=== PATIENT | female | born 1990 | race Caucasian/White ===

== ENCOUNTER 2023-12-05 10:00 | Emergency (ER) | payer MEDICAID, SELFPAY ==
[2023-12-05 10:11] VITALS: BP 111/88; PULSE 81; RESP 20; TEMP 36.2; O2SAT 100; BMI 30.6
[2023-12-05 10:35] LABS: MANUAL DIFF FLAG NO
[2023-12-05 10:42] LABS: Basophils Percent Auto 0.3 % (0-2); Eosinophils Percent Auto 0.4 % (0-4); Hematocrit 42.1 % (37.0-47.0); Hemoglobin 14.8 g/dl (12.0-16.0); Imm Gran Abs Auto 0.07 X10*3/uL (0.00-0.03); Imm Gran Pct Auto 0.8 % (0.0-0.4); Lymphocytes Absolute Auto 2.3 X10*3/uL (1.2-4.9); Lymphocytes Percent Auto 24.7 % (20-40); Mean Corpuscular HGB Conc 35.2 g/dl (31.0-35.0); Mean Corpuscular Hemoglobin 29.1 pg (27.0-33.0); Mean Corpuscular Volume 82.7 fL (80.0-98.0); Mean Platelet Volume 9.9 fL (9.4-12.3); Monocytes Absolute Auto 0.6 X10*3/uL (0.1-1.2); Neutrophils Absolute Auto 6.3 x10*3/uL (2.0-8.3); Neutrophils Percent Auto 67.8 % (45-73); Platelet Count 340 X10*3/uL (160-400); Red Blood Count 5.09 X10*6/uL (4.20-5.50); Red Cell Distribution Width 14.7 % (11.0-16.0); White Blood Count 9.3 X10*3/uL (4.8-10.8)
[2023-12-05 10:58] LABS: Alanine Aminotransferase 23 U/L (0-31); Albumin Level 4.4 g/dL (3.5-5.0); Alkaline Phosphatase 97 U/L (39-117); Anion Gap 18 (12-20); Aspartate Amino Transferase 20 U/L (5-31); Bilirubin Total 0.4 mg/dL (0.0-1.0); Blood Urea Nitrogen 8 mg/dL (9-16); Calcium 9.5 mg/dL (8.4-10.2); Carbon Dioxide 19 mmol/L (22-29); Chloride 109 mmol/L (96-108); Creatinine Clr Calc Pharmacy 107.5; Estimated Glomerular Filt Rate > 60; Glucose Random 99 mg/dL (60-115); HCG Quantitative < 2 mIU/mL; Lipase 34 U/L (8-78); Potassium 3.7 mmol/L (3.3-5.1); Sodium 142 mmol/L (135-145); Total Protein 7.8 g/dL (6.5-8.0)
[2023-12-05 11:15] LABS: Influenza A PCR NEGATIVE (Negative); Influenza B PCR NEGATIVE (Negative); Resp Syncy Virus RNA Qual PCR NEGATIVE (Negative); SARS COV2 PCR INHOUSE NEGATIVE (Negative)
--- NOTE | 2023-12-05 11:29 | PC.NURSE ---
pt left waiting room to go to parking lot to smoke cigarette with .
--- NOTE | 2023-12-05 19:20 | PC.NURSE ---
pt still not in the waiting room at this time.
--- OUTSIDE RECORDS SUMMARY | 2023-12-05 19:42 | XMS_ITS | Continuity of Care Document ---
Author Organization [facility] Address [address] [place] [id number]- Care Team Providers Care Matcher Operator Name Role Phone Ciaran Pisano Primary Care Physician [place] [facility] [place] Date(s): 04/14/23 - 08/11/[address] [id number] Attending Physician: Vilma Zhang CNM Admitting Physician: Vilma Zhang CNM Allergies, Adverse Reactions, Alerts Substance Reaction Severity Status penicillin Swelling Active sulfADIAZINE Swelling Active shellfish throat swelling Active Bactrim Rash Active Peanuts Throat Swelling Active Seafood throart swelling Active Mushroom Throat swelling Active Estradiol Patch bleeding to patch area area Persistent Mild Active Lactose Active Immunizations Given and Recorded Vaccine Date Status Refusal Reason tetanus/diphtheria/pertussis, acel(Tdap) 05/09/23 Given tetanus/diphtheria/pertussis, acel(Tdap) 04/10/17 Given tetanus/diphtheria/pertussis, acel(Tdap) 12/09/13 Given influenza virus vaccine, inactivated 05/09/23 Give n influenza virus vaccine, inactivated 07/16/13 Give n Influenza Inactive (IM) (oldterm) 05/12/17 Given tetanus-diphtheria toxoids (Td) 1 09/07/10 Given 1Admin Note: vis given Medications acetaminophen 325 mg oral capsule 2 capsule = 650 mg, By Mouth, Every 4 hours, PRN as needed for pain, # 50 tablet, 0 Refills, Maintenance, 07/08/23 15:13:00 EST, Capsule, [id number], Partial fill upon patient request if the prescription is for a schedule II opioid drug., 142,... Start Date: 07/08/23 Status: Ordered acetaminophen 325 mg oral capsule 2 capsule = 650 mg, By Mouth, Every 4 hours, PRN as needed for pain, # 50 tablet, 0 Refills, Maintenance, 07/08/23 15:20:00 EST, Capsule, [facility] #[id number], Partial fill upon patient request if the prescription is for a schedule II opioid dr... Start Date: 07/08/23 Status: Ordered albuterol 0.083% inhalation solution 3 mL = 2.5 mg, Neb, Every 4 hours, PRN as needed for wheezing, # 100 each, 3 Refills, Maintenance, 12/14/22 23:08:00 EDT, Solution, [facility]/pharmacy #[id number], Partial fill upon patient request if the prescription is for a schedule II opioid drug., 148, cm, 0... Start Date: 12/14/22 Stop Date: 04/13/23 Status: Ordered albuterol CFC free 90 mcg/inh inhalation aerosol INHALE 2 PUFFS INTO THE LUNGS EVERY 4 (FOUR) HOURS NEEDED FOR SHORTNESS OF BREATH OR WHEEZING Start Date: 09/11/19 Status: Ordered cloNIDine 0.1 mg oral tablet 0.1 mg, 1, tablet, By Mouth, 2 times a day, PRN, Refills 0, Maintenance, Anxiety, 07/03/23 8:21:00 EST, Partial fill upon patient request if the prescription is for a schedule II opioid drug. Start Date: 07/03/23 Status: Ordered Colace sodium 100 mg oral capsule 100 mg, 1, capsule, By Mouth, 2 times a day, PRN, # 20 capsule, Refills 0, Tot. Refills 0, Maintenance, for constipation, 07/08/23 15:14:00 EST, Route to Pharmacy Electronically, [facility]/pharmacy #[id number], Partial fill upon patient request if the prescriptio... Start Date: 07/08/23 Status: Ordered Colace sodium 100 mg oral capsule 100 mg, 1, capsule, By Mouth, 2 times a day, PRN, # 20 capsule, Refills 0, Tot. Refills 0, Maintenance, for constipation, 07/08/23 15:20:00 EST, Route to Pharmacy Electronically, [facility]#[id number], Partial fill upon patient request if the pr... Start Date: 07/08/23 Status: Ordered ferrous gluconate 324 mg oral tablet 1 tablet = 324 mg, By Mouth, Daily, # 100 tablet, 0 Refills, Acute 05/16/24 13:53:00 EDT, 05/15/23 13:52:00 EDT, Tablet, [facility]/pharmacy #[id number], Partial fill upon patient request if the prescription is for a schedule II opioid drug., 147.32, cm, 05/12/23... Start Date: 05/15/23 Stop Date: 05/16/24 Status: Ordered ibuprofen 600 mg oral tablet 600 mg, 1, tablet, By Mouth, Every 6 hours, # 50 tablet, Refills 0, Tot. Refills 0, Maintenance, 07/08/23 15:13:00 EST, Route to Pharmacy Electronically, [facility]/pharmacy #[id number], Partial fill upon patientrequest if the prescription is for a schedule II op... Start Date: 07/08/23 Status: Ordered ibuprofen 600 mg oral tablet 600 mg, 1, tablet, By Mouth, Every 6 hours, # 50 tablet, Refills 0, Tot. Refills 0, Maintenance, 07/08/23 15:20:00 EST, Route to Pharmacy Electronically, [facility] #[id number], Partial fill upon patient request if the prescription is for a sched... Start Date: 07/08/23 Status: Ordered Latuda 20 mg oral tablet 1 tablet = 20 mg, By Mouth, Daily, # 30 tablet, 0 Refills, Maintenance, 01/19/23 10:08:00 EDT, Tablet, [facility]/pharmacy #[id number], Partial fill upon patient request if the prescription is for a schedule II opioid drug., 148, cm, 01/19/23 9:06:00 EDT, Height,... Start Date: 01/19/23 Status: Ordered M- Plus oral tablet 1 tablet, By Mouth, Daily, # 90 tablet, 3 Refills, Maintenance, 12/28/22 9:02:00 EDT, [id number], Partial fill upon patient request if the prescription is for a schedule II opioid drug., 1 tablet By Mouth Daily, 148, cm, 12/14/22 20:09:00 EDT,... Start Date: 12/28/22 Status: Ordered omeprazole 20 mg oral enteric coated capsule 1 capsule = 20 mg, By Mouth, 2 times a day, 30 min before a meal, # 60 capsule, 0 Refills, Maintenance, 04/14/23 19:04:00 EDT, [facility]/pharmacy #[id number], Partial fill upon patient request if the prescription is for a schedule II opioid drug., 148, cm, ... Start Date: 04/14/23 Status: Ordered ondansetron 4 mg oral tablet, disintegrating 1 tablet = 4 mg, By Mouth, Every 6 hours, PRN as needed for nausea/vomiting, # 30 tablet, 0 Refills, Maintenance, 04/10/23 18:51:00 EDT, DIS Tablet, [facility]/pharmacy #[id number], Partial fill upon patient request, 148, cm, 03/14/23 11:37:00 EDT, Height, 63.6, k... Start Date: 04/10/23 Status: Ordered oxyCODONE 5 mg oral tablet 10 mg, 2, tablet, By Mouth, Every 6 hours, PRN, # 12 tablet, Refills 0, Tot. Refills 0, Maintenance, for pain, 07/08/23 15:13:00 EST, Route to Pharmacy Electronically, [facility]/pharmacy #[id number], Partial fill upon patient request if the prescription is for a... Start Date: 07/08/23 Status: Ordered oxyCODONE 5 mg oral tablet 10 mg, 2, tablet, By Mouth, Every 6 hours, PRN, # 12 tablet, Refills 0, Tot. Refills 0, Maintenance, for pain, 07/08/23 15:20:00 EST, Route to Pharmacy Electronically, [facility] #[id number], Partial fill upon patient request if the prescription... Start Date: 07/08/23 Status: Ordered Sertraline By Mouth, Daily, 0 Refills, Maintenance, 01/19/23 9:07:00 EDT, Partial fill upon patient request ifthe prescription is for a schedule II opioid drug. Start Date: 01/19/23 Status: Ordered simethicone 125 mg oral tablet, chewable 1 tablet = 125 mg, Chew, 4 times a day, # 48 tablet, 0 Refills, Maintenance, 07/08/23 15:13:00 EST,Chew Tablet, [facility]/pharmacy #[id number], Partial fill upon patient request if the prescription is for a schedule II opioid drug., 142, cm, 07/01/23 10:05:00 ES... Start Date: 07/08/23 Status: Ordered simethicone 125 mg oral tablet, chewable 1 tablet = 125 mg, Chew, 4 times a day, # 48 tablet, 0 Refills, Maintenance, 07/08/23 15:20:00 EST,Chew Tablet, [facility] #[id number], Partial fill upon patient request if the prescription is for a schedule II opioid drug., 142, cm, 07/01/23 10... Start Date: 07/08/23 Status: Ordered Symbicort 160mcg/4.5mcg Inhaler 2, puffs, Inhalation, 2 times a day, TAKE 2 PUFFS BY MOUTH TWICE A DAY, # 3 each, Refills 0, Tot. Refills 0, Maintenance, 04/10/23 18:53:00 EDT, Inhaler, Route to Pharmacy Electronically, [id number], [facility]/pharmacy #[id number], 148,... Start Date: 04/10/23 Status: Ordered Unisom 25 mg oral tablet 1 tablet = 25 mg, By Mouth, Daily, PRN as needed for sleep, 15 to 30 minutes before bed, # 14 tablet, 0 Refills, Maintenance, 01/19/23 10:26:00 EDT, Tablet, [facility]/pharmacy #[id number], Partial fill upon patient request if the prescription is for a schedule II... 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 Antibody screen positive, presumed to be due to prior RhoGAM Confirmed Active Subclinical hyperthyroidism Confirmed Active Social History Social History Type Response Tobacco Use: 4 or less cigar ettes(less than 1/4 pack)/day in last 30 days. Sex Patient Care team information Care Team Personnel Name: Ciaran Pisano Position: [facility] Outreach Member Role: PCP Address: Address: [address] [place] [phone]- Name: Sergei RNJulieta Position: [facility] OB RN Member Role: Primary Care Nurse Name: Alannah Koenig RN Position: [facility] RN Member Role: Primary Care Nurse Care Team Related Persons Name: EJRSON RESTREPO Address: home [address] [place] [id number] Name: ANUP LOUIS Address: [address] Address: [address] [place] [address] [place] Name: ALEAH PENN Address: [address] [place] [address]
--- OUTSIDE RECORDS SUMMARY | 2023-12-05 19:42 | XMS_ITS | Continuity of Care Document ---
Author Organization [facility] Address [address] [place] [address]- Care Team Providers Care Sales Representative Gas Service Name Role Phone Ciaran Pisano Primary Care Physician Encounter [facility] [place] Date(s): 03/29/23 - 07/27/[address] [id number] Attending Physician: Vilma Zhang CNM Admitting Physician: [...] Refills, Maintenance, 07/08/23 15:13:00 EST, [facility], [id number], Partial fill upon patient request if the prescription is for a schedule II opioid drug., 142,... Start Date: 07/08/23 Status: Ordered acetaminophen 325 mg oral capsule 2 capsule = 650 mg, By Mouth, Every 4 hours, PRN as needed for pain, # 50 tablet, 0 Refills, Maintenance, 07/08/23 15:20:00 EST, Capsule, [facility] #[id number], Partial fill upon patient request if the prescription is for a schedule II opioid dr... Start Date: 07/08/23 Status: Ordered albuterol 0.083% inhalation solution 3 mL = 2.5 mg, Neb, Every 4 hours, PRN as needed for wheezing, # 100 each, 3 Refills, Maintenance, 12/14/22 23:08:00 EDT, Solution, [facility]/pharmacy #[id number], Partial fill upon patient request if the [...] 07/08/23 15:14:00 EST, Route to Pharmacy Electronically, [facility]/pharmacy #[id number], Partial fill upon patient request if the prescriptio... Start Date: 07/08/23 Status: Ordered Colace sodium 100 mg oral capsule 100 mg, 1, capsule, By Mouth, 2 times a day, PRN, # 20 capsule, Refills 0, Tot. Refills 0, Maintenance, for constipation, 07/08/23 15:20:00 EST, Route to Pharmacy Electronically, [facility]#[id number], Partial fill upon patient request if the pr... Start Date: 07/08/23 Status: Ordered ferrous gluconate 324 mg oral tablet 1 tablet = 324 mg, By Mouth, Daily, # 100 tablet, 0 Refills, Acute 05/16/24 13:53:00 EDT, 05/15/23 13:52:00 EDT, Tablet, [facility]/pharmacy #[id number], Partial fill upon patient request if the prescription is for a schedule II opioid drug., 147.32, cm, 05/12/23... Start Date: 05/15/23 Stop Date: 05/16/24 Status: Ordered ibuprofen 600 mg oral tablet 600 mg, 1, tablet, By Mouth, Every 6 hours, # 50 tablet, Refills 0, Tot. Refills 0, Maintenance, 07/08/23 15:13:00 EST, Route to Pharmacy Electronically, [facility]/pharmacy #[id number], Partial fill upon patientrequest if the prescription is for a schedule II op... Start Date: 07/08/23 Status: Ordered ibuprofen 600 mg oral tablet 600 mg, 1, tablet, By Mouth, Every 6 hours, # 50 tablet, Refills 0, Tot. Refills 0, Maintenance, 07/08/23 15:20:00 EST, Route to Pharmacy Electronically, [facility] #[id number], Partial fill upon patient request if the prescription is for a sched... Start Date: 07/08/23 Status: Ordered Latuda 20 mg oral tablet 1 tablet = 20 mg, By Mouth, Daily, # 30 tablet, 0 Refills, Maintenance, 01/19/23 10:08:00 EDT, Tablet, [facility]/pharmacy #[id number], Partial fill upon patient request if the prescription is for a schedule II opioid drug., 148, cm, 01/19/23 9:06:00 EDT, Height,... Start Date: 01/19/23 Status: Ordered M-Rose Marie Plus oral tablet 1 tablet, By Mouth, [...] capsule, 0 Refills, Maintenance, 04/14/23 19:04:00 EDT, [facility]/pharmacy #[id number], Partial fill upon patient request if the prescription is for a schedule II opioid drug., 148, cm, ... Start Date: 04/14/23 Status: Ordered ondansetron 4 mg oral tablet, disintegrating 1 tablet = 4 mg, By Mouth, Every 6 hours, PRN as needed for nausea/vomiting, # 30 tablet, 0 Refills, Maintenance, 04/10/23 18:51:00 EDT, DIS Tablet, [facility]/pharmacy #[id number], Partial fill upon patient request, 148, cm, 03/14/23 11:37:00 EDT, Height, 63.6, k... Start Date: 04/10/23 Status: Ordered oxyCODONE 5 mg oral tablet 10 mg, 2, tablet, By Mouth, Every 6 hours, PRN, # 12 tablet, Refills 0, Tot. Refills 0, Maintenance, for pain, 07/08/23 15:13:00 EST, Route to Pharmacy Electronically, [facility]/pharmacy #[id number], Partial fill upon patient request if the prescription is for a... Start Date: 07/08/23 Status: Ordered oxyCODONE 5 mg oral tablet 10 mg, 2, tablet, By Mouth, Every 6 hours, PRN, # 12 tablet, Refills 0, Tot. Refills 0, Maintenance, for pain, 07/08/23 15:20:00 EST, Route to Pharmacy Electronically, [facility] #[id number], Partial fill upon patient request if the [...] 0 Refills, Maintenance, 07/08/23 15:13:00 EST,Chew Tablet, [facility]/pharmacy #[id number], Partial fill upon patient request if the prescription is for a schedule II opioid drug., 142, cm, 07/01/23 10:05:00 ES... Start Date: 07/08/23 Status: Ordered simethicone 125 mg oral tablet, chewable 1 tablet = 125 mg, Chew, 4 times a day, # 48 tablet, 0 Refills, Maintenance, 07/08/23 15:20:00 EST,Chew Tablet, [facility] #[id number], Partial fill upon patient request if the prescription is for a schedule II opioid drug., 142, cm, 07/01/23 10... Start Date: 07/08/23 Status: Ordered Symbicort 160mcg/4.5mcg Inhaler 2, puffs, Inhalation, 2 times a day, TAKE 2 PUFFS BY MOUTH TWICE A DAY, # 3 each, Refills 0, Tot. Refills 0, Maintenance, 04/10/23 18:53:00 EDT, Inhaler, Route to Pharmacy Electronically, [id number], [facility]/pharmacy #[id number], 148,... Start Date: 04/10/23 Status: Ordered Unisom 25 mg oral tablet 1 tablet = 25 mg, By Mouth, Daily, PRN as needed for sleep, 15 to 30 minutes before bed, # 14 tablet, 0 Refills, Maintenance, 01/19/23 10:26:00 EDT, Tablet, [facility]/pharmacy #[id number], Partial fill upon patient request if the prescription is for a schedule II... Start Date: 01/19/23 Status: Ordered Vitamin B6 50 mg oral tablet 1, tablet, By Mouth, 3 times a day, # 90 tablet, Refills 0, Maintenance, 03/06/23 7:49:00 EDT, Route to Pharmacy Electronically, [facility] [id number], 148, cm, 02/17/23 9:30:00 EDT, Height, 60.3, [...] RhoGAM Confirmed Active Subclinical hyperthyroidism Confirmed Active Vital Signs Most recent to oldest [Reference Range]: 1 Height 148 cm (05/09/23 3:26 PM) Social History Social History Type Response Tobacco Use: 4 or less cigar ettes(less than 1/4 pack)/day in last 30 days. Sex Patient Care team information Care Team Personnel Name: Ciaran Pisano Position: S Outreach Member Role: PCP Address: Address: [address] [place] [id number]- Name: Julieta Mai RN Position: [facility] OB RN Member Role: Primary Care Nurse Name: Alannah Koenig RN Position: S RN Member Role: Primary Care Nurse Care Team Related Persons Name: JERSON RESTREPO Address: home [address] [place] [id number] Name: IVONNE PENN Address: [address] Address: home [address] [place] [address] [place] Name: ALEAH PENN Address: home [address] [place] [address]
--- OUTSIDE RECORDS SUMMARY | 2023-12-05 19:42 | XMS_ITS | Continuity of Care Document ---
Author Organization [facility] Address [address] [place] [phone]- Care Team Providers Care Automotive Sales Manager Name Role Phone Ciaran Pisano Primary Care Physician [phone] [place] [facility] [place] - 06/14/[address] [id number] Allergies, Adverse Reactions, Alerts Substance Reaction Severity Status penicillin Swelling Active lactulose Stomach pain Active Estradiol Patch bleeding to patch area area Persistent Mild Active sulfADIAZINE Swelling Active shellfish throat swelling Active Bactrim Rash Active Peanuts Throat Swelling Active Seafood throart swelling Active Mushroom Throat swelling Active Immunizations Given and Recorded Vaccine Date Status Refusal Reason tetanus/diphtheria/pertussis, acel(Tdap) 05/09/23 Given tetanus/diphtheria/pertussis, acel(Tdap) 04/10/17 Given tetanus/diphtheria/pertussis, acel(Tdap) 12/09/13 Given influenza virus vaccine, inactivated 05/09/23 Give n influenza virus vaccine, inactivated 07/16/13 Give n Influenza Inactive (IM) (oldterm) 05/12/17 Given tetanus-diphtheria toxoids (Td) 1 09/07/10 Given 1Admin Note: vis given Medications albuterol 0.083% inhalation solution 3 mL = 2.5 mg, Neb, Every 4 hours, PRN as needed for wheezing, # 100 each, 3 Refills, Maintenance, 12/14/22 23:08:00 EDT, Solution, [id number], Partial fill upon patient request if the prescription is for a schedule II opioid drug., 148, cm, 0... Start Date: 12/14/22 Stop Date: 04/13/23 Status: Ordered albuterol CFC free 90 mcg/inh inhalation aerosol INHALE 2 PUFFS INTO THE LUNGS EVERY 4 (FOUR) HOURS NEEDED FOR SHORTNESS OF BREATH OR WHEEZING Start Date: 09/11/19 Status: Ordered ferrous gluconate 324 mg oral tablet 1 tablet = 324 mg, By Mouth, Daily, # 100 tablet, 0 Refills, Acute 05/16/24 13:53:00 EDT, 05/15/23 13:52:00 EDT, Tablet, [facility]/pharmacy #[id number], Partial fill upon patient request if the prescription is for a schedule II opioid drug., 147.32, cm, 05/12/23... Start Date: 05/15/23 Stop Date: 05/16/24 Status: Ordered Latuda 20 mg oral tablet 1 tablet = 20 mg, By Mouth, Daily, # 30 tablet, 0 Refills, Maintenance, 01/19/23 10:08:00 EDT, Tablet, [id number], Partial fill upon patient request [...] capsule, 0 Refills, Maintenance, 04/14/23 19:04:00 EDT, [id number], Partial fill upon patient request if the prescription is for a schedule II opioid drug., 148, cm, ... Start Date: 04/14/23 Status: Ordered ondansetron 4 mg oral tablet, disintegrating 1 tablet = 4 mg, By Mouth, Every 6 hours, PRN as needed for nausea/vomiting, # 30 tablet, 0 Refills, Maintenance, 04/10/23 18:51:00 EDT, DIS Tablet, [id number], Partial fill upon patient request, 148, cm, 03/14/23 11:37:00 EDT, Height, 63.6, k... Start Date: 04/10/23 Status: Ordered Sertraline By Mouth, Daily, 0 Refills, Maintenance, 01/19/23 9:07:00 EDT, Partial fill upon patient request ifthe prescription is for a schedule II opioid drug. Start Date: 01/19/23 Status: Ordered Symbicort 160mcg/4.5mcg Inhaler 2, puffs, Inhalation, 2 times a day, TAKE 2 PUFFS BY MOUTH TWICE A DAY, # 3 each, Refills 0, Tot. Refills 0, Maintenance, 04/10/23 18:53:00 EDT, Inhaler, Route to Pharmacy Electronically, [id number], [facility]/pharmacy #[id number], 148,... Start Date: 04/10/23 Status: Ordered Unisom 25 mg oral tablet 1 tablet = 25 mg, By Mouth, Daily, PRN as needed for sleep, 15 to 30 minutes before bed, # 14 tablet, 0 Refills, Maintenance, 01/19/23 10:26:00 EDT, Tablet, [facility]/pharmacy #[id number], Partial fill upon patient request if the prescription is for a schedule II... Start Date: 01/19/23 Status: Ordered Vitamin B6 50 mg oral tablet 1, tablet, By Mouth, 3 times a day, # 90 tablet, Refills 0, Maintenance, 03/06/23 7:49:00 EDT, Route to Pharmacy Electronically, [id number], 148, cm, 02/17/23 9:30:00 EDT, Height, 60.3, [...] 1/4 pack)/day in last 30 days. Sex Female Patient Care team information Care Team Personnel Name: Ciaran Pisano Position: S Outreach Member Role: PCP Address: Address: [address] [place] [address]- Name: Julieta Mai RN Position: [facility] OB RN Member Role: Primary Care Nurse Name: Alannah Koenig RN Position: S RN Member Role: Primary Care Nurse Care Team Related Persons Name: JERSON RESTREPO Address: home [address] [address] Name: ALEAH PENN Address: home [address] [place] [address]
--- OUTSIDE RECORDS SUMMARY | 2023-12-05 19:42 | XMS_ITS | Continuity of Care Document ---
Author Organization [facility] Address [address] [place] [phone]- Care Team Providers Care Manager Agency Name Role Phone Ciaran Pisano Primary Care Physician Encounter [facility] [place] [place] Date(s): 05/09/23 - 06/08/[address] [id number] Allergies, Adverse Reactions, Alerts Substance Reaction Severity Status penicillin Swelling Active sulfADIAZINE Swelling Active lactulose Stomach pain Active shellfish throat swelling Active Bactrim Rash Active Peanuts Throat Swelling Active Seafood throart swelling Active Mushroom Throat swelling Active Estradiol Patch bleeding to patch area area Persistent Mild Active Immunizations Given and Recorded Vaccine Date [...] Refills, Maintenance, 12/14/22 23:08:00 EDT, [facility], [id number], Partial fill upon patient request if the [...] 05/16/24 13:53:00 EDT, 05/15/23 13:52:00 EDT, Tablet, [facility]/pharmacy #[id number], Partial fill upon patient request if [...] 18:53:00 EDT, Inhaler, Route to Pharmacy Electronically, [id number], [facility]/pharmacy #[id number], 148,... Start Date: 04/10/23 Status: Ordered Unisom 25 mg oral tablet 1 tablet = 25 mg, By Mouth, Daily, PRN as needed for sleep, 15 to 30 minutes before bed, # 14 tablet, 0 Refills, Maintenance, 01/19/23 10:26:00 EDT, Tablet, [facility]/pharmacy #[id number], Partial fill upon patient request if the prescription is for a schedule II... Start Date: 01/19/23 Status: Ordered Vitamin B6 50 mg oral tablet 1, tablet, By Mouth, 3 times a day, # 90 tablet, Refills 0, Maintenance, 03/06/23 7:49:00 EDT, Route to Pharmacy Electronically, [id number], 148, cm, 02/17/23 9:30:00 EDT, Height, 60.3, [...] S Outreach Member Role: PCP Address: Address: [address] [place] [id number]- Name: Julieta Mai RN Position: [facility] OB RN Member Role: Primary Care Nurse Name: Alannah Koenig RN Position: S RN Member Role: Primary Care Nurse Care Team Related Persons Name: JERSON RESTREPO Address: home [address] [address] Name: ALEAH PENN Address: home [address] [place] [address]
--- OUTSIDE RECORDS SUMMARY | 2023-12-05 19:42 | XMS_ITS | Continuity of Care Document ---
Author Organization [facility] Address [address] [place] [address]- Care Team Providers Care Buckle And Button Maker Name Role Phone Ciaran Pisano Primary Care Physician Encounter [facility] Date(s): 02/28/23 - 03/30/[address] [id number] Allergies, Adverse Reactions, Alerts Substance Reaction Severity Status penicillin Active sulfADIAZINE Active lactulose Active Bactrim Active Peanuts Active Seafood Active Mushroom Active Estradiol Patch Persistent Mild Active Immunizations Given and Recorded Vaccine Date Status Refusal Reason Influenza Inactive (IM) (oldterm) 05/12/17 Given tetanus/diphtheria/pertussis, acel(Tdap) 04/10/17 Given tetanus/diphtheria/pertussis, acel(Tdap) 12/09/13 Given influenza virus vaccine, inactivated 07/16/13 Give n tetanus-diphtheria toxoids (Td) 1 09/07/10 Given 1Admin Note: vis given Medications albuterol 0.083% inhalation solution 3 mL = 2.5 mg, Neb, Every 4 hours, PRN as needed for wheezing, # 100 each, 3 Refills, Maintenance, 12/14/22 23:08:00 EDT, Solution, [facility]/pharmacy #[id number], Partial fill upon patient request if the prescription is for a schedule II opioid drug., 148, cm, 0... Start Date: 12/14/22 Stop Date: 04/13/23 Status: Ordered albuterol CFC free 90 mcg/inh inhalation aerosol INHALE 2 PUFFS INTO THE LUNGS EVERY 4 (FOUR) HOURS NEEDED FOR SHORTNESS OF BREATH OR WHEEZING Start Date: 09/11/19 Status: Ordered famotidine 20 mg oral tablet 1, tablet, By Mouth, Daily, # 30 tablet, Refills 0, Maintenance, 02/20/23 11:18:00 EDT, Route to Pharmacy Electronically, [facility] STORE [id number], 148, cm, 02/17/23 9:30:00 EDT, Height, 60.3, kg, 02/11/23 8:59:00 EDT, Dry Weight Start Date: 02/20/23 Stop Date: 03/22/23 Status: Ordered Latuda 20 mg oral tablet 1 tablet = 20 mg, By Mouth, Daily, # 30 tablet, 0 Refills, Maintenance, 01/19/23 10:08:00 EDT, Tablet, [facility]/pharmacy #[id number], Partial fill upon patient [...] 20:09:00 EDT,... Start Date: 12/28/22 Status: Ordered ondansetron 4 mg oral tablet, disintegrating 1 tablet = 4 mg, By Mouth, Every 6 hours, PRN as needed for nausea/vomiting, # 120 tablet, 1 Refills, Maintenance, 02/17/23 9:55:00 EDT, DIS Tablet, [id number], Partial fill upon patient request, 148, cm, 02/17/23 9:30:00 EDT, Height, 60.3, kg... Start Date: 02/17/23 Stop Date: 02/20/23 Status: Ordered Sertraline By Mouth, Daily, 0 Refills, Maintenance, 01/19/23 9:07:00 EDT, Partial fill upon patient request ifthe prescription is for a schedule II opioid drug. Start Date: 01/19/23 Status: Ordered Symbicort 160mcg/4.5mcg Inhaler 2, puffs, Inhalation, 2 times a day, TAKE 2 PUFFS BY MOUTH TWICE A DAY, # 3 each, Refills 0, Tot. Refills 0, Maintenance, 01/19/23 10:08:00 EDT, Inhaler, Route to Pharmacy Electronically, [id number], [facility]/pharmacy #[id number], 148,... Start Date: 01/19/23 Status: Ordered Unisom 25 mg oral tablet 1 tablet = 25 mg, By Mouth, Daily, PRN as needed for sleep, 15 to 30 minutes before bed, # 14 tablet, 0 Refills, Maintenance, 01/19/23 10:26:00 EDT, Tablet, [facility]/pharmacy #[id number], Partial fill upon patient request if the prescription is for a schedule II... Start Date: 01/19/23 Status: Ordered Vitamin B6 50 mg oral tablet 1, tablet, By Mouth, 3 times a day, # 90 tablet, Refills 0, Maintenance, 03/06/23 7:49:00 EDT, Route to [facility] Electronically, [id number], 148, cm, 02/17/23 9:30:00 EDT, Height, 60.3, kg, 02/11/23 8:59:00 EDT, Dry Weight Start Date: 03/06/23 Status: Ordered Problem List Condition Confirmation Course Effective Dates Status H ealth Status Informant Anemia in Confirmed Active Marijuana use Confirmed Active LGSIL on Pap smear of cervix Confirmed Active Cocaine use complicating Confirmed Active Contraception management Confirmed Active History of 2 sections Confirmed Active Rh negative state in antepartum period Confirmed Active Social History Social History Type Response Tobacco Use: 4 or less cigar ettes(less than 1/4 pack)/day in last 30 days. Sex Female Patient Care team information Care Team Personnel Name: Ciaran Pisano Position: [facility] Outreach Member Role: PCP Address: Address: [address] [place] [address]- Name: Sergei GARCIA, Julieta Gilmore Position: [facility] OB RN Member Role: Primary Care Nurse Name: Alannah Koenig RN Position: S RN Member Role: Primary Care Nurse Care Team Related Persons Name: JERSON RESTREPO Address: [address] [address] Name: ALEAH PENN Address: home [address] [place] [address]
--- OUTSIDE RECORDS SUMMARY | 2023-12-05 19:42 | XMS_ITS | Continuity of Care Document ---
Author Organization [facility] Address [address] [place] [address]- Care Team Providers Care Guest Relations Agent Name Role Phone Ciaran Pisano Primary Care Physician [phone] Encounter [facility] Date(s): 05/09/23 - 06/08/[address] [address] Allergies, Adverse Reactions, Alerts Substance Reaction Severity [...] Refills, Maintenance, 12/14/22 23:08:00 EDT, [facility], [id number], Partial fill upon patient request if the [...] 05/16/24 13:53:00 EDT, 05/15/23 13:52:00 EDT, Tablet, [facility]/pharmacy #[id number], Partial fill upon patient request [...] 18:53:00 EDT, Inhaler, Route to Pharmacy Electronically, [id number], [facility]/pharmacy #0488, 148,... Start Date: 04/10/23 Status: Ordered Unisom 25 mg oral tablet 1 tablet = 25 mg, By Mouth, Daily, PRN as needed for sleep, 15 to 30 minutes before bed, # 14 tablet, 0 Refills, Maintenance, 01/19/23 10:26:00 EDT, Tablet, [facility]/pharmacy #[id number], Partial fill upon patient request if the prescription is for a schedule II... Start Date: 01/19/23 Status: Ordered Vitamin B6 50 mg oral tablet 1, tablet, By Mouth, 3 times a day, # 90 tablet, Refills 0, Maintenance, 03/06/23 7:49:00 EDT, Route to Pharmacy Electronically, [facility] STORE [id number], 148, cm, 02/17/23 9:30:00 EDT, Height, 60.3, [...] S Outreach Member Role: PCP Address: Address: [address] [place] [address]- Name: Julieta Mai RN Position: [facility] OB RN Member Role: Primary Care Nurse Name: Alannah Koenig RN Position: S RN Member Role: Primary Care Nurse Care Team Related Persons Name: JERSON RESTREPO Address: [address] [address] Name: ALEAH PENN Address: home [address] [place] [address]
--- OUTSIDE RECORDS SUMMARY | 2023-12-05 19:43 | XMS_ITS | Continuity of Care Document ---
Author Organization [facility] Address [address] [place] [address]- Care Team Providers Care Geophysical Drafter Name Role Phone Ciaran Pisano Primary Care Physician [place] [facility] [place] 08/16/23 - 09/15/23 [facility] [address] [place] [address]- Attending Physician: Wade Gage Admitting Physician: Wade Gage Referring Physician: AdmtrWade Allergies, Adverse Reactions, Alerts Substance Reaction Severity Status penicillin Swelling Active Bactrim Rash Active Mushroom Throat swelling Active Lactose Active sulfADIAZINE Swelling Active shellfish throat swelling Active Peanuts Throat Swelling Active Seafood throart swelling Active Estradiol Patch bleeding to patch [...] Refills, Maintenance, 07/08/23 15:13:00 EST, [facility], [id number], Partial fill upon patient request if the prescription is for a schedule II opioid drug., 142,... Start Date: 07/08/23 Status: Ordered acetaminophen 325 mg oral capsule 2 capsule = 650 mg, By Mouth, Every 4 hours, PRN as needed for pain, # 50 tablet, 0 Refills, Maintenance, 07/08/23 15:20:00 EST, Capsule, [facility] #[id number], Partial fill upon patient request if the prescription is for a schedule II opioid dr... Start Date: 07/08/23 Status: Ordered albuterol 0.083% inhalation solution 3 mL = 2.5 mg, Neb, Every 4 hours, PRN as needed for wheezing, # 100 each, 3 Refills, Maintenance, 12/14/22 23:08:00 EDT, Solution, [facility]/pharmacy #7021, Partial fill upon patient request if the [...] 07/08/23 15:14:00 EST, Route to Pharmacy Electronically, [facility]/pharmacy #[id number], Partial fill upon patient request if the prescriptio... Start Date: 07/08/23 Status: Ordered Colace sodium 100 mg oral capsule 100 mg, 1, capsule, By Mouth, 2 times a day, PRN, # 20 capsule, Refills 0, Tot. Refills 0, Maintenance, for constipation, 07/08/23 15:20:00 EST, Route to Pharmacy Electronically, [facility]#[id number], Partial fill upon patient request if the pr... Start Date: 07/08/23 Status: Ordered ferrous gluconate 324 mg oral tablet 1 tablet = 324 mg, By Mouth, Daily, # 100 tablet, 0 Refills, Acute 05/16/24 13:53:00 EDT, 05/15/23 13:52:00 EDT, Tablet, [id number], Partial fill upon patient request if the prescription is for a schedule II opioid drug., 147.32, cm, 05/12/23... Start Date: 05/15/23 Stop Date: 05/16/24 Status: Ordered ibuprofen 600 mg oral tablet 600 mg, 1, tablet, By Mouth, Every 6 hours, # 50 tablet, Refills 0, Tot. Refills 0, Maintenance, 07/08/23 15:13:00 EST, Route to Pharmacy [facility]ically, [id number], Partial fill upon patientrequest if the prescription is for a schedule II op... Start Date: 07/08/23 Status: Ordered ibuprofen 600 mg oral tablet 600 mg, 1, tablet, By Mouth, Every 6 hours, # 50 tablet, Refills 0, Tot. Refills 0, Maintenance, 07/08/23 15:20:00 EST, Route to Pharmacy Electronically, [facility] #[id number], Partial fill upon patient request if the [...] capsule, 0 Refills, Maintenance, 04/14/23 19:04:00 EDT, [facility]/pharmacy #[id number], Partial fill upon patient request if [...] 07/08/23 15:13:00 EST, Route to Pharmacy Electronically, [facility]/pharmacy #[id number], Partial fill upon patient request if the prescription is for a... Start Date: 07/08/23 Status: Ordered oxyCODONE 5 mg oral tablet 10 mg, 2, tablet, By Mouth, Every 6 hours, PRN, # 12 tablet, Refills 0, Tot. Refills 0, Maintenance, for pain, 07/08/23 15:20:00 EST, [facility], [id number], Partial fill upon patient request if the [...] 0 Refills, Maintenance, 07/08/23 15:13:00 EST,Chew Tablet, [facility]/pharmacy #[id number], Partial fill upon patient request if the prescription is for a schedule II opioid drug., 142, cm, 07/01/23 10:05:00 ES... Start Date: 07/08/23 Status: Ordered simethicone 125 mg oral tablet, chewable 1 tablet = 125 mg, Chew, 4 times a day, # 48 tablet, 0 Refills, Maintenance, 07/08/23 15:20:00 EST,Chew Tablet, [facility] #[id number], Partial fill upon patient request if the prescription is for a schedule II opioid drug., 142, cm, 07/01/23 10... Start Date: 07/08/23 Status: Ordered Symbicort 160mcg/4.5mcg Inhaler 2, puffs, Inhalation, 2 times a day, TAKE 2 PUFFS BY MOUTH TWICE A DAY, # 3 each, Refills 0, Tot. Refills 0, Maintenance, 04/10/23 18:53:00 EDT, Inhaler, Route to Pharmacy Electronically, [id number], [facility]/pharmacy #[id number], 148,... Start Date: 04/10/23 Status: Ordered Unisom 25 mg oral tablet 1 tablet = 25 mg, By Mouth, Daily, PRN as needed for sleep, 15 to 30 minutes before bed, # 14 tablet, 0 Refills, Maintenance, 01/19/23 10:26:00 EDT, Tablet, [facility]/pharmacy #[id number], Partial fill upon patient request if the prescription is for a schedule II... Start Date: 01/19/23 Status: Ordered Vitamin B6 50 mg oral tablet 1, tablet, By Mouth, 3 times a day, # 90 tablet, Refills 0, Maintenance, 03/06/23 7:49:00 EDT, Route to Pharmacy Electronically, [facility] 62185, 148, cm, 02/17/23 9:30:00 EDT, Height, 60.3, [...] Care Team Personnel Name: Ciaran Pisano Position: [facility] Outreach Member Role: PCP Address: Address: [address] [place] [address]- Name: Sergei RNJulieta Position: [facility] OB RN Member Role: Primary Care Nurse Care Team Related Persons Name: JERSON RESTREPO Address: [address] [address] Name: ANUP LOUIS Address: [address] Address: home [address] [place] [address] [place] Name: ALEAH PENN Address: home [address] [place] [address]
--- OUTSIDE RECORDS SUMMARY | 2023-12-05 19:43 | XMS_ITS | Continuity of Care Document ---
Author Organization [facility] Address [address] [place] [address]- Care Team Providers Care Flight Mechanic Name Role Phone Ciaran Pisano Primary Care Physician [place] [facility] [place]s): 06/28/23 - 08/03/23 [facility] [address] [place] [id number] Attending Physician: Not on Staff, Attending MD Referring Physician: Ashly BALES, Anni Lane Allergies, Adverse Reactions, Alerts Substance Reaction Severity [...] Refills, Maintenance, 07/08/23 15:13:00 EST, [facility]aps[facility], [id number], Partial fill upon patient request if the prescription is for a schedule II opioid drug., 142,... Start Date: 07/08/23 Status: Ordered acetaminophen 325 mg oral capsule 2 capsule = 650 mg, By Mouth, Every 4 hours, PRN as needed for pain, # 50 tablet, 0 Refills, Maintenance, 07/08/23 15:20:00 EST, Capsule, [facility] #[id number], Partial fill upon patient request if the prescription is for a schedule II opioid dr... Start Date: 07/08/23 Status: Ordered albuterol 0.083% inhalation solution 3 mL = 2.5 mg, Neb, Every 4 hours, PRN as needed for wheezing, # 100 each, 3 Refills, Maintenance, 12/14/22 23:08:00 EDT, Solution, [facility]/pharmacy #[id number], Partial fill upon patient request if [...] EST, Route to Pharmacy Electronically, [facility]/pharmacy #[id number], Partial fill upon patient request if the prescriptio... Start Date: 07/08/23 Status: Ordered Colace sodium 100 mg oral capsule 100 mg, 1, capsule, By Mouth, 2 times a day, PRN, # 20 capsule, Refills 0, Tot. Refills 0, Maintenance, for constipation, 07/08/23 15:20:00 EST, Route to Pharmacy Electronically, [facility]#[id number], Partial fill upon patient request if the pr... Start Date: 07/08/23 Status: Ordered ferrous gluconate 324 mg oral tablet 1 tablet = 324 mg, By Mouth, Daily, # 100 tablet, 0 Refills, Acute 05/16/24 13:53:00 EDT, 05/15/23 13:52:00 EDT, Tablet, [facility]/pharmacy #[id number], Partial fill upon patient request if the prescription is for a schedule II opioid drug., 147.32, cm, 05/12/23... Start Date: 05/15/23 Stop Date: 05/16/24 Status: Ordered ibuprofen 600 mg oral tablet 600 mg, 1, tablet, By Mouth, Every 6 hours, # 50 tablet, Refills 0, Tot. Refills 0, Maintenance, 07/08/23 15:13:00 EST, Route to Pharmacy Electronically, [facility]/pharmacy #[id number], Partial fill upon patientrequest if the prescription is for a schedule II op... Start Date: 07/08/23 Status: Ordered ibuprofen 600 mg oral tablet 600 mg, 1, tablet, By Mouth, Every 6 hours, # 50 tablet, Refills 0, Tot. Refills 0, Maintenance, 07/08/23 15:20:00 EST, Route to Pharmacy Electronically, [facility] #[id number], Partial fill upon patient request if the [...] Refills, Maintenance, 04/14/23 19:04:00 EDT, [facility]/pharmacy #[id number], Partial fill upon patient request if [...] EST, Route to Pharmacy Electronically, [facility]/pharmacy #[id number], Partial fill upon patient request if the prescription is for a... Start Date: 07/08/23 Status: Ordered oxyCODONE 5 mg oral tablet 10 mg, 2, tablet, By Mouth, Every 6 hours, PRN, # 12 tablet, Refills 0, Tot. Refills 0, Maintenance, for pain, 07/08/23 15:20:00 EST, Route to Pharmacy Electronically, [facility] #[id number], Partial fill upon patient request if the [...] Maintenance, 07/08/23 15:13:00 EST,Chew Tablet, [facility]/pharmacy #[id number], Partial fill upon patient request if the prescription is for a schedule II opioid drug., 142, cm, 07/01/23 10:05:00 ES... Start Date: 07/08/23 Status: Ordered simethicone 125 mg oral tablet, chewable 1 tablet = 125 mg, Chew, 4 times a day, # 48 tablet, 0 Refills, Maintenance, 07/08/23 15:20:00 EST,Chew Tablet, [facility] #[id number], Partial fill upon patient request if the prescription is for a schedule II opioid drug., 142, cm, 07/01/23 10... Start Date: 07/08/23 Status: Ordered Symbicort 160mcg/4.5mcg Inhaler 2, puffs, Inhalation, 2 times a day, TAKE 2 PUFFS BY MOUTH TWICE A DAY, # 3 each, Refills 0, Tot. Refills 0, Maintenance, 04/10/23 18:53:00 EDT, Inhaler, Route to Pharmacy Electronically, [id number], [facility]/pharmacy #[id number], 148,... Start Date: 04/10/23 Status: Ordered Unisom 25 mg oral tablet 1 tablet = 25 mg, By Mouth, Daily, PRN as needed for sleep, 15 to 30 minutes before bed, # 14 tablet, 0 Refills, Maintenance, 01/19/23 10:26:00 EDT, Tablet, [id number], Partial fill upon patient request if the prescription is for a schedule II... Start Date: 01/19/23 Status: Ordered Vitamin B6 50 mg oral tablet 1, tablet, By Mouth, 3 times a day, # 90 tablet, Refills 0, Maintenance, 03/06/23 7:49:00 EDT, Route to Pharmacy Electronically, [facility] 54482, 148, cm, 02/17/23 9:30:00 EDT, Height, 60.3, [...] Care Team Personnel Name: Ciaran Pisano Position: [facility] Outreach Member Role: PCP Address: Address: [address] [place] [address]- Name: Sergei GARCIA, Julieta Gilmore Position: [facility] OB RN Member Role: Primary Care Nurse Name: Alannah Koenig RN Position: [facility] RN Member Role: Primary Care Nurse Care Team Related Persons Name: KAYE JERSON Address: home [address] [address] Name: ANUP LOUIS Address: [address] Address: home [address] [place] [address] [place] Name: ALEAH PENN Address: home [address] [place] [address]
--- OUTSIDE RECORDS SUMMARY | 2023-12-05 19:43 | XMS_ITS | Continuity of Care Document ---
Author Organization [facility] Address [address] [place] [address]- Care Team Providers Care Vice President Global Digital Marketing Name Role Phone Ciaran Pisano Primary Care Physician Encounter [facility] Date(s): 05/03/23 - 06/11/[address] [address] Attending Physician: Not on Staff, Attending MD Allergies, Adverse Reactions, Alerts Substance Reaction Severity Status penicillin Swelling Active sulfADIAZINE Swelling Active lactulose Stomach pain Active shellfish throat swelling Active Bactrim Rash Active Mushroom Throat swelling Active Estradiol Patch bleeding to patch area area Persistent Mild Active Peanuts Throat Swelling Active Seafood throart swelling Active Immunizations Given and Recorded Vaccine [...] Refills, Maintenance, 12/14/22 23:08:00 EDT, [facility], [id number], Partial fill upon patient request if the [...] 05/16/24 13:53:00 EDT, 05/15/23 13:52:00 EDT, Tablet, [facility]/pharmacy #[id number], Partial fill upon patient request if the prescription is for a schedule II opioid drug., 147.32, cm, 05/12/23... Start Date: 05/15/23 Stop Date: 05/16/24 Status: Ordered Latuda 20 mg oral tablet 1 tablet = 20 mg, By Mouth, Daily, # 30 tablet, 0 Refills, Maintenance, 01/19/23 10:08:00 EDT, Tablet, [facility]/pharmacy #[id number], Partial fill upon patient request [...] 18:53:00 EDT, Inhaler, Route to Pharmacy Electronically, [id number], [facility]/pharmacy #[id number], 148,... Start Date: 04/10/23 Status: [...] 03/06/23 7:49:00 EDT, Route to Pharmacy Electronically, [facility] [id number], 148, cm, 02/17/23 9:30:00 EDT, Height, 60.3, [...] Care Team Personnel Name: Ciaran Pisano Position: [facility] Outreach Member Role: PCP Address: Address: [address] [place] [address]- Name: Sergei GARCIA, Julieta Gilmore Position: [facility] OB RN Member Role: Primary Care Nurse Name: Alannah Koenig RN Position: [facility] RN Member Role: Primary Care Nurse Care Team Related Persons Name: JERSON RESTREPO Address: [address] [address] Name: ALEAH PENN Address: home [address] [place] [address]
--- OUTSIDE RECORDS SUMMARY | 2023-12-05 19:43 | XMS_ITS | Continuity of Care Document ---
Author Organization [facility] Address [address] [place] [address]- Care Team Providers Care Tissue Coordinator Name Role Phone Ciaran Pisano Primary Care Physician Encounter [facility] Date(s): 05/15/23 - 06/14/23 [facility] [address] [place] [id number] Allergies, Adverse Reactions, Alerts Substance [...] Refills, Maintenance, 12/14/22 23:08:00 EDT, [facility], [id number], Partial fill upon patient request if the [...] 18:53:00 EDT, Inhaler, Route to Pharmacy Electronically, [id number], [facility]/pharmacy #0488, 148,... Start Date: 04/10/23 Status: Ordered Unisom 25 mg oral tablet 1 tablet = 25 mg, By Mouth, Daily, PRN as needed for sleep, 15 to 30 minutes before bed, # 14 tablet, 0 Refills, Maintenance, 01/19/23 10:26:00 EDT, Tablet, [facility]/pharmacy #[id number], Partial fill upon patient request if the prescription is for a schedule II... Start Date: 01/19/23 Status: Ordered Vitamin B6 50 mg oral tablet 1, tablet, By Mouth, 3 times a day, # 90 tablet, Refills 0, Maintenance, 03/06/23 7:49:00 EDT, Route to Pharmacy Electronically, [facility] [id number], 148, cm, 02/17/23 9:30:00 EDT, Height, 60.3, [...] Care Team Personnel Name: Ciaran Pisano Position: [facility] Outreach Member Role: PCP Address: Address: [address] [place] [address]- Name: Sergei GARCIA, Julieta Gilmore Position: [facility] OB RN Member Role: Primary Care Nurse Name: Alannah Koenig RN Position: [facility] RN Member Role: Primary Care Nurse Care Team Related Persons Name: JERSON RESTREPO Address: home [address] [address] Name: ALEAH PENN Address: home [address] [place] [address]
--- OUTSIDE RECORDS SUMMARY | 2023-12-05 19:43 | XMS_ITS | Continuity of Care Document ---
Author Organization [facility] ter Address [address] [place] [id number]- Care Team Providers Care Singer Songwriter Name Role Phone Ciaran Pisano Primary Care Physician Encounter [facility] [place](s): 06/15/23 - 06/16/[address] [address]- Discharge Disposition: A-D/C Home Attending Physician: Pranay King MD Admitting Physician: Pranay King MD Referring Physician: Pranay King MD Allergies, Adverse Reactions, Alerts Substance Reaction Severity Status penicillin Swelling Active Peanuts Throat Swelling Active Seafood throart swelling Active Estradiol Patch bleeding to patch area area Persistent Mild Active Lactose Active sulfADIAZINE Swelling Active shellfish throat swelling Active Bactrim Rash Active Mushroom Throat swelling Active Immunizations Given [...] Refills, Maintenance, 12/14/22 23:08:00 EDT, Solution, [id number], Partial fill upon patient request if the [...] 05/16/24 13:53:00 EDT, 05/15/23 13:52:00 EDT, Tablet, [id number], Partial fill upon patient request if the prescription is for a schedule II opioid drug., 147.32, cm, 05/12/23... Start Date: 05/15/23 Stop Date: 05/16/24 Status: Ordered Latuda 20 mg oral tablet 1 tablet = 20 mg, By Mouth, Daily, # 30 tablet, 0 Refills, Maintenance, 01/19/23 10:08:00 EDT, Tablet, [id number], Partial fill upon patient request if the prescription is for a schedule II opioid drug., 148, cm, 01/19/23 9:06:00 EDT, Height,... Start Date: 01/19/23 Status: Ordered M-Rose Marie Plus oral tablet 1 tablet, By Mouth, Daily, # 90 tablet, 3 Refills, Maintenance, 12/28/22 9:02:00 EDT, [id number], Partial fill upon patient request if the prescription is for a schedule II opioid drug., 1 tablet By Mouth Daily, 148, cm, 12/14/22 20:09:00 EDT,... Start Date: 12/28/22 Status: Ordered NIFEdipine Capsule 10 mg, Capsule, By Mouth, Start 6 hours after LOADING Dose, 06/16/23 4:00:00 EST, Stop date 06/16/23 4:00:00 EST Start Date: 06/16/23 Stop Date: 06/16/23 Status: Completed omeprazole 20 mg oral enteric coated capsule [...] 18:53:00 EDT, Inhaler, Route to Pharmacy Electronically, [id number], [id number], 148,... Start Date: 04/10/23 Status: Ordered [...] 03/06/23 7:49:00 EDT, Route to Pharmacy Electronically, [id number], 148, cm, 02/17/23 9:30:00 EDT, Height, 60.3, [...] RhoGAM Confirmed Active Subclinical hyperthyroidism Confirmed Active Results Orders for Microbiology Reports Name Date Urine Culture 06/15/23 Microbiology Reports TEST:Urine Culture STATUS:Auth (Verified) BODY SITE: SOURCE:URINE COLLECTED DATE/TIME:06/15/23 8:50 PM Urine Culture SPECIMEN DESCRIPTION : URINE CLEAN CATCH/MIDSTREAM SPECIAL REQUESTS : NONE CULTURE : NO GROWTH REPORT STATUS : FINAL 06/16/2023 Vital Signs Most recent to oldest [Reference Range]: 1 2 3 Height 142 cm (06/16/23 1:27 AM) 142 cm (06/15/23 8:09 PM) Weight 71.2 kg (06/16/23 1:27 AM) 71.0 kg (06/15/23 7:43 PM) Oxygen Saturation [94-100 %] 100 % (06/16/23 10:15 AM) 100 % (06/16/23 5:45 AM) 99 % (06/16/23 4:08 AM) Pulse Rate [55-90 bpm] 90 bpm (06/16/23 1:27 AM) 90 bpm (06/15/23 8:09 PM) 101 bpm *H* (06/15/23 7:43 PM) Body Mass Index [18.5-24.99 kg/m2] 35.31 kg/m2 *>HHI* (06/16/23 1:27 AM) Blood Pressure [90-138/55-84 mm Hg] 107/58mm Hg (06/16/23 10:15 AM) 96/57mm Hg (06/16/23 5:45 AM) 105/58mm Hg (06/16/23 4:08 AM) Respiratory Rate [16-30 br/min] 18 br/min (06/16/23 1:27 AM) 16 br/min (06/15/23 8:09 PM) 18 br/min (06/15/23 7:43 PM) Temperature [96.8-100.4 DegF] 98.2 DegF (06/16/23 10:15 AM) 97.6 DegF (06/16/23 5:45 AM) 97.7 DegF (06/16/23 1:27 AM) Mode of Delivery (Oxygen) Room air (06/15/23 7:43 PM) Blood pressure sites Arm, left (06/16/23 1:27 AM) Arm, right (06/15/23 7:43 PM) Temperature Route Oral (06/16/23 10:15 AM) Oral (06/16/23 5:45 AM) Oral (06/16/23 1:27 AM) Dry Weight 71.2 kg (06/16/23 1:27 AM) 71.0 kg (06/15/23 7:43 PM) Weight Obtained Via Standing scale (06/15/23 7:43 PM) Dry Weight Obtained Via Standing scale (06/15/23 7:43 PM) Social History Social History Type Response Tobacco Use: 4 or less cigar ettes(less than 1/4 pack)/day in last 30 days. Sex Female History and physical note * Christine CARVER, Pranay Hamilton: MODIFY Pranay King MD: MODIFY Event Display: History and Physical Hospital Authored Date: [id number] Patient: ??IVONNE PENN ? Age:??32 Years?Sex:??Female?:??1990?? OB Reason for Admission OB Reason for Admission Reason for admission: Labor Evaluation, Other: Placenta accreta LMP/EGA/SYLVAIN Gestational Age (EGA) and SYLVAIN? * Note: EGA calculated as of 06/16/2023 ?? SYLVAIN:??08/05/2023?EGA*:??32 weeks 6 days ? History?(3,0,1,3)?Method:??Last Menstrual Period??(10/29/2022) History of Present Illness Patient is a 32 yo at 32+5??with known??placenta previa and suspected accreta presenting??to [facility] with abdominal cramping. She reports feeling uncomfortable cramps every few minutes that started this afternoon. She is overall comfortable, but she does think they are becoming stronger. She has had no vaginal bleeding or leakage of fluid. She has not been feeling much movement, but she reports she often doesn't feel much movement. She denies any other symptoms such as headache, right upper quadrant pain, chest pain, or shortness of breath.?? Review of Systems Negative except as stated in above HPI.?? Physical Exam Vitals & Measurements T:??97.7?F?? HR:??90??(Peripheral)?? RR:??18?? BP:??99/53?? SpO2:??98%?? HT:??142??cm?? WT:??71.2??kg?? BMI:??35.31?? Constitutional:??Well-developed, no acute distress. Patient sitting up in bed, overall comfortable appearing throughout contractions.?? Respiratory:??Normal work of breathing.? Abdomen/GI:??Soft, non-tender, non-distended. No guarding or rebound tenderness.??Gravid. Gynecologic:?External Genitalia: Normal appearing without lesions or atrophic changes.?Vagina: Normal appearing with appropriate support. No lesions or discharge. No blood in vaginal vault.?Cervix: Normal appearing, appears visually??closed.?? Extremities:??No edema or tenderness. Warm and well-perfused.?? Skin:??No rash or jaundice. Normal for ethnicity. Neurological/Psychiatric:??Appearance appropriate, mood and affect stable. ?? Membrane Status:Intact? OB Assessment Baby A Baseline:125 Baseline Description:Normal, 110-160 bpm Baseline Variability:Moderate variability Accelerations:Present Deceleration:None Uterine Monitor Mode, UterineExternal Assessment/Plan Assessment:??Patient is a 32 yo at 32+5 with known placenta previa and suspected accreta presenting [facility] with contractions. Based on patient reports vs toco, the patient is feelingsome but not all of these contractions and describes them as cramps. At this time, patient's cervixappears closed without any vaginal bleeding. We are administering IV fluids in attempt to decrease contractions, and we also discussed recommendations to administer Nifedipine for tocolysis. Given the patient is overall comfortable without history of prior delivery, decision made not to administer betamethasone for lung maturity per MFM recommendations at this time unless contractions become more regular. We will keep the patient NPO at this this time in the event delivery becomesindicated. At this time, monitoring category 1 and reassuring, and the patient remains hemodynamically stable. ?? We discussed with the patient that indications for urgent or emergent delivery include heavy or persistent vaginal bleeding, rupture of membranes, labor with cervical change (would likely result in vaginal bleeding in the setting of previa), concern for uterine rupture, or non-reassuring status. The patient expressed understanding of this. Given diagnosis of placenta accreta, patient understands this necessitates delivery with concomitant hysterectomy. Risks of the procedure were discussed including bleeding, infection, and injury to surrounding structures (ovaries, bladder, bowel, blood vessels). The patient is also aware of plan to remove bilateral fallopian tubes at the time of her c-hyst. The patient would accept a blood transfusion on the event of significant blood loss. The patient signed surgical consent for hysterectomy with bilateral salpingectomy after having the opportunity to ask questions. Patient was in agreement with plan for admission atthis time. ?? Plan as per discussion with Dr. King, attending. ?? Placenta accreta without hemorrhage (O43.219):?? Placenta previa (O44.00):? - Continuous monitoring and tocometry - Administer Nifedipine for tocolysis: 20 mg loading dose followed by 10 mg every 6 hours maintenance for total of 48 hours - Consider betamethasone if patient's contractions persist - Administer 1L LR bolus, followed by 125 mL/hr - [address] large bore IVs in place - (p) CBC, T&S with 2 units pRBC placed on hold - Diet: NPO - Surgical consent on chart for hysterectomy with bilateral salpingectomy. Plan for vertical midline skine incision. - s/p outpatient NICU consult, NICU aware of patient admission - [facility] hysterectomy form previously signed - s/p outpatient Optical Glass Wet Inspector Onc consult, Onc aware of patient's admission - (p) Anesthesia consult on admission ?? History of delivery (Z98.891):? - 3 prior c-sections - Surgical consent on chart for hysterectomy with bilateral salpin ?? 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 - Known TOF, s/p echo: Hypoplastic pulmonary valve and pulmonary artery with normal antegrade flow across valve Unobstructed ductal arch Per pediatric cardiology, expect baby to be fully saturated at - s/p pediatric cardiology consult and NICU consult. NICU aware of patient's admission. - 06/07: EFW 14%ile - Plan for weekly testing. 06/14 BPP 03/07. - NIPT low risks, declined diagnostic testing. - ( ) Plan for genetic testing of ?? Known anomaly, antepartum (O35.9XX0):? - 3.1 x 3.0 x 3.2 cm abdominal cyst - s/p pediatric surgery consult - ( ) Plan for imaging ?? Anemia in (O99.019):? - Hgb 10.5 on admission - 2u pRBC on hold - Continue oral iron supplementation. Plan for outpatient IV iron infusion x1 if patient dischargedprior to delivery. ?? Rh negative state in antepartum period. Antibody screen positive, presumed to be due to prior RhoGAM (O36.0190):? - s/p Rhogam at 28 weeks (05/10/23) - ( ) Rhogam as indicated ?? Asthma (J45.909):? - Ordered for Breo Ellipta daily (Home Symbicort not on formulary) - Ordered for Albuterol as needed ?? MFM Note ?? Pt??discussed with??Dr. Gardner overnight Agree with assessment and plan as noted. Given presentation, I felt the likelihood of emergent delivery overnight was low. House team paged to communicate the concerns and they agreed to cover delivery overnight if needed. [facility] [facility] Onc team, anesthesia, nursing and NICU also informed. Please see separate rounding note from the next day. ?? Pranay King MD [facility] OB History History?(3,0,1,3)? # 1 ?Baby 1 ?Outcome Date:??2005 ?Outcome or Result:??Spontaneous ?Gest Age:??-- ? Outcome:? Sex:??-- ?? # 2 ?Baby 1 ?Outcome Date:??2010 ?Outcome or Result:?Gest Age:??40 weeks ? Outcome:??Live ? Sex:??Male?Wt:?2268 g ?Hospital:??[facility] ?Comment:??FAILURE TO DILATE ?? # 3 ?Baby 1 ?Outcome Date:??02/18/2014?Outcome or Result:?Gest Age:??39 weeks ? Outcome:??Live ? Sex:??Female?Wt:?2410 g ?Hospital:??[facility] ?? # 4 ?Baby 1 ?Outcome Date:??05/12/2017?Outcome or Result:?Gest Age:??39 weeks 3 days ? Outcome:??Live ? Sex:??-- Labs Labs Labs & Tests Antibody Screen: Positive (06/15/23) Blood Type: A Negative (06/15/23) Creatinine-Blood: 0.6 mg/dL (12/14/22) Down Syndrome Age Risk FTS: Age Risk: (01/23/23) Down Syndrome Scrn Risk FTS: Screening Risk: (01/23/23) Glucose 50 Gm, +60 Minutes: 128 mg/dL (05/10/23) Hct:??31 %??Low (06/15/23) Hemoglobinopathy Interpretation: Normal hemoglobins. (12/30/22) Hepatitis B Surface Antigen: NEGATIVE (12/30/22) Hepatitis C Ab: NEGATIVE (12/30/22) Hgb:??10.5 Gm/dL??Low (06/15/23) HIV 4th Generation Ab-Ag Result: NEGATIVE (12/30/22) RPR Titer Result: NOT INDICATED (05/10/23) Rubella IgG Ab: POSITIVE (12/30/22) Syphilis Screen by CRIS: NEGATIVE (05/10/23) Trisomy 18 Scrn Risk FTS: Screening Risk: (01/23/23) Urine Culture: Urine Culture (04/17/23) Problem List Active Active Problem List Anemia in : (Medical) History of delivery: (Medical) LGSIL on Pap smear of cervix: (Medical) Marijuana use: (Medical) Obese class I: (Medical) Placenta accreta without hemorrhage: (Medical) Placenta previa: (Medical) : (Obstetric) (12/23/22) Rh negative state in antepartum period. Antibody screen positive, presumed to be due to prior RhoGAM: (Medical) Subclinical hyperthyroidism: (Medical) Tetralogy of Fallot, , affecting care of mother: (Medical) Procedure/Surgical History Cholecystectomy: 08/05/[address]: 02/20/14 Home Medications Albuterol: INHALE 2 PUFFS INTO THE LUNGS EVERY 4 (FOUR) HOURS NEEDED FOR SHORTNESS OF BREATH OR WHEEZING Albuterol: 2.5 mg = 3 mL, Neb, Every 4 hours, PRN (as needed for wheezing) Budesonide-Formoterol: 2 puffs, Inhalation, 2 times a day, TAKE 2 PUFFS BY MOUTH TWICE A DAY Doxylamine: 25 mg = 1 tablet, By Mouth, Daily, PRN (as needed for sleep), 15 to 30 minutes before bed Ferrous Gluconate: 324 mg = 1 tablet, By Mouth, Daily lurasidone: 20 mg = 1 tablet, By Mouth, Daily Multivitamin, : 1 tablet, By Mouth, Daily Omeprazole: 20 mg = 1 capsule, By Mouth, 2 times a day, 30 min before a meal Ondansetron: 4 mg = 1 tablet, By Mouth, Every 6 hours, PRN (as needed for nausea/vomiting) Pyridoxine: 1 tablet, By Mouth, 3 times a day Sertraline: By Mouth, Daily Allergies Estradiol Patch??(bleeding to patch area area) Bactrim??(Rash) Mushroom??(Throat swelling) Peanuts??(Throat Swelling) Seafood??(throart swelling) lactulose??(Stomach pain) penicillin??(Swelling) shellfish??(throat swelling) sulfADIAZINE??(Swelling) Social History Alcohol Use: Past. Electronic Cigarette/Vaping Electronic Cigarette Use: Never. Employment/School Status: Unemployed. Exercise Self assessment: Poor condition. Home/Environment Living situation: Homeless/Long Term. Current guardian: DCF. DCF involvement: Current. Other: children are in DCF custody. Nutrition/Health Diet: Regular, Low fat and no grease due to not having her gallbladder. Sexual Sexually involved in last 6 months: Yes. Gender identity: Identifies as female. Self described orientation: Straight or heterosexual. Preferred pronoun: She/her. Substance Abuse Use: Past. Type: Marijuana. Other: past cocaine use, stopped 2019. marijuana stopped 04/16/2023. Tobacco Use: 4 or less cigarettes(less than 1/4 pack)/day in last 30 days. Family History Mother: Asthma; Attention deficit hyperactivity disorder; COPD; Cancer of ovary; Congestive heart failure; Depression; Diabetes mellitus type II; Hypertension; Mental illness; Migraine; Thyroid disease Father: Asthma; CAD - Coronary artery disease Mat. Grandmother: Cancer of breast; Cancer of ovary; Liver cancer ?2013 07:21:16<$> Sibling: Attention deficit hyperactivity disorder; Depression; Hyperlipidemia; Lupus ? 05-OCT-2013 07:32:49<$>; Migraine; Thyroid disease Mat. Grandfather: Cancer of colon Plan OB Plan Circumcision Plan: Before discharge (06/16/23) Feeding Plan: Breast milk (06/16/23) Labor Coping Mechanisms: Other: c/section (06/16/23) Patient Requests: it's a boy (06/16/23) Hospital Progress note * Jaime GARCIA, Barbie: PERFORM, SIGN, VERIFY Event Display: Progress Note Hospital Authored Date: [id number] Patient: IVONNE PENN Age: 32 years Sex: Female : 1990 Associated Diagnoses: None Author: Jaime GARCIA, Barbie Pt A+Ox4. VSS. pt denies cramping, contractions, bleeding and leaking of fluids. Pt off the monitor at 1230 pm with OK from Dr. Lawrence. Ultra sound completed. pt discharged this afternoon. All discharge instructions completed with pt and FOB at bedside. pt educated to call the clinic for Sertraline administration per Dr. Lawrence. Aware when to take medications and that Breo- Ellipta inhaler was administered this morning. Pt left with all belongings with FOB. Findings Problem Related to Alteration in Comfort 06/16/2023 14:00 EST Alteration in Comfort Related to Other: contractions Goals & Outcomes: Comfort Pt will report acceptable level of comfort & pain control Interventions Implemented: Comfort Other: monitor contractions BH Goals/Interventions, Comfort Yes Comfort, Problem Start 06/16/2023 8:00 Reviewed plan with, Comfort Patient Patient Progression, Comfort Resolved problem Comfort, Problem Ongoing No Comfort, Problem Resolved 06/16/2023 14:00 06/16/2023 8:00 EST Alteration in Comfort Related to Other: contractions Goals & Outcomes: Comfort Pt will report acceptable level of comfort & pain control Interventions Implemented: Comfort Other: monitor contractions BH Goals/Interventions, Comfort Yes Comfort, Problem Start 06/16/2023 8:00 Reviewed plan with, Comfort Patient Patient Progression, Comfort Plan Initiation Comfort, Problem Ongoing Yes . Radiology * Event Display: PDC Vaginal Ultrasound * Event Display: PDC Vaginal Ultrasound Authored Date: [id number] OBSTETRICS REPORT PATIENT INFO: CMRN: [id number] BMRN: [id number] : [birth year] (32 yrs)(F) Name: IVONNE PENN Visit Date: 06/16/2023 01:59 pm PERFORMED BY: Performed By: Alyssia Coulter RDMS Attending: Tamar Canales MD Referred By: CRUZ Cannon [facility] INDICATIONS: Maternal care for (suspected) O35.9XX0 abnormality and damage, unspecified, not applicable or unspecified Maternal care for anti-D [Rh] antibodies, O36.0190 unspecified trimester, not applicable or unspecified Placenta accreta, unspecified trimester O43.219 Anemia complicating , unspecified O99.019 trimester Unspecified asthma, uncomplicated J45.909 Thyrotoxicosis, unspecified without E05.90 thyrotoxic crisis or storm Encounter for supervision of normal Z34.90 , unspecified, unspecified trimester Complete placenta previa NOS or without O44.00 hemorrhage, unspecified trimester History of uterine scar from previous surgery Z98.891 Maternal care for other (suspected) O35.BXX0 abnormality and damage, cardiac anomalies, not applicable or unspecified VITAL SIGNS: Height: 4'10 EVALUATION: Num Of Fetuses: 1 Heart Rate(bpm): 115 Cardiac Activity: Present Presentation: Transverse Placenta: Previa Amniotic Fluid NAYA FV: Within normal limits NAYA Sum(cm) Largest Pocket(cm) 20.3 6.2 RUQ(cm) RLQ(cm) LUQ(cm) LLQ(cm) 6.2 5.1 3.6 5.4 Comment: Active movements seen. BIOMETRY: OB HISTORY: : 6 Term: 3 TOP: 2 GESTATIONAL AGE: LMP: 32w 6d Date: 10/29/22 SYLVAIN: 08/05/23 Best: 32w 6d Det. By: LMP (10/29/22) SYLVAIN: 08/05/23 CERVIX UTERUS ADNEXA: Cervix Length: 3.4 cm. Appears closed Comment Vaginal scanning was done. COMMENTS: The cervical length is normal. Tamar Canales MD Electronically Signed Final Report 06/16/2023 02:06 pm * Event Display: PDC Vaginal Ultrasound Authored Date: Please click on pdf link to open report Note * Barbie Sandoval RN: PERFORM Event Display: Discharge/Transfer Note Hospital Authored Date: [id number] Nursing Discharge Note Entered On: 06/16/2023 14:46 EST Performed On: 06/16/2023 14:45 EST by Barbie Sandoval RN Nursing Discharge Note 2 Discharge Time : 06/16/2023 14:45 EST Discharge Level of Care at Discharge : Home/Longterm/Foster Care Patient Left Unit Via : Ambulatory Patient Accompanied Off Unit with : Significant other DC Instructions Provided & Signed by Pt : Yes Patient Understands D/C Instructions : Yes Verbalized Understanding of D/C Plan By : Patient Patient Instructions Discharge Signed : Yes Did Pt have Specialty Bed or Wound Vac : No Jaime GARCIA, Barbie - 06/16/2023 14:45 EST * Howard DO, Denise: PERFORM Event Display: Discharge/Transfer Note Hospital Authored Date: [id number] Patient: ??IVONNE PENN ? Age:??32 Years?Sex:??Female?:??1990?? Admit Date Admission Date: 06/15/2023 Discharge Date 06/16/23 OB Reason for Admission OB Reason for Admission Reason for admission: Labor Evaluation, Other: Placenta accreta [facility] Hospital Course Patient is a 32 yo at 32+5 with known placenta previa and suspected accreta presenting [facility] with contractions. Upon admission, she received IVFs and Nifedipine for tocolysis. Contractions subsided and patient was appropriate for discharge at this time.?? Cervical length completed and wnl at 3.4 cm Objective/Physical Exam on Day of Discharge Vitals & Measurements T:??98.2?F?? HR:??89??(Monitored)?? RR:??18?? BP:??107/58?? SpO2:??100%?? HT:??142??cm?? WT:??71.2??kg?? BMI:??35.31?? Constitutional: Normal affect, No acute distress, Well-developed, Well-nourished.?? HEENT: Normocephalic, atraumatic?? Lungs: Non-Labored?? Cardiac: Regular rate Skin: No rash or jaundice.?? Neurological/Psychiatric: appearance appropriate, mood and affect stable. ?? Bedside ultrasound: central previa noted.?? Assessment/Plan/Discharge Diagnosis Assessment:??Patient is a 32 yo at 32+6 with known placenta previa and suspected accreta admitted in the setting of contractions. She received IV fluids and Nifedipine for tocolysis. Cervix closed on admission. Given the patient was overall comfortable without history of prior delivery, decision was made not to administer betamethasone for lung maturity. Contractions have since ceased and she had a cervical length showing normal cervical length at 3.4 cm. ?? Placenta accreta without hemorrhage (O43.219):??- s/p Continuous monitoring and tocometry - s/p Nifedipine for tocolysis: 20 mg loading dose followed by 10 mg every 6 hours maintenance - s/p 1L LR bolus, followed by 125 mL/hr - [address] IVs in place - (p) CBC, T&S with 2 units pRBC placed on hold - Diet: Regular - Surgical consent on chart for hysterectomy with bilateral salpingectomy. Plan for vertical midline skin incision. - s/p outpatient NICU consult, NICU aware of patient admission - [facility] hysterectomy form previously signed - s/p outpatient Optical Glass Wet Inspector Onc consult, Onc aware of patient's admission ?? 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 NICU aware of patient's admission. - 06/07: EFW 14%ile - Plan for weekly testing. 06/14 BPP 03/07. - NIPT low risks, declined diagnostic testing. - ( ) Plan for genetic testing of ?? History of delivery (Z98.891):??- 3 prior c-sections - Surgical consent on chart for hysterectomy with bilateral salpingectomy ?? Rh negative state in antepartum period. Antibody screen positive, presumed to be due to prior RhoGAM (O36.0190):??- s/p Rhogam at 28 weeks (05/10/23) - ( ) Rhogam as indicated ?? Anemia in (O99.019):??- Hgb 10.5 on admission - 2u pRBC on hold - Continue oral iron supplementation. Plan for outpatient IV iron infusion x1 if patient dischargedprior to delivery. ?? Asthma (J45.909):??- Ordered for Breo Ellipta daily (Home Symbicort not on formulary) - Ordered for Albuterol as needed ?? Known anomaly, antepartum (O35.9XX0):??- 3.1 x 3.0 x 3.2 cm abdominal cyst - s/p pediatric surgery consult - ( ) Plan for imaging ?? Pt seen and discussed with Dr. King Future Appointments Monday 8:30 AM EST ?? With: Mayra Rose MD Where: [facility] [address] [place] [address]- Status: Pending 2022 2:00 PM EST ?? Where: Anesthesia Remote Sites Status: Pending Monday 7:30 AM EST ?? Where: [facility] In[facility] OR Status: Pending Delivery Summary Delivery Summary Maternal Information ??Delivery Information ?Gestational Age at Delivery: ??32W 6D ? Baby A ??Labor Information ? monitoring: ??External monitor ? Discharge Medications ???Albuterol (albuterol 0.083% inhalation solution)???Albuterol (albuterol CFC free 90 mcg/inh inhalation aerosol)???Budesonide-Formoterol (Symbicort 160mcg/4.5mcg Inhaler)???Doxylamine (Unisom 25 mgoral tablet)???Ferrous Gluconate (ferrous gluconate 324 mg oral tablet)???Multivitamin, (M- Plus oral tablet)???Omeprazole (omeprazole 20 mg oral enteric coated capsule)???Ondansetron (ondansetron 4 mg oral tablet, disintegrating)???Pyridoxine (Vitamin B6 50 mg oral tablet)???Sertralin e???lurasidone (Latuda 20 mg oral tablet) Immunizations during Hospitalization Vaccine Date Status tetanus/diphtheria/pertussis, acel(Tdap) 05/09/2023 Given influenza virus vaccine, inactivated 05/09/2023 Given Influenza Inactive (IM) (oldterm) 05/12/2017 Given tetanus/diphtheria/pertussis, acel(Tdap) 04/10/2017 Given tetanus/diphtheria/pertussis, acel(Tdap) 12/09/2013 Given influenza virus vaccine, inactivated 07/16/2013 Given tetanus-diphtheria toxoids (Td) 09/07/2010 Given Comments : vis ??given Feeding Method No Results Patient Education Titles Understanding Labor?? Premature Labor?? and Childbirth: Premature Rupture of the Membranes (PROM)?? Understanding Placenta Previa?? * Jaime GARCIA, Barbie: PERFORM Event Display: Patient Education/Instruction Authored Date: [id number] Inpatient Adult Discharge Instructions [address] [address] Name: IVONNE PENN : 1990 Visit: 06/15/2023 23:46:00 Current Date: 06/16/2023 14:28 Account: [id number] Inpatient Adult Discharge Instructions We would like to thank you for allowing us to assist you with your healthcare needs. The following includes patient education materials and information regarding your injury/illness. Our entire staffstrives to provide an excellent experience for our patients and their families. PLEASE ENSURE YOU FOLLOW-UP PER THE INSTRUCTIONS BELOW! ?? YOUR OPINION IS IMPORTANT TO US! Please complete the survey you may receive by mail or email. Your feedback will be used to make improvements to the healthcare experiences of our patients and their families. Surveys are administered by [employer] ?? If further treatment with your primary care physician or another doctor is recommended, it is important for you to keep the appointment. Call your primary care physician or return to the Emergency Department immediately if your condition worsens, fails to improve, or new symptoms develop. If you need to find a doctor, you can call [facility] Freebeep[facility] Link for a referral at [phone] or toll free at [phone] or log in to [email or web address].. ?? [facility], in keeping with [facility] guidance, no longer requires face masks for staff, patientsor visitors in most situations. Similiar to time spent indoors at other locations, there is the chance that you were exposed to repiratory viruses during your time with us (such as flu or COVID-19). If you develop symptoms concerning for a viral respiratory infection, please seek testing (and treatment if indicated) from your medical provider or home test kit. ?? You can view and manage your care through the patient portal or by using a health care ce of your choosing. [employer] is a website that allows you to securely view your medical information including your hospital discharge summary, office visit summaries, medications and follow-up visits. You can also request appointments, renew medications, and request access to your medical information using a health care ce of your choosing, or just ask a question. You can enroll at [email or web address] or register during your next office visit. You have been discharged from [facility], Patient Care Unit: [facility]. If you have any questions regarding these instructions after you leave, please call us and we will be happy to assist you. 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 Antibody screen positive, presumed to be due to prior RhoGAM Subclinical hyperthyroidism Tetralogy of Fallot, , affecting care of mother Known anomaly, antepartum Asthma Tests Performed Below is a partial list of the tests performed during your hospitalization. You may have had other tests and procedures not included in this list. Please discuss all test results with your provider. CBC COVID-19 (NOVEL CORONAVIRUS), PCR Fibrinogen PT (INR) PTT Type and Screen Urinalysis Complete Primary Care Provider Ciaran Pisano Advance Directive Health Care Proxy on File Yes - Health Care Proxy Patient has a Designated Caregiver: No Discharge Vitals Temperature: 98.2 DegF Height: 142 cm Pulse Rate: 90 bpm Weight: 71.2 kg Respiratory Rate: 18 br/min Body Mass Index:??35.31 kg/m2??Critical Systolic Blood Pressure: 107 mm Hg Body surface area: 1.68 Diastolic Blood Pressure: 58 mm Hg ?? Oxygen Saturation: 100 % ?? Studies Pending All tests and labs ordered during this hospital stay have been completed unless listed below. Please discuss all pending results with your provider listed above in these instructions. ?? Group B Strep by PCR RBCs on Hold Urine Culture What to do next Instructions From Your Doctor Discharge Orders Scheduled Follow-Up Appointments Monday 8:30 AM EST ?? With: Mayra Rose MD Where: [facility] [address] [place] [address]- Status: Pending 2022 2:00 PM EST ?? Where: Anesthesia Remote Sites Status: Pending Monday 7:30 AM EST ?? Where: [facility] OR Status: Pending Discharge Medications PENNNATALIA LEMOSIZ :1990 Visit Date:06/15/2023 Medications: Please continue your medications until treatment is completed or stopped by your provider. Medications not listed below should be discontinued. Discuss any questions related to medications with your provider. What How Much When Why Instructions Next Dose Unchanged Albuterol (albuterol 0.083% inhalation solution) 3 Milliliter Nebulized inhalation Every 4 hours as needed for as needed for wheezing Duration: 30 Days resume home schedule Unchanged Albuterol (albuterol CFC free 90 mcg/ inh inhalation aerosol) INHALE 2 PUFFS INTO THE LUNGS EVERY 4 (FOUR) HOURS NEEDED FOR SHORTNESS OF BREATH OR WHEEZING ?? as needed Unchanged Budesonide-Formoterol (Symbicort 160mcg/ 4.5mcg Inhaler) 2 puff(s) Inhalation Twice a day TAKE 2 PUFFS BY MOUTH TWICE A DAY ?? tonight around 11 pm Unchanged Doxylamine (Unisom 25 mg oral tablet) 1 tab(s) Oral Daily as needed for as needed for sleep 15 to 30 minutes before bed ?? as needed Unchanged Ferrous Gluconate (ferrous gluconate 324 mg oral tablet) 1 tab(s) Oral Daily resume home schedule Unchanged lurasidone (Latuda 20 mg oral tablet) 1 tab(s) Oral Daily resume home schedule Unchanged Multivitamin, (M-Rose Marie Plus oral tablet) 1 tab(s) Oral Daily tomorrow morning around 11 am Unchanged Omeprazole (omeprazole 20 mg oral enteric coated capsule) 1 capsule Oral Twice a day 30 min before a meal ?? resume home schedule Unchanged Ondansetron (ondansetron 4 mg oral tablet, disintegrating) 1 tab(s) Oral Every 6 hours as needed for as needed for nausea/vomiting as needed Unchanged Pyridoxine (Vitamin B6 50 mg oral tablet) 1 tab(s) Oral 3 times a day resume home schedule Unchanged Sertraline Oral Daily resume home schedule Test Results Below is a partial list of the most recent Laboratory test results done prior to this discharge. You may have had other tests and procedures not included in this list. Please discuss all test resultswith your provider. Antibody Identification 1 - Anti D due to RHIG (06/15/2023) RBC Available - XM (06/15/2023) RBC Unit ID - [id number] (06/15/2023) CBC (06/15/2023) ???WBC - 12.9 k/mm3???RBC - 3.51 m/mm3???Hgb - 10.5 Gm/dL???Hct - 31.0 %???MCV - 88.3 femtoliters???MCH - 29.9 pg???MCHC - 33.9 g/dL???Platelet Count - 285 k/mm3???RDW-SD - 45.1 femtoliters???MPV - 10.5 femtoliters???Nucleated RBC (Automated) - 0.0 #/100 WBC'S???Abs. NRBC - 0.0 k/mm3 COVID-19 (NOVEL CORONAVIRUS), PCR (06/15/2023) ???COVID-19 by RT-PCR - NEGATIVE Fibrinogen (06/15/2023) ???Fibrinogen - 458 mg/dL PT (INR) (06/15/2023) ???INR - 1.1???Protime (PT) - 11.6 seconds PTT (06/15/2023) ???APTT - 35.3 seconds Type and Screen (06/15/2023) ???Blood Type - A Negative???Antibody Screen - Positive Urinalysis Complete (06/15/2023) ???Appear/Color, Urine - LIGHT YELLOW???Specific [place], Urine - 1.022???pH, Urine - 7.0???Albumin, Urine - TRACE???Glucose, Urine - NEGATIVE???Ketones, Urine - NEGATIVE???Bilirubin, Urine - NEGATIVE???Hemoglobin, Urine - NEGATIVE???Nitrite, Urine - NEGATIVE???Leukocyte, Urine - NEGATIVE???Urobilin ogen - NORMAL? ?WBC's, Urine - 1 /HPF? ?RBC's, Urine - NONE SEEN? ?Squamous Epith - <1 /HPF? ?Mucus - SLIGHT Allergies (NKA means No Known Allergies) Estradiol Patch??(bleeding to patch area area) Bactrim??(Rash) Lactose Mushroom??(Throat swelling) Peanuts??(Throat Swelling) Seafood??(throart swelling) penicillin??(Swelling) shellfish??(throat swelling) sulfADIAZINE??(Swelling) Problems Active Problems??(11) Anemia in ?? History of delivery?? LGSIL on Pap smear of cervix?? Marijuana use?? Obese class I?? 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 Placenta previa? Rh negative state in antepartum period. Antibody screen positive, presumed to be due to prior RhoGAM?? Subclinical hyperthyroidism?? Tetralogy of Fallot, , affecting care of mother?? Education Materials Below is the list of Educational Leaflet Providered with your Discharge Instructions. Understanding Labor?? Premature Labor?? and Childbirth: Premature Rupture of the Membranes (PROM)?? Understanding Placenta Previa?? Valuables and Belongings I fully understand and agree that [facility] accepts no responsibility for all my personal property including clothing, toilet articles, radios, jewelry, dentures, hearing aids, rings, money, or any other property that is in my possession or is brought to me after admission. I understand certain valuables may be placed in a hospital safe for a short period of time. I understand that the hospital is not liable for loss or damage due to accident, fire, or other natural occurrence while said property is in the safe. I accept full responsibility for any personal property that I keep with me, and will not hold the hospital responsible in case of loss or disappearance. I acknowledge that i have been encouraged to send valuables and belongings home. ?? Review of Valuable and Belonging List: With patient Date for Pt to Sign Valuables/Belongings: 06/16/23 07:02:00 ?? Other Discharge Information ? Pulmonary Rehab Status?? Pulmonary Rehab Discharge Status?? Respiratory Rate: 18 br/min ? Common Emergency Awareness Tips IS IT A STROKE? Act FAST and Check for these signs: FACE Does the face look uneven? ARM Does one arm drift down? SPEECH Does their speech sound strange? TIME Call at any sign of stroke ?? Heart Attack Signs Chest discomfort: Most heart attacks involve discomfort in the center of the chest and lasts more than a few minutes, or goes away and comes back. It can feel like uncomfortable pressure, squeezing, fullness or pain. Discomfort in upper body: Symptoms can include pain or discomfort in one or both arms, back, neck, jaw or stomach. Shortness of breath: With or without discomfort. Other signs: Breaking out in a cold sweat, nausea, or lightheaded. Remember, MINUTES DO MATTER. If you experience any of these heart attack warning signs, call to get immediate medical attention! ?? Smoking can increase your chances of developing chronic health problems and can cause harmful effects to other family members in your house. If you smoke, you are strongly encouraged to quit. Please call [facility] Freebeep[facility] Link at [phone] or [phone]) or log in to [email or web address] for referrals to smoking cessation programs. ?? 878 Suicide & Crisis Lifeline is available 20/02 if you or someone you know needs to find a reason to keep living. By calling 015 you'll be connected to a skilled, trained counselor at a crisis center in your area. INPATIENT DISCHARGE INSTRUCTIONS SIGNATURE PAGE FILINATALIAIZ Location:[facility] Registration Date and Time:06/15/2023 23:46 EST Primary Care Physician: Ciaran Pisano, Attending Physician: Pranay King MD, I IVONNE PENN, have received the above patient education materials/instructions and have verbalized understanding. If ambulance or transport services are being used I further acknowledge being given a choice of service. ?? If you need to contact me, please call me at this number: . Patient/Stem Cleaning Machine Feeder Name: Patient/Stem Cleaning Machine Feeder Signature: Relationship to Patient: Witness Name/Signature: Date: * Barbie Sandoval RN: PERFORM Event Display: Patient Education Leaflets Authored Date: [id number] Understanding Labor ?? 18165 Understanding Labor Going into labor before week 37 of is called labor. labor can cause your baby to be born too soon. This can lead to health problems for your baby. Before labor, the cervix is thick and closed. In labor, the cervix begins to efface (thin) and dilate (open). Symptoms of labor If you think you???re having labor, get medical help right away. Contractions alone don???tmean you???re in labor. What matters more are changes in your cervix. The cervix is the opening at the lower end of the uterus. Symptoms of labor include: ??? 4 or more contractions per hour ??? Strong contractions ??? Constant menstrual-like cramping ??? Low-back pain ??? Mucous orbloody fluid from the vagina ??? Bleeding or spotting in the second or third trimester ?? Evaluating labor Your??healthcare provider??will try to find out if you???re in labor or just having contractions. They may watch you for a few hours. You may have these tests: ??? Pelvic exam. This is??to see if your cervix has effaced (thinned) and dilated (opened). ??? Uterine activity monitoring. This is used??to detect contractions. ??? monitoring. This is??done to check the health of your baby. ??? Ultrasound. This test looks at your baby???s size and position. ??? Amniocentesis. This test??checks how mature your baby???s lungs are. ?? Caring for yourself at home If you have contractions, but your cervix is still thick and closed, your healthcare provider may tell you to: ??? Drink plenty of water. ??? Do fewer activities. ??? Rest in bed on your side. ??? Don't have intercourse or stimulate your nipples. ?? When to call your healthcare provider Call your healthcare provider if you have any of these: ??? 4 or more contractions per hour ??? Bagof water breaks ??? Bleeding or spotting ?? If you need hospital care labor often means that you need hospital care. You may need complete bed rest. You may havean IV (intravenous) line in your arm or hand. This is to give you fluids. You may be given pills orinjections. These are done to help prevent contractions. You may get a medicine called a corticosteroid.??This is to help your baby???s lungs mature more quickly. ?? Are you at risk? Any woman can have labor. It may start for no reason. But these risk factors can increase your chances: ??? Past labor or early ??? Smoking, drug, or alcohol use in ??? A multiple (twins or more) ??? Problems with the shape of the uterus ??? Bleeding during the ?? The dangers of A baby born too soon may have health problems. This is because the baby didn???t have enough time to grow. Some of the risks for your baby include: ??? Not or feeding well ??? Having immature lungs ??? Bleeding in the brain ? Reaching term Your goal is to get as close to term (week 37 or later) as you can before giving . The closer you get to term, the??higher your chance of having a healthy baby. Work with your healthcare provider. Together, you can take steps that may keep you from giving too early. ?? Last Reviewed Date: 2021 ?? [id number] [employer]. All rights reserved. This information is not intended as a substitute for professional medical care. Always follow your healthcare professional's instructions. ?? * Barbie Sandoval RN: PERFORM Event Display: Patient Education Leaflets Authored Date: [id number] Premature Labor ?? [id number] Premature Labor Premature labor ( labor) is when symptoms of labor occur before 37 weeks of . (Thisis 3 weeks before your due date.) Premature labor can lead to premature delivery. This means givingbirth to your baby early. Babies need at least 37 weeks of for all the organs to develop normally. The earlier the delivery, the greater the risks to the baby. In most cases, the cause of premature labor is unknown. But certain factors may make the problem more likely. These include: ??? History of premature labor with other pregnancies ??? Smoking ??? Alcohol or substance abuse ??? Low prepregnancy weight or weight gain during ??? Short time period between pregnancies ??? Being with twins, triplets, or more ??? History of certain types of surgery on the cervix or uterus ??? Having a short cervix ??? Certain infections There are a number of other risk factors. Ask your healthcare provider to help you understand the risk factors specific to your case. Then find out what you can do to control or reduce them. Contractions are one of the main signs of premature labor. A contraction is different from cramping. It may feel painful and the belly (abdomen) may get hard. It can last from a few seconds to a few minutes. Some women may feel only a sense of pressure in the belly, thighs, rectum, or vagina. Some may feel only the hardening of the uterus without pain or pressure. Or there may be a constant pain in the lower back, which spreads forward toward the belly. Premature labor is often treated with medicines.??A hospital stay may be needed. If labor doesn't progress and you and your baby are both healthy, you may be discharged to continue care at home. Home care ??? Ask your provider any questions you have. Be certain you understand how to care for yourself at home. Also follow all recommendations given by your healthcare providers. ??? Learn the signs of premature labor.??Watch for these signs when you get home. ??? Limit or restrict activities as advised. This may include stopping certain physical activities and cutting back hours at work. ??? Don't do strenuous work as advised by your provider.??Ask family and friends for help with tasks and support at home, if needed. ??? Don???t smoke, drink alcohol, or use other harmful substances. ??? Take steps to reduce stress. ??? Report any unusual symptoms to your provider. ?? Follow-up care Follow up with your healthcare provider directed.??Weekly visits with your provider may be needed. ?? When to seek medical advice Call your healthcare provider right away if any of these occur: ??? Regular or frequent contractions, whether they're painful or not ??? Pressure in the pelvis ??? Pressure in the lower belly or mildcramping in your belly with or without diarrhea ??? Constant low, dull backache ??? Gush or slow leaking of water from your vagina ??? Change in vaginal discharge (watery, mucus, or bloody) ??? Any vaginal bleeding ??? Decreased movement of your baby ?? Last Reviewed Date: 2021 ?? [id number] [employer]. All rights reserved. This information is not intended as a substitute for professional medical care. Always follow your healthcare professional's instructions. ?? * Jaime GARCIA, Barbie: PERFORM Event Display: Patient Education Leaflets Authored Date: [id number] and Childbirth: Premature Rupture of the Membranes (PROM) ?? 22372 and Childbirth: Premature Rupture of the Membranes (PROM) During , the baby is surrounded in the uterus by the amniotic sac. The sac is also called the ???bag of padgett.?? It protects and cushions the baby. Premature rupture of the membranes (PROM) is when the amniotic sac breaks before you go into labor. Normally, the sac breaks after labor begins and contractions have started. If PROM happens at 37 weeks or earlier in , it's called PROM. ?? Are you at risk for PROM? Healthcare providers aren???t sure what causes PROM. But certain things seem to make PROM more likely. These are called risk factors. Risk factors for PROM include: ??? Lack of care ??? Smoking during ??? Low body weight ??? Bleeding from the vagina during the 2nd or 3rd trimester ??? A past sexually transmitted infection (STI) or a past infection in the bag of padgett ??? Being with more than 1 baby ??? Certain past medical procedures, such as: o Amniocentesis. This is a test that takes fluid from the amniotic sac. o Cerclage. This is sewing the cervix closed during . ?? The dangers of PROM PROM can cause these serious problems: ??? Germs can travel from the vagina into the uterus and cause a dangerous infection. ??? The umbilical cord can be squeezed, reducing blood flow to the baby. ??? The placenta can separate from the wall of the uterus (placental abruption). This can lead to severe bleeding.? The baby can be born too early. This can cause breathing and nervous system problems. ?? Symptoms of PROM Call your healthcare provider right away if you have any of these symptoms: ??? Fluid leaking or gushing from the vagina. This is the main symptom. Even though there is fluid loss, it keeps leaking because the baby is making more. The fluid can be clear or light yellow. ??? Bleeding from the vagina ??? Pain in the lower belly (abdomen) or in the low back ?? Evaluating PROM Your healthcare provider will ask about your symptoms. Tell them if you have recently had contractions, bleeding from the vagina, sex, or a fever. They will then likely do the following: ??? Examine your vagina and cervix. ??? Take a swab of fluid from the vagina. This is examined to see if there is any amniotic fluid. ??? Do an ultrasound test to measure amniotic fluid in the uterus. ??? Check your baby???s heart rate. ?? Treating PROM PROM is treated based on where you are in your : ??? If you are 34 weeks or earlier, you???ll likely be admitted to the hospital. There you???ll be given antibiotics to prevent infection andto prolong the . You may also be given medicine (steroids) to help the baby???s lungs mature. You and the baby will then be carefully watched for signs of infection. If there is enough amniotic fluid to test, it will be analyzed to check how well the baby's lungs are developing. The baby???s lungs will also be checked for how they???re developing. ??? If you are between 34 and 37 weeks, labor will likely be induced. ??? If you are at 37 weeks or later, and you don't go into labor on you r own, your healthcare provider will advise inducing labor.? Follow-up care Work with your healthcare provider. Together you can take steps to prevent PROM complications. Thiswill help keep your health and your baby's health safe. ?? Last Reviewed Date: 2022 ?? [id number] [employer]. All rights reserved. This information is not intended as a substitute for professional medical care. Always follow your healthcare professional's instructions. ?? Patient Care team information Care Team Personnel Name: Ciaran Pisano Position: [facility] Outreach Member Role: PCP Address: Address: [address] [place] [address]- Name: Julieta Mai RN Position: [facility] OB RN Member Role: Primary Care Nurse Name: Alannah Koenig RN Position: S RN Member Role: Primary Care Nurse Name: Barbie Sandoval RN Position: [facility] OB RN Member Role: Patient Care Provider Care Team Related Persons Name: JERSON RESTREPO Address: home [address] [address] Name: ALEAH PENN Address: home [address] [place] [address]
--- OUTSIDE RECORDS SUMMARY | 2023-12-05 19:43 | XMS_ITS | Continuity of Care Document ---
Author Organization [facility] Address [address] [place] [address]- Care Team Providers Care Cut Press Operator Name Role Phone Ciaran Pisnao Primary Care Physician [place] [facility] Date(s): 03/22/23 - 04/21/[address] [address] Allergies, Adverse Reactions, Alerts Substance Reaction Severity [...] 3 Refills, Maintenance, 12/14/22 23:08:00 EDT, Solution, [facility]/pharmacy #[id number], Partial fill upon patient request if the prescription is for a schedule II opioid drug., 148, cm, 0... Start Date: 12/14/22 Stop Date: 04/13/23 Status: Ordered albuterol CFC free 90 mcg/inh inhalation aerosol INHALE 2 PUFFS INTO THE LUNGS EVERY 4 (FOUR) HOURS NEEDED FOR SHORTNESS OF BREATH OR WHEEZING Start Date: 09/11/19 Status: Ordered Latuda 20 mg oral tablet 1 tablet = 20 mg, By Mouth, Daily, # 30 tablet, 0 Refills, Maintenance, 01/19/23 10:08:00 EDT, Tablet, [facility]/pharmacy #[id number], Partial fill upon patient request [...] 18:53:00 EDT, Inhaler, Route to Pharmacy Electronically, [id number], [facility]/pharmacy #[id number], 148,... Start Date: 04/10/23 Status: Ordered Unisom 25 mg oral tablet 1 tablet = 25 mg, By Mouth, Daily, PRN as needed for sleep, 15 to 30 minutes before bed, # 14 tablet, 0 Refills, Maintenance, 01/19/23 10:26:00 EDT, Tablet, [facility]/pharmacy #[id number], Partial fill upon patient request if the prescription is for a schedule II... 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 Sex Female Patient Care team information Care Team Personnel Name: Ciaran Pisano Position: S Outreach Member Role: PCP Address: Address: [address] [place] [address]- Name: Julieta Mai RN Position: S OB RN Member Role: Primary Care Nurse Name: Alannah Koenig RN Position: S RN Member Role: Primary Care Nurse Care Team Related Persons Name: JERSON RESTREPO Address: home [address] [place] [id number] Name: ALEAH PENN Address: home [address] [place] [address]
--- OUTSIDE RECORDS SUMMARY | 2023-12-05 19:43 | XMS_ITS | Continuity of Care Document ---
Author Organization [facility] Address [address] [place] [address]- Care Team Providers Care Diving Supervisor Name Role Phone Ciaran Pisano Primary Care Physician [place] [facility] [place]05[place]23 - 02/04/[address] [address] Allergies, Adverse Reactions, Alerts Substance Reaction Severity Status penicillin Active sulfADIAZINE Active lactulose Active Bactrim Active Estradiol Patch Persistent Mild Active Peanuts Active Seafood Active Mushroom Active Immunizations Given and Recorded Vaccine Date [...] 3 Refills, Maintenance, 12/14/22 23:08:00 EDT, Solution, [facility]/pharmacy #[id number], Partial fill upon patient request if the prescription is for a schedule II opioid drug., 148, cm, 0... Start Date: 12/14/22 Stop Date: 04/13/23 Status: Ordered albuterol CFC free 90 mcg/inh inhalation aerosol INHALE 2 PUFFS INTO THE LUNGS EVERY 4 (FOUR) HOURS NEEDED FOR SHORTNESS OF BREATH OR WHEEZING Start Date: 2/12/20 Status: Ordered famotidine 20 mg oral tablet 20 mg, 1, tablet, By Mouth, Daily, # 30 tablet, Refills 0, Tot. Refills 0, Maintenance, 01/19/23 10:08:00 EDT, [id number], Partial fill upon patient request if the prescription is for a schedule II opioid drug... Start Date: 01/19/23 Stop Date: 02/18/23 Status: Ordered Latuda 20 mg oral tablet 1 tablet = 20 mg, By Mouth, Daily, # 30 tablet, 0 Refills, Maintenance, 01/19/23 10:08:00 EDT, Tablet, [facility]/pharmacy #[id number], Partial fill upon patient request if the prescription is for a schedule II opioid drug., 148, cm, 01/19/23 9:06:00 EDT, Height,... Start Date: 01/19/23 Status: Ordered M- Plus oral tablet 1 tablet, By Mouth, Daily, # 90 tablet, 3 Refills, Maintenance, 12/28/22 9:02:00 EDT, [facility]/pharmacy #[id number], Partial fill upon patient request if the prescription is for a schedule II opioid drug., 1 tablet By Mouth Daily, 148, cm, 12/14/22 20:09:00 EDT,... Start Date: 12/28/22 Status: Ordered ondansetron 4 mg oral tablet, disintegrating 1 tablet = 4 mg, By Mouth, Every 8 hours, PRN as needed for nausea/vomiting, # 15 tablet, 0 Refills, Maintenance, 01/19/23 10:09:00 EDT, DIS Tablet, [facility]/pharmacy #[id number], Partial fill upon patient request, 148, cm, 01/19/23 9:06:00 EDT, Height, 60.6, kg... Start Date: 01/19/23 Stop Date: 01/22/23 Status: Ordered Sertraline By Mouth, Daily, 0 [...] 10:08:00 EDT, Inhaler, Route to Pharmacy Electronically, [id number], [facility]/pharmacy #[id number], 148,... Start Date: 01/19/23 Status: Ordered Unisom 25 mg oral tablet 1 tablet = 25 mg, By Mouth, Daily, PRN as needed for sleep, 15 to 30 minutes before bed, # 14 tablet, 0 Refills, Maintenance, 01/19/23 10:26:00 EDT, Tablet, [facility]/pharmacy #[id number], Partial fill upon patient request if the prescription is for a schedule II... Start Date: 01/19/23 Status: Ordered Problem List Condition Confirmation Course [...] Care Team Personnel Name: Ciaran Pisano Position: [facility] Outreach Member Role: PCP Address: Address: [address] [place] [address]- Name: Julieta Mai RN Position: [facility] OB RN Member Role: Primary Care Nurse Name: Alannah Koenig RN Position: S RN Member Role: Primary Care Nurse Care Team Related Persons Name: JERSON RESTREPO Address: [address] [address] Name: ALEAH PENN Address: home [address] [place] [address]
--- OUTSIDE RECORDS SUMMARY | 2023-12-05 19:43 | XMS_ITS | Continuity of Care Document ---
Author Organization [facility] Address [address] [place] [address]- Care Team Providers Care Inspector Filter Tip Name Role Phone Ciaran Pisano Primary Care Physician Encounter [facility] Date(s): 05/01/23 - 05/31/[address] [id number] [...] Refills, Maintenance, 12/14/22 23:08:00 EDT, [facility], [id number], Partial fill upon patient request if the [...] 05/16/24 13:53:00 EDT, 05/15/23 13:52:00 EDT, Tablet, [facility]/pharmacy #[id number], Partial fill upon patient request [...] 18:53:00 EDT, Inhaler, Route to Pharmacy Electronically, [id number], [facility]/pharmacy #[id number], 148,... Start Date: 04/10/23 Status: Ordered Unisom 25 mg oral tablet 1 tablet = 25 mg, By Mouth, Daily, PRN as needed for sleep, 15 to 30 minutes before bed, # 14 tablet, 0 Refills, Maintenance, 01/19/23 10:26:00 EDT, Tablet, [facility]/pharmacy #[id number], Partial fill upon patient request if the prescription is for a schedule II... Start Date: 01/19/23 Status: Ordered Vitamin B6 50 mg oral tablet 1, tablet, By Mouth, 3 times a day, # 90 tablet, Refills 0, Maintenance, 03/06/23 7:49:00 EDT, Route to Pharmacy Electronically, [id number], 148, cm, 02/17/23 9:30:00 EDT, Height, 60.3, kg, 02/11/23 8:59:00 EDT, Dry Weight Start Date: 03/06/23 Status: Ordered Problem List Condition Confirmation Course Effective Dates Status Health St [facility] Informant Anemia in Confirmed Active Marijuana use [...] be due to prior RhoGAM Confirmed Active Social History Social History Type Response Tobacco Use: 4 or less cigar ettes(less than 1/4 pack)/day in last 30 days. Sex Female Patient Care team information Care Team Personnel Name: Ciaran Pisano Position: S Outreach Member Role: PCP Address: Address: [address] [place] [address]- Name: Julieta Mai RN Position: [facility] OB RN Member Role: Primary Care Nurse Name: Alannah Koenig RN Position: S RN Member Role: Primary Care Nurse Care Team Related Persons Name: JERSON RESTREPO Address: [address] [address] Name: ALEAH PENN Address: home [address] [place] [address]
--- OUTSIDE RECORDS SUMMARY | 2023-12-05 19:43 | XMS_ITS | Continuity of Care Document ---
Author Organization [facility] Address [address] [place] [address]- Care Team Providers Care Trawl Net Maker Name Role Phone Ciaran Pisano Primary Care Physician Encounter [facility] Date(s): 06/05/23 - 06/05/[address] [id number] Discharge Disposition: A-D/C Home Attending Physician: Tamar Canales MD Admitting Physician: Tamar Canales MD Referring Physician: Tamar Canales MD Allergies, Adverse Reactions, Alerts Substance Reaction [...] Refills, Maintenance, 12/14/22 23:08:00 EDT, [facility], [id number], Partial fill upon patient request if the [...] 18:53:00 EDT, Inhaler, Route to Pharmacy Electronically, [id number], [facility]/pharmacy #[id number], 148,... Start Date: 04/10/23 Status: Ordered Unisom 25 mg oral tablet 1 tablet = 25 mg, By Mouth, Daily, PRN as needed for sleep, 15 to 30 minutes before bed, # 14 tablet, 0 Refills, Maintenance, 01/19/23 10:26:00 EDT, Tablet, [facility]/pharmacy #[id number], Partial fill upon patient request if the prescription is for a schedule II... Start Date: 01/19/23 Status: Ordered Vitamin B6 50 mg oral tablet 1, tablet, By Mouth, 3 times a day, # 90 tablet, Refills 0, Maintenance, 03/06/23 7:49:00 EDT, Route to Pharmacy Electronically, [id number], 148, cm, 02/17/23 9:30:00 EDT, Height, 60.3, [...] be due to prior RhoGAM Confirmed Active Vital Signs Most recent to oldest [Reference Range]: 1 Weight 69.7 kg (06/05/23 10:58 AM) Oxygen Saturation [94-100 %] 99 % (06/05/23 11:25 AM) Blood Pressure [90-138/55-84 mm Hg] 92/4 5mm Hg (06/05/23 11:25 AM) Respiratory Rate [16-30 br/min] 18 br/mi n (06/05/23 11:25 AM) Temperature [96.8-100.4 DegF] 98.6 DegF (06/05/23 10:58 AM) Mode of Delivery (Oxygen) Room air (06/05/23 11:25 AM) Blood pressure sites Arm, left (06/05/23 11:25 AM) Temperature Route Oral (06/05/23 10:58 AM) Dry Weight 69.7 kg (06/05/23 10:58 AM) Weight Obtained Via Standing scale (06/05/23 10:58 AM) Dry Weight Obtained Via Standing scale (06/05/23 10:58 AM) Social History Social History Type Response Tobacco Use: 4 or less cigar ettes(less than 1/4 pack)/day in last 30 days. Sex Female Note * Anusha Oakes RN: PERFORM Event Display: Discharge/Transfer Note Hospital Authored Date: [id number] Nursing Discharge Note Entered On: 06/05/2023 15:19 EST Performed On: 06/05/2023 15:18 EST by Anusha Oakes RN Nursing Discharge Note 2 Discharge Time : 06/05/2023 15:18 EST Discharge Level of Care at Discharge : Home/Chcf/Foster Care Patient Left Unit Via : Ambulatory Patient Accompanied Off Unit with : Other: self DC Instructions Provided & Signed by Pt : Yes Patient Understands D/C Instructions : Yes Patient Instructions Discharge Signed : Yes Did Pt have Specialty Bed or Wound Vac : No Anusha Oakes RN - 06/05/2023 15:18 EST * Anusha Oakes RN: PERFORM Event Display: Patient Education/Instruction Authored Date: [id number] Inpatient Adult Discharge Instructions [address] [address] Name: IVONNE PENN : 1990 Visit: 06/05/2023 10:39:00 Current Date: 06/05/2023 15:09 Account: [id number] Inpatient Adult Discharge Instructions We would like [...] and their families. Surveys are administered by [email or web address] ?? If further treatment with your primary care physician or another doctor is recommended, it is important for you to keep the appointment. Call your primary care physician or return to the Emergency Department immediately if your condition worsens, fails to improve, or new symptoms develop. If you need to find a doctor, you can call [facility] [employer] for a referral at [phone] or toll free at [phone] or log in to [email or web address].. ?? [facility], in keeping with [facility] guidance, no longer requires face masks [...] a health care ce of your choosing. [employer] is a website that allows you to securely view your medical information including your hospital discharge summary, office visit summaries, medications and follow-up visits. You can also request appointments, renew medications, and request access to your medical information using a health care ce of your choosing, or just ask a question. You can enroll at [email or web address] or register during your next office visit. You have been discharged from [facility], Patient Care Unit: WETU1. If you have any questions regarding these instructions after you leave, please call us and we will be happy to assist you. [facility] Your Care Team Attending Physician Tamar Canales MD Your Diagnosis contractions Tests Performed Below is a partial list of the tests performed during your hospitalization. You may have had other tests and procedures not included in this list. Please discuss all test results with your provider. Primary Care Provider Ciaran Pisano Advance Directive Health Care Proxy on File No Discharge Vitals Temperature: 98.6 DegF Weight: 69.7 kg Respiratory Rate: 18 br/min ?? Systolic Blood Pressure: 92 mm Hg ?? Diastolic Blood Pressure:??45 mm Hg??Low ?? Oxygen Saturation: 99 % ?? Studies Pending All tests and labs ordered during this hospital stay have been completed unless listed below. Please discuss all pending results with your provider listed above in these instructions. ?? Hold Urine Culture What to do next Instructions From Your Doctor Discharge Orders Scheduled Follow-Up Appointments Monday 10:00 AM EST ?? With: Ashly BALES, Anni Lane Where: [facility] [address] [place] [address]- Status: Pending Monday 8:30 AM EST ?? With: Mayra Rose MD Where: [facility] Pediatric Cardiology [address] [place] [address]- Status: Pending Monday 7:30 AM EST ?? Where: [facility] Status: Pending You Need to Schedule the Following Appointments Follow Up with??Tracy Winslow MD Why: keep next scheduled appointment Where: [address] [place] [address]- Discharge Medications IVONNE PENN :1990 Visit Date:06/05/2023 Medications: Please continue your medications until treatment is completed or stopped by your provider. Medications not listed below should be discontinued. Discuss any questions related to medications with your provider. What How Much When Why Instructions Next Dose Unchanged Albuterol (albuterol 0.083% inhalation solution) 3 Milliliter Nebulized inhalation Every 4 hours as needed for as needed for wheezing Duration: 30 Days Unchanged Albuterol (albuterol CFC free 90 mcg/ inh inhalation aerosol) INHALE 2 PUFFS INTO THE LUNGS EVERY 4 (FOUR) HOURS NEEDED FOR SHORTNESS OF BREATH OR WHEEZING ?? Unchanged Budesonide-Formoterol (Symbicort 160mcg/ 4.5mcg Inhaler) 2 puff(s) Inhalation Twice a day TAKE 2 PUFFS BY MOUTH TWICE A DAY ?? Unchanged Doxylamine (Unisom 25 mg oral tablet) 1 tab(s) Oral Daily as needed for as needed for sleep 15 to 30 minutes before bed ?? Unchanged Ferrous Gluconate (ferrous gluconate 324 mg oral tablet) 1 tab(s) Oral Daily Unchanged lurasidone (Latuda 20 mg oral tablet) 1 tab(s) Oral Daily Unchanged Multivitamin, (M- Plus oral tablet) 1 tab(s) Oral Daily Unchanged Omeprazole (omeprazole 20 mg oral enteric coated capsule) 1 capsule Oral Twice a day 30 min before a meal ?? Unchanged Ondansetron (ondansetron 4 mg oral tablet, disintegrating) 1 tab(s) Oral Every 6 hours as needed for as needed for nausea/vomiting Unchanged Pyridoxine (Vitamin B6 50 mg oral tablet) 1 tab(s) Oral 3 times a day Unchanged Sertraline Oral Daily Test Results Below is a partial list of the most recent Laboratory test results done prior to this discharge. You may have had other tests and procedures not included in this list. Please discuss all test resultswith your provider. UA (06/05/2023) ???Appear/Color, Urine - YELLOW???Specific Eva, Urine - 1.029???pH, Urine - 6.5???Albumin, Urine - 1+???Glucose, Urine - NEGATIVE???Ketones, Urine - TRACE???Bilirubin, Urine - NEGATIVE???Hemoglobin, Urine - NEGATIVE???Nitrite, Urine - NEGATIVE???Leukocyte, Urine - NEGATIVE???Urobilinogen - NORMAL? ?WBC's, Urine - 3 /HPF? ?RBC's, Urine - <1 /HPF? ?Bacteria - SLIGHT? ?Squamous Epith - 5 /HPF???Amorphous Crystals - SLIGHT???Mucus - HEAVY Allergies (NKA means No Known Allergies) Estradiol Patch??(bleeding to patch area area) Bactrim??(Rash) Mushroom??(Throat swelling) Peanuts??(Throat Swelling) Seafood??(throart swelling) lactulose??(Stomach pain) penicillin??(Swelling) shellfish??(throat swelling) sulfADIAZINE??(Swelling) Problems Active Problems??(10) Anemia in ?? History of delivery?? LGSIL on Pap smear of cervix?? Marijuana use?? Obese class I?? 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 Placenta previa? Rh negative state in antepartum period. Antibody screen positive, presumed to be due to prior RhoGAM?? Tetralogy of Fallot, , affecting care of mother?? Education Materials Below is the list of Educational Leaflet Providered with your Discharge Instructions. Understanding Placenta Previa?? Understanding Labor?? Valuables and Belongings I fully understand and agree that [facility] responsibility for all my personal [...] encouraged to send valuables and belongings home. ? Other Discharge Information ? Pulmonary Rehab Status?? [...] are strongly encouraged to quit. Please call [facility] [employer] [facility] at [phone] or [phone]) or log in to [email or web address] for referrals to smoking cessation programs. ?? 751 Suicide & Crisis Lifeline is available 20/02 if you or someone you know needs to find a reason to keep living. By calling 654 you'll be connected to a skilled, trained counselor at a crisis center in your area. INPATIENT DISCHARGE INSTRUCTIONS SIGNATURE PAGE IVONNE PENN Location:[facility] Registration Date and Time:06/05/2023 10:39 EST Primary Care Physician: Ciaran Pisano, Attending Physician: Tamar Canales MD, I IVONNE PENN, have received the above patient education materials/instructions and have verbalized understanding. If ambulance or transport services are being used I further acknowledge being given a choice of service. ?? If you need to contact me, please call me at this number: . Patient/Disk Grinder Name: Patient/Disk Grinder Signature: Relationship to Patient: Witness Name/Signature: Date: * Anusha Oakes RN: PERFORM Event Display: Patient Education Leaflets Authored Date: [id number] Understanding Placenta Previa ?? [address] Understanding Placenta Previa The placenta is an organ that grows in the womb (uterus) in . It sends the baby nutrients and oxygen in the womb. It removes waste from the baby???s blood. In some cases, the placenta grows too close to or over the opening at the bottom of the womb (the cervix) that leads to the vagina. This may happen in the second or third trimester. This is called placenta previa. The placenta may bloc k part or all of the cervix. This can cause blood loss. It can also cause labor.?? Placenta in normal position. There are 3 types of placenta previa: ??? Complete. The placenta fully covers the cervix. ??? Partial. The placenta is partly over the cervix. ??? Marginal. The placenta is near the edge of the cervix. Who???s at risk for placenta previa? You are more likely to have placenta previa if you have any of these: ??? A multiple (carrying more than 1 baby) ??? A past and ??? Fibroids removed through an incision in the uterus (myomectomy) ??? A section scar low and close to the cervix ??? A history of smoking cigarettes ?? Diagnosing placenta previa Placenta previa can cause bleeding in the second or third trimester. This doesn't cause pain. If this happens, an ultrasound can confirm the problem. But it may not cause bleeding. Your healthcare provider will look at the position of the placenta at routine ultrasound exams. ?? Treating placenta previa The type of treatment you need depends??on: ??? The amount of bleeding ??? The type of placenta previa ??? The stage of the Treatments may include any of these: ??? Part-time or full-time bed rest ??? Blood transfusions to replace blood lost from the mother ??? Medicines to help mature the baby???s lungs ??? Medicines to prevent labor ??? section (this may be done right away if bleeding can't be stopped) ?? During treatment Even if you aren't on bed rest, you may be told to restrict your activity. You will likely need to:??? Not have sex ??? Limit travel ??? Not have pelvic exams ?? Getting support It can be stressful and scary to be diagnosed with a problem in . It may help to join a support group for people who are going through the same problem. Ask your provider to help you find a support group in your area. Or look for a support group online. ?? Last Reviewed Date: 2022 ?? 9865-1174 [employer]. All rights reserved. This information is not intended as a substitute for professional medical care. Always follow your healthcare professional's instructions. ?? * Anusha Oakes RN: PERFORM Event Display: Patient Education Leaflets Authored Date: [id number] Understanding Labor ?? 85956 Understanding Labor Going into labor before week [...] early. ?? Last Reviewed Date: 2021 ?? 1216-4213 [employer]. All rights reserved. This information is not intended as a substitute for professional medical care. Always follow your healthcare professional's instructions. ?? Patient Care team information Care Team Personnel Name: Ciaran Pisano Position: S Outreach Member Role: PCP Address: Address: [address] [place] [address]- Name: Julieta Mai RN Position: [facility] OB RN Member Role: Primary Care Nurse Name: Alannah Koenig RN Position: S RN Member Role: Primary Care Nurse Name: Anusha Oakes RN Position: [facility] OB RN Member Role: Patient Care Provider Care Team Related Persons Name: JERSON RESTREPO Address: home [address] [place] [address] Name: ALEAH PENN Address: home [address] [place] [address]
--- OUTSIDE RECORDS SUMMARY | 2023-12-05 19:43 | XMS_ITS | Continuity of Care Document ---
Author Organization [facility] Address [address] [place] [address] [address] [place] [address]- Care Team Providers Care Public Opinion Survey Taker Name Role Phone Ciaran Pisano Primary Care Physician [phone] Encounter [facility] [place] Date(s): 08/03/22 - 09/02/[address] [place] [address]- Allergies, Adverse Reactions, Alerts Substance Reaction Severity [...] Given 1Admin Note: vis given Medications albuterol CFC free 90 mcg/inh inhalation aerosol INHALE 2 PUFFS INTO THE LUNGS EVERY 4 (FOUR) HOURS NEEDED FOR SHORTNESS OF BREATH OR WHEEZING Start Date: 09/11/19 Status: Ordered ALPRAZolam 0.5 mg oral tablet TAKE 1 TABLET BY MOUTH TWICE A DAY NEEDED FOR ANXIETY Start Date: 09/11/19 Status: Ordered famotidine 20 mg oral tablet 20 mg, 1, tablet, By Mouth, Daily, # 30 tablet, Refills 0, Tot. Refills 0, Maintenance, 07/31/22 13:01:00 EST, Route to Pharmacy Electronically, [facility]/pharmacy #[id number], Partial fill upon patient request if the prescription is for a schedule II opioid drug. Start Date: 07/31/22 Stop Date: 08/30/22 Status: Ordered Latuda 20 mg oral tablet 1 tablet = 20 mg, By Mouth, Daily, # 30 tablet, 0 Refills, Maintenance, 12/26/19 15:06:00 EDT, Tablet Start Date: 12/26/19 Status: Ordered ondansetron 4 mg oral tablet, disintegrating 1 tablet = 4 mg, By Mouth, Every 8 hours, PRN as needed for nausea/vomiting, # 15 tablet, 0 Refills, Maintenance, 07/31/22 13:01:00 EST, DIS Tablet, [id number], Partial fill upon patient request Start Date: 07/31/22 Stop Date: 08/03/22 Status: Ordered Symbicort 160mcg/4.5mcg Inhaler TAKE 2 PUFFS BY MOUTH TWICE A DAY Start Date: 09/11/19 Status: Ordered zolpidem 10 mg oral tablet TAKE 1 TABLET BY MOUTH EVERY DAY AT BEDTIME NEEDED FOR SLEEP Start Date: 09/11/19 Status: Ordered Problem List Condition Confirmation Course Effective Dates Status H ealth Status Informant Anemia in Confirmed Active Marijuana use Confirmed Active LGSIL on Pap smear of cervix Confirmed Active Cocaine use complicating Confirmed Active Contraception management Confirmed Active History of 2 sections Confirmed Active Obese class I Confirmed Active Rh negative state in antepartum period Confirmed Active Social History Social History Type Response Smoking Status Never (less than 100 in lifetime) entered on: 08/06/18 Sex Female Patient Care team information Care Team Personnel Name: Ciaran Pisano Position: S Outreach Member Role: PCP Address: Address: [address] [place] [address]- Name: Julieta Mai RN Position: [facility] OB RN Member Role: Primary Care Nurse Name: Alannah Koenig RN Position: S RN Member Role: Primary Care Nurse Care Team Related Persons Name: KAYE JERSON Address: [address] [address] Name: ALEAH PENN Address: home [address] [place] [address]
--- OUTSIDE RECORDS SUMMARY | 2023-12-05 19:43 | XMS_ITS | Continuity of Care Document ---
Author Organization [facility] ter Address [address] [place] [address]- Care Team Providers Care Folder Stitcher Operator Name Role Phone Ciaran Pisano Primary Care Physician [place] [facility] [place](s[place] 06/07/23 - 07/29/[address] [id number] Attending Physician: Tracy Winslow MD Allergies, Adverse Reactions, Alerts Substance Reaction [...] Refills, Maintenance, 07/08/23 15:13:00 EST, [facility], [id number], Partial fill upon patient request if the prescription is for a schedule II opioid drug., 142,... Start Date: 07/08/23 Status: Ordered acetaminophen 325 mg oral capsule 2 capsule = 650 mg, By Mouth, Every 4 hours, PRN as needed for pain, # 50 tablet, 0 Refills, Maintenance, 07/08/23 15:20:00 EST, Capsule, [facility] #[id number], Partial fill upon patient request if the prescription is for a schedule II opioid dr... Start Date: 07/08/23 Status: Ordered albuterol 0.083% inhalation solution 3 mL = 2.5 mg, Neb, Every 4 hours, PRN as needed for wheezing, # 100 each, 3 Refills, Maintenance, 12/14/22 23:08:00 EDT, Solution, [facility]/pharmacy #[id number], Partial fill upon patient request if the [...] 07/08/23 15:14:00 EST, Route to Pharmacy Electronically, [facility]/pharmacy #[id number], Partial fill upon patient request if the prescriptio... Start Date: 07/08/23 Status: Ordered Colace sodium 100 mg oral capsule 100 mg, 1, capsule, By Mouth, 2 times a day, PRN, # 20 capsule, Refills 0, Tot. Refills 0, Maintenance, for constipation, 07/08/23 15:20:00 EST, Route to Pharmacy Electronically, [facility]#[id number], Partial fill upon patient request if the pr... Start Date: 07/08/23 Status: Ordered ferrous gluconate 324 mg oral tablet 1 tablet = 324 mg, By Mouth, Daily, # 100 tablet, 0 Refills, Acute 05/16/24 13:53:00 EDT, 05/15/23 13:52:00 EDT, Tablet, [facility]/pharmacy #[id number], Partial fill upon patient request if the prescription is for a schedule II opioid drug., 147.32, cm, 05/12/23... Start Date: 05/15/23 Stop Date: 05/16/24 Status: Ordered ibuprofen 600 mg oral tablet 600 mg, 1, tablet, By Mouth, Every 6 hours, # 50 tablet, Refills 0, Tot. Refills 0, Maintenance, 07/08/23 15:13:00 EST, Route to Pharmacy Electronically, [facility]/pharmacy #[id number], Partial fill upon patientrequest if the prescription is for a schedule II op... Start Date: 07/08/23 Status: Ordered ibuprofen 600 mg oral tablet 600 mg, 1, tablet, By Mouth, Every 6 hours, # 50 tablet, Refills 0, Tot. Refills 0, Maintenance, 07/08/23 15:20:00 EST, Route to Pharmacy Electronically, [facility] #[id number], Partial fill upon patient request if the prescription is for a sched... Start Date: 07/08/23 Status: Ordered Latuda 20 mg oral tablet 1 tablet = 20 mg, By Mouth, Daily, # 30 tablet, 0 Refills, Maintenance, 01/19/23 10:08:00 EDT, Tablet, [facility]/pharmacy #[id number], Partial fill upon patient [...] capsule, 0 Refills, Maintenance, 04/14/23 19:04:00 EDT, [facility]/pharmacy #[id number], Partial fill upon patient [...] 07/08/23 15:13:00 EST, Route to Pharmacy Electronically, [facility]/pharmacy #[id number], Partial fill upon patient request if the prescription is for a... Start Date: 07/08/23 Status: Ordered oxyCODONE 5 mg oral tablet 10 mg, 2, tablet, By Mouth, Every 6 hours, PRN, # 12 tablet, Refills 0, Tot. Refills 0, Maintenance, for pain, 07/08/23 15:20:00 EST, Route to Pharmacy Electronically, [facility] #[id number], Partial fill upon patient request if the [...] 0 Refills, Maintenance, 07/08/23 15:13:00 EST,Chew Tablet, [facility]/pharmacy #[id number], Partial fill upon patient request if the prescription is for a schedule II opioid drug., 142, cm, 12/02/23 10:05:00 ES... Start Date: 07/08/23 Status: Ordered simethicone 125 mg oral tablet, chewable 1 tablet = 125 mg, Chew, 4 times a day, # 48 tablet, 0 Refills, Maintenance, 07/08/23 15:20:00 EST,Chew Tablet, [facility] #[id number], Partial fill upon patient request if the prescription is for a schedule II opioid drug., 142, cm, 07/01/23 10... Start Date: 07/08/23 Status: Ordered Symbicort 160mcg/4.5mcg Inhaler 2, puffs, Inhalation, 2 times a day, TAKE 2 PUFFS BY MOUTH TWICE A DAY, # 3 each, Refills 0, Tot. Refills 0, Maintenance, 04/10/23 18:53:00 EDT, Inhaler, Route to Pharmacy Electronically, [id number], [facility]/pharmacy #[id number], 148,... Start Date: 04/10/23 Status: Ordered Unisom 25 mg oral tablet 1 tablet = 25 mg, By Mouth, Daily, PRN as needed for sleep, 15 to 30 minutes before bed, # 14 tablet, 0 Refills, Maintenance, 01/19/23 10:26:00 EDT, Tablet, [facility]/pharmacy #[id number], Partial fill upon patient request if the prescription is for a schedule II... Start Date: 01/19/23 Status: Ordered Vitamin B6 50 mg oral tablet 1, tablet, By Mouth, 3 times a day, # 90 tablet, Refills 0, Maintenance, 03/06/23 7:49:00 EDT, Route to Pharmacy Electronically, [id number], 148, cm, 02/17/23 9:30:00 EDT, Height, 60.3, [...] Care Team Personnel Name: Ciaran Pisano Position: [facility] Outreach Member Role: PCP Address: Address: [address] [place] [address]- Name: Julieta Mai RN Position: [facility] OB RN Member Role: Primary Care Nurse Name: Alannah Koenig RN Position: S RN Member Role: Primary Care Nurse Care Team Related Persons Name: KAYE JERSON Address: home [address] [place] [address] Name: IOVNNE PENN Address: [address] Address: home [address] [place] [address] [place] Name: ALEAH PENN Address: home [address] [place] [address]
--- OUTSIDE RECORDS SUMMARY | 2023-12-05 19:43 | XMS_ITS | Continuity of Care Document ---
Author Organization [facility] Address [address] [place] [address]- Care Team Providers Care Optical Goods Worker Name Role Phone Ciaran Pisano Primary Care Physician [phone] Encounter [facility] [place] Date(s): 06/05/23 - 07/05/23 [facility] [address] [place] [id number] Allergies, Adverse Reactions, Alerts Substance Reaction [...] Refills, Maintenance, 12/14/22 23:08:00 EDT, [facility], [id number], Partial fill upon patient request if the [...] opioid drug. Start Date: 07/03/23 Status: Ordered ferrous gluconate 324 mg oral tablet 1 tablet = 324 mg, By Mouth, Daily, # 100 tablet, 0 Refills, Acute 05/16/24 13:53:00 EDT, 05/15/23 13:52:00 EDT, Tablet, [facility]/pharmacy #[id number], Partial fill upon patient request if the prescription is for a schedule II opioid drug., 147.32, cm, 05/12/23... Start Date: 05/15/23 Stop Date: 05/16/24 Status: Ordered Latuda 20 mg oral tablet 1 tablet = 20 mg, By Mouth, Daily, # 30 tablet, 0 Refills, Maintenance, 01/19/23 10:08:00 EDT, Tablet, [facility]/pharmacy #[id number], Partial fill upon patient request [...] Refills, Maintenance, 04/10/23 18:51:00 EDT, DIS Tablet, [facility]/pharmacy #[id number], Partial fill upon patient request, [...] 18:53:00 EDT, Inhaler, Route to Pharmacy Electronically, [id number], [facility]/pharmacy #[id number], 148,... Start Date: 04/10/23 Status: Ordered Unisom 25 mg oral tablet 1 tablet = 25 mg, By Mouth, Daily, PRN as needed for sleep, 15 to 30 minutes before bed, # 14 tablet, 0 Refills, Maintenance, 01/19/23 10:26:00 EDT, Tablet, [facility]/pharmacy #[id number], Partial fill upon patient request if the prescription is for a schedule II... Start Date: 01/19/23 Status: Ordered Vitamin B6 50 mg oral tablet 1, tablet, By Mouth, 3 times a day, # 90 tablet, Refills 0, Maintenance, 03/06/23 7:49:00 EDT, Route to Pharmacy Electronically, [facility] [id number], 148, cm, 02/17/23 9:30:00 EDT, Height, 60.3, [...] Care Team Personnel Name: Ciaran Pisano Position: [facility] Outreach Member Role: PCP Address: Address: [address] [place] [address]- Name: Julieta Mai RN Position: [facility] OB RN Member Role: Primary Care Nurse Name: Alannah Koenig RN Position: S RN Member Role: Primary Care Nurse Care Team Related Persons Name: KAYEJERSON Lane Address: [address] [address] Name: IVONNE PENN Address: [id number] Address: home [address] [place] [address] [place] Name: ALEAH PENN Address: home [address] [place] [address]
--- OUTSIDE RECORDS SUMMARY | 2023-12-05 19:43 | XMS_ITS | Continuity of Care Document ---
Author Organization [facility] Address [address] [place] [address]- Care Team Providers Care Aerospace Engineer Officer Armament Name Role Phone Ciaran Pisano Primary Care Physician Encounter [facility] [place] Date(s): 06/08/23 - 07/08/23 [facility] [address] [place] [id number] Allergies, Adverse Reactions, Alerts Substance Reaction Severity Status penicillin Swelling Active sulfADIAZINE Swelling Active shellfish throat swelling Active Bactrim Rash Active Peanuts Throat Swelling Active Mushroom Throat swelling Active Lactose Active Estradiol Patch bleeding to patch area area Persistent Mild Active Seafood throart swelling Active Immunizations Given [...] Refills, Maintenance, 07/08/23 15:13:00 EST, [facility], [id number], Partial fill upon patient request if the prescription is for a schedule II opioid drug., 142,... Start Date: 07/08/23 Status: Ordered acetaminophen 325 mg oral capsule 2 capsule = 650 mg, By Mouth, Every 4 hours, PRN as needed for pain, # 50 tablet, 0 Refills, Maintenance, 07/08/23 15:20:00 EST, Capsule, [facility][id number], Partial fill upon patient request if the prescription is for a schedule II opioid dr... Start Date: 07/08/23 Status: Ordered albuterol 0.083% inhalation solution 3 mL = 2.5 mg, Neb, Every 4 hours, PRN as needed for wheezing, # 100 each, 3 Refills, Maintenance, 12/14/22 23:08:00 EDT, Solution, [facility]/pharmacy #[id number], Partial fill upon patient request if the [...] 07/08/23 15:14:00 EST, Route to Pharmacy Electronically, [facility]/pharmacy #[id number], Partial fill upon patient request if the prescriptio... Start Date: 07/08/23 Status: Ordered Colace sodium 100 mg oral capsule 100 mg, 1, capsule, By Mouth, 2 times a day, PRN, # 20 capsule, Refills 0, Tot. Refills 0, Maintenance, for constipation, 07/08/23 15:20:00 EST, Route to Pharmacy Electronically, [facility][id number], Partial fill upon patient request if the pr... Start Date: 07/08/23 Status: Ordered ferrous gluconate 324 mg oral tablet 1 tablet = 324 mg, By Mouth, Daily, # 100 tablet, 0 Refills, Acute 05/16/24 13:53:00 EDT, 05/15/23 13:52:00 EDT, Tablet, [facility]/pharmacy #[id number], Partial fill upon patient request if the prescription is for a schedule II opioid drug., 147.32, cm, 05/12/23... Start Date: 05/15/23 Stop Date: 05/16/24 Status: Ordered ibuprofen 600 mg oral tablet 600 mg, 1, tablet, By Mouth, Every 6 hours, # 50 tablet, Refills 0, Tot. Refills 0, Maintenance, 07/08/23 15:13:00 EST, Route to Pharmacy Electronically, [facility]/pharmacy #[id number], Partial fill upon patientrequest if the prescription is for a schedule II op... Start Date: 07/08/23 Status: Ordered ibuprofen 600 mg oral tablet 600 mg, 1, tablet, By Mouth, Every 6 hours, # 50 tablet, Refills 0, Tot. Refills 0, Maintenance, 07/08/23 15:20:00 EST, Route to Pharmacy Electronically, [facility] #[id number], Partial fill upon patient request if the prescription is for a sched... Start Date: 07/08/23 Status: Ordered Latuda 20 mg oral tablet 1 tablet = 20 mg, By Mouth, Daily, # 30 tablet, 0 Refills, Maintenance, 01/19/23 10:08:00 EDT, Tablet, [facility]/pharmacy #[id number], Partial fill upon [...] capsule, 0 Refills, Maintenance, 04/14/23 19:04:00 EDT, [facility]/pharmacy #[id number], Partial fill upon [...] 07/08/23 15:13:00 EST, Route to Pharmacy Electronically, [facility]/pharmacy #[id number], Partial fill upon patient request if the prescription is for a... Start Date: 07/08/23 Status: Ordered oxyCODONE 5 mg oral tablet 10 mg, 2, tablet, By Mouth, Every 6 hours, PRN, # 12 tablet, Refills 0, Tot. Refills 0, Maintenance, for pain, 07/08/23 15:20:00 EST, Route to Pharmacy Electronically, [facility] #[id number], Partial fill upon patient request if the [...] 0 Refills, Maintenance, 07/08/23 15:13:00 EST,Chew Tablet, [facility]/pharmacy #[id number], Partial fill upon patient request if the prescription is for a schedule II opioid drug., 142, cm, 07/01/23 10:05:00 ES... Start Date: 07/08/23 Status: Ordered simethicone 125 mg oral tablet, chewable 1 tablet = 125 mg, Chew, 4 times a day, # 48 tablet, 0 Refills, Maintenance, 07/08/23 15:20:00 EST,Chew Tablet, [facility] #[id number], Partial fill upon patient request if the prescription is for a schedule II opioid drug., 142, cm, 07/01/23 10... Start Date: 07/08/23 Status: Ordered Symbicort 160mcg/4.5mcg Inhaler 2, puffs, Inhalation, 2 times a day, TAKE 2 PUFFS BY MOUTH TWICE A DAY, # 3 each, Refills 0, Tot. Refills 0, Maintenance, 04/10/23 18:53:00 EDT, Inhaler, Route to Pharmacy Electronically, [id number], [facility]/pharmacy #[id number], 148,... Start Date: 04/10/23 Status: Ordered Unisom 25 mg oral tablet 1 tablet = 25 mg, By Mouth, Daily, PRN as needed for sleep, 15 to 30 minutes before bed, # 14 tablet, 0 Refills, Maintenance, 01/19/23 10:26:00 EDT, Tablet, [facility]/pharmacy #[id number], Partial fill upon patient request if the prescription is for a schedule II... Start Date: 01/19/23 Status: Ordered Vitamin B6 50 mg oral tablet 1, tablet, By Mouth, 3 times a day, # 90 tablet, Refills 0, Maintenance, 03/06/23 7:49:00 EDT, Route to Pharmacy Electronically, [id number], 148, cm, 02/17/23 9:30:00 EDT, Height, 60.3, [...] S Outreach Member Role: PCP Address: Address: [address] [place] [address]- Name: Julieta Mai RN Position: [facility] OB RN Member Role: Primary Care Nurse Name: Alannah Koenig RN Position: S RN Member Role: Primary Care Nurse Care Team Related Persons Name: KAYE JERSON Address: home [address] [place] [address] Name: IVONNE PENN Address: [address] Address: home [address] [place] [address] [place] Name: ALEAH PENN Address: home [address] [place] [address]
--- OUTSIDE RECORDS SUMMARY | 2023-12-05 19:43 | XMS_ITS | Continuity of Care Document ---
Author Organization [facility] Address [address] [place] [address]- Care Team Providers Care Top Lift Nailer Name Role Phone Ciaran Pisano Primary Care Physician [phone] [facility] [place] Date(s): 12/23/22 - 01/22/[address] [address] Allergies, Adverse Reactions, Alerts [...] 3 Refills, Maintenance, 12/14/22 23:08:00 EDT, Solution, [facility]/pharmacy #[id number], Partial fill upon patient request if the [...] 01/19/23 10:08:00 EDT, Route to Pharmacy Electronically, [facility]/pharmacy #[id number], Partial fill upon patient request if the prescription is for a schedule II opioid drug... Start Date: 01/19/23 Stop Date: 02/18/23 Status: Ordered Latuda 20 mg oral tablet 1 tablet = 20 mg, By Mouth, Daily, # 30 tablet, 0 Refills, Maintenance, 01/19/23 10:08:00 EDT, Tablet, [facility]/pharmacy #[id number], Partial fill upon patient request if the prescription is for a schedule II opioid drug., 148, cm, 01/19/23 9:06:00 EDT, Height,... Start Date: 01/19/23 Status: Ordered M- Plus oral tablet 1 tablet, By Mouth, Daily, # 90 tablet, 3 Refills, Maintenance, 12/28/22 9:02:00 EDT, [facility]/pharmacy #[id number], Partial fill upon patient request [...] Refills, Maintenance, 01/19/23 10:09:00 EDT, DIS Tablet, [facility]/pharmacy #[id number], Partial fill upon patient request, 148, cm, 01/19/23 9:06:00 EDT, Height, 60.6, kg... Start Date: 01/19/23 Stop Date: 01/22/23 Status: Ordered pyridoxine 25 mg oral tablet 1 tablet = 25 mg, By Mouth, 3 times a day, PRN Nausea & Vomiting, # 100 tablet, 8 Refills, Acute 01/28/23 14:29:00 EDT, 12/29/22 14:28:00 EDT, [facility]/pharmacy #[id number], Partial fill upon patient request if the prescription is for a schedule II opioid drug.,... Start Date: 12/29/22 Stop Date: 01/28/23 Status: Ordered Reglan 5 mg oral tablet 1 tablet = 5 mg, By Mouth, 4 times a day, for 14 days, # 56 tablet, 0 Refills, Acute 02/02/23 10:27:00 EDT, 01/19/23 10:27:00 EDT, Tablet, [facility]/pharmacy #[id number], Partial fill upon patient request if theprescription is for a schedule II opioid drug., 148... Start Date: 01/19/23 Stop Date: 02/02/23 Status: Ordered Sertraline By Mouth, Daily, 0 [...] 10:08:00 EDT, Inhaler, Route to Pharmacy Electronically, [id number], [facility]/pharmacy #[id number], 148,... Start Date: 01/19/23 Status: Ordered Unisom 25 mg oral tablet 1 tablet = 25 mg, By Mouth, Daily, PRN as needed for sleep, 15 to 30 minutes before bed, # 14 tablet, 0 Refills, Maintenance, 01/19/23 10:26:00 EDT, Tablet, [facility]/pharmacy #[id number], Partial fill upon patient request [...] Care Team Personnel Name: Ciaran Pisano Position: [facility] Outreach Member Role: PCP Address: Address: [address] [place] [address]- Name: Sergei GARCIA, Julieta Gilmore Position: [facility] OB RN Member Role: Primary Care Nurse Name: Alannah Koenig RN Position: [facility] RN Member Role: Primary Care Nurse Care Team Related Persons Name: JERSON ERSTREPO Address: [address] [address] Name: ALEAH PENN Address: home [address] [place] [address]
--- OUTSIDE RECORDS SUMMARY | 2023-12-05 19:43 | XMS_ITS | Continuity of Care Document ---
Author Organization [facility] Address [address] [place] [address]- Care Team Providers Care Web User Experience Strategist Name Role Phone Ciaran Pisano Primary Care Physician [phone] Encounter [facility] Date(s): 05/29/23 - 06/28/23 [facility] [address] [place] [id number] Allergies, Adverse Reactions, Alerts Substance Reaction [...] Refills, Maintenance, 12/14/22 23:08:00 EDT, [facility], [id number], Partial fill upon patient request if the [...] Refills, Maintenance, 04/10/23 18:51:00 EDT, DIS Tablet, [facility]/pharmacy #[id number], Partial fill upon patient request, 148, [...] 18:53:00 EDT, Inhaler, Route to Pharmacy Electronically, [id number], [facility]/pharmacy #0488, 148,... Start Date: 04/10/23 Status: Ordered Unisom 25 mg oral tablet 1 tablet = 25 mg, By Mouth, Daily, PRN as needed for sleep, 15 to 30 minutes before bed, # 14 tablet, 0 Refills, Maintenance, 01/19/23 10:26:00 EDT, Tablet, [facility]/pharmacy #[id number], Partial fill upon patient request if the prescription is for a schedule II... Start Date: 01/19/23 Status: Ordered Vitamin B6 50 mg oral tablet 1, tablet, By Mouth, 3 times a day, # 90 tablet, Refills 0, Maintenance, 03/06/23 7:49:00 EDT, Route to Pharmacy Electronically, [facility] [id number], 148, cm, 02/17/23 9:30:00 EDT, Height, 60.3, [...] Team Personnel Name: Ciaran Pisano Position: [facility] Outreach Member Role: PCP Address: Address: [address] [place] [address]- Name: Julieta Mai RN Position: [facility] OB RN Member Role: Primary Care Nurse Name: Alannah Koenig RN Position: [facility] RN Member Role: Primary Care Nurse Care Team Related Persons Name: JERSON RESTREPO Address: home [address] [address] Name: ALEAH PENN Address: home [address] [place] [address]
--- OUTSIDE RECORDS SUMMARY | 2023-12-05 19:43 | XMS_ITS | Continuity of Care Document ---
Author Organization [facility] ter Address [address] [place] [address]- Care Team Providers Care Sports Marketing Specialist Name Role Phone Not on Staff, PCP Primary Care Physician Unavail able [place] [facility] [place] - 07/31/[address] [address]- Encounter Diagnosis Vomiting(Final) - 07/31/22 Diarrhea(Final) - 07/31/22 Cholelithiasis(Final) - 07/31/22 Discharge Disposition: A-D/C Home Attending Physician: Ana Alarcon MD Admitting Physician: Ana Alarcon MD Referring Physician: Not on Staff, Referring MD Allergies, Adverse Reactions, Alerts Substance Reaction [...] 07/31/22 13:01:00 EST, Route to Pharmacy Electronically, [facility]/pharmacy #[id number], Partial fill upon patient request if the [...] Refills, Maintenance, 07/31/22 13:01:00 EST, [id number] upon patient request Start Date: [...] negative state in antepartum period Confirmed Active Results Radiology Reports * Exam Date Time Procedure Performing Provider Status 07/31/22 9:03 AM US RUQ Aura Darden; Auth (Ve rified) Notes: (US RUQ) Reason For Exam: Abdominal Pain;Other: RESULT: US RUQ US RUQ INDICATION: Abdominal pain, concern for cholecystitis. COMPARISON: 09/08/2019. FINDINGS: Liver: Normal in size and echotexture. No focal lesion. Smooth hepatic contour. Main portal vein patent with normal hepatopetal direction of flow. Gallbladder: Multiple gallstones measure up to about 7 mm. Normal wall thickness. No pericholecystic fluid. Negative Holland sign. Biliary Tree: No intrahepatic or extrahepatic bile duct dilation is identified. Common duct measures: 0.4 cm. Pancreas: No abnormality in the visualized portions of the pancreas. Right kidney: 11.0 cm in length. Normal parenchymal echotexture and thickness. No hydronephrosis, stone or mass. IMPRESSION: Cholelithiasis but no evidence of cholecystitis or biliary obstruction. I have personally reviewed the images and I agree with this report. WSN: [id number] Ordering Physician: Shiloh Villalobos Dictated By: Ric Brar MD Dictated Date/Time: 07/31/22 9:46 am Reviewed By: Alok Nuñez MD Signed By: Alok Nuñez MD Signed Date/Time: 07/31/22 9:51 am Transcribed By: LAVERN Transcribed Date/Time: 07/31/22 9:08 am Vital Signs Most recent to oldest [Reference Range]: 1 2 3 Oxygen Saturation [94-100 %] 100 % (07/31/22 1:03 PM) 99 % (07/31/22 10:51 AM) 100 % (07/31/22 8:09 AM) Pulse Rate [55-90 bpm] 60 bpm (07/31/22 1:03 PM) 68 bpm (07/31/22 10:51 AM) 51 bpm *L* (07/31/22 8:09 AM) Blood Pressure [90-138/55-84 mm Hg] 110/71mm Hg (07/31/22 1:03 PM) 91/60mm Hg (07/31/22 10:51 AM) 140/91mm Hg *H* (07/31/22 8:09 AM) Respiratory Rate [16-30 br/min] 18 br/min (07/31/22 1:03 PM) 18 br/min (07/31/22 10:51 AM) 18 br/min (07/31/22 8:09 AM) Temperature [96.8-100.4 DegF] 98.6 DegF (07/31/22 1:03 PM) 99.3 DegF (07/31/22 10:51 AM) 97.4 DegF (07/31/22 8:09 AM) Liters per Minute 0 L/min (07/31/22 10:51 AM) Mode of Delivery (Oxygen) Room air (07/31/22 1:03 PM) Room air (07/31/22 10:51 AM) Room air (07/31/22 8:09 AM) Blood pressure sites Arm, left (07/31/22 1:03 PM) Arm, left (07/31/22 10:51 AM) Temperature Route Oral (07/31/22 1:03 PM) Oral (07/31/22 10:51 AM) Oral (07/31/22 8:09 AM) Social History Social History Type Response Smoking Status Never (less than 100 in lifetime) entered on: 08/06/18 Sex Female Note * Shiloh Villalobos MD: PERFORM, SIGN, VERIFY Event Display: Patient Education Handout Authored Date: [id number] * BHSPowerscribe , CIS S: TRANSCRIBE Ric Brar MD: SIGN Alok Nuñez MD: VERIFY Event Display: Result: Authored Date: [id number] US RUQ INDICATION: Abdominal pain, concern for cholecystitis. COMPARISON: 09/08/2019. FINDINGS: Liver: Normal in size and echotexture. No focal lesion. Smooth hepatic contour. Main portal vein patent with normal hepatopetal direction of flow. Gallbladder: Multiple gallstones measure up to about 7 mm. Normal wall thickness. No pericholecystic fluid. Negative Holland sign. Biliary Tree: No intrahepatic or extrahepatic bile duct dilation is identified. Common duct measures: 0.4 cm. Pancreas: No abnormality in the visualized portions of the pancreas. Right kidney: 11.0 cm in length. Normal parenchymal echotexture and thickness. No hydronephrosis, stone or mass. IMPRESSION: Cholelithiasis but no evidence of cholecystitis or biliary obstruction. I have personally reviewed the images and I agree with this report. WSN: [id number] Ordering Physician: Shiloh Villalobos Dictated By: Ric Brar MD Dictated Date/Time: 07/31/22 9:46 am Reviewed By: Alok Nuñez MD Signed By: Alok Nuñez MD Signed Date/Time: 07/31/22 9:51 am Transcribed By: LAVERN Transcribed Date/Time: 07/31/22 9:08 am Patient Care team information Care Team Personnel Name: Sergei GARCIA, Julieta Gilmore Position: [facility] OB RN Member Role: Primary Care Nurse Name: Alannah Koenig RN Position: [facility] RN Member Role: Primary Care Nurse Name: Not on Staff, PCP Position: [facility] Physician (General Medicine) Member Role: PCP Name: Ana Alarcon MD Position: [facility] ED Medicine MD Member Role: Admitting Physician Address: Address: [address] [place] [address]- Name: Aidee Penaloza Position: [facility] ED TA [facility] Member Role: Cotton Gin Yard Supervisor Name: Shiloh Villalobos MD Position: [facility] Resident Member Role: ED Resident Address: Address: [address] [place] [address]- Name: Oli Shook Position: [facility] ED RN W/OE and Tasks Member Role: Patient Care Provider Name: Tara Gresham Position: [facility] ED RN W/OE and Tasks Member Role: Patient Care Provider Care Team Related Persons Name: KAYE JERSON Address: home [address] [address] Name: ALEAH PENN Address: home [address] [place] [address]
--- OUTSIDE RECORDS SUMMARY | 2023-12-05 19:43 | XMS_ITS | Continuity of Care Document ---
Author Organization [facility] Address [address] [place] [address]- Care Team Providers Care Instructor Ground Services Name Role Phone Alok Hutchison MD Primary Care Physician [place] [facility] [place](s): 06/17/20 - 12/03/[address] [address] Attending Physician: Vilma Zhang CNM Admitting Physician: Vilma Zhang CNM Referring Physician: Alok Hutchison MD Allergies, Adverse Reactions, Alerts Substance Reaction [...] FOR ANXIETY Start Date: 09/11/19 Status: Ordered Latuda 20 mg oral tablet 1 tablet = 20 mg, By Mouth, Daily, # 30 tablet, 0 Refills, Maintenance, 12/26/19 15:06:00 EDT, Tablet Start Date: 12/26/19 Status: Ordered Symbicort 160mcg/4.5mcg Inhaler TAKE 2 PUFFS BY MOUTH TWICE A DAY Start Date: 09/11/19 Status: Ordered zolpidem 10 mg oral tablet TAKE 1 TABLET BY MOUTH EVERY DAY AT BEDTIME NEEDED FOR SLEEP Start Date: 09/11/19 Status: Ordered Problem List Condition Effective Dates Status Health Status Inform ant Anemia in (Confirmed) Active Marijuana use(Confirmed) Active LGSIL on Pap smear of cervix(Confirmed) Active Cocaine use complicating (Confirmed) Active Contraception management(Confirmed) Active History of 2 sections(Confirmed) Active Rh negative state in antepar lizbeth period(Confirmed) Active Social History Social History Type Response Smoking Status Never (less than 100 in lifetime) entered on: 08/06/18 Sex Female
--- OUTSIDE RECORDS SUMMARY | 2023-12-05 19:43 | XMS_ITS | Continuity of Care Document ---
Author Organization [facility] Address [address] [place] [address]- Care Team Providers Care Filemaker Developer Name Role Phone Ciaran Pisano Primary Care Physician [phone] Encounter [facility] [place] Date(s): 11/28/22 - 12/28/[address] [address] Allergies, Adverse Reactions, Alerts Substance Reaction Severity Status penicillin Active sulfADIAZINE Active lactulose Active Bactrim Active Peanuts Active Estradiol Patch Persistent Mild Active Mushroom Active Seafood Active Immunizations Given and Recorded Vaccine Date [...] 3 Refills, Maintenance, 12/14/22 23:08:00 EDT, Solution, [facility]/pharmacy #[id number], Partial fill upon patient request if the [...] FOR ANXIETY Start Date: 09/11/19 Status: Ordered doxylamine 25 mg oral tablet 1 tablet = 25 mg, By Mouth, Daily at bedtime, for 30 days, 15 to 30 minutes before bed, # 30 tablet, 0 Refills, Acute 01/04/23 10:03:00 EDT, 12/05/22 10:03:00 EDT, Tablet, [facility]/pharmacy #[id number], Partialfill upon patient request if the prescription is fo... Start Date: 12/05/22 Stop Date: 01/04/23 Status: Ordered famotidine 20 mg oral tablet 20 mg, 1, tablet, By Mouth, Daily, # 30 tablet, Refills 0, Tot. Refills 0, Maintenance, 07/31/22 13:01:00 EST, Route to Pharmacy Electronically, [facility]/pharmacy #[id number], Partial fill upon patient request if the prescription is for a schedule II opioid drug. Start Date: 07/31/22 Stop Date: 08/30/22 Status: Ordered Latuda 20 mg oral tablet 1 tablet = 20 mg, By Mouth, Daily, # 30 tablet, 0 Refills, Maintenance, 12/26/19 15:06:00 EDT, Tablet Start Date: 12/26/19 Status: Ordered M- Plus oral tablet 1 tablet, By Mouth, Daily, # 90 tablet, 3 Refills, Maintenance, 12/28/22 9:02:00 EDT, [facility]/pharmacy #[id number], Partial fill upon patient request [...] Refills, Maintenance, 07/31/22 13:01:00 EST, DIS Tablet, [facility]/pharmacy #[id number], Partial fill upon patient request Start Date: 07/31/22 Stop Date: 08/03/22 Status: Ordered Symbicort 160mcg/4.5mcg Inhaler TAKE 2 PUFFS BY MOUTH TWICE A DAY Start Date: 09/11/19 Status: Ordered Vitamin B6 50 mg oral tablet 50 mg, 1, tablet, By Mouth, 3 times a day, for 30 days, # 90 tablet, Refills 0, Tot. Refills 0, Acute 01/04/23 10:03:00 EDT, 12/05/22 10:03:00 EDT, Route to Pharmacy Electronically, [facility]/pharmacy #[id number], Partial fill upon patient request if the prescrip... Start Date: 12/05/22 Stop Date: 01/04/23 Status: Ordered zolpidem 10 mg oral tablet [...] Care Team Personnel Name: Ciaran Pisano Position: [facility] Outreach Member Role: PCP Address: Address: [address] [place] [address]- Name: Sergei GARCIA, Julieta Gilmore Position: [facility] OB RN Member Role: Primary Care Nurse Name: Alannah Koenig RN Position: S RN Member Role: Primary Care Nurse Care Team Related Persons Name: JERSON RESTREPO Address: home [address] [place] [address] Name: ALEAH PENN Address: home [address] [place] [address]
--- OUTSIDE RECORDS SUMMARY | 2023-12-05 19:44 | XMS_ITS | Continuity of Care Document ---
Author Organization [facility] Address [address] [place] [address]- Care Team Providers Care Pie Maker Machine Name Role Phone Ciaran Pisano Primary Care Physician [phone] [place] [facility] [place] - 01/14/[address] [address] Allergies, Adverse Reactions, Alerts Substance Reaction Severity Status penicillin Active sulfADIAZINE Active lactulose Active Bactrim Active Seafood Active Estradiol Patch Persistent Mild Active Peanuts Active Mushroom Active Immunizations Given and Recorded [...] 3 Refills, Maintenance, 12/14/22 23:08:00 EDT, Solution, [facility]/pharmacy #[id number], Partial fill upon patient request if the prescription is for a schedule II opioid drug., 148, cm, 0... Start Date: 12/14/22 Stop Date: 04/13/23 Status: Ordered albuterol CFC free 90 mcg/inh inhalation aerosol INHALE 2 PUFFS INTO THE LUNGS EVERY 4 (FOUR) HOURS NEEDED FOR SHORTNESS OF BREATH OR WHEEZING Start Date: 2/12/20 Status: Ordered ALPRAZolam 0.5 mg oral tablet TAKE 1 TABLET BY MOUTH TWICE A DAY NEEDED FOR ANXIETY Start Date: 09/11/19 Status: Ordered famotidine 20 mg oral tablet 20 mg, 1, tablet, By Mouth, Daily, # 30 tablet, Refills 0, Tot. Refills 0, Maintenance, 07/31/22 13:01:00 EST, Route to Pharmacy Electronically, [facility]/pharmacy #[id number], Partial fill upon patient request if the prescription is for a schedule II opioid drug. Start Date: 07/31/22 Stop Date: 08/30/22 Status: Ordered Latuda 20 mg oral tablet 1 tablet = 20 mg, By Mouth, Daily, # 30 tablet, 0 Refills, Maintenance, 12/26/19 15:06:00 EDT, Tablet Start Date: 12/26/19 Status: Ordered M-Rose Marie Plus oral tablet 1 tablet, By Mouth, Daily, # 90 tablet, 3 Refills, Maintenance, 12/28/22 9:02:00 EDT, [facility]/pharmacy #[id number], Partial fill upon patient [...] Refills, Maintenance, 07/31/22 13:01:00 EST, DIS Tablet, [facility]/pharmacy #[id number], Partial fill upon patient request Start Date: 07/31/22 Stop Date: 08/03/22 Status: Ordered pyridoxine 25 mg oral tablet 1 tablet = 25 mg, By Mouth, 3 times a day, PRN Nausea & Vomiting, # 100 tablet, 8 Refills, Acute 01/28/23 14:29:00 EDT, 12/29/22 14:28:00 EDT, [facility]/pharmacy #[id number], Partial fill upon patient request if the prescription is for a schedule II opioid drug.,... Start Date: 12/29/22 Stop Date: 01/28/23 Status: Ordered Symbicort 160mcg/4.5mcg Inhaler TAKE 2 [...] HOSPITAL Outreach Member Role: PCP Address: Address: [address] [place] [address]- Name: Julieta Mai RN Position: [facility] OB RN Member Role: Primary Care Nurse Name: Alannah Koenig RN Position: S RN Member Role: Primary Care Nurse Care Team Related Persons Name: JERSON RESTREPO Address: home [address] [address] Name: ALEAH PENN Address: home [address] [place] [address]
--- OUTSIDE RECORDS SUMMARY | 2023-12-05 19:44 | XMS_ITS | Continuity of Care Document ---
Author Organization [facility] ter Address [address] [place] [address]- Care Team Providers Care Tare Worker Name Role Phone Ciaran Pisano Primary Care Physician Encounter [facility] [place] Date(s): 07/11/23 - 07/18/[address] [address] Attending Physician: Alee Major MD Allergies, Adverse Reactions, Alerts Substance Reaction [...] Refills, Maintenance, 07/08/23 15:13:00 EST, Capsule, [facility]/pharmacy #[id number], Partial fill upon patient request if the prescription is for a schedule II opioid drug., 142,... Start Date: 07/08/23 Status: Ordered acetaminophen 325 mg oral capsule 2 capsule = 650 mg, By Mouth, Every 4 hours, PRN as needed for pain, # 50 tablet, 0 Refills, Maintenance, 07/08/23 15:20:00 EST, Capsule, [facility] #[id number], Partial fill upon patient request if the prescription is for a schedule II opioid dr... Start Date: 07/08/23 Status: Ordered albuterol 0.083% inhalation solution 3 mL = 2.5 mg, Neb, Every 4 hours, PRN as needed for wheezing, # 100 each, 3 Refills, Maintenance, 12/14/22 23:08:00 EDT, Solution, [facility]/pharmacy #[id number], Partial fill upon patient request if the [...] 07/08/23 15:14:00 EST, Route to Pharmacy Electronically, [facility]/pharmacy #[id number], Partial fill upon patient request if the prescriptio... Start Date: 07/08/23 Status: Ordered Colace sodium 100 mg oral capsule 100 mg, 1, capsule, By Mouth, 2 times a day, PRN, # 20 capsule, Refills 0, Tot. Refills 0, Maintenance, for constipation, 07/08/23 15:20:00 EST, Route to Pharmacy Electronically, [facility][id number], Partial fill upon patient request if the pr... Start Date: 07/08/23 Status: Ordered ferrous gluconate 324 mg oral tablet 1 tablet = 324 mg, By Mouth, Daily, # 100 tablet, 0 Refills, Acute 05/16/24 13:53:00 EDT, 05/15/23 13:52:00 EDT, Tablet, [facility]/pharmacy #[id number], Partial fill upon patient request if the prescription is for a schedule II opioid drug., 147.32, cm, 05/12/23... Start Date: 05/15/23 Stop Date: 05/16/24 Status: Ordered ibuprofen 600 mg oral tablet 600 mg, 1, tablet, By Mouth, Every 6 hours, # 50 tablet, Refills 0, Tot. Refills 0, Maintenance, 07/08/23 15:13:00 EST, Route to Pharmacy Electronically, [facility]/pharmacy #[id number], Partial fill upon patientrequest if the prescription is for a schedule II op... Start Date: 07/08/23 Status: Ordered ibuprofen 600 mg oral tablet 600 mg, 1, tablet, By Mouth, Every 6 hours, # 50 tablet, Refills 0, Tot. Refills 0, Maintenance, 07/08/23 15:20:00 EST, Route to Pharmacy Electronically, [facility] #[id number], Partial fill upon patient request if the prescription is for a sched... Start Date: 07/08/23 Status: Ordered Latuda 20 mg oral tablet 1 tablet = 20 mg, By Mouth, Daily, # 30 tablet, 0 Refills, Maintenance, 01/19/23 10:08:00 EDT, Tablet, [facility]/pharmacy #[id number], Partial fill upon patient [...] capsule, 0 Refills, Maintenance, 04/14/23 19:04:00 EDT, [facility]/pharmacy #[id number], Partial fill upon patient [...] 07/08/23 15:13:00 EST, Route to Pharmacy Electronically, [facility]/pharmacy #[id number], Partial fill upon patient request if the prescription is for a... Start Date: 07/08/23 Status: Ordered oxyCODONE 5 mg oral tablet 10 mg, 2, tablet, By Mouth, Every 6 hours, PRN, # 12 tablet, Refills 0, Tot. Refills 0, Maintenance, for pain, 07/08/23 15:20:00 EST, Route to Pharmacy Electronically, [facility] #[id number], Partial fill upon patient request if the [...] 0 Refills, Maintenance, 07/08/23 15:13:00 EST,Chew Tablet, [facility]/pharmacy #[id number], Partial fill upon patient request if the prescription is for a schedule II opioid drug., 142, cm, 07/01/23 10:05:00 ES... Start Date: 07/08/23 Status: Ordered simethicone 125 mg oral tablet, chewable 1 tablet = 125 mg, Chew, 4 times a day, # 48 tablet, 0 Refills, Maintenance, 07/08/23 15:20:00 EST,Chew Tablet, [facility] #[id number], Partial fill upon patient request if the prescription is for a schedule II opioid drug., 142, cm, 07/01/23 10... Start Date: 07/08/23 Status: Ordered Symbicort 160mcg/4.5mcg Inhaler 2, puffs, Inhalation, 2 times a day, TAKE 2 PUFFS BY MOUTH TWICE A DAY, # 3 each, Refills 0, Tot. Refills 0, Maintenance, 04/10/23 18:53:00 EDT, Inhaler, Route to Pharmacy Electronically, [id number], [facility]/pharmacy #[id number], 148,... Start Date: 04/10/23 Status: Ordered Unisom 25 mg oral tablet 1 tablet = 25 mg, By Mouth, Daily, PRN as needed for sleep, 15 to 30 minutes before bed, # 14 tablet, 0 Refills, Maintenance, 01/19/23 10:26:00 EDT, Tablet, [facility]/pharmacy #[id number], Partial fill upon patient request if the prescription is for a schedule II... Start Date: 01/19/23 Status: Ordered Vitamin B6 50 mg oral tablet 1, tablet, By Mouth, 3 times a day, # 90 tablet, Refills 0, Maintenance, 03/06/23 7:49:00 EDT, Route to Pharmacy Electronically, [id number], 148, cm, 02/17/23 9:30:00 EDT, Height, 60.3, [...] Most recent to oldest [Reference Range]: 1 Oxygen Saturation [94-100 %] 97 % (07/11/23 1:50 PM) Blood Pressure [90-138/55-84 mm Hg] 111/ 75mm Hg (07/11/23 1:50 PM) Respiratory Rate [16-30 br/min] 18 br/mi n (07/11/23 1:50 PM) Temperature [96.8-100.4 DegF] 98.4 DegF (07/11/23 1:50 PM) Mode of Delivery (Oxygen) Room air (07/11/23 1:50 PM) Blood pressure sites Arm, right (07/11/23 1:50 PM) Temperature Route Oral (07/11/23 1:50 PM) Dry Weight 66.3 kg (07/11/23 1:50 PM) Dry Weight Obtained Via Standing scale (07/11/23 1:50 PM) Social History Social History Type Response Tobacco Use: 4 or less cigar ettes(less than 1/4 pack)/day in last 30 days. Sex Patient Care team information Care Team Personnel Name: Ciaran Pisano Position: [facility] Outreach Member Role: PCP Address: Address: [address] [place] [address]- Name: Julieta Mai RN Position: [facility] OB RN Member Role: Primary Care Nurse Name: Alannah Koenig RN Position: S RN Member Role: Primary Care Nurse Care Team Related Persons Name: KAYE JERSON Address: home [address] [place] [address] Name: ANUP LOUIS Address: [id number] Address: home [address] [place] [address] [place] Name: ALEAH PENN Address: home [address] [place] [address]
--- OUTSIDE RECORDS SUMMARY | 2023-12-05 19:44 | XMS_ITS | Continuity of Care Document ---
Author Organization [facility] ter Address [address] [place] [address]- Care Team Providers Care Parts Back Counter Man Name Role Phone Ciaran Pisano Primary Care Physician Encounter [facility] Date(s): 08/03/22 - 08/03/[address] [address]- Discharge Disposition: A-D/C Walkout Attending Physician: Not on Staff, Attending MD Admitting Physician: Not on Staff, Admitting MD Referring Physician: Not on Staff, Referring [...] 07/31/22 13:01:00 EST, Route to Pharmacy Electronically, [facility]/pharmacy #[id number], Partial fill upon patient request [...] Refills, Maintenance, 07/31/22 13:01:00 EST, DIS Tablet, [facility]/pharmacy #[id number], Partial fill upon patient request [...] negative state in antepartum period Confirmed Active Vital Signs Most recent to oldest [Reference Range]: 1 2 3 Oxygen Saturation [94-100 %] 100 % (08/03/22 1:04 PM) 100 % (08/03/22 11:06 AM) 100 % (08/03/22 9:15 AM) Pulse Rate [55-90 bpm] 68 bpm (08/03/22 1:04 PM) 65 bpm (08/03/22 11:06 AM) 59 bpm (08/03/22 9:15 AM) Blood Pressure [90-138/55-84 mm Hg] 117/75mm Hg (08/03/22 1:04 PM) 129/78mm Hg (08/03/22 11:06 AM) 138/84mm Hg (08/03/22 9:15 AM) Respiratory Rate [16-30 br/min] 18 br/min (08/03/22 7:08 AM) Temperature [96.8-100.4 DegF] 98.0 DegF (08/03/22 1:04 PM) 98.6 DegF (08/03/22 11:06 AM) 98.3 DegF (08/03/22 9:15 AM) Mode of Delivery (Oxygen) Room air (08/03/22 1:04 PM) Room air (08/03/22 11:06 AM) Room air (08/03/22 9:15 AM) Blood pressure sites Arm, left (08/03/22 1:04 PM) Arm, left (08/03/22 11:06 AM) Arm, right (08/03/22 9:15 AM) Temperature Route Oral (08/03/22 1:04 PM) Oral (08/03/22 11:06 AM) Oral (08/03/22 9:15 AM) Social History Social History Type Response Smoking Status Never (less than 100 in lifetime) entered on: 08/06/18 Sex Female Patient Care team information Care Team Personnel Name: Ciaran Pisano Position: [facility] Outreach Member Role: PCP Address: Address: [address] [place] [address]- Name: Julieta Mai RN Position: [facility] OB RN Member Role: Primary Care Nurse Name: Alannah Koenig RN Position: S RN Member Role: Primary Care Nurse Care Team Related Persons Name: KAYE JERSON Address: home [address] [address] Name: ALEAH PENN Address: home [address] [place] [address]
--- OUTSIDE RECORDS SUMMARY | 2023-12-05 19:44 | XMS_ITS | Continuity of Care Document ---
Author Organization [facility] ter Address [address] [place] [address]- Care Team Providers Care Manager Meat Name Role Phone Ciaran Pisano Primary Care Physician [phone] Encounter [facility] Date(s): 04/18/23 - 04/25/[address] [address] Attending Physician: Yossi CARVER [OB], Alee Howe Allergies, Adverse Reactions, Alerts Substance Reaction Severity [...] Refills, Maintenance, 12/14/22 23:08:00 EDT, [facility], [id number], Partial fill upon patient request if the [...] 0 Refills, Maintenance, 01/19/23 10:08:00 EDT, Tablet, [facility]/pharmacy #[id number], Partial fill upon patient request if [...] capsule, 0 Refills, Maintenance, 04/14/23 19:04:00 EDT, [facility]/pharmacy #[id number], Partial fill upon patient request if the prescription is for a schedule II opioid drug., 148, cm, ... Start Date: 04/14/23 Status: Ordered ondansetron 4 mg oral tablet, disintegrating 1 tablet = 4 mg, By Mouth, Every 6 hours, PRN as needed for nausea/vomiting, # 30 tablet, 0 Refills, Maintenance, 04/10/23 18:51:00 EDT, DIS Tablet, [facility]/pharmacy #[id number], Partial fill upon patient request, 148, [...] 18:53:00 EDT, Inhaler, Route to Pharmacy Electronically, [id number], [facility]/pharmacy #[id number], 148,... Start Date: 04/10/23 Status: Ordered Unisom 25 mg oral tablet 1 tablet = 25 mg, By Mouth, Daily, PRN as needed for sleep, 15 to 30 minutes before bed, # 14 tablet, 0 Refills, Maintenance, 01/19/23 10:26:00 EDT, Tablet, [facility]/pharmacy #[id number], Partial fill upon patient request if the prescription is for a schedule II... Start Date: 01/19/23 Status: Ordered Vitamin B6 50 mg oral tablet 1, tablet, By Mouth, 3 times a day, # 90 tablet, Refills 0, Maintenance, 03/06/23 7:49:00 EDT, Route to [facility]ically[id number], 148, cm, 02/17/23 9:30:00 EDT, Height, 60.3, [...] [Reference Range]: 1 Oxygen Saturation [94-100 %] 100 % (04/18/23 11:40 AM) Blood Pressure [90-138/55-84 mm Hg] 115/ 64mm Hg (04/18/23 11:40 AM) Respiratory Rate [16-30 br/min] 18 br/mi n (04/18/23 11:40 AM) Temperature [96.8-100.4 DegF] 98.0 DegF (04/18/23 11:40 AM) Mode of Delivery (Oxygen) Room air (04/18/23 11:40 AM) Blood pressure sites Arm, right (04/18/23 11:40 AM) Temperature Route Oral (04/18/23 11:40 AM) Dry Weight 65.2 kg (04/18/23 11:40 AM) Dry Weight Obtained Via Standing scale (04/18/23 11:40 AM) Social History Social History Type Response Tobacco Use: 4 or less cigar ettes(less than 1/4 pack)/day in last 30 days. Sex Female Patient Care team information Care Team Personnel Name: Ciaran Pisano Position: [facility] Outreach Member Role: PCP Address: Address: [address] [place] [address]- Name: Sergei GARCIA, Julieta Gilmore Position: [facility] OB RN Member Role: Primary Care Nurse Name: Alannah Koenig RN Position: S RN Member Role: Primary Care Nurse Care Team Related Persons Name: JERSON RESRTEPO Address: home [address] [address] Name: ALEAH PENN Address: home [address] [place] [address]
--- OUTSIDE RECORDS SUMMARY | 2023-12-05 19:44 | XMS_ITS | Continuity of Care Document ---
Author Organization [facility] Address [address] [place] [address]- Care Team Providers Care Physiological Chemist Name Role Phone Ciaran Pisano Primary Care Physician [phone] [place] [facility] - 07/26/23 [facility] [address] [place], [place] [id number]- Attending Physician: Wade Gage Admitting Physician: AdmWade gallego Referring Physician: AdmtrWade Allergies, Adverse Reactions, Alerts [...] Refills, Maintenance, 07/08/23 15:13:00 EST, [facility], [id number], Partial fill upon patient request if the prescription is for a schedule II opioid drug., 142,... Start Date: 07/08/23 Status: Ordered acetaminophen 325 mg oral capsule 2 capsule = 650 mg, By Mouth, Every 4 hours, PRN as needed for pain, # 50 tablet, 0 Refills, Maintenance, 07/08/23 15:20:00 EST, Capsule, [facility][id number], Partial fill upon patient request if the prescription is for a schedule II opioid dr... Start Date: 07/08/23 Status: Ordered albuterol 0.083% inhalation solution 3 mL = 2.5 mg, Neb, Every 4 hours, PRN as needed for wheezing, # 100 each, 3 Refills, Maintenance, 12/14/22 23:08:00 EDT, Solution, [facility]/pharmacy #[id number], Partial fill upon patient request if the [...] Electronically, [facility]/pharmacy #[id number], Partial fill upon patient request if the prescriptio... Start Date: 07/08/23 Status: Ordered Colace sodium 100 mg oral capsule 100 mg, 1, capsule, By Mouth, 2 times a day, PRN, # 20 capsule, Refills 0, Tot. Refills 0, Maintenance, for constipation, 07/08/23 15:20:00 EST, Route to Pharmacy Electronically, [facility][id number], Partial fill upon patient request if the [...] 07/08/23 15:20:00 EST, Route to Pharmacy Electronically, [facility] #[id number], Partial fill upon patient request if the [...] 07/08/23 15:20:00 EST, Route to Pharmacy Electronically, [id number], Partial fill upon patient request if the [...] 0 Refills, Maintenance, 07/08/23 15:20:00 EST,Chew Tablet, [facility] #[id number], Partial fill upon patient request if the prescription is for a schedule II opioid drug., 142, cm, 07/01/23 10... Start Date: 07/08/23 Status: Ordered Symbicort 160mcg/4.5mcg Inhaler 2, puffs, Inhalation, 2 times a day, TAKE 2 PUFFS BY MOUTH TWICE A DAY, # 3 each, Refills 0, Tot. Refills 0, Maintenance, 04/10/23 18:53:00 EDT, Inhaler, Route to Pharmacy Electronically, [id number], [facility]/pharmacy #[id number], [...] 03/06/23 7:49:00 EDT, Route to Pharmacy Electronically, [facility], 148, cm, 02/17/23 9:30:00 EDT, Height, 60.3, [...] Care Team Personnel Name: Ciaran Pisano Position: [facility] Outreach Member Role: PCP Address: Address: [address] [place] [address]- Name: Julieta Mai RN Position: [facility] OB RN Member Role: Primary Care Nurse Name: Alannah Koenig RN Position: S RN Member Role: Primary Care Nurse Care Team Related Persons Name: JERSON RESTREPO Address: home [address] [place] [id number] Name: IVONNE PENN Address: [address] Address: home [address] [place] [address] [place] Name: ALEAH PENN Address: home [address] [place] [address]
--- OUTSIDE RECORDS SUMMARY | 2023-12-05 19:44 | XMS_ITS | Continuity of Care Document ---
Author Organization [facility] Address [address] [place] [address]- Care Team Providers Care Fiber Optic Splicer Name Role Phone Kianna CARVER, Alok Nguyen Primary Care Physician Encounter [facility] Date(s): 11/10/20 - 12/17/[address] [address] Attending Physician: Not on Staff, Attending MD [...]
--- OUTSIDE RECORDS SUMMARY | 2023-12-05 19:44 | XMS_ITS | Continuity of Care Document ---
Author Organization [facility] Address [address] [place] [address]- Care Team Providers Care Outboard Motorboat Rigger Name Role Phone Ciaran Pisano Primary Care Physician Encounter [facility] Date(s): 12/01/22 - 12/31/[address] [address] Allergies, Adverse Reactions, Alerts [...] 3 Refills, Maintenance, 12/14/22 23:08:00 EDT, Solution, [facility]/pharmacy #8768, Partial fill upon patient request if the [...] 01/04/23 10:03:00 EDT, 12/05/22 10:03:00 EDT, Tablet, [facility]/pharmacy #0488, Partialfill upon patient request if the prescription is fo... Start Date: 12/05/22 Stop Date: 01/04/23 Status: Ordered famotidine 20 mg oral tablet 20 mg, 1, tablet, By Mouth, Daily, # 30 tablet, Refills 0, Tot. Refills 0, Maintenance, 07/31/22 13:01:00 EST, Route to Pharmacy Electronically, [facility]/pharmacy #4471, Partial fill upon patient request if [...] 3 Refills, Maintenance, 12/28/22 9:02:00 EDT, [facility]/pharmacy #0488, Partial fill upon patient request if the prescription is for a schedule II opioid drug., 1 tablet By Mouth Daily, 148, cm, 12/14/22 20:09:00 EDT,... Start Date: 12/28/22 Status: Ordered ondansetron 4 mg oral tablet, disintegrating 1 tablet = 4 mg, By Mouth, Every 8 hours, PRN as needed for nausea/vomiting, # 15 tablet, 0 Refills, Maintenance, 07/31/22 13:01:00 EST, DIS Tablet, [facility]/pharmacy #4471, Partial fill upon patient request Start Date: 07/31/22 Stop Date: 08/03/22 Status: Ordered pyridoxine 25 mg oral tablet 1 tablet = 25 mg, By Mouth, 3 times a day, PRN Nausea & Vomiting, # 100 tablet, 8 Refills, Acute 01/28/23 14:29:00 EDT, 12/29/22 14:28:00 EDT, [facility]/pharmacy #0488, Partial fill upon patient request if [...] 12/05/22 10:03:00 EDT, Route to Pharmacy Electronically, [facility]/pharmacy #0488, Partial fill upon patient request if [...] S Outreach Member Role: PCP Address: Address: [address] [place] [address]- Name: Julieta Mai RN Position: [facility] OB RN Member Role: Primary Care Nurse Name: Alannah Koenig RN Position: S RN Member Role: Primary Care Nurse Care Team Related Persons Name: JERSON RESTREPO Address: [address] [address] Name: ALEAH PENN Address: home [address] [place] [address]
--- OUTSIDE RECORDS SUMMARY | 2023-12-05 19:44 | XMS_ITS | Continuity of Care Document ---
Author Organization [facility] Address [address] [place] [address]- Care Team Providers Care Cabin Worker Name Role Phone Ciaran Pisano Primary Care Physician [phone] [place] [facility]/11/23 - 08/10/[address] [email or web address] Allergies, Adverse Reactions, Alerts Substance Reaction Severity Status penicillin Swelling Active shellfish throat swelling Active Lactose Active sulfADIAZINE Swelling Active Bactrim Rash Active Peanuts Throat Swelling [...] Refills, Maintenance, 07/08/23 15:13:00 EST, [facility], [id number], Partial fill upon patient request if the prescription is for a schedule II opioid drug., 142,... Start Date: 07/08/23 Status: Ordered acetaminophen 325 mg oral capsule 2 capsule = 650 mg, By Mouth, Every 4 hours, PRN as needed for pain, # 50 tablet, 0 Refills, Maintenance, 07/08/23 15:20:00 EST, Capsule, [id number], Partial fill upon patient request if the prescription is for a schedule II opioid dr... Start Date: 07/08/23 Status: Ordered albuterol 0.083% inhalation solution 3 mL = 2.5 mg, Neb, Every 4 hours, PRN as needed for wheezing, # 100 each, 3 Refills, Maintenance, 12/14/22 23:08:00 EDT, Solution, [facility]acy #8351, Partial fill upon patient request if the [...] 07/08/23 15:14:00 EST, Route to Pharmacy Electronically, [facility]/pharmacy #8298, Partial fill upon patient request if the prescriptio... Start Date: 07/08/23 Status: Ordered Colace sodium 100 mg oral capsule 100 mg, 1, capsule, By Mouth, 2 times a day, PRN, # 20 capsule, Refills 0, Tot. Refills 0, Maintenance, for constipation, 07/08/23 15:20:00 EST, Route to Pharmacy Electronically, [id number], Partial fill upon patient request if the [...] 07/08/23 15:13:00 EST, Route to Pharmacy Electronically, [facility]/pharmacy #0488, Partial fill upon patientrequest if the prescription is for a schedule II op... Start Date: 07/08/23 Status: Ordered ibuprofen 600 mg oral tablet 600 mg, 1, tablet, By Mouth, Every 6 hours, # 50 tablet, Refills 0, Tot. Refills 0, Maintenance, 07/08/23 15:20:00 EST, Route to Pharmacy Electronically, [id number], Partial fill upon patient request if the [...] capsule, 0 Refills, Maintenance, 04/14/23 19:04:00 EDT, [facility] #0488, Partial fill upon [...] 07/08/23 15:13:00 EST, Route to Pharmacy Electronically, [facility]/pharmacy #0488, Partial fill upon patient request if the prescription is for a... Start Date: 07/08/23 Status: Ordered oxyCODONE 5 mg oral tablet 10 mg, 2, tablet, By Mouth, Every 6 hours, PRN, # 12 tablet, Refills 0, Tot. Refills 0, Maintenance, for pain, 07/08/23 15:20:00 EST, Route to Pharmacy Electronically, [facility] #[id number], Partial fill upon patient request if the [...] 0 Refills, Maintenance, 07/08/23 15:13:00 EST,Chew Tablet, [facility]/pharmacy #0488, Partial fill upon patient request if the prescription is for a schedule II opioid drug., 142, cm, 07/01/23 10:05:00 ES... Start Date: 07/08/23 Status: Ordered simethicone 125 mg oral tablet, chewable 1 tablet = 125 mg, Chew, 4 times a day, # 48 tablet, 0 Refills, Maintenance, 07/08/23 15:20:00 EST,Chew Tablet, [facility][id number], Partial fill upon patient request if the prescription is for a schedule II opioid drug., 142, cm, 07/01/23 10... Start Date: 07/08/23 Status: Ordered Symbicort 160mcg/4.5mcg Inhaler 2, puffs, Inhalation, 2 times a day, TAKE 2 PUFFS BY MOUTH TWICE A DAY, # 3 each, Refills 0, Tot. Refills 0, Maintenance, 04/10/23 18:53:00 EDT, Inhaler, Route to Pharmacy Electronically, [id number], [facility]/pharmacy #0488, 148,... Start Date: 04/10/23 Status: Ordered Unisom 25 mg oral tablet 1 tablet = 25 mg, By Mouth, Daily, PRN as needed for sleep, 15 to 30 minutes before bed, # 14 tablet, 0 Refills, Maintenance, 01/19/23 10:26:00 EDT, Tablet, [facility]/pharmacy #0488, Partial fill upon patient request if the prescription is for a schedule II... Start Date: 01/19/23 Status: Ordered Vitamin B6 50 mg oral tablet 1, tablet, By Mouth, 3 times a day, # 90 tablet, Refills 0, Maintenance, 03/06/23 7:49:00 EDT, Route to Pharmacy Electronically, [facility], 148, cm, 02/17/23 9:30:00 EDT, Height, 60.3, [...] Care Team Personnel Name: Ciaran Pisano Position: [facility] Outreach Member Role: PCP Address: Address: [address] [place] [address]- Name: Julieta Mai RN Position: [facility] OB RN Member Role: Primary Care Nurse Name: Alannah Koenig RN Position: S RN Member Role: Primary Care Nurse Care Team Related Persons Name: JERSON RESTREPO Address: [address] [address] Name: ANUP LOUIS Address: [address] Address: [address] [place] [address] [place] Name: ALEAH PENN Address: [address] [place] [address]
--- OUTSIDE RECORDS SUMMARY | 2023-12-05 19:44 | XMS_ITS | Continuity of Care Document ---
Author Organization [facility] Address [address] [place] [address]- Care Team Providers Care Wire Mesh Knitter Name Role Phone Ciaran Pisano Primary Care Physician [phone] [place] [facility]/14[place]23 - 06/22/[address] [address] Attending Physician: Not on Staff, Attending MD Admitting Physician: Vilma Zhang CNM Allergies, Adverse [...] Refills, Maintenance, 12/14/22 23:08:00 EDT, [facility], [facility], Partial fill upon patient request if the [...] Refills, Maintenance, 01/19/23 10:08:00 EDT, Tablet, [facility]/pharmacy #[id number], Partial fill upon patient request [...] Maintenance, 04/10/23 18:51:00 EDT, DIS Tablet, [facility]/pharmacy #0488, Partial fill upon patient request, [...] 18:53:00 EDT, Inhaler, Route to Pharmacy Electronically, [id number], [facility]/pharmacy #0488, 148,... Start Date: 04/10/23 Status: Ordered Unisom 25 mg oral tablet 1 tablet = 25 mg, By Mouth, Daily, PRN as needed for sleep, 15 to 30 minutes before bed, # 14 tablet, 0 Refills, Maintenance, 01/19/23 10:26:00 EDT, Tablet, [facility]/pharmacy #0488, Partial fill upon patient request if the prescription is for a schedule II... Start Date: 01/19/23 Status: Ordered Vitamin B6 50 mg oral tablet 1, tablet, By Mouth, 3 times a day, # 90 tablet, Refills 0, Maintenance, 03/06/23 7:49:00 EDT, Route to Pharmacy Electronically, [facility] [id number], 148, cm, 02/17/23 9:30:00 EDT, Height, 60.3, [...] Care Team Personnel Name: Ciaran Pisano Position: [facility] Outreach Member Role: PCP Address: Address: [address] [place] [address]- Name: Julieta Mai RN Position: [facility] OB RN Member Role: Primary Care Nurse Name: Alannah Koenig RN Position: [facility] RN Member Role: Primary Care Nurse Care Team Related Persons Name: JERSON RESTREPO Address: home [address] [place] [address] Name: ALEAH PENN Address: home [address] [place] [address]
--- OUTSIDE RECORDS SUMMARY | 2023-12-05 19:44 | XMS_ITS | Continuity of Care Document ---
Author Organization [facility] Address [address] [place] [address]- Care Team Providers Care Search Engine Optimization Manager Name Role Phone Ciaran Pisano Primary Care Physician Encounter [facility] Date(s): 04/14/23 - 05/17/[address] [address] Attending Physician: Not on Staff, Attending MD Allergies, Adverse Reactions, Alerts Substance Reaction Severity Status penicillin Swelling Active sulfADIAZINE Swelling Active lactulose Stomach pain Active shellfish throat swelling Active Bactrim Rash Active Peanuts Throat Swelling Active Seafood throart swelling Active Estradiol Patch bleeding to patch area area Persistent Mild Active Mushroom Throat swelling Active Immunizations Given [...] Refills, Maintenance, 12/14/22 23:08:00 EDT, [facility], [facility], Partial fill upon patient request if the [...] 05/16/24 13:53:00 EDT, 05/15/23 13:52:00 EDT, Tablet, [facility]/pharmacy #0488, Partial fill upon patient request if the prescription is for a schedule II opioid drug., 147.32, cm, 05/12/23... Start Date: 05/15/23 Stop Date: 05/16/24 Status: Ordered Latuda 20 mg oral tablet 1 tablet = 20 mg, By Mouth, Daily, # 30 tablet, 0 Refills, Maintenance, 01/19/23 10:08:00 EDT, Tablet, [facility]/pharmacy #0488, Partial fill upon patient [...] 18:53:00 EDT, Inhaler, Route to Pharmacy Electronically, [id number], [facility]/pharmacy #0488, 148,... Start Date: 04/10/23 Status: Ordered Unisom 25 mg oral tablet 1 tablet = 25 mg, By Mouth, Daily, PRN as needed for sleep, 15 to 30 minutes before bed, # 14 tablet, 0 Refills, Maintenance, 01/19/23 10:26:00 EDT, Tablet, [facility]/pharmacy #0488, Partial fill upon patient request if the prescription is for a schedule II... Start Date: 01/19/23 Status: Ordered Vitamin B6 50 mg oral tablet 1, tablet, By Mouth, 3 times a day, # 90 tablet, Refills 0, Maintenance, 03/06/23 7:49:00 EDT, Route to Pharmacy Electronically, [facility] 417[facility], 148, cm, 02/17/23 9:30:00 EDT, Height, 60.3, kg, 02/11/23 8:59:00 EDT, Dry Weight Start Date: 03/06/23 Status: Ordered Problem List Condition Confirmation Course Effective Dates Status H ealth Status Informant Anemia in Confirmed Active Marijuana use Confirmed Active LGSIL on Pap smear of cervix Confirmed Active Cocaine use complicating Confirmed Active Contraception management Confirmed Active History of delivery Confirmed Active [...] Care Team Personnel Name: Ciaran Pisano Position: [facility] Outreach Member Role: PCP Address: Address: [address] [place] [address]- Name: Sergei GARCIA, Julieta Gilmore Position: [facility] OB RN Member Role: Primary Care Nurse Name: Alannah Koenig RN Position: S RN Member Role: Primary Care Nurse Care Team Related Persons Name: JERSON RESTREPO Address: home [address] [address] Name: ALEAH PENN Address: home [address] [place] [address]
--- OUTSIDE RECORDS SUMMARY | 2023-12-05 19:44 | XMS_ITS | Continuity of Care Document ---
Author Organization [facility] ter Address [address] [place] [id number]- Care Team Providers Care Type Caster Name Role Phone Ciaran Pisano Primary Care Physician Encounter [facility] [place]): 05/21/23 - 05/21/[address] [address] Discharge Disposition: A-D/C Home Attending Physician: Nay Aguilera DO Admitting Physician: Nay Aguilera DO Referring Physician: Nay Aguilera DO Allergies, Adverse Reactions, Alerts Substance Reaction Severity Status penicillin Swelling Active lactulose Stomach pain Active Bactrim Rash Active Peanuts Throat Swelling Active Seafood throart swelling Active Estradiol Patch bleeding to patch area area Persistent Mild Active sulfADIAZINE Swelling Active shellfish throat swelling Active Mushroom Throat swelling Active Immunizations [...] Refills, Maintenance, 12/14/22 23:08:00 EDT, [id number] fill upon patient request if the [...] Refills, Maintenance, 01/19/23 10:08:00 EDT, Tablet, [facility]/pharmacy #[id number], Partial fill upon patient request [...] Maintenance, 04/10/23 18:51:00 EDT, DIS Tablet, [facility]/pharmacy #[id number], Partial fill upon patient request, [...] 18:53:00 EDT, Inhaler, Route to Pharmacy Electronically, [id number], [facility]/pharmacy #[id number], 148,... Start Date: 04/10/23 Status: Ordered Unisom 25 mg oral tablet 1 tablet = 25 mg, By Mouth, Daily, PRN as needed for sleep, 15 to 30 minutes before bed, # 14 tablet, 0 Refills, Maintenance, 01/19/23 10:26:00 EDT, Tablet, [facility]/pharmacy #[id number], Partial fill upon patient request if the prescription is for a schedule II... Start Date: 01/19/23 Status: Ordered Vitamin B6 50 mg oral tablet 1, tablet, By Mouth, 3 times a day, # 90 tablet, Refills 0, Maintenance, 03/06/23 7:49:00 EDT, Route to Pharmacy Electronically, [facility] STORE [id number], 148, cm, 02/17/23 9:30:00 EDT, Height, 60.3, [...] recent to oldest [Reference Range]: 1 2 Weight 68.7 kg (05/21/23 1:06 PM) Oxygen Saturation [94-100 %] 99 % (05/21/23 1:22 PM) 100 % (05/21/23 1:06 PM) Pulse Rate [55-90 bpm] 104 bpm *H* (05/21/23 1:06 PM) Blood Pressure [90-138/55-84 mm Hg] 98/5 2mm Hg (05/21/23 1:06 PM) Respiratory Rate [16-30 br/min] 18 br/mi n (05/21/23 1:06 PM) Temperature [96.8-100.4 DegF] 98.2 DegF (05/21/23 1:06 PM) Mode of Delivery (Oxygen) Room air (05/21/23 1:06 PM) Blood pressure sites Arm, right (05/21/23 1:06 PM) Temperature Route Oral (05/21/23 1:06 PM) Dry Weight 68.7 kg (05/21/23 1:06 PM) Weight Obtained Via Standing scale (05/21/23 1:06 PM) Dry Weight Obtained Via Standing scale (05/21/23 1:06 PM) Social History Social History Type Response Tobacco Use: 4 or less cigar ettes(less than 1/4 pack)/day in last 30 days. Sex Female History and physical note * Umang Cortes DO: PERFORM Event Display: History and Physical Hospital Authored Date: Patient: ??IVONNE PENN ? Age:??32 Years?Sex:??Female?:??1990?? LMP/EGA/SYLVAIN Gestational Age (EGA) and SYLVAIN? * Note: EGA calculated as of 05/21/2023 ?? SYLVAIN:??08/05/2023?EGA*:??29 weeks 1 day ? History?(3,0,1,3)?Method:??Last Menstrual Period??(10/29/2022) History of Present Illness Patient is a 32 y/o @ 29w1d with a complicated by a placenta previa and placenta accreta that presents [facility] for complaints of concern of vaginal bleeding.?? Patient states that??yesterday evening she noticed some pink tinge to her discharge??and then this morning??felt that it had become more of a brown color. ??She denies any??josee red??vaginal bleeding. ??Additionally she deniesany bothersome vaginal discharge.?? She denies any cramping, contractions,??leakage of fluid,??concern for rupture membranes, decreased movement. ?? She does also report some nasal congestion and feels that she is??experiencing a cold. ??She denies any fever, chills,??shortness of breath. Review of Systems Constitutional, Eye, Skin, Head/Neck, ENMT, Respiratory, Cardio, Gastrointestinal, Breast, Gynecologic, Genitourinary, Endocrine, Musculoskeletal, Immunologic, Hematologic, Lymphatic, Neurologic, Psych reviewed and negative except as noted in HPI. Physical Exam Vitals & Measurements T:??98.2?F?? HR:??101??(Monitored)?? RR:??18?? BP:??98/52?? SpO2:??99%?? WT:??68.7??kg?? General: pleasant, alert, cooperative, NAD HEENT: Normocephalic/atraumatic Cardiac: Regular rate Respiratory: unlabored breathing Abdominal: Soft, non-distended. No guarding or rebound. Neurologic: No focal neurological deficits.??Moves all extremities spontaneously. Extremities: Symmetrical muscle bulk, no visible erythema or edema.?? Psych: Mood and affect stable, appearance appropriate, good eye contact, talkative ?? Antenna Engineer: Speculum: Normal appearing perineum, vulva, urethral meatus, vaginal and cervical mucosa, no lesions appreciated, no blood in vaginal??vault. ??Thin white discharge present throughout vaginal vault. ? Wet [place] Cells:??Absent <20% Yeast:??Pseudohyphae absent?Buds absent WBCs:??Absent Trichomonas:??Absent Sperm:??Absent ?? Bedside transabdominal US demonstrates NAYA 20.9cm OB Assessment Baby A Baseline:125 Baseline Description:Normal, 110-160 bpm Baseline Variability:Moderate variability Accelerations:Present, Present 2 or more Deceleration:None Activity:Present Uterine Monitor Mode, UterinePalpation, External Assessment/Plan Assessment:??Patient is a 32 y/o @ 29w1d with a complicated by a placenta previa andplacenta accreta that presents [facility] for complaints of concern of vaginal bleeding.?Patient's vitals??are within normal limits while in [facility].??Patient's??pelvic exam does not demonstrate any evidence of??blood;??no??current bleeding and no evidence of any previous bleeding.??Pelvic exam only demonstrates thin white discharge??with a??negative wet prep.??Suspect that this discharge is physiologic.?Tracing??is reactive and overall??maternal and status.??Respiratory swab collected given patient's complaint of nasal congestion??and will plan to follow-up outpatient with??patient's results.??Given??reassuring status, patient is appropriate for discharge at this time with return precautions including increasing??vaginal bleeding, abdominal pain, cramping, contractions. Patient voicedunderstanding. All questions answered. ?? NAYA 20.9cm ?? OB History History?(3,0,1,3)? # 1 ?Baby 1 ?Outcome Date:??2006 ?Outcome or Result:??Spontaneous ?Gest Age:??-- ? Outcome:? [...] Labs Labs & Tests Antibody Screen: Positive (04/17/23) Blood Type: A Negative (04/17/23) Creatinine-Blood: 0.6 mg/dL (12/14/22) Down Syndrome Age Risk FTS: Age Risk: (01/23/23) Down Syndrome Scrn Risk FTS: Screening Risk: (01/23/23) Glucose 50 Gm, +60 Minutes: 128 mg/dL (05/10/23) Hct:??32.8 %??Low (05/10/23) Hemoglobinopathy Interpretation: Normal hemoglobins. (12/30/22) Hepatitis B Surface Antigen: NEGATIVE (12/30/22) Hepatitis C Ab: NEGATIVE (12/30/22) Hgb:??10.8 Gm/dL??Low (05/10/23) HIV 4th Generation Ab-Ag Result: NEGATIVE (12/30/22) RPR Titer Result: NOT INDICATED (05/10/23) Rubella IgG Ab: POSITIVE (12/30/22) Syphilis Screen by [facility]: NEGATIVE (05/10/23) Trisomy 18 Scrn Risk FTS: Screening Risk: (01/23/23) Urine Culture: Urine Culture (04/17/23) Problem List Active Active Problem List : (Freetext) Anemia in : (Medical) Cocaine use complicating : (Medical) Contraception management: (Medical) History of delivery: (Medical) LGSIL on Pap smear of cervix: (Medical) Marijuana use: (Medical) Obese class I: (Medical) Placenta accreta without hemorrhage: (Medical) Placenta previa: (Medical) : (Obstetric) (12/23/22) Rh negative state in antepartum period. Antibody screen positive, presumed to be due to prior RhoGAM: (Medical) Procedure/Surgical History Cholecystectomy: 08/05/22 Nexplanon in [...] Self assessment: Poor condition. Home/Environment Living situation: Homeless/Residential. Current guardian: DCF. DCF involvement: Current. Other: children are in DCF custody. Nutrition/Health Diet: Regular, Low fat and no grease due to not having her gallbladder. Sexual Sexually involved in last 6 months: Yes. Gender identity: Identifies as female. Self described orientation: Straight or heterosexual. Preferred pronoun: She/her. Substance Abuse Type: Marijuana. Other: past cocaine use, clean for 3 years . Tobacco Use: 4 or less cigarettes(less than [...] disease Mat. Grandfather: Cancer of colon Plan No Data Found Note * Irina Patel RN: PERFORM Event Display: Discharge/Transfer Note Hospital Authored Date: [id number] Nursing Discharge Note Entered On: 05/21/2023 15:24 EDT Performed On: 05/21/2023 15:24 EDT by Irina Patel RN Nursing Discharge Note 2 Discharge Time : 05/21/2023 3:24 EDT Discharge Level of Care at Discharge : Home/Longterm/Foster Care Patient Left Unit Via : Ambulatory Patient Accompanied Off Unit with : Other: self DC Instructions Provided & Signed by Pt : Yes Patient Understands D/C Instructions : Yes Patient Instructions Discharge Signed : Yes Did Pt have Specialty Bed or Wound Vac : No Irina Patel RN - 05/21/2023 15:24 EDT * Irina Patel RN: PERFORM Event Display: Patient Education/Instruction Authored Date: [id number] Inpatient Adult Discharge Instructions [address] [address] Name: IVONNE PENN : 1990 Visit: 05/21/2023 12:56:00 Current Date: 05/21/2023 15:12 Account: [id number] Inpatient Adult Discharge Instructions We would like [...] and their families. Surveys are administered by [employer] ?? If further treatment with your primary care physician or another doctor is recommended, it is important for you to keep the appointment. Call your primary care physician or return to the Emergency Department immediately if your condition worsens, fails to improve, or new symptoms develop. If you need to find a doctor, you can call [facility] for a referral at [phone] or toll free at [phone]) or log in to [email or web address].. ?? [facility], in keeping with [facility] guidance, no longer requires face masks for [...] a health care ce of your choosing. [employer] is a website that allows you to securely view your medical information including your hospital discharge summary, office visit summaries, medications and follow-up visits. You can also request appointments, renew medications, and request access to your medical information using a health care ce of your choosing, or just ask a question. You can enroll at [email or web address] or register during your next office visit. You have been discharged from [facility], Patient Care Unit: [facility]1. If you have any questions regarding these instructions after you leave, please call us and we will be happy to assist you. [facility] Your Care Team Attending Physician Nay Aguilera DO Tests Performed Below is a partial list of the tests performed during your hospitalization. You may have had other tests and procedures not included in this list. Please discuss all test results with your provider. Primary Care Provider Cairan Pisano Advance Directive Health Care Proxy on File No Discharge Vitals Temperature: 98.2 DegF Weight: 68.7 kg Pulse Rate:??104 bpm??High ?? Respiratory Rate: 18 br/min ?? Systolic Blood Pressure: 98 mm Hg ?? Diastolic Blood Pressure:??52 mm Hg??Low ?? Oxygen Saturation: 99 % ?? Studies Pending All tests and labs ordered during this hospital stay have been completed unless listed below. Please discuss all pending results with your provider listed above in these instructions. ?? COVID-19, RSV, and Flu A/B, Rapid PCR What to do next Instructions From Your Doctor Discharge Orders Scheduled Follow-Up Appointments Monday 10:30 AM EDT ?? With: Mayra Rose MD Where: [facility] [address] [place] [address]- Status: Pending Monday 1:00 PM EDT ?? With: Tracy Winslow MD Where: [facility] [address] [place] [address]- Status: Pending You Need to Schedule the Following Appointments Follow Up with??Tracy Winslow MD When:??In 2 days 05/23/2023 EDT Why: 1pm Where: [address] [place] [address]- Discharge Medications IVONNE PENN :1990 Visit Date:05/21/2023 Medications: Please continue your medications until treatment [...] tablet) 1 tab(s) Oral Daily Unchanged Multivitamin, (M-Rose Marie Plus oral tablet) [...] Please discuss all test resultswith your provider. Allergies (NKA means No Known Allergies) Estradiol Patch??(bleeding to patch area area) Bactrim??(Rash) Mushroom??(Throat swelling) Peanuts??(Throat Swelling) Seafood??(throart swelling) lactulose??(Stomach pain) penicillin??(Swelling) shellfish??(throat swelling) sulfADIAZINE??(Swelling) Problems Active Problems??(12) Anemia in ?? Cocaine use complicating ?? Contraception management?? c sect 09/03/10?? History of delivery?? LGSIL on Pap smear of cervix?? Marijuana use?? Obese class I?? 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 Placenta previa? Rh negative state in antepartum period. Antibody screen positive, presumed to be due to prior RhoGAM?? Education Materials Below is the list of Educational Leaflet Providered with your Discharge Instructions. Understanding Labor?? Kick Counts?? Understanding Placenta Previa?? Valuables and Belongings I fully understand and agree that [facility] accepts no responsibility for all my personal [...] are strongly encouraged to quit. Please call [facility] at [phone] or [phone]) or log in to [email or web address] for referrals to smoking cessation programs. ?? 428 Suicide & Crisis Lifeline is available 20/02 if you or someone you know needs to find a reason to keep living. By calling 650 you'll be connected to a skilled, trained counselor at a crisis center in your area. INPATIENT DISCHARGE INSTRUCTIONS SIGNATURE PAGE IVONNE PENN Location:[facility] Registration Date and Time:05/21/2023 12:56 EDT Primary Care Physician: Ciaran Pisano, Attending Physician: Nay Aguilera DO, I IVONNE PENN, have received the above patient education materials/instructions and have verbalized understanding. If ambulance or transport services are being used I further acknowledge being given a choice of service. ?? If you need to contact me, please call me at this number: . Patient/Dinkey Locomotive Operator Name: Patient/Dinkey Locomotive Operator Signature: Relationship to Patient: Witness Name/Signature: Date: Irina Sheth RN: PERFORM Event Display: Patient Education Leaflets Authored Date: [id number] Understanding Labor ?? 00454 Understanding Labor Going into labor before week [...] early. ?? Last Reviewed Date: 2021 ?? 8171-6721 [employer]. All rights reserved. This information is not intended as a substitute for professional medical care. Always follow your healthcare professional's instructions. ?? * Irina Patel RN: PERFORM Event Display: Patient Education Leaflets Authored Date: [id number] Kick Counts ?? 58441 Kick Counts It???s normal to worry about your baby???s health. Generally, you will feel your baby start to movein your 2nd trimester at around 16 to 24 weeks. Getting to know the pattern of your baby's movements is one way to know what's normal for you and baby. This is called a kick count. Talk with your healthcare provider about kick counts and your specific situation. Always follow your provider's instructions. How to count kicks Here is just one way to do kick counts. Always follow your healthcare provider's instructions. Starting at 28 weeks, count your baby's movements daily. Time how long it takes you to feel 10 kicks, flutters, swishes, or rolls. Ideally, you want to feel at least 10 movements in 2 hours. You will likely feel 10 movements in less time than that. Here are tips for counting kicks: ??? Choose a time when the baby is active, such as after a meal.? Sit comfortably or lie on your side.? The first time the baby moves,??write down??the time.? Count each movement until the baby has moved?? 10??times. This can take from 20 minutes to 2??hours.? If you haven't felt 10 kicks by the end of the second hour, wait a few hours. Then try again. ??? Try to do it at the same time each day. ?? When to call your healthcare provider Follow your provider's instructions about when to call about your baby's movements. Don't hesitate to call if you have concerns. Call your healthcare provider?? right away??if: ??? You do a couple sets of kick counts during the day and your baby moves fewer than 10??times in??2??hours. ??? Your baby moves much less often than on the??days before. ??? You haven't felt your baby move all day. ?? Last Reviewed Date: 2022 ?? 4451-6115 [employer]. All rights reserved. This information is not intended as a substitute for professional medical care. Always follow your healthcare professional's instructions. ?? * Irina Patel RN: PERFORM Event Display: Patient Education Leaflets Authored Date: [id number] Understanding Placenta Previa ?? 79596 Understanding Placenta Previa The placenta is an [...] online. ?? Last Reviewed Date: 2022 ?? 0945-4922 [employer]. All rights reserved. This information is not intended as a substitute for professional medical care. Always follow your healthcare professional's instructions. ?? Patient Care team information Care Team Personnel Name: Ciaran Pisano Position: [facility] Outreach Member Role: PCP Address: Address: [address] [place] [address]- Name: Julieta Mai RN Position: [facility] OB RN Member Role: Primary Care Nurse Name: Alannah Koenig RN Position: S RN Member Role: Primary Care Nurse Name: Irina Patel RN Position: [facility] OB RN Member Role: Patient Care Provider Care Team Related Persons Name: JERSON RESTREPO Address: home [address] [address] Name: ALEAH PENN Address: home [address] [place] [address]
--- OUTSIDE RECORDS SUMMARY | 2023-12-05 19:44 | XMS_ITS | Continuity of Care Document ---
Author Organization [facility] Address [address] [place] [id number]- Care Team Providers Care Telephone Lineman Name Role Phone Ciaran Pisano Primary Care Physician Encounter [facility] Date(s): 07/11/23 - 08/10/23 [facility] [address] [place] [id number] Allergies, Adverse Reactions, Alerts Substance Reaction [...] Refills, Maintenance, 07/08/23 15:13:00 EST, [facility], [id number] Partial fill upon patient request if the prescription is for a schedule II opioid drug., 142,... Start Date: 07/08/23 Status: Ordered acetaminophen 325 mg oral capsule 2 capsule = 650 mg, By Mouth, Every 4 hours, PRN as needed for pain, # 50 tablet, 0 Refills, Maintenance, 07/08/23 15:20:00 EST, Capsule, [facility] #[id number], Partial fill upon patient request if the prescription is for a schedule II opioid dr... Start Date: 07/08/23 Status: Ordered albuterol 0.083% inhalation solution 3 mL = 2.5 mg, Neb, Every 4 hours, PRN as needed for wheezing, # 100 each, 3 Refills, Maintenance, 12/14/22 23:08:00 EDT, Solution, [facility]/pharmacy #[id number], Partial fill upon patient request if the [...] 07/08/23 15:14:00 EST, Route to Pharmacy Electronically, [facility]/pharmacy #[id number], Partial fill upon patient request if the prescriptio... Start Date: 07/08/23 Status: Ordered Colace sodium 100 mg oral capsule 100 mg, 1, capsule, By Mouth, 2 times a day, PRN, # 20 capsule, Refills 0, Tot. Refills 0, Maintenance, for constipation, 07/08/23 15:20:00 EST, Route to Pharmacy Electronically, [facility][id number], Partial fill upon patient request if the pr... Start Date: 07/08/23 Status: Ordered ferrous gluconate 324 mg oral tablet 1 tablet = 324 mg, By Mouth, Daily, # 100 tablet, 0 Refills, Acute 05/16/24 13:53:00 EDT, 05/15/23 13:52:00 EDT, Tablet, [facility]/pharmacy #[id number], Partial fill upon patient request if the prescription is for a schedule II opioid drug., 147.32, cm, 05/12/23... Start Date: 05/15/23 Stop Date: 05/16/24 Status: Ordered ibuprofen 600 mg oral tablet 600 mg, 1, tablet, By Mouth, Every 6 hours, # 50 tablet, Refills 0, Tot. Refills 0, Maintenance, 07/08/23 15:13:00 EST, Route to Pharmacy Electronically, [facility]/pharmacy #[id number], Partial fill upon patientrequest if the prescription is for a schedule II op... Start Date: 07/08/23 Status: Ordered ibuprofen 600 mg oral tablet 600 mg, 1, tablet, By Mouth, Every 6 hours, # 50 tablet, Refills 0, Tot. Refills 0, Maintenance, 07/08/23 15:20:00 EST, Route to Pharmacy Electronically, [facility] #[id number], Partial fill upon patient request if the prescription is for a sched... Start Date: 07/08/23 Status: Ordered Latuda 20 mg oral tablet 1 tablet = 20 mg, By Mouth, Daily, # 30 tablet, 0 Refills, Maintenance, 01/19/23 10:08:00 EDT, Tablet, [facility]/pharmacy #[id number], Partial fill upon patient request [...] 07/08/23 15:13:00 EST, Route to Pharmacy Electronically, [facility]/pharmacy #[id number], Partial fill upon patient request if the prescription is for a... Start Date: 07/08/23 Status: Ordered oxyCODONE 5 mg oral tablet 10 mg, 2, tablet, By Mouth, Every 6 hours, PRN, # 12 tablet, Refills 0, Tot. Refills 0, Maintenance, for pain, 07/08/23 15:20:00 EST, Route to Pharmacy Electronically, [facility] #[id number], Partial fill upon patient request if the [...] 0 Refills, Maintenance, 07/08/23 15:13:00 EST,Chew Tablet, [facility]/pharmacy #[id number], Partial fill upon patient request if the prescription is for a schedule II opioid drug., 142, cm, 07/01/23 10:05:00 ES... Start Date: 07/08/23 Status: Ordered simethicone 125 mg oral tablet, chewable 1 tablet = 125 mg, Chew, 4 times a day, # 48 tablet, 0 Refills, Maintenance, 07/08/23 15:20:00 EST,Chew Tablet, [facility] #[id number], Partial fill upon patient request if the prescription is for a schedule II opioid drug., 142, cm, 07/01/23 10... Start Date: 07/08/23 Status: Ordered Symbicort 160mcg/4.5mcg Inhaler 2, puffs, Inhalation, 2 times a day, TAKE 2 PUFFS BY MOUTH TWICE A DAY, # 3 each, Refills 0, Tot. Refills 0, Maintenance, 04/10/23 18:53:00 EDT, Inhaler, Route to Pharmacy Electronically, [id number], [facility]/pharmacy #[id number], 148,... Start Date: 04/10/23 Status: Ordered Unisom 25 mg oral tablet 1 tablet = 25 mg, By Mouth, Daily, PRN as needed for sleep, 15 to 30 minutes before bed, # 14 tablet, 0 Refills, Maintenance, 01/19/23 10:26:00 EDT, Tablet, [facility]/pharmacy #[id number], Partial fill upon patient request if the prescription is for a schedule II... Start Date: 01/19/23 Status: Ordered Vitamin B6 50 mg oral tablet 1, tablet, By Mouth, 3 times a day, # 90 tablet, Refills 0, Maintenance, 03/06/23 7:49:00 EDT, [id number], 148, cm, 02/17/23 9:30:00 EDT, Height, 60.3, [...] HOSPITAL Outreach Member Role: PCP Address: Address: [address] [place] [address]- Name: Sergei GARCIA, Julieta Gilmore Position: [facility] OB RN Member Role: Primary Care Nurse Name: Alannah Koenig RN Position: [facility] RN Member Role: Primary Care Nurse Care Team Related Persons Name: JERSON RESTREPO Address: home [address] [address] Name: ANUP LOUIS Address: [address] Address: home [address] [place] [address] [place] Name: ALEAH PENN Address: home [address] [place] [address]
--- OUTSIDE RECORDS SUMMARY | 2023-12-05 19:44 | XMS_ITS | Continuity of Care Document ---
Author Organization [facility] Address [address] [place] [address]- Care Team Providers Care Sectional Belt Mold Assembler Name Role Phone Ciaran Pisano Primary Care Physician Encounter [facility] Date(s): 05/02/23 - 06/07/[address] [id number] Attending Physician: Not on Staff, Attending MD Allergies, Adverse Reactions, Alerts Substance Reaction Severity Status penicillin Swelling Active sulfADIAZINE Swelling Active lactulose Stomach pain Active Peanuts Throat Swelling Active Estradiol Patch bleeding to patch area area Persistent Mild Active shellfish throat swelling Active Bactrim Rash Active Seafood throart swelling Active Mushroom Throat [...] Refills, Maintenance, 12/14/22 23:08:00 EDT, Solution, [id number], Partial fill upon patient request if the [...] 05/16/24 13:53:00 EDT, 05/15/23 13:52:00 EDT, Tablet, [id number], Partial fill upon patient request if the prescription is for a schedule II opioid drug., 147.32, cm, 05/12/23... Start Date: 05/15/23 Stop Date: 05/16/24 Status: Ordered Latuda 20 mg oral tablet 1 tablet = 20 mg, By Mouth, Daily, # 30 tablet, 0 Refills, Maintenance, 01/19/23 10:08:00 EDT, Tablet, [id number], Partial fill upon patient [...] 18:53:00 EDT, Inhaler, Route to Pharmacy Electronically, [id number], [id number], 148,... Start Date: 04/10/23 [...] 03/06/23 7:49:00 EDT, Route to Pharmacy Electronically, [id number], 148, cm, 02/17/23 9:30:00 EDT, Height, 60.3, [...] Ciaran Pisano Position: [facility] Outreach Member Role: PCP Address: Address: [address] [place] [id number]- Name: Sergei GARCIA, Julieta Gilmore Position: [facility] OB RN Member Role: Primary Care Nurse Name: Alannah Koenig RN Position: [facility] RN Member Role: Primary Care Nurse Care Team Related Persons Name: JERSON RESTREPO Address: home [address] [address] Name: ALEAH PENN Address: home [address] [place] [address]
--- OUTSIDE RECORDS SUMMARY | 2023-12-05 19:44 | XMS_ITS | Continuity of Care Document ---
Author Organization [facility] Address [address] [place] [address]- Care Team Providers Care City Superintendent Name Role Phone Kianna CARVER, Alok Nguyen Primary Care Physician Encounter [facility] Date(s): 09/25/19 - 01/25/[address] [address]- [facility] Attending Physician: Not on Staff, Attending MD [...]
--- OUTSIDE RECORDS SUMMARY | 2023-12-05 19:44 | XMS_ITS | Continuity of Care Document ---
Author Organization [facility] Address [address] [place] [address]- Care Team Providers Care Parking Cashier Name Role Phone Ciaran Pisano Primary Care Physician [place] [facility] [place] - 05/18/[address] [id number] Allergies, Adverse Reactions, Alerts Substance Reaction Severity Status penicillin Swelling Active sulfADIAZINE Swelling Active lactulose Stomach pain Active shellfish throat swelling Active Peanuts Throat Swelling Active Seafood throart swelling Active Mushroom Throat swelling Active Estradiol Patch bleeding to patch area area Persistent Mild Active Bactrim Rash Active Immunizations Given and Recorded Vaccine Date [...] Refills, Maintenance, 12/14/22 23:08:00 EDT, Solution, [id number], Partial fill upon patient request if the [...] 05/16/24 13:53:00 EDT, 05/15/23 13:52:00 EDT, Tablet, [facility]/pharmacy #[id number], Partial fill upon patient [...] 18:53:00 EDT, Inhaler, Route to Pharmacy Electronically, [id number], [facility]/pharmacy #[id number], 148,... Start Date: 04/10/23 Status: Ordered Unisom 25 mg oral tablet 1 tablet = 25 mg, By Mouth, Daily, PRN as needed for sleep, 15 to 30 minutes before bed, # 14 tablet, 0 Refills, Maintenance, 01/19/23 10:26:00 EDT, Tablet, [facility]/pharmacy #[id number], Partial fill upon patient request if the prescription is for a schedule II... Start Date: 01/19/23 Status: Ordered Vitamin B6 50 mg oral tablet 1, tablet, By Mouth, 3 times a day, # 90 tablet, Refills 0, Maintenance, 03/06/23 7:49:00 EDT, Route to Pharmacy Electronically, [id number], 148, cm, 02/17/23 9:30:00 EDT, Height, 60.3, [...] S Outreach Member Role: PCP Address: Address: [address] [place] [address]- Name: Julieta Mai RN Position: [facility] OB RN Member Role: Primary Care Nurse Name: Alannah Koenig RN Position: S RN Member Role: Primary Care Nurse Care Team Related Persons Name: EJRSON RESTREPO Address: home [address] [address] Name: ALEAH PENN Address: home [address] [place] [address]
--- OUTSIDE RECORDS SUMMARY | 2023-12-05 19:44 | XMS_ITS | Continuity of Care Document ---
Author Organization [facility] Address [address] [place] [address]- Care Team Providers Care Funeral Director/Embalmer Name Role Phone Ciaran Pisano Primary Care Physician Encounter [facility] Date(s): 04/17/23 - 05/17/[address] [address] Allergies, Adverse Reactions, Alerts Substance [...] Refills, Maintenance, 12/14/22 23:08:00 EDT, Solution, [id number], Partial fill upon patient request if the [...] 05/16/24 13:53:00 EDT, 05/15/23 13:52:00 EDT, Tablet, [facility]/pharmacy #[id number], Partial fill upon patient [...] 18:53:00 EDT, Inhaler, Route to Pharmacy Electronically, [id number], [facility]/pharmacy #[id number], 148,... Start Date: 04/10/23 Status: Ordered Unisom 25 mg oral tablet 1 tablet = 25 mg, By Mouth, Daily, PRN as needed for sleep, 15 to 30 minutes before bed, # 14 tablet, 0 Refills, Maintenance, 01/19/23 10:26:00 EDT, Tablet, [facility]/pharmacy #[id number], Partial fill upon patient request if the prescription is for a schedule II... Start Date: 01/19/23 Status: Ordered Vitamin B6 50 mg oral tablet 1, tablet, By Mouth, 3 times a day, # 90 tablet, Refills 0, Maintenance, 03/06/23 7:49:00 EDT, Route to Pharmacy Electronically, [id number], 148, cm, 02/17/23 9:30:00 EDT, Height, 60.3, [...] S Outreach Member Role: PCP Address: Address: [address] [place] [address]- Name: Julieta Mai RN Position: [facility] OB RN Member Role: Primary Care Nurse Name: Alannah Koenig RN Position: S RN Member Role: Primary Care Nurse Care Team Related Persons Name: JERSON RESTREPO Address: [address] [address] Name: ALEAH PENN Address: [address] [place] [address]
--- OUTSIDE RECORDS SUMMARY | 2023-12-05 19:44 | XMS_ITS | Continuity of Care Document ---
Author Organization [facility] Address [address] [place] [address]- Care Team Providers Care Basting Cleaner Name Role Phone Ciaran Pisano Primary Care Physician [phone] [place] [facility] Date(s): 03/14/23 - 07/06/[address] [address] Attending Physician: Vilma Zhang CNM Admitting [...] Refills, Maintenance, 12/14/22 23:08:00 EDT, Solution, [id number], Partial fill upon patient request if the [...] 13:53:00 EDT, 05/15/23 13:52:00 EDT, Tablet, [facility]/pharmacy #[id number], Partial fill upon patient request if the prescription is for a schedule II opioid drug., 147.32, cm, 05/12/23... Start Date: 05/15/23 Stop Date: 05/16/24 Status: Ordered Latuda 20 mg oral tablet 1 tablet = 20 mg, By Mouth, Daily, # 30 tablet, 0 Refills, Maintenance, 01/19/23 10:08:00 EDT, Tablet, [facility]/pharmacy #[id number], Partial fill upon [...] 18:53:00 EDT, Inhaler, Route to Pharmacy Electronically, [id number], [facility]/pharmacy #[id number], 148,... Start Date: 04/10/23 [...] 7:49:00 EDT, Route to Pharmacy Electronically, [facility] [id number], 148, cm, 02/17/23 9:30:00 EDT, Height, 60.3, [...] Care Team Personnel Name: Ciaran Pisano Position: [facility] Outreach Member Role: PCP Address: Address: [address] [place] [address]- Name: Julieta Mai RN Position: [facility] OB RN Member Role: Primary Care Nurse Name: Alannah Koenig RN Position: S RN Member Role: Primary Care Nurse Care Team Related Persons Name: JERSON RESTREPO Address: home [address] [place] [id number] Name: IVONNE PENN Address: [id number] Address: [address] [place] [address] [place] Name: ALEAH PENN Address: home [address] [place] [address]
--- OUTSIDE RECORDS SUMMARY | 2023-12-05 19:44 | XMS_ITS | Continuity of Care Document ---
Author Organization [facility] ter Address [address] [place] [address]- Care Team Providers Care Certified Scrum Master Name Role Phone Ciaran Pisano Primary Care Physician [place] [facility] [place]): [place] - 11/24/[address] [address]- Encounter Diagnosis (Final) - 11/24/22 Back pain(Final) - 11/24/22 Asthma exacerbation(Final) - 11/24/22 Discharge Disposition: A-D/C Home Attending Physician: Arleth Kelsey MD Admitting Physician: Arleth Kelsey MD Referring Physician: Not on Staff, Referring MD Allergies, Adverse Reactions, Alerts Substance Reaction Severity Status penicillin Active sulfADIAZINE Active Estradiol Patch Persistent Mild Active Mushroom Active lactulose Active Bactrim Active Peanuts Active Seafood Active Immunizations Given and Recorded [...] 07/31/22 13:01:00 EST, Route to Pharmacy Electronically, [facility]/pharmacy #[id number], Partial fill upon patient request [...] Refills, Maintenance, 07/31/22 13:01:00 EST, DIS Tablet, [facility]/pharmacy #[id number], Partial fill upon patient request [...] Exam Date Time Procedure Performing Provider Status 11/23/22 11:17 PM US Uterus Transvaginal Rosa Isela Casiano; Auth (Verified) Notes: (US Uterus Transvaginal) Reason For Exam: Pain RESULT: US Uterus Transvaginal US Transabd 1st Trimester Only, US Pelvic Doppler Comp, US Uterus Transvaginal Hx of Present Illness: here for back pain for 2 weeks with sweats and shaking, sts she is waking upwithout air, also sts decreased po intake and dark stools; Reason: Pain; Clinical Question(s): Ectopic; Order Comment: US < 14 Week 0 Day Transabdominal Single Prep COMPARISON: None. TECHNIQUE: Transabdominal and transvaginal pelvic ultrasound with grayscale, color Doppler, and spectral Doppler analysis. FINDINGS: Last menstrual period (LMP): 11/03/2022. Gestational age (GA) by LMP: 2 weeks 6 days. UTERUS AND GESTATIONAL STRUCTURES: No intrauterine identified. Uterus: 10.4 x 3.9 x 5.1 cm, volume 109 cc. No masses. No abnormalities of the cervix. Endometrium measures 0.9 cm. RIGHT OVARY: Size: 2.4 x 1.6 x 1.9 cm, volume 3.7 cc. Morphology: Normal echotexture. No pathologic cysts or mass. Corpus luteal cyst present measuring approximately 1.6 cm. Normal arterial and venous waveforms. LEFT OVARY: Only visualized transabdominally. Size: 3.2 x 0.9 x 1.8 cm, volume 2.6 cc. Morphology: Normal echotexture. No pathologic cysts or mass. Normal arterial and venous waveforms. FREE FLUID: Small amount of free fluid present. No adnexal masses. IMPRESSION: No evidence of ectopic or intrauterine . Early intrauterine or an ectopic not excluded. Recommend clinical follow-up with beta hCG values and consider follow-up ultrasound. No evidence of ovarian torsion. I have personally reviewed the images and I agree with this report. WSN: [id number] Ordering Physician: Anusha Jones Dictated By: Pennie Sparks DO Dictated Date/Time: 11/23/22 11:51 p Reviewed By: Shivam Figueroa MD Signed By: Shivam Figueroa MD Signed Date/Time: 11/23/22 11:56 pm Transcribed By: LAVERN Transcribed Date/Time: 11/23/22 11:40 pm * Exam Date Time Procedure Performing Provider Status 11/23/22 11:17 PM US Pelvic Doppler Comp Juanita Irizarry ee; Auth (Verified) Notes: (US Pelvic Doppler Comp) Reason For Exam: Pain RESULT: US Pelvic Doppler Comp US Transabd 1st Trimester Only, US Pelvic Doppler Comp, US Uterus Transvaginal Hx of Present Illness: here for back pain for 2 weeks with sweats and shaking, sts she is waking upwithout air, also sts decreased po intake and dark stools; Reason: Pain; Clinical Question(s): Ectopic; Order Comment: US < 14 Week 0 Day Transabdominal Single Prep COMPARISON: None. TECHNIQUE: Transabdominal and transvaginal pelvic ultrasound with grayscale, color Doppler, and spectral Doppler analysis. FINDINGS: Last menstrual period (LMP): 11/03/2022. Gestational age (GA) by LMP: 2 weeks 6 days. UTERUS AND GESTATIONAL STRUCTURES: No intrauterine identified. Uterus: 10.4 x 3.9 x 5.1 cm, volume 109 cc. No masses. No abnormalities of the cervix. Endometrium measures 0.9 cm. RIGHT OVARY: Size: 2.4 x 1.6 x 1.9 cm, volume 3.7 cc. Morphology: Normal echotexture. No pathologic cysts or mass. Corpus luteal cyst present measuring approximately 1.6 cm. Normal arterial and venous waveforms. LEFT OVARY: Only visualized transabdominally. Size: 3.2 x 0.9 x 1.8 cm, volume 2.6 cc. Morphology: Normal echotexture. No pathologic cysts or mass. Normal arterial and venous waveforms. FREE FLUID: Small amount of free fluid present. No adnexal masses. IMPRESSION: No evidence of ectopic or intrauterine . Early intrauterine or an ectopic not excluded. Recommend clinical follow-up with beta hCG values and consider follow-up ultrasound. No evidence of ovarian torsion. I have personally reviewed the images and I agree with this report. WSN: [id number] Ordering Physician: Anusha Jones Dictated By: Pennie Sparks DO Dictated Date/Time: 11/23/22 11:51 p Reviewed By: Shivam Figueroa MD Signed By: Shivam Figueroa MD Signed Date/Time: 11/23/22 11:56 pm Transcribed By: LAVERN Transcribed Date/Time: 11/23/22 11:40 pm * Exam Date Time Procedure Performing Provider Status 11/23/22 11:17 PM US Transab d 1st Trimester Only Rosa Isela Irizarry; Auth (Verified) Notes: (US Transabd 1st Trimester Only) Reason For Exam: Pain RESULT: US Transabd 1st Trimester Only US Transabd 1st Trimester Only, US Pelvic Doppler Comp, US Uterus Transvaginal Hx of Present Illness: here for back pain for 2 weeks with sweats and shaking, sts she is waking upwithout air, also sts decreased po intake and dark stools; Reason: Pain; Clinical Question(s): Ectopic; Order Comment: US < 14 Week 0 Day Transabdominal Single Prep COMPARISON: None. TECHNIQUE: Transabdominal and transvaginal pelvic ultrasound with grayscale, color Doppler, and spectral Doppler analysis. FINDINGS: Last menstrual period (LMP): 11/03/2022. Gestational age (GA) by LMP: 2 weeks 6 days. UTERUS AND GESTATIONAL STRUCTURES: No intrauterine identified. Uterus: 10.4 x 3.9 x 5.1 cm, volume 109 cc. No masses. No abnormalities of the cervix. Endometrium measures 0.9 cm. RIGHT OVARY: Size: 2.4 x 1.6 x 1.9 cm, volume 3.7 cc. Morphology: Normal echotexture. No pathologic cysts or mass. Corpus luteal cyst present measuring approximately 1.6 cm. Normal arterial and venous waveforms. LEFT OVARY: Only visualized transabdominally. Size: 3.2 x 0.9 x 1.8 cm, volume 2.6 cc. Morphology: Normal echotexture. No pathologic cysts or mass. Normal arterial and venous waveforms. FREE FLUID: Small amount of free fluid present. No adnexal masses. IMPRESSION: No evidence of ectopic or intrauterine . Early intrauterine or an ectopic not excluded. Recommend clinical follow-up with beta hCG values and consider follow-up ultrasound. No evidence of ovarian torsion. I have personally reviewed the images and I agree with this report. WSN: [id number] Ordering Physician: Anusha Jones Dictated By: Pennie Sparks DO Dictated Date/Time: 11/23/22 11:51 p Reviewed By: Shivam Figueroa MD Signed By: Shivam Figueroa MD Signed Date/Time: 11/23/22 11:56 pm Transcribed By: LAVERN Transcribed Date/Time: 11/23/22 11:40 pm * Exam Date Time Procedure Performing Provider Status 11/23/22 8:57 PM Chest 2 Views Frontal and Lat Jesus Don; Shad (Verified) Notes: (Chest 2 Views Frontal and Lat) Reason For Exam: Shortness of Breath, Fever;Other: RESULT: Chest 2 Views Frontal and Lat Chest 2 Views Frontal and Lat Hx of Present Illness: here for back pain for 2 weeks with sweats and shaking, sts she is waking upwithout air, also sts decreased po intake and dark stools; Reason: Other:; Shortness of Breath, Fever; Clinical Question(s): Pneumonia COMPARISON: 07/08/2022. FINDINGS: LINES AND TUBES: None. LUNGS AND PLEURA: Pulmonary vascular congestion without overt interstitial edema. No pleural effusion. No pneumothorax. HEART, MEDIASTINUM AND REIM: Heart is normal in size. Normal mediastinal and hilar contour. BONES AND SOFT TISSUES: No acute abnormality. Surgical clips in the right upper quadrant. IMPRESSION: Pulmonary vascular congestion without interstitial edema. WSN: [id number] Ordering Physician: Tanja Lopez Dictated By: Imani Haas MD Dictated Date/Time: 11/23/22 9:53 pm Reviewed By: Imani Haas MD Signed By: Imani Haas MD Signed Date/Time: 11/23/22 9:53 pm Transcribed By: LAVERN Transcribed Date/Time: 11/23/22 9:52 pm * Exam Date Time Procedure Performing Provider Status 11/23/22 9:[address] Abd/Pelvis W/ IV Contrast Only Yasmine Aburto; Auth (Verified) Notes: (CT Abd/Pelvis W/ IV Contrast Only) Reason For Exam: LLQ abdominal pain;Other: RESULT: CT Abd/Pelvis W/ IV Contrast Only CT Abd/Pelvis W/ IV Contrast Only Hx of Present Illness: here for back pain for 2 weeks with sweats and shaking, sts she is waking upwithout air, also sts decreased po intake and dark stools; Reason: Other:; LLQ abdominal pain; Clinical Question(s): Diverticulitis; Order Comment: Patient unable to tolerate PO contrast. TECHNIQUE: Spiral CT through the abdomen and pelvis with IV contrast formatted in 3 planes. 100 cc of Omnipaque 300 was administered intravenously. This study was performed without oral contrast. Weight-based protocol using automatic tube modulation was used to optimize exposure parameters. CTDIvol Body: 14.60 mGy, DLP Body: 705 mGy*cm. COMPARISON: None. FINDINGS: Certified Registered Dental Assistant View Findings, Lines and Tubes: None. Visualized Chest: Lung bases are clear. No pleural effusion. The heart is normal in size. No pericardial effusion. Diaphragm: Normal. Liver: Normal. Gallbladder: Absent consistent with prior cholecystectomy. Bile ducts: No biliary ductal dilation. Spleen: Normal. Pancreas: Normal. Adrenal glands: Normal. Kidneys and ureters: No hydronephrosis, stones, or suspicious masses. Bladder: Normal. Reproductive organs: Unremarkable. Stomach, small bowel, and large bowel: Normal. Appendix: Normal. Peritoneum and retroperitoneum: No ascites or pneumoperitoneum. No omental or mesenteric lesions. Lymph nodes: No enlarged lymph nodes. Blood vessels: Normal. No aneurysm. No evidence of venous thrombosis. Abdominal and pelvic wall: Unremarkable. Bones: No acute abnormality. IMPRESSION: Unremarkable CT of the abdomen and pelvis. WSN: [id number] Ordering Physician: Tanja Lopez Dictated By: Shivam Figueroa MD Dictated Date/Time: 11/23/22 9:30 pm Reviewed By: Shivam Figueroa MD Signed By: Shivam Figueroa MD Signed Date/Time: 11/23/22 9:30 pm Transcribed By: LAVERN Transcribed Date/Time: 11/23/22 9:26 pm Vital Signs Most recent to oldest [Reference Range]: 1 2 3 Oxygen Saturation [94-100 %] 100 % (11/23/22 9:47 PM) 100 % (11/23/22 6:07 PM) 98 % (11/23/22 5:54 PM) Pulse Rate [55-90 bpm] 67 bpm (11/23/22 9:47 PM) 73 bpm (11/23/22 6:07 PM) 92 bpm *H* (11/23/22 5:54 PM) Blood Pressure [90-138/55-84 mm Hg] 123/83mm Hg (11/23/22 9:47 PM) 121/91mm Hg (11/23/22 6:07 PM) Respiratory Rate [16-30 br/min] 16 br/min (11/23/22 9:47 PM) 16 br/min (11/23/22 6:07 PM) 18 br/min (11/23/22 5:54 PM) Temperature [96.8-100.4 DegF] 97.8 DegF (11/23/22 9:47 PM) 99.1 DegF (11/23/22 6:07 PM) Mode of Delivery (Oxygen) Room air (11/23/22 9:47 PM) Room air (11/23/22 6:07 PM) Room air (11/23/22 5:54 PM) Blood pressure sites Arm, left (11/23/22 6:07 PM) Temperature Route Oral (11/23/22 9:47 PM) Oral (11/23/22 6:07 PM) Social History Social History Type Response Smoking Status Never (less than 100 in lifetime) entered on: 08/06/[address] Abdomen and Pelvis W contrast IV * [facility] , CIS S: TRANSCRIBE Shivam Figueroa MD: VERIFY Event Display: Result: Authored Date: CT Abd/Pelvis W/ IV Contrast Only Hx of Present Illness: here for back pain for 2 weeks with sweats and shaking, sts she is waking upwithout air, also sts decreased po intake and dark stools; Reason: Other:; LLQ abdominal pain; Clinical Question(s): Diverticulitis; Order Comment: Patient unable to tolerate PO contrast. TECHNIQUE: Spiral CT through the abdomen and pelvis with IV contrast formatted in 3 planes. 100 cc of Omnipaque 300 was administered intravenously. This study was performed without oral contrast. Weight-based protocol using automatic tube modulation was used to optimize exposure parameters. CTDIvol Body: 14.60 mGy, DLP Body: 705 mGy*cm. COMPARISON: None. FINDINGS: Certified Registered Dental Assistant View Findings, Lines and Tubes: None. Visualized Chest: Lung bases are clear. No pleural effusion. The heart is normal in size. No pericardial effusion. Diaphragm: Normal. Liver: Normal. Gallbladder: Absent consistent with prior cholecystectomy. Bile ducts: No biliary ductal dilation. Spleen: Normal. Pancreas: Normal. Adrenal glands: Normal. Kidneys and ureters: No hydronephrosis, stones, or suspicious masses. Bladder: Normal. Reproductive organs: Unremarkable. Stomach, small bowel, and large bowel: Normal. Appendix: Normal. Peritoneum and retroperitoneum: No ascites or pneumoperitoneum. No omental or mesenteric lesions. Lymph nodes: No enlarged lymph nodes. Blood vessels: Normal. No aneurysm. No evidence of venous thrombosis. Abdominal and pelvic wall: Unremarkable. Bones: No acute abnormality. IMPRESSION: Unremarkable CT of the abdomen and pelvis. WSN: [id number] Ordering Physician: Tanja Lopez Dictated By: Shivam Figueroa MD Dictated Date/Time: 11/23/22 9:30 pm Reviewed By: Shivam Figueroa MD Signed By: Shivam Figueroa MD Signed Date/Time: 11/23/22 9:30 pm Transcribed By: LAVERN Transcribed Date/Time: 11/23/22 9:26 pm Note * SHEA Mcgovern S: TRANSCImani Turcios MD: VERIFY Event Display: Result: Authored Date: [id number] Chest 2 Views Frontal and Lat Hx of Present Illness: here for back pain for 2 weeks with sweats and shaking, sts she is waking upwithout air, also sts decreased po intake and dark stools; Reason: Other:; Shortness of Breath, Fever; Clinical Question(s): Pneumonia COMPARISON: 07/08/2022. FINDINGS: LINES AND TUBES: None. LUNGS AND PLEURA: Pulmonary vascular congestion without overt interstitial edema. No pleural effusion. No pneumothorax. HEART, MEDIASTINUM AND REMI: Heart is normal in size. Normal mediastinal and hilar contour. BONES AND SOFT TISSUES: No acute abnormality. Surgical clips in the right upper quadrant. IMPRESSION: Pulmonary vascular congestion without interstitial edema. WSN: [id number] Ordering Physician: Tanja Lopez Dictated By: Imani Haas MD Dictated Date/Time: 11/23/22 9:53 pm Reviewed By: Imani Haas MD Signed By: Imani Haas MD Signed Date/Time: 11/23/22 9:53 pm Transcribed By: LAVERN Transcribed Date/Time: 11/23/22 9:52 pm * SHEA Mcgovern S: TRANSCRIShivam Resendiz MD: VERIFY Pennie Sparks DO: SIGN Event Display: Result: Authored Date: [id number] US Transabd 1st Trimester Only, US Pelvic Doppler Comp, US Uterus Transvaginal Hx of Present Illness: here for back pain for 2 weeks with sweats and shaking, sts she is waking upwithout air, also sts decreased po intake and dark stools; Reason: Pain; Clinical Question(s): Ectopic; Order Comment: US < 14 Week 0 Day Transabdominal Single Prep COMPARISON: None. TECHNIQUE: Transabdominal and transvaginal pelvic ultrasound with grayscale, color Doppler, and spectral Doppler analysis. FINDINGS: Last menstrual period (LMP): 11/03/2022. Gestational age (GA) by LMP: 2 weeks 6 days. UTERUS AND GESTATIONAL STRUCTURES: No intrauterine identified. Uterus: 10.4 x 3.9 x 5.1 cm, volume 109 cc. No masses. No abnormalities of the cervix. Endometrium measures 0.9 cm. RIGHT OVARY: Size: 2.4 x 1.6 x 1.9 cm, volume 3.7 cc. Morphology: Normal echotexture. No pathologic cysts or mass. Corpus luteal cyst present measuring approximately 1.6 cm. Normal arterial and venous waveforms. LEFT OVARY: Only visualized transabdominally. Size: 3.2 x 0.9 x 1.8 cm, volume 2.6 cc. Morphology: Normal echotexture. No pathologic cysts or mass. Normal arterial and venous waveforms. FREE FLUID: Small amount of free fluid present. No adnexal masses. IMPRESSION: No evidence of ectopic or intrauterine . Early intrauterine or an ectopic not excluded. Recommend clinical follow-up with beta hCG values and consider follow-up ultrasound. No evidence of ovarian torsion. I have personally reviewed the images and I agree with this report. WSN: [id number] Ordering Physician: Anusha Jones Dictated By: Pennie Sparks DO Dictated Date/Time: 11/23/22 11:51 p Reviewed By: Shivam Figueroa MD Signed By: Shivam Figueroa MD Signed Date/Time: 11/23/22 11:56 pm Transcribed By: LAVERN Transcribed Date/Time: 11/23/22 11:40 pm * [facility] , CIS S: TRANSCRIBE Shivam Figueroa MD: VERIFY Pennie Sparks DO: SIGN Event Display: Result: Authored Date: [id number] US Transabd 1st Trimester Only, US Pelvic Doppler Comp, US Uterus Transvaginal Hx of Present Illness: here for back pain for 2 weeks with sweats and shaking, sts she is waking upwithout air, also sts decreased po intake and dark stools; Reason: Pain; Clinical Question(s): Ectopic; Order Comment: US < 14 Week 0 Day Transabdominal Single Prep COMPARISON: None. TECHNIQUE: Transabdominal and transvaginal pelvic ultrasound with grayscale, color Doppler, and spectral Doppler analysis. FINDINGS: Last menstrual period (LMP): 11/03/2022. Gestational age (GA) by LMP: 2 weeks 6 days. UTERUS AND GESTATIONAL STRUCTURES: No intrauterine identified. Uterus: 10.4 x 3.9 x 5.1 cm, volume 109 cc. No masses. No abnormalities of the cervix. Endometrium measures 0.9 cm. RIGHT OVARY: Size: 2.4 x 1.6 x 1.9 cm, volume 3.7 cc. Morphology: Normal echotexture. No pathologic cysts or mass. Corpus luteal cyst present measuring approximately 1.6 cm. Normal arterial and venous waveforms. LEFT OVARY: Only visualized transabdominally. Size: 3.2 x 0.9 x 1.8 cm, volume 2.6 cc. Morphology: Normal echotexture. No pathologic cysts or mass. Normal arterial and venous waveforms. FREE FLUID: Small amount of free fluid present. No adnexal masses. IMPRESSION: No evidence of ectopic or intrauterine . Early intrauterine or an ectopic not excluded. Recommend clinical follow-up with beta hCG values and consider follow-up ultrasound. No evidence of ovarian torsion. I have personally reviewed the images and I agree with this report. WSN: [id number] Ordering Physician: Anusha Jones Dictated By: Pennie Sparks DO Dictated Date/Time: 11/23/22 11:51 p Reviewed By: Shivam Figueroa MD Signed By: Shivam Figueroa MD Signed Date/Time: 11/23/22 11:56 pm Transcribed By: LAVERN Transcribed Date/Time: 11/23/22 11:40 pm US transvaginal for * [facility] , CIS S: TRANSCRIBE Shivam Figueroa MD S: VERIFY Pennie Sparks DO: SIGN Event Display: Result: Authored Date: [id number] US Transabd 1st Trimester Only, US Pelvic Doppler Comp, US Uterus Transvaginal Hx of Present Illness: here for back pain for 2 weeks with sweats and shaking, sts she is waking upwithout air, also sts decreased po intake and dark stools; Reason: Pain; Clinical Question(s): Ectopic; Order Comment: US < 14 Week 0 Day Transabdominal Single Prep COMPARISON: None. TECHNIQUE: Transabdominal and transvaginal pelvic ultrasound with grayscale, color Doppler, and spectral Doppler analysis. FINDINGS: Last menstrual period (LMP): 11/03/2022. Gestational age (GA) by LMP: 2 weeks 6 days. UTERUS AND GESTATIONAL STRUCTURES: No intrauterine identified. Uterus: 10.4 x 3.9 x 5.1 cm, volume 109 cc. No masses. No abnormalities of the cervix. Endometrium measures 0.9 cm. RIGHT OVARY: Size: 2.4 x 1.6 x 1.9 cm, volume 3.7 cc. Morphology: Normal echotexture. No pathologic cysts or mass. Corpus luteal cyst present measuring approximately 1.6 cm. Normal arterial and venous waveforms. LEFT OVARY: Only visualized transabdominally. Size: 3.2 x 0.9 x 1.8 cm, volume 2.6 cc. Morphology: Normal echotexture. No pathologic cysts or mass. Normal arterial and venous waveforms. FREE FLUID: Small amount of free fluid present. No adnexal masses. IMPRESSION: No evidence of ectopic or intrauterine . Early intrauterine or an ectopic not excluded. Recommend clinical follow-up with beta hCG values and consider follow-up ultrasound. No evidence of ovarian torsion. I have personally reviewed the images and I agree with this report. WSN: [id number] Ordering Physician: Anusha Jones Dictated By: Pennie Sparks DO Dictated Date/Time: 11/23/22 11:51 p Reviewed By: Shivam Figueroa MD Signed By: Shivam Figueroa MD Signed Date/Time: 11/23/22 11:56 pm Transcribed By: LAVERN Transcribed Date/Time: 11/23/22 11:40 pm Patient Care team information Care Team Personnel Name: Ciaran Pisano Position: [facility] Outreach Member Role: PCP Address: Address: [address] [place] [address]- Name: Julieta Mai RN Position: [facility] OB RN Member Role: Primary Care Nurse Name: Alannah Koenig RN Position: [facility] RN Member Role: Primary Care Nurse Name: Anusha Jones MD Position: [facility] Resident Member Role: ED Resident Address: Address: [address] [place] [address] [place] [address]- Name: Arleth Kelsey MD Position: [facility] ED Medicine MD Member Role: ED Attending Physician Address: Address: [address] [place] [id number]- Name: Sunni Montano RN Position: [facility] ED RN W/OE and Tasks Member Role: Patient Care Provider Name: Rajwinder Lewis Position: [facility] ED TA [facility] Member Role: Compensation/Benefits Specialist Care Team Related Persons Name: JERSON RESTREPO Address: home [address] [address] Name: ALEAH PENN Address: home [address] [place] [address]
--- OUTSIDE RECORDS SUMMARY | 2023-12-05 19:45 | XMS_ITS | Continuity of Care Document ---
Author Organization [facility] Address [address] [address]- Care Team Providers Care Cigar Packer And Sorter Name Role Phone Ciaran Pisano Primary Care Physician [phone] [place] [facility] [place]23 [facility] [address] [place] [id number]- Attending Physician: Wade Gage Admitting Physician: Wade [...] Refills, Maintenance, 12/14/22 23:08:00 EDT, Solution, [id number], Partial fill upon patient request if the [...] 0 Refills, Maintenance, 01/19/23 10:08:00 EDT, Tablet, [facility]/pharmacy #[id number], Partial fill upon patient request [...] Refills, Maintenance, 04/10/23 18:51:00 EDT, DIS Tablet, [facility]/pharmacy #[id number], Partial fill upon patient request, [...] 18:53:00 EDT, Inhaler, Route to Pharmacy Electronically, [id number], [facility]/pharmacy #[id number], 148,... Start Date: 04/10/23 Status: Ordered Unisom 25 mg oral tablet 1 tablet = 25 mg, By Mouth, Daily, PRN as needed for sleep, 15 to 30 minutes before bed, # 14 tablet, 0 Refills, Maintenance, 01/19/23 10:26:00 EDT, Tablet, [facility]/pharmacy #[id number], Partial fill upon patient request if the prescription is for a schedule II... Start Date: 01/19/23 Status: Ordered Vitamin B6 50 mg oral tablet 1, tablet, By Mouth, 3 times a day, # 90 tablet, Refills 0, Maintenance, 03/06/23 7:49:00 EDT, Route to Pharmacy Electronically, [id number], 148, cm, 02/17/23 9:30:00 EDT, Height, 60.3, [...] Care Team Personnel Name: Ciaran Pisano Position: [facility] Outreach Member Role: PCP Address: Address: [address] [place] [address]- Name: Julieta Mai RN Position: [facility] OB RN Member Role: Primary Care Nurse Name: Alannah Koenig RN Position: S RN Member Role: Primary Care Nurse Care Team Related Persons Name: JERSON RESTREPO Address: home [address] [address] Name: ALEAH PENN Address: home [address] [place] [address]
--- OUTSIDE RECORDS SUMMARY | 2023-12-05 19:45 | XMS_ITS | Continuity of Care Document ---
Author Organization [facility] Address [address] [place] [address]- Care Team Providers Care Brand Executive Name Role Phone Ciaran Pisano Primary Care Physician [place] [facility] [place] - 08/21/[address] [address] Attending Physician: Not on Staff, Attending MD Referring Physician: Karen BALES, Elva Dooley Allergies, Adverse Reactions, Alerts Substance Reaction Severity [...] Refills, Maintenance, 07/31/22 13:01:00 EST, DIS Tablet, [facility]/pharmacy #[id number], Partial fill upon [...] Care Team Personnel Name: Ciaran Pisano Position: [facility] Outreach Member Role: PCP Address: Address: [address] [place] [address]- Name: Sergei GARCIA, Julieta Gilmore Position: [facility] OB RN Member Role: Primary Care Nurse Name: Alannah Koenig RN Position: [facility] RN Member Role: Primary Care Nurse Care Team Related Persons Name: KAYE, JERSON Address: [address] [address] Name: ALEAH PENN Address: home [address] [place] [address]
--- OUTSIDE RECORDS SUMMARY | 2023-12-05 19:45 | XMS_ITS | Continuity of Care Document ---
Author Organization [facility] Address [address] [place] [address]- Care Team Providers Care Lock Master Name Role Phone Ciaran Pisano Primary Care Physician [phone] [place] [facility] [place](s): 08/02/22 - 08/03/[address] [address]- Discharge Disposition: A-D/C Walkout Attending Physician: Not [...] 07/31/22 13:01:00 EST, Route to Pharmacy Electronically, [facility]/pharmacy #[id number], Partial fill upon patient request [...] Refills, Maintenance, 07/31/22 13:01:00 EST, DIS Tablet, [facility]/pharmacy #[id number], Partial fill upon patient request [...] oldest [Reference Range]: 1 2 3 Height 138 cm (08/02/22 4:02 PM) Weight 60.4 kg (08/02/22 4:02 PM) Oxygen Saturation [94-100 %] 100 % (08/02/22 6:18 PM) 100 % (08/02/22 4:02 PM) 100 % (08/02/22 3:10 PM) Pulse Rate [55-90 bpm] 63 bpm (08/02/22 6:18 PM) 68 bpm (08/02/22 4:02 PM) 73 bpm (08/02/22 3:10 PM) Body Mass Index [18.5-24.99 kg/m2] 31.72 kg/m2 *>HHI* (08/02/22 4:02 PM) Blood Pressure [90-138/55-84 mm Hg] 142/91mm Hg *H* (08/02/22 6:18 PM) 142/83mm Hg *H* (08/02/22 4:02 PM) Respiratory Rate [16-30 br/min] 18 br/min (08/02/22 6:18 PM) 18 br/min (08/02/22 4:02 PM) 18 br/min (08/02/22 3:10 PM) Temperature [96.8-100.4 DegF] 98.1 DegF (08/02/22 6:18 PM) 98.0 DegF (08/02/22 4:02 PM) Mode of Delivery (Oxygen) Room air (08/02/22 6:18 PM) Room air (08/02/22 4:02 PM) Blood pressure sites Arm, right (08/02/22 6:18 PM) Arm, right (08/02/22 4:02 PM) Temperature Route Oral (08/02/22 6:18 PM) Oral (08/02/22 4:02 PM) Dry Weight 60.6 kg (08/02/22 4:02 PM) Weight Obtained Via Standing scale (08/02/22 4:02 PM) Dry Weight Obtained Via Standing scale (08/02/22 4:02 PM) Social History Social History Type Response Smoking Status Never (less than 100 in lifetime) entered on: 08/06/18 Sex Female Patient Care team information Care Team Personnel Name: Ciaran Pisano Position: S Outreach Member Role: PCP Address: Address: [address] [place] [address]- Name: Julieta Mai RN Position: [facility] OB RN Member Role: Primary Care Nurse Name: Alannah Koenig RN Position: S RN Member Role: Primary Care Nurse Care Team Related Persons Name: JERSON RESTREPO Address: home [address] [address] Name: ALEAH PENN Address: home [address] [place] [address]
--- OUTSIDE RECORDS SUMMARY | 2023-12-05 19:45 | XMS_ITS | Continuity of Care Document ---
[facility] Address [address] [place] [address]- Care Team Providers Care Drafting Clerk Name Role Phone Ciaran Pisano Primary Care Physician Encounter [facility] [place] Date(s): 01/04/23 - 02/03/23 [facility] and [address] [address] Allergies, Adverse Reactions, Alerts Substance [...] Refills, Maintenance, 12/14/22 23:08:00 EDT, Solution, [facility]/pharmacy #[id number], Partial fill upon patient request if the [...] 01/19/23 10:08:00 EDT, Route to Pharmacy Electronically, [facility]/pharmacy #[id number], Partial fill upon patient request if the prescription is for a schedule II opioid drug... Start Date: 01/19/23 Stop Date: 02/18/23 Status: Ordered Latuda 20 mg oral tablet 1 tablet = 20 mg, By Mouth, Daily, # 30 tablet, 0 Refills, Maintenance, 01/19/23 10:08:00 EDT, Tablet, [facility]/pharmacy #[id number], Partial fill upon patient request if the prescription is for a schedule II opioid drug., 148, cm, 01/19/23 9:06:00 EDT, Height,... Start Date: 01/19/23 Status: Ordered M- Plus oral tablet 1 tablet, By Mouth, Daily, # 90 tablet, 3 Refills, Maintenance, 12/28/22 9:02:00 EDT, [facility]/pharmacy #[id number], [...] Refills, Maintenance, 01/19/23 10:09:00 EDT, DIS Tablet, [facility] [...] 10:08:00 EDT, Inhaler, Route to Pharmacy Electronically, [id number], [facility]/pharmacy #[id number], 148,... Start Date: 01/19/23 Status: Ordered [...] Care Team Personnel Name: Ciaran Pisano Position: [facility] Outreach Member Role: PCP Address: Address: [address] [place] [address]- Name: Julieta Mai RN Position: [facility] OB RN Member Role: Primary Care Nurse Name: Alannah Koenig RN Position: S RN Member Role: Primary Care Nurse Care Team Related Persons Name: JERSON RESTREPO Address: home [address] [address] Name: ALEAH PENN Address: home [address] [place] [address]
--- OUTSIDE RECORDS SUMMARY | 2023-12-05 19:45 | XMS_ITS | Continuity of Care Document ---
Author Organization [facility] Address [address] [place] [address]- Care Team Providers Care Lamina Searcher Name Role Phone Ciaran Pisano Primary Care Physician [phone] Encounter [facility] [place] Date(s): 04/19/23 - 08/17/[address] [address] Attending Physician: Vilma Zhang CNM [...] Refills, Maintenance, 07/08/23 15:13:00 EST, Capsule, [id number], Partial fill upon patient request if the prescription is for a schedule II opioid drug., 142,... Start Date: 07/08/23 Status: Ordered acetaminophen 325 mg oral capsule 2 capsule = 650 mg, By Mouth, Every 4 hours, PRN as needed for pain, # 50 tablet, 0 Refills, Maintenance, 07/08/23 15:20:00 EST, Capsule, [facility] #[id number], Partial fill upon patient request if the prescription is for a schedule II opioid dr... Start Date: 07/08/23 Status: Ordered albuterol 0.083% inhalation solution 3 mL = 2.5 mg, Neb, Every 4 hours, PRN as needed for wheezing, # 100 each, 3 Refills, Maintenance, 12/14/22 23:08:00 EDT, Solution, [facility]/pharmacy #[id number], Partial fill upon patient request if the [...] 07/08/23 15:14:00 EST, Route to Pharmacy Electronically, [facility]/pharmacy #[id number], Partial fill upon patient request if the prescriptio... Start Date: 07/08/23 Status: Ordered Colace sodium 100 mg oral capsule 100 mg, 1, capsule, By Mouth, 2 times a day, PRN, # 20 capsule, Refills 0, Tot. Refills 0, Maintenance, for constipation, 07/08/23 15:20:00 EST, Route to Pharmacy Electronically, [facility][id number], Partial fill upon patient request if the pr... Start Date: 07/08/23 Status: Ordered ferrous gluconate 324 mg oral tablet 1 tablet = 324 mg, By Mouth, Daily, # 100 tablet, 0 Refills, Acute 05/16/24 13:53:00 EDT, 05/15/23 13:52:00 EDT, Tablet, [facility]/pharmacy #[id number], Partial fill upon patient request if the prescription is for a schedule II opioid drug., 147.32, cm, 05/12/23... Start Date: 05/15/23 Stop Date: 05/16/24 Status: Ordered ibuprofen 600 mg oral tablet 600 mg, 1, tablet, By Mouth, Every 6 hours, # 50 tablet, Refills 0, Tot. Refills 0, Maintenance, 07/08/23 15:13:00 EST, Route to Pharmacy Electronically, [facility]/pharmacy #[id number], Partial fill upon patientrequest if the prescription is for a schedule II op... Start Date: 07/08/23 Status: Ordered ibuprofen 600 mg oral tablet 600 mg, 1, tablet, By Mouth, Every 6 hours, # 50 tablet, Refills 0, Tot. Refills 0, Maintenance, 07/08/23 15:20:00 EST, Route to Pharmacy Electronically, [facility] #[id number], Partial fill upon patient request if the prescription is for a sched... Start Date: 07/08/23 Status: Ordered Latuda 20 mg oral tablet 1 tablet = 20 mg, By Mouth, Daily, # 30 tablet, 0 Refills, Maintenance, 01/19/23 10:08:00 EDT, Tablet, [facility]/pharmacy #[id number], Partial fill upon patient request [...] capsule, 0 Refills, Maintenance, 04/14/23 19:04:00 EDT, [facility]/pharmacy #[id number], Partial fill upon patient request if the prescription is for a schedule II opioid drug., 148, cm, ... Start Date: 04/14/23 Status: Ordered ondansetron 4 mg oral tablet, disintegrating 1 tablet = 4 mg, By Mouth, Every 6 hours, PRN as needed for nausea/vomiting, # 30 tablet, 0 Refills, Maintenance, 04/10/23 18:51:00 EDT, DIS Tablet, [facility]/pharmacy #[id number], Partial fill upon patient request, 148, cm, 03/14/23 11:37:00 EDT, Height, 63.6, k... Start Date: 04/10/23 Status: Ordered oxyCODONE 5 mg oral tablet 10 mg, 2, tablet, By Mouth, Every 6 hours, PRN, # 12 tablet, Refills 0, Tot. Refills 0, Maintenance, for pain, 07/08/23 15:13:00 EST, Route to Pharmacy Electronically, [facility]/pharmacy #[id number], Partial fill upon patient request if the prescription is for a... Start Date: 07/08/23 Status: Ordered oxyCODONE 5 mg oral tablet 10 mg, 2, tablet, By Mouth, Every 6 hours, PRN, # 12 tablet, Refills 0, Tot. Refills 0, Maintenance, for pain, 07/08/23 15:20:00 EST, Route to Pharmacy Electronically, [facility] #[id number], Partial fill upon patient request if the [...] 0 Refills, Maintenance, 07/08/23 15:13:00 EST,Chew Tablet, [facility]/pharmacy #[id number], Partial fill upon patient request if the prescription is for a schedule II opioid drug., 142, cm, 07/01/23 10:05:00 ES... Start Date: 07/08/23 Status: Ordered simethicone 125 mg oral tablet, chewable 1 tablet = 125 mg, Chew, 4 times a day, # 48 tablet, 0 Refills, Maintenance, 07/08/23 15:20:00 EST,Chew Tablet, [facility] #[id number], Partial fill upon patient request if the prescription is for a schedule II opioid drug., 142, cm, 07/01/23 10... Start Date: 07/08/23 Status: Ordered Symbicort 160mcg/4.5mcg Inhaler 2, puffs, Inhalation, 2 times a day, TAKE 2 PUFFS BY MOUTH TWICE A DAY, # 3 each, Refills 0, Tot. Refills 0, Maintenance, 04/10/23 18:53:00 EDT, Inhaler, Route to Pharmacy Electronically, [id number], [facility]/pharmacy #[id number], 148,... Start Date: 04/10/23 Status: Ordered Unisom 25 mg oral tablet 1 tablet = 25 mg, By Mouth, Daily, PRN as needed for sleep, 15 to 30 minutes before bed, # 14 tablet, 0 Refills, Maintenance, 01/19/23 10:26:00 EDT, Tablet, [facility]/pharmacy #[id number], Partial fill upon patient request if the prescription is for a schedule II... Start Date: 01/19/23 Status: Ordered Vitamin B6 50 mg oral tablet 1, tablet, By Mouth, 3 times a day, # 90 tablet, Refills 0, Maintenance, 03/06/23 7:49:00 EDT, Route to Pharmacy Electronically, [id number], 148, cm, 02/17/23 9:30:00 EDT, Height, 60.3, [...] FACILITY Outreach Member Role: PCP Address: Address: [address] [place] [address]- Name: Julieta Mai RN Position: [facility] OB RN Member Role: Primary Care Nurse Name: Alannah Koenig RN Position: [facility] RN Member Role: Primary Care Nurse Care Team Related Persons Name: JERSON RESTREPO Address: [address] [address] Name: ANUP LOUIS Address: [address] Address: home [address] [place] [address] [place] Name: ALEAH PENN Address: home [address] [place] [address]
--- OUTSIDE RECORDS SUMMARY | 2023-12-05 19:45 | XMS_ITS | Continuity of Care Document ---
Author Organization [facility] Address [address] [place] [address]- Care Team Providers Care Recording Studio Setup Worker Name Role Phone Ciaran Pisano Primary Care Physician [phone] Encounter [facility] [place] Date(s): 05/15/23 - 05/22/23 [facility] [address] [place] [address] Attending Physician: Christiano Oreilly MD Referring Physician: Ciaran Pisano Allergies, Adverse Reactions, Alerts Substance Reaction Severity [...] Refills, Maintenance, 12/14/22 23:08:00 EDT, [facility], [id number], Partial fill upon patient request if the [...] 0 Refills, Maintenance, 01/19/23 10:08:00 EDT, Tablet, [facility]/pharmacy #[id number], Partial fill upon patient [...] Refills, Maintenance, 04/10/23 18:51:00 EDT, DIS Tablet, [facility]/pharmacy #[id number], Partial fill upon patient [...] 18:53:00 EDT, Inhaler, Route to Pharmacy Electronically, [id number], [facility]/pharmacy #[id number], 148,... Start Date: 04/10/23 Status: Ordered Unisom 25 mg oral tablet 1 tablet = 25 mg, By Mouth, Daily, PRN as needed for sleep, 15 to 30 minutes before bed, # 14 tablet, 0 Refills, Maintenance, 01/19/23 10:26:00 EDT, Tablet, [facility]/pharmacy #[id number], Partial fill upon patient request if the prescription is for a schedule II... Start Date: 01/19/23 Status: Ordered Vitamin B6 50 mg oral tablet 1, tablet, By Mouth, 3 times a day, # 90 tablet, Refills 0, Maintenance, 03/06/23 7:49:00 EDT, Route to Pharmacy Electronically, [id number], 148, cm, 02/17/23 9:30:00 EDT, Height, 60.3, [...] recent to oldest [Reference Range]: 1 Weight 68 kg (05/15/23 11:43 AM) Dry Weight 68 kg (05/15/23 11:43 AM) Weight Obtained Via Patient/family state d (05/15/23 11:43 AM) Dry Weight Obtained Via Patient/family s tated (05/15/23 11:43 AM) Social History Social History Type Response Tobacco Use: 4 or less cigar ettes(less than 1/4 pack)/day in last 30 days. Sex Female Note * Sindhu Machuca: PERFORM, SIGN, VERIFY Event Display: Patient Education/Instruction Authored Date: [id number] [facility] *[facility] Clinical Summary Name IVONNE PENN Age 32 Years 1990 PCP Ciaran Pisano PCP Visit Date 05/15/2023 11:40:00 Additional Instructions: Scheduled Appointments?? Future Appointments ?*[facility] [address],??[place],??[address] ?Phone:??--?Fax:??-- ?Appt. Date:??05/22/2023?10:30 AM ?Scheduled Provider:??Mayra Rose MD ?*[facility] ?Phone:??--?Fax:??-- ?Appt. Date:??05/23/2023?9:20 AM ?Scheduled Provider:??[facility] ?*[facility] ?[address],??[place],??[address] ?Phone:??--?Fax:??-- ?Appt. Date:??05/23/2023?1:00 PM ?Scheduled Provider:??Goldy CARVER, Tracy ?*[facility]enterology Teacher ?[address]??[place],??[place],??[address] ?Phone:??--?Fax:??-- ?Appt. Date:??06/06/2023?10:40 AM ?Scheduled Provider:??Vicente CNM, Vilma E ?*[facility]astroenterology Teacher ?[address],??[place],??[address] ?Phone:??--?Fax:??-- ?Appt. Date:??06/27/2023?11:20 AM ?Scheduled Provider:??Corey Zhang CNMn Domingo ?*[facility]Gastroenterology Teacher ?[address],??[place],??[address] ?Phone:??--?Fax:??-- ?Appt. Date:??07/12/2023?10:40 AM ?Scheduled Provider:??Vicente INGRAM Vilma Domingo ?*[facility]enterology Teacher ?[address],??[place],??[address] ?Phone:??--?Fax:??-- ?Appt. Date:??07/18/2023?9:20 AM ?Scheduled Provider:??Vicente INGRAM Vilma Domingo Follow-Up Instructions ?? Diagnosis Abnormal ultrasonic finding on screening of mother Medications: Please continue your medications until treatment is completed or stopped by your provider. Discuss any questions related to medications with your provider. Medications to Continue with No Changes These medications were not printed or sent to your pharmacy Albuterol (albuterol 0.083% inhalation solution) 3 Milliliter Nebulized inhalation every 4 hours asneeded as needed for wheezing for 30 Days. Refills: 3. Next Dose: Albuterol (albuterol CFC free 90 mcg/inh inhalation aerosol) INHALE 2 PUFFS INTO THE LUNGS EVERY 4 (FOUR) HOURS NEEDED FOR SHORTNESS OF BREATH OR WHEEZING. Next Dose: Budesonide-Formoterol (Symbicort 160mcg/4.5mcg Inhaler) 2 puff(s) Inhalation twice a day. TAKE 2 PUFFS BY MOUTH TWICE A DAY. Refills: 0. Next Dose: Doxylamine (Unisom 25 mg oral tablet) 1 tab(s) Oral Daily as needed as needed for sleep. 15 to 30 minutes before bed. Refills: 0. Next Dose: lurasidone (Latuda 20 mg oral tablet) 1 tab(s) Oral Daily. Refills: 0. Next Dose: Multivitamin, (M- Plus oral tablet) 1 tab(s) Oral Daily. Refills: 3. Next Dose: Omeprazole (omeprazole 20 mg oral enteric coated capsule) 1 capsule Oral twice a day. 30 min beforea meal. Refills: 0. Next Dose: Ondansetron (ondansetron 4 mg oral tablet, disintegrating) 1 tab(s) Oral every 6 hours as needed asneeded for nausea/vomiting. Refills: 0. Next Dose: Pyridoxine (Vitamin B6 50 mg oral tablet) 1 tab(s) Oral 3 times a day. Refills: 0. Next Dose: Sertraline Oral Daily. Next Dose: Allergy Info:?? Estradiol Patch; Mushroom; Seafood; Peanuts; Bactrim; shellfish; lactulose; sulfADIAZINE; penicillin Medications Given This Visit Future Orders ?No future orders Vital Signs Height Weight 68 kg BMI Blood Pressure / Temperature Pulse Rate Respiratory Rate 02 Sat Mode of Delivery / You can now view a summary of your hospital visit from the comfort of your home through a free online portal called momondo. momondo is a website that allows you to securely view your medical information including discharge summary, medications and follow-up visits. ??You can alsosend a secure electronic message to your doctor???s office to request appointments, renew medications or just ask a question. You can enroll at [email or web address] or register during your next office visit. Disclaimer:?? The information provided is of a general nature and is intended to be used in conjunction with the recommendations and advice of your health care practitioner. ??Every effort has been made to ensure that the information provided is accurate and complete at the time it is provided to you however, as your needs change, or, as new ??information becomes available, different or additional instructions may be required. If you have questions, please consult with your primary care provider or pharmacist, as appropriate. ??This information is not intended to serve as substitution for assessment and evaluation by a qualified health care provider. If you do not have a primary care provider, you may find a [facility] provider by calling [facility] at [phone]. [facility], in keeping with [facility] guidance, no longer requires face masks for staff, patientsor visitors in most situations. Similar to time spent indoors at other locations, there is the chance that you were exposed to respiratory viruses during your time with us (such as flu or COVID-19).? If you develop symptoms concerning for a viral respiratory infection, please seek testing (and treatment if indicated) from your medical provider or home test kit. For information about the plan of care including goals and instructions for your diagnosis, please see the patient education orders section of this document. Patient Education Materials?? The content of this educational material or handout may have been modified, supplemented, or adapted from its original content and format to support your individualized medical care. Patient Care team information Care Team Personnel Name: Ciaran Pisano Position: [facility] Outreach Member Role: PCP Address: Address: [address] [place] [address] Name: Sergei GARCIA, Julieta Gilmore Position: [facility] OB RN Member Role: Primary Care Nurse Name: Alannah Koenig RN Position: S RN Member Role: Primary Care Nurse Care Team Related Persons Name: JERSON RESTREPO Address: home [address] [address] Name: ALEAH PENN Address: home [address] [place] [address]
--- OUTSIDE RECORDS SUMMARY | 2023-12-05 19:45 | XMS_ITS | Continuity of Care Document ---
Author Organization [facility] Address [address] [place] [id number]- Care Team Providers Care Admin Assistant Name Role Phone Ciaran Pisano Primary Care Physician Encounter [facility] [place] Date(s): 06/28/23 - 08/04/23 [facility] [address] [place] [address] Attending Physician: Not on [...] Refills, Maintenance, 07/08/23 15:13:00 EST, Capsule, [id number], Partial fill upon patient request if the prescription is for a schedule II opioid drug., 142,... Start Date: 07/08/23 Status: Ordered acetaminophen 325 mg oral capsule 2 capsule = 650 mg, By Mouth, Every 4 hours, PRN as needed for pain, # 50 tablet, 0 Refills, Maintenance, 07/08/23 15:20:00 EST, Capsule, [facility] #[id number], Partial fill upon patient request if the prescription is for a schedule II opioid dr... Start Date: 07/08/23 Status: Ordered albuterol 0.083% inhalation solution 3 mL = 2.5 mg, Neb, Every 4 hours, PRN as needed for wheezing, # 100 each, 3 Refills, Maintenance, 12/14/22 23:08:00 EDT, Solution, [facility]/pharmacy #[id number], Partial fill upon patient request if the [...] 07/08/23 15:14:00 EST, Route to Pharmacy Electronically, [facility]/pharmacy #[id number], Partial fill upon patient request if the prescriptio... Start Date: 07/08/23 Status: Ordered Colace sodium 100 mg oral capsule 100 mg, 1, capsule, By Mouth, 2 times a day, PRN, # 20 capsule, Refills 0, Tot. Refills 0, Maintenance, for constipation, 07/08/23 15:20:00 EST, Route to Pharmacy Electronically, [facility]#[id number], Partial fill upon patient request if the pr... Start Date: 07/08/23 Status: Ordered ferrous gluconate 324 mg oral tablet 1 tablet = 324 mg, By Mouth, Daily, # 100 tablet, 0 Refills, Acute 05/16/24 13:53:00 EDT, 05/15/23 13:52:00 EDT, Tablet, [facility]/pharmacy #[id number], Partial fill upon patient request if the prescription is for a schedule II opioid drug., 147.32, cm, 05/12/23... Start Date: 05/15/23 Stop Date: 05/16/24 Status: Ordered ibuprofen 600 mg oral tablet 600 mg, 1, tablet, By Mouth, Every 6 hours, # 50 tablet, Refills 0, Tot. Refills 0, Maintenance, 07/08/23 15:13:00 EST, Route to Pharmacy Electronically, [facility]/pharmacy #[id number], Partial fill upon patientrequest if the prescription is for a schedule II op... Start Date: 07/08/23 Status: Ordered ibuprofen 600 mg oral tablet 600 mg, 1, tablet, By Mouth, Every 6 hours, # 50 tablet, Refills 0, Tot. Refills 0, Maintenance, 07/08/23 15:20:00 EST, Route to Pharmacy Electronically, [facility] #[id number], Partial fill upon patient request if the [...] capsule, 0 Refills, Maintenance, 04/14/23 19:04:00 EDT, [facility]/pharmacy #[id number], Partial fill upon patient request [...] 07/08/23 15:13:00 EST, Route to Pharmacy Electronically, [facility]/pharmacy #[id number], Partial fill upon patient request if the prescription is for a... Start Date: 07/08/23 Status: Ordered oxyCODONE 5 mg oral tablet 10 mg, 2, tablet, By Mouth, Every 6 hours, PRN, # 12 tablet, Refills 0, Tot. Refills 0, Maintenance, for pain, 07/08/23 15:20:00 EST, Route to Pharmacy Electronically, [facility] #[id number], Partial fill upon patient request if the [...] 0 Refills, Maintenance, 07/08/23 15:13:00 EST,Chew Tablet, [facility]/pharmacy #[id number], Partial fill upon patient request if the prescription is for a schedule II opioid drug., 142, cm, 07/01/23 10:05:00 ES... Start Date: 07/08/23 Status: Ordered simethicone 125 mg oral tablet, chewable 1 tablet = 125 mg, Chew, 4 times a day, # 48 tablet, 0 Refills, Maintenance, 07/08/23 15:20:00 EST,Chew Tablet, [facility] #[id number], Partial fill upon patient request if the prescription is for a schedule II opioid drug., 142, cm, 07/01/23 10... Start Date: 07/08/23 Status: Ordered Symbicort 160mcg/4.5mcg Inhaler 2, puffs, Inhalation, 2 times a day, TAKE 2 PUFFS BY MOUTH TWICE A DAY, # 3 each, Refills 0, Tot. Refills 0, Maintenance, 04/10/23 18:53:00 EDT, Inhaler, Route to Pharmacy Electronically, [id number], [facility]/pharmacy #[id number], 148,... Start Date: 04/10/23 Status: [...] 03/06/23 7:49:00 EDT, Route to Pharmacy Electronically, [id number], 148, cm, 02/17/23 9:30:00 EDT, Height, 60.3, [...] Care Team Personnel Name: Ciaran Pisano Position: [facility] Outreach Member Role: PCP Address: Address: [address] [place] [address]- Name: Sergei GARCIA, Julieta Gilmore Position: [facility] OB RN Member Role: Primary Care Nurse Name: Alannah Koenig RN Position: [facility] RN Member Role: Primary Care Nurse Care Team Related Persons Name: KAYE JERSON Address: [address] [address] Name: ANUP LOUIS Address: [address] Address: home [address] [place] [address] [place] Name: ALEAH PENN Address: [address] [place] [address]
--- OUTSIDE RECORDS SUMMARY | 2023-12-05 19:45 | XMS_ITS | Continuity of Care Document ---
Author Organization [facility] Address [address] [place] [address]- Care Team Providers Care Nailing Machine Feeder Name Role Phone Not on Staff, PCP Primary Care Physician Unavail able Encounter [facility] [place] Date(s): 07/08/22 - 07/08/[address] [address]- Discharge Disposition: A-D/C Walkout Attending Physician: Not [...] Exam Date Time Procedure Performing Provider Status 07/08/22 9:59 AM Chest 2 Views Frontal and Lat Lizeth Mei; Auth (Verified) Notes: (Chest 2 Views Frontal and Lat) Reason For Exam: Chest Pain;Other: RESULT: Chest 2 Views Frontal and Lat Chest 2 Views Frontal and Lat Hx of Present Illness: CP and SOB x3 days. Sharp intermittent. Unclear extertionl. No AP, dizzy, f c n v.; Reason: Other:; Chest Pain; Clinical Question(s): Other: COMPARISON: Multiple prior examinations the most recent dated 04/05/2014. FINDINGS: LINES AND TUBES: None. LUNGS AND PLEURA: Clear lungs. Normal pulmonary vascularity. No pleural effusion. No pneumothorax. HEART, MEDIASTINUM AND REMI: Heart is normal in size. Normal mediastinal and hilar contour. BONES AND SOFT TISSUES: No acute abnormality. IMPRESSION: No acute abnormality. WSN: [id number] Ordering Physician: Eileen Lewis Dictated By: Gonsalo Fernandez MD, V Dictated Date/Time: 07/08/22 10:10 a Reviewed By: Gonsalo Fernandez MD, V Signed By: Gonsalo Fernandez MD, V Signed Date/Time: 07/08/22 10:10 am Transcribed By: LAVERN Transcribed Date/Time: 07/08/22 10:09 am Vital Signs Most recent to oldest [Reference Range]: 1 2 3 Oxygen Saturation [94-100 %] 99 % (07/08/22 4:02 PM) 100 % (07/08/22 1:41 PM) 100 % (07/08/22 11:25 AM) Pulse Rate [55-90 bpm] 97 bpm *H* (07/08/22 4:02 PM) 88 bpm (07/08/22 1:41 PM) 75 bpm (07/08/22 11:25 AM) Blood Pressure [90-138/55-84 mm Hg] 114/69mm Hg (07/08/22 4:02 PM) 142/79mm Hg *H* (07/08/22 1:41 PM) 111/70mm Hg (07/08/22 11:25 AM) Respiratory Rate [16-30 br/min] 18 br/min (07/08/22 11:25 AM) 18 br/min (07/08/22 8:55 AM) Temperature [96.8-100.4 DegF] 97.9 DegF (07/08/22 4:02 PM) 97.3 DegF (07/08/22 1:41 PM) 98.6 DegF (07/08/22 11:25 AM) Mode of Delivery (Oxygen) Room air (07/08/22 4:02 PM) Room air (07/08/22 1:41 PM) Room air (07/08/22 11:25 AM) Blood pressure sites Arm, right (07/08/22 4:02 PM) Leg, right (07/08/22 1:41 PM) Arm, right (07/08/22 11:25 AM) Temperature Route Oral (07/08/22 4:02 PM) Oral (07/08/22 1:41 PM) Oral (07/08/22 11:25 AM) Social History Social History Type Response Smoking Status Never (less than 100 in lifetime) entered on: 08/06/18 Sex Female Note * [facility] , CIS S: TRANSCRIBE Jim CARVER, Gonsalo V: VERIFY Event Display: Result: Authored Date: Chest 2 Views Frontal and Lat Hx of Present Illness: CP and SOB x3 days. Sharp intermittent. Unclear extertionl. No AP, dizzy, f c n v.; Reason: Other:; Chest Pain; Clinical Question(s): Other: COMPARISON: Multiple prior examinations the most recent dated 04/05/2014. FINDINGS: LINES AND TUBES: None. LUNGS AND PLEURA: Clear lungs. Normal pulmonary vascularity. No pleural effusion. No pneumothorax. HEART, MEDIASTINUM AND REIM: Heart is normal in size. Normal mediastinal and hilar contour. BONES AND SOFT TISSUES: No acute abnormality. IMPRESSION: No acute abnormality. WSN: [id number] Ordering Physician: Eileen Lewis Dictated By: Gonsalo Fernandez MD, V Dictated Date/Time: 07/08/22 10:10 a Reviewed By: Gonsalo Fernandez MD, V Signed By: Gonsalo Fernandez MD, V Signed Date/Time: 07/08/22 10:10 am Transcribed By: LAVERN Transcribed Date/Time: 07/08/22 10:09 am Patient Care team information Care Team Personnel Name: Sergei GARCIA, Julieta Gilmore Position: S OB RN Member Role: Primary Care Nurse Name: Alannah Koenig RN Position: S RN Member Role: Primary Care Nurse Name: Not on Staff, PCP Position: S Physician (General Medicine) Member Role: PCP Care Team Related Persons Name: JERSON RESTREPO Address: [address] [address] Name: ALEAH PENN Address: [address] [place] [address]
--- OUTSIDE RECORDS SUMMARY | 2023-12-05 19:45 | XMS_ITS | Continuity of Care Document ---
Author Organization [facility] Address [address] [place] [address]- Care Team Providers Care Skin Drier Name Role Phone Kianna CARVER, Alok Nguyen Primary Care Physician [id number] Date(s): 06/18/20 - 07/29/[address] [address] Attending Physician: Not on Staff, Attending MD Allergies, Adverse Reactions, Alerts Substance Reaction Severity Status penicillin Active sulfADIAZINE Active Estradiol Patch Persistent Mild Active lactulose Active Bactrim Active Peanuts Active [...]
--- OUTSIDE RECORDS SUMMARY | 2023-12-05 19:45 | XMS_ITS | Continuity of Care Document ---
Author Organization [facility] Address [address] [place] [address]- Care Team Providers Care Central Melt Specialist Name Role Phone Ciaran Pisano Primary Care Physician Encounter [facility] Date(s): 03/20/23 - 04/19/[address] [address] Allergies, Adverse Reactions, Alerts Substance Reaction Severity [...] 3 Refills, Maintenance, 12/14/22 23:08:00 EDT, Solution, [facility]/pharmacy #[id number], Partial fill upon patient request if the prescription is for a schedule II opioid drug., 148, cm, 0... Start Date: 12/14/22 Stop Date: 04/13/23 Status: Ordered albuterol CFC free 90 mcg/inh inhalation aerosol INHALE 2 PUFFS INTO THE LUNGS EVERY 4 (FOUR) HOURS NEEDED FOR SHORTNESS OF BREATH OR WHEEZING Start Date: 2/12/20 Status: Ordered Latuda 20 mg oral tablet 1 tablet = 20 mg, By Mouth, Daily, # 30 tablet, 0 Refills, Maintenance, 01/19/23 10:08:00 EDT, Tablet, [facility]/pharmacy #[id number], Partial fill upon patient request [...] 18:53:00 EDT, Inhaler, Route to Pharmacy Electronically, [id number], [facility]/pharmacy #[id number], 148,... Start Date: 04/10/23 Status: Ordered Unisom 25 mg oral tablet 1 tablet = 25 mg, By Mouth, Daily, PRN as needed for sleep, 15 to 30 minutes before bed, # 14 tablet, 0 Refills, Maintenance, 01/19/23 10:26:00 EDT, Tablet, [facility]/pharmacy #[id number], Partial fill upon patient request if the prescription is for a schedule II... Start Date: 01/19/23 Status: Ordered Vitamin B6 50 mg oral tablet 1, tablet, By Mouth, 3 times a day, # 90 tablet, Refills 0, Maintenance, 03/06/23 7:49:00 EDT, Route to Pharmacy Electronically, [facility] [id number], 148, cm, 02/17/23 9:30:00 EDT, Height, 60.3, [...] S Outreach Member Role: PCP Address: Address: [address] [place] [address]- Name: Julieta Mai RN Position: S OB RN Member Role: Primary Care Nurse Name: Alannah Koenig RN Position: S RN Member Role: Primary Care Nurse Care Team Related Persons Name: JERSON RESTREPO Address: home [address] [place] [address] Name: ALEAH PENN Address: home [address] [place] [address]
--- OUTSIDE RECORDS SUMMARY | 2023-12-05 19:45 | XMS_ITS | Continuity of Care Document ---
Author Organization [facility] Address [address] [place] [address]- Care Team Providers Care Material Yard Clerk Name Role Phone Ciaran Pisano Primary Care Physician Encounter [facility] [place] Date(s): 07/18/23 - 08/17/[address] [address]- Attending Physician: Wade Gage Admitting Physician: Wade Gage Referring Physician: Merari, Wade Referring Physician: Tamar Drake Allergies, Adverse Reactions, Alerts Substance Reaction Severity [...] Refills, Maintenance, 07/08/23 15:13:00 EST, [facility], [facility], Partial fill upon patient request if the prescription is for a schedule II opioid drug., 142,... Start Date: 07/08/23 Status: Ordered acetaminophen 325 mg oral capsule 2 capsule = 650 mg, By Mouth, Every 4 hours, PRN as needed for pain, # 50 tablet, 0 Refills, Maintenance, 07/08/23 15:20:00 EST, Capsule, [facility] #[id number], Partial fill upon patient request if the prescription is for a schedule II opioid dr... Start Date: 07/08/23 Status: Ordered albuterol 0.083% inhalation solution 3 mL = 2.5 mg, Neb, Every 4 hours, PRN as needed for wheezing, # 100 each, 3 Refills, Maintenance, 12/14/22 23:08:00 EDT, Solution, [facility]/pharmacy #[id number], Partial fill upon patient request if the [...] 07/08/23 15:14:00 EST, Route to Pharmacy Electronically, [facility]/pharmacy #1502, Partial fill upon patient request if the prescriptio... Start Date: 07/08/23 Status: Ordered Colace sodium 100 mg oral capsule 100 mg, 1, capsule, By Mouth, 2 times a day, PRN, # 20 capsule, Refills 0, Tot. Refills 0, Maintenance, for constipation, 07/08/23 15:20:00 EST, Route to Pharmacy Electronically, [facility]#[id number], Partial fill upon patient request if the pr... Start Date: 07/08/23 Status: Ordered ferrous gluconate 324 mg oral tablet 1 tablet = 324 mg, By Mouth, Daily, # 100 tablet, 0 Refills, Acute 05/16/24 13:53:00 EDT, 05/15/23 13:52:00 EDT, Tablet, [facility]/pharmacy #[id number], Partial fill upon patient request if the prescription is for a schedule II opioid drug., 147.32, cm, 05/12/23... Start Date: 05/15/23 Stop Date: 05/16/24 Status: Ordered ibuprofen 600 mg oral tablet 600 mg, 1, tablet, By Mouth, Every 6 hours, # 50 tablet, Refills 0, Tot. Refills 0, Maintenance, 07/08/23 15:13:00 EST, Route to Pharmacy Electronically, [facility] #[id number], Partial fill upon patientrequest if the prescription is for a schedule II op... Start Date: 07/08/23 Status: Ordered ibuprofen 600 mg oral tablet 600 mg, 1, tablet, By Mouth, Every 6 hours, # 50 tablet, Refills 0, Tot. Refills 0, Maintenance, 07/08/23 15:20:00 EST, Route to Pharmacy Electronically, [facility] #[id number], Partial fill upon patient request if the [...] capsule, 0 Refills, Maintenance, 04/14/23 19:04:00 EDT, [facility]/pharmacy #[id number], Partial fill [...] 07/08/23 15:13:00 EST, Route to Pharmacy Electronically, [facility]/pharmacy #[id number], Partial fill upon patient request if the prescription is for a... Start Date: 07/08/23 Status: Ordered oxyCODONE 5 mg oral tablet 10 mg, 2, tablet, By Mouth, Every 6 hours, PRN, # 12 tablet, Refills 0, Tot. Refills 0, Maintenance, for pain, 07/08/23 15:20:00 EST, Route to Pharmacy Electronically, [facility] #[id number], Partial fill upon patient request if the [...] 0 Refills, Maintenance, 07/08/23 15:13:00 EST,Chew Tablet, [facility]/pharmacy #[id number], Partial fill upon patient request if the prescription is for a schedule II opioid drug., 142, cm, 07/01/23 10:05:00 ES... Start Date: 07/08/23 Status: Ordered simethicone 125 mg oral tablet, chewable 1 tablet = 125 mg, Chew, 4 times a day, # 48 tablet, 0 Refills, Maintenance, 07/08/23 15:20:00 EST,Chew Tablet, [facility] #[id number], Partial fill upon patient request if the prescription is for a schedule II opioid drug., 142, cm, 07/01/23 10... Start Date: 07/08/23 Status: Ordered Symbicort 160mcg/4.5mcg Inhaler 2, puffs, Inhalation, 2 times a day, TAKE 2 PUFFS BY MOUTH TWICE A DAY, # 3 each, Refills 0, Tot. Refills 0, Maintenance, 04/10/23 18:53:00 EDT, Inhaler, Route to Pharmacy Electronically, [id number], [facility]/pharmacy #0488, 148,... Start [...] 03/06/23 7:49:00 EDT, Route to Pharmacy Electronically, [id number], 148, cm, 02/17/23 9:30:00 EDT, Height, 60.3, [...] 1/4 pack)/day in last 30 days. Sex Radiology * Mone Tabares: PERFORM Event Display: Radiology Results Scanned Authored Date: [id number] * Mone Tabares: PERFORM Event Display: Radiology Results Scanned Authored Date: [id number] * Mone Tabares: PERFORM Event Display: Radiology Results Scanned Authored Date: [id number] Patient Care team information Care Team Personnel Name: Ciaran Pisano Position: S Outreach Member Role: PCP Address: Address: [address] [place] [address]- Name: Sergei GARCIA, Julieta Gilmore Position: [facility] OB RN Member Role: Primary Care Nurse Name: Alannah Koenig RN Position: S RN Member Role: Primary Care Nurse Care Team Related Persons Name: KAYE JERSON Address: home [address] [address] Name: IFLI FOFANAANUP Dasilva Address: [address] Address: home [address] [place] [address] [place] Name: ALEAH PENN Address: home [address] [place] [address]
--- OUTSIDE RECORDS SUMMARY | 2023-12-05 19:45 | XMS_ITS | Continuity of Care Document ---
Author Organization [facility] Address [address] [place] [address]- Care Team Providers Care Qa Tester Name Role Phone Ciaran Pisano Primary Care Physician Encounter [facility] [place] Date(s): 12/07/22 - 01/06/[address] [address] Allergies, Adverse Reactions, Alerts Substance Reaction [...] Refills, Maintenance, 12/14/22 23:08:00 EDT, [facility], [id number], Partial fill upon patient request if the [...] 07/31/22 13:01:00 EST, Route to Pharmacy Electronically, [facility]/pharmacy #[id number], Partial fill upon patient [...] tablet, 3 Refills, Maintenance, 12/28/22 9:02:00 EDT, [facility]/pharmacy #[id number], Partial [...] Refills, Maintenance, 07/31/22 13:01:00 EST, DIS Tablet, [facility]/pharmacy #4471, Partial fill upon patient request Start Date: 07/31/22 Stop Date: 08/03/22 Status: Ordered pyridoxine 25 mg oral tablet 1 tablet = 25 mg, By Mouth, 3 times a day, PRN Nausea & Vomiting, # 100 tablet, 8 Refills, Acute 01/28/23 14:29:00 EDT, 12/29/22 14:28:00 EDT, [id number], Partial fill upon patient [...] Care Team Personnel Name: Ciaran Pisano Position: [facility] Outreach Member Role: PCP Address: Address: [address] [place] [address]- Name: Sergei GARCIA, Julieta Gilmore Position: [facility] OB RN Member Role: Primary Care Nurse Name: Alannah Koenig RN Position: S RN Member Role: Primary Care Nurse Care Team Related Persons Name: JERSON RESTREPO Address: home [address] [address] Name: ALEAH PENN Address: home [address] [place] [address]
--- OUTSIDE RECORDS SUMMARY | 2023-12-05 19:45 | XMS_ITS | Continuity of Care Document ---
Author Organization [facility] Address [address] [place] [address]- Care Team Providers Care Dining Room Maid Name Role Phone Ciaran Pisano Primary Care Physician [phone] Encounter [facility] Date(s): 06/16/23 - 07/16/23 [facility] [address] [place] [id number] Allergies, Adverse Reactions, Alerts Substance [...] Refills, Maintenance, 07/08/23 15:13:00 EST, [facility], [id number], Partial fill upon patient request if the prescription is for a schedule II opioid drug., 142,... Start Date: 07/08/23 Status: Ordered acetaminophen 325 mg oral capsule 2 capsule = 650 mg, By Mouth, Every 4 hours, PRN as needed for pain, # 50 tablet, 0 Refills, Maintenance, 07/08/23 15:20:00 EST, Capsule, [facility][id number], Partial fill upon patient request if the prescription is for a schedule II opioid dr... Start Date: 07/08/23 Status: Ordered albuterol 0.083% inhalation solution 3 mL = 2.5 mg, Neb, Every 4 hours, PRN as needed for wheezing, # 100 each, 3 Refills, Maintenance, 12/14/22 23:08:00 EDT, Solution, [facility]/pharmacy #9931, Partial fill upon patient request if the [...] 07/08/23 15:14:00 EST, Route to Pharmacy Electronically, [facility]/pharmacy #[id number], Partial fill upon patient request if the prescriptio... Start Date: 07/08/23 Status: Ordered Colace sodium 100 mg oral capsule 100 mg, 1, capsule, By Mouth, 2 times a day, PRN, # 20 capsule, Refills 0, Tot. Refills 0, Maintenance, for constipation, 07/08/23 15:20:00 EST, Route to Pharmacy Electronically, [facility][id number], Partial fill upon patient request if the pr... Start Date: 07/08/23 Status: Ordered ferrous gluconate 324 mg oral tablet 1 tablet = 324 mg, By Mouth, Daily, # 100 tablet, 0 Refills, Acute 05/16/24 13:53:00 EDT, 05/15/23 13:52:00 EDT, Tablet, [facility]/pharmacy #[id number], Partial fill upon patient request if the prescription is for a schedule II opioid drug., 147.32, cm, 05/12/23... Start Date: 05/15/23 Stop Date: 05/16/24 Status: Ordered ibuprofen 600 mg oral tablet 600 mg, 1, tablet, By Mouth, Every 6 hours, # 50 tablet, Refills 0, Tot. Refills 0, Maintenance, 07/08/23 15:13:00 EST, Route to Pharmacy Electronically, [facility]/pharmacy #[id number], Partial fill upon patientrequest if the prescription is for a schedule II op... Start Date: 07/08/23 Status: Ordered ibuprofen 600 mg oral tablet 600 mg, 1, tablet, By Mouth, Every 6 hours, # 50 tablet, Refills 0, Tot. Refills 0, Maintenance, 07/08/23 15:20:00 EST, Route to Pharmacy Electronically, [facility] #[id number], Partial fill upon patient request if the prescription is for a sched... Start Date: 07/08/23 Status: Ordered Latuda 20 mg oral tablet 1 tablet = 20 mg, By Mouth, Daily, # 30 tablet, 0 Refills, Maintenance, 01/19/23 10:08:00 EDT, Tablet, [facility]/pharmacy #[id number], Partial fill upon [...] 07/08/23 15:13:00 EST, Route to Pharmacy Electronically, [facility]/pharmacy #[id number], Partial fill upon patient request if the prescription is for a... Start Date: 07/08/23 Status: Ordered oxyCODONE 5 mg oral tablet 10 mg, 2, tablet, By Mouth, Every 6 hours, PRN, # 12 tablet, Refills 0, Tot. Refills 0, Maintenance, for pain, 07/08/23 15:20:00 EST, Route to Pharmacy Electronically, [facility][id number], Partial fill upon patient request if the [...] 0 Refills, Maintenance, 07/08/23 15:13:00 EST,Chew Tablet, [facility]/pharmacy #0488, Partial fill upon patient request if the prescription is for a schedule II opioid drug., 142, cm, 07/01/23 10:05:00 ES... Start Date: 07/08/23 Status: Ordered simethicone 125 mg oral tablet, chewable 1 tablet = 125 mg, Chew, 4 times a day, # 48 tablet, 0 Refills, Maintenance, 07/08/23 15:20:00 EST,Chew Tablet, [facility] #[id number], Partial fill upon patient request if the prescription is for a schedule II opioid drug., 142, cm, 07/01/23 10... Start Date: 07/08/23 Status: Ordered Symbicort 160mcg/4.5mcg Inhaler 2, puffs, Inhalation, 2 times a day, TAKE 2 PUFFS BY MOUTH TWICE A DAY, # 3 each, Refills 0, Tot. Refills 0, Maintenance, 04/10/23 18:53:00 EDT, Inhaler, Route to Pharmacy Electronically, [id number], [facility]/pharmacy #0488, 148,... Start Date: 04/10/23 Status: Ordered Unisom 25 mg oral tablet 1 tablet = 25 mg, By Mouth, Daily, PRN as needed for sleep, 15 to 30 minutes before bed, # 14 tablet, 0 Refills, Maintenance, 01/19/23 10:26:00 EDT, Tablet, [facility]/pharmacy #0488, Partial fill upon patient request if the prescription is for a schedule II... Start Date: 01/19/23 Status: Ordered Vitamin B6 50 mg oral tablet 1, tablet, By Mouth, 3 times a day, # 90 tablet, Refills 0, Maintenance, 03/06/23 7:49:00 EDT, [id number], 148, cm, 02/17/23 9:30:00 EDT, Height, 60.3, [...] [place] Outreach Member Role: PCP Address: Address: [address] [place] [address]- Name: Sergei GARCIA, Julieta Gilmore Position: [facility] OB RN Member Role: Primary Care Nurse Name: Alannah Koenig RN Position: [facility] RN Member Role: Primary Care Nurse Care Team Related Persons Name: JERSON RESTREPO Address: [address] [address] Name: ANUP LOUIS Address: [address] Address: [address] [place] [address] [place] Name: ALEAH PENN Address: home [address] [place] [address]
--- OUTSIDE RECORDS SUMMARY | 2023-12-05 19:45 | XMS_ITS | Continuity of Care Document ---
Author Organization [facility] Address [address] [place] [address]- Care Team Providers Care Armored Service Technician Name Role Phone Ciaran Pisano Primary Care Physician [phone] Encounter [facility] [place] Date(s): 05/12/23 - 06/11/23 [facility] Oncology [address] [place] [address]- Attending Physician: Wade Gage Admitting Physician: Wade [...] Refills, Maintenance, 12/14/22 23:08:00 EDT, [facility], [facility], Partial fill upon patient request if the [...] 05/16/24 13:53:00 EDT, 05/15/23 13:52:00 EDT, Tablet, [facility]/pharmacy #0488, Partial fill upon patient request if [...] 18:53:00 EDT, Inhaler, Route to Pharmacy Electronically, [id number], [facility]/pharmacy #0488, 148,... Start Date: 04/10/23 Status: Ordered Unisom 25 mg oral tablet 1 tablet = 25 mg, By Mouth, Daily, PRN as needed for sleep, 15 to 30 minutes before bed, # 14 tablet, 0 Refills, Maintenance, 01/19/23 10:26:00 EDT, Tablet, [facility]/pharmacy #0488, Partial fill upon patient request if the prescription is for a schedule II... Start Date: 01/19/23 Status: Ordered Vitamin B6 50 mg oral tablet 1, tablet, By Mouth, 3 times a day, # 90 tablet, Refills 0, Maintenance, 03/06/23 7:49:00 EDT, Route to Pharmacy Electronically, [facility], 148, cm, 02/17/23 9:30:00 EDT, Height, 60.3, [...] Care Team Personnel Name: Ciaran Pisano Position: [facility] Outreach Member Role: PCP Address: Address: [address] [place] [address]- Name: Sergei GARCIA, Julieta Gilmore Position: [facility] OB RN Member Role: Primary Care Nurse Name: Alannah Koenig RN Position: [facility] RN Member Role: Primary Care Nurse Care Team Related Persons Name: KAYE JERSON Address: [address] [address] Name: ALEAH PENN Address: home [address] [place] [address]
--- OUTSIDE RECORDS SUMMARY | 2023-12-05 19:45 | XMS_ITS | Continuity of Care Document ---
Author Organization [facility] Address [address] [place] [address]- Care Team Providers Care Range Mechanic Name Role Phone Ciaran Pisano Primary Care Physician [place] [facility] [place] Date(s): 04/14/23 - 08/03/[address] [address] Attending Physician: Vilma Zhang CNM [...] Refills, Maintenance, 07/08/23 15:13:00 EST, [facility], [facility], Partial fill upon patient request if the prescription is for a schedule II opioid drug., 142,... Start Date: 07/08/23 Status: Ordered acetaminophen 325 mg oral capsule 2 capsule = 650 mg, By Mouth, Every 4 hours, PRN as needed for pain, # 50 tablet, 0 Refills, Maintenance, 07/08/23 15:20:00 EST, Capsule, [facility] #[id number], Partial fill upon patient request if the prescription is for a schedule II opioid dr... Start Date: 07/08/23 Status: Ordered albuterol 0.083% inhalation solution 3 mL = 2.5 mg, Neb, Every 4 hours, PRN as needed for wheezing, # 100 each, 3 Refills, Maintenance, 12/14/22 23:08:00 EDT, Solution, [facility]/pharmacy #4531, Partial fill upon patient request if the [...] Route to Pharmacy Electronically, [facility]/pharmacy #8308, Partial fill upon patient request if the prescriptio... Start Date: 07/08/23 Status: Ordered Colace sodium 100 mg oral capsule 100 mg, 1, capsule, By Mouth, 2 times a day, PRN, # 20 capsule, Refills 0, Tot. Refills 0, Maintenance, for constipation, 07/08/23 15:20:00 EST, Route to Pharmacy Electronically, [facility]63478, Partial fill upon patient request if the [...] 07/08/23 15:20:00 EST, Route to Pharmacy Electronically, [facility] #[id number], Partial fill upon patient request if the [...] 07/08/23 15:20:00 EST, Route to Pharmacy Electronically, [facility] #[id number], Partial fill upon patient request if the [...] 0 Refills, Maintenance, 07/08/23 15:20:00 EST,Chew Tablet, [facility] #[id number], Partial fill upon patient request if the prescription is for a schedule II opioid drug., 142, cm, 07/01/23 10... Start Date: 07/08/23 Status: Ordered Symbicort 160mcg/4.5mcg Inhaler 2, puffs, Inhalation, 2 times a day, TAKE 2 PUFFS BY MOUTH TWICE A DAY, # 3 each, Refills 0, Tot. Refills 0, Maintenance, 04/10/23 18:53:00 EDT, Inhaler, Route to Pharmacy Electronically, [id number], [facility]/pharmacy #0488, 148,... Start Date: [...] 03/06/23 7:49:00 EDT, Route to Pharmacy Electronically, [facility] 82208, 148, cm, 02/17/23 9:30:00 EDT, Height, 60.3, [...] Care Team Personnel Name: Ciaran Pisano Position: [facility] Outreach Member Role: PCP Address: Address: [address] [place] [address]- Name: Sergei RNJulieta Position: [facility] OB RN Member Role: Primary Care Nurse Name: Alannah Koeing RN Position: [facility] RN Member Role: Primary Care Nurse Care Team Related Persons Name: JERSON RESTREPO Address: home [address] [place] [address] Name: ANUP LOUIS Address: [address] Address: home [address] [place] [address] [place] Name: ALEAH PENN Address: home [address] [place] [address]
--- OUTSIDE RECORDS SUMMARY | 2023-12-05 19:45 | XMS_ITS | Continuity of Care Document ---
Author Organization [facility] Address [address] [place] [address]- Care Team Providers Care Fresh Foods Clerk Name Role Phone Ciaran Pisano Primary Care Physician Encounter [facility] [place] Date(s): 02/11/23 - 02/11/[address] [address] Discharge Disposition: A-D/C Home Attending Physician: Natalie Steven MD Admitting Physician: Natalie Steven MD Referring Physician: Natalie Steven MD Allergies, Adverse Reactions, Alerts Substance Reaction [...] Refills, Maintenance, 12/14/22 23:08:00 EDT, [facility], [facility], Partial fill upon patient request if the [...] 01/19/23 10:08:00 EDT, Route to Pharmacy Electronically, [facility]/pharmacy #0488, Partial fill upon patient request if the prescription is for a schedule II opioid drug... Start Date: 01/19/23 Stop Date: 02/18/23 Status: Ordered Latuda 20 mg oral tablet 1 tablet = 20 mg, By Mouth, Daily, # 30 tablet, 0 Refills, Maintenance, 01/19/23 10:08:00 EDT, Tablet, [facility]/pharmacy #0488, Partial fill upon patient request if the prescription is for a schedule II opioid drug., 148, cm, 01/19/23 9:06:00 EDT, Height,... Start Date: 01/19/23 Status: Ordered M- Plus oral tablet 1 tablet, By Mouth, Daily, # 90 tablet, 3 Refills, Maintenance, 12/28/22 9:02:00 EDT, [facility]/pharmacy #[id number], Partial fill upon [...] Refills, Maintenance, 01/19/23 10:09:00 EDT, DIS Tablet, [facility]/pharmacy #0488, Partial fill upon patient request, [...] 10:08:00 EDT, Inhaler, Route to Pharmacy Electronically, [id number], [facility]/pharmacy #0488, 148,... Start Date: 01/19/23 Status: Ordered Unisom 25 mg oral tablet 1 tablet = 25 mg, By Mouth, Daily, PRN as needed for sleep, 15 to 30 minutes before bed, # 14 tablet, 0 Refills, Maintenance, 01/19/23 10:26:00 EDT, Tablet, [facility]/pharmacy #0488, Partial fill upon [...] recent to oldest [Reference Range]: 1 Weight 60.3 kg (02/11/23 8:59 AM) Oxygen Saturation [94-100 %] 100 % (02/11/23 8:59 AM) Pulse Rate [55-90 bpm] 90 bpm (02/11/23 8:59 AM) Blood Pressure [90-138/55-84 mm Hg] 110/ 56mm Hg (02/11/23 8:59 AM) Respiratory Rate [16-30 br/min] 18 br/mi n (02/11/23 8:59 AM) Temperature [96.8-100.4 DegF] 97.9 DegF (02/11/23 8:59 AM) Mode of Delivery (Oxygen) Room air (02/11/23 8:59 AM) Blood pressure sites Arm, right 1 (02/11/23 8:59 AM) Temperature Route Oral (02/11/23 8:59 AM) Dry Weight 60.3 kg (02/11/23 8:59 AM) Weight Obtained Via Standing scale (02/11/23 8:59 AM) Dry Weight Obtained Via Standing scale (02/11/23 8:59 AM) 1Result Comment: right upper arm measured 24cm Social History Social History Type Response Tobacco Use: 4 or less cigar ettes(less than 1/4 pack)/day in last 30 days. Sex Female Patient Care team information Care Team Personnel Name: Ciaran Pisano Position: S Outreach Member Role: PCP Address: Address: [address] [place] [address]- Name: Julieta Mai RN Position: [facility] OB RN Member Role: Primary Care Nurse Name: Alannah Koenig RN Position: S RN Member Role: Primary Care Nurse Name: Mary ACKERMANRP-RNEulalia Position: [facility] OB RN Member Role: Patient Care Provider Care Team Related Persons Name: JERSON RESTREPO Address: home [address] [place] [address] Name: ALEAH PENN Address: home [address] [place] [address]
--- OUTSIDE RECORDS SUMMARY | 2023-12-05 19:45 | XMS_ITS | Continuity of Care Document ---
Author Organization [facility] Address [address] [place] [address]- Care Team Providers Care Marketing Agent Name Role Phone Ciaran Pisano Primary Care Physician [place] [facility] [place]28/[place] - 01/27/[address] [address] Allergies, Adverse Reactions, Alerts Substance Reaction Severity Status penicillin Active sulfADIAZINE Active Bactrim Active Estradiol Patch Persistent Mild Active lactulose Active Peanuts Active Seafood Active Mushroom Active [...] 23:08:00 EDT, Solution, [facility]/pharmacy #6211, Partial fill upon patient request if the [...] 01/19/23 10:08:00 EDT, [facility], [facility] tablet, 3 Refills, Maintenance, 12/28/22 9:02:00 EDT, [facility]/pharmacy #[id number], Partial fill [...] Refills, Maintenance, 01/19/23 10:09:00 EDT, DIS Tablet, [facility]/pharmacy #0488, Partial fill upon patient request, 148, cm, 01/19/23 9:06:00 EDT, Height, 60.6, kg... Start Date: 01/19/23 Stop Date: 01/22/23 Status: Ordered pyridoxine 25 mg oral tablet 1 tablet = 25 mg, By Mouth, 3 times a day, PRN Nausea & Vomiting, # 100 tablet, 8 Refills, Acute 01/28/23 14:29:00 EDT, 12/29/22 14:28:00 EDT, [facility]/pharmacy #0488, Partial fill upon patient request if the prescription is for a schedule II opioid drug.,... Start Date: 12/29/22 Stop Date: 01/28/23 Status: Ordered Reglan 5 mg oral tablet 1 tablet = 5 mg, By Mouth, 4 times a day, for 14 days, # 56 tablet, 0 Refills, Acute 02/02/23 10:27:00 EDT, 01/19/23 10:27:00 EDT, Tablet, [facility]/pharmacy #0488, [...] 10:08:00 EDT, Inhaler, Route to Pharmacy Electronically, [id number], [facility]/pharmacy #0488, 148,... Start [...] HOME Outreach Member Role: PCP Address: Address: [address] [place] [address]- Name: Sergei GARCIA, Julieta Gilmore Position: [facility] OB RN Member Role: Primary Care Nurse Name: Alannah Koenig RN Position: [facility] RN Member Role: Primary Care Nurse Care Team Related Persons Name: JERSON RESTREPO Address: home [address] [address] Name: ALEAH PENN Address: home [address] [place] [address]
--- OUTSIDE RECORDS SUMMARY | 2023-12-05 19:45 | XMS_ITS | Continuity of Care Document ---
Author Organization [facility] Address [address] [place] [address]- Care Team Providers Care Garment Mender Name Role Phone Ciaran Pisano Primary Care Physician [place] [facility] [place] - 08/21/[address] [address]- Attending Physician: Wade Gage Admitting Physician: Wade Gage Referring Physician: Wade Gage Referring Physician: Tamar Drake Allergies, Adverse Reactions, [...] 07/31/22 13:01:00 EST, Route to Pharmacy Electronically, [facility]/pharmacy #4471, Partial fill upon [...] Refills, Maintenance, 07/31/22 13:01:00 EST, DIS Tablet, [facility], Partial fill upon patient request Start [...] entered on: 08/06/18 Sex Female Note * Mone Tabares: PERFORM Event Display: Radiology Results Scanned Authored Date: [id number] * Mone Tabares: PERFORM Event Display: Radiology Results Scanned Authored Date: [id number] * Mone Tabares: PERFORM Event Display: Radiology Results Scanned Authored Date: [id number] Patient Care team information Care Team Personnel Name: Ciaran Pisano Position: S Outreach Member Role: PCP Address: Address: [address] [place] [address]- Name: Sergei RN, Julieta Gilmore Position: [facility] OB RN Member Role: Primary Care Nurse Name: Alannah Koenig RN Position: S RN Member Role: Primary Care Nurse Care Team Related Persons Name: KAYE JERSON Address: home [address] [address] Name: ALEAH PENN Address: [address] [place] [address]
--- OUTSIDE RECORDS SUMMARY | 2023-12-05 19:45 | XMS_ITS | Continuity of Care Document ---
Author Organization [facility] Address [address] [place] [address]- Care Team Providers Care Commercial Housekeeper Name Role Phone Ciaran Pisano Primary Care Physician [phone] Encounter [facility] [place] Date(s): 11/24/22 - 12/24/[address] [address] Allergies, Adverse Reactions, Alerts Substance Reaction Severity [...] 3 Refills, Maintenance, 12/14/22 23:08:00 EDT, Solution, [facility]/pharmacy #9026, Partial fill upon patient request if the [...] 01/04/23 10:03:00 EDT, 12/05/22 10:03:00 EDT, Tablet, [facility]/pharmacy #0488, Partialfill upon patient request if the prescription is fo... Start Date: 12/05/22 Stop Date: 01/04/23 Status: Ordered famotidine 20 mg oral tablet 20 mg, 1, tablet, By Mouth, Daily, # 30 tablet, Refills 0, Tot. Refills 0, Maintenance, 07/31/22 13:01:00 EST, Route to Pharmacy Electronically, [facility]/pharmacy #4471, Partial fill upon patient [...] Refills, Maintenance, 07/31/22 13:01:00 EST, DIS Tablet, [facility]/pharmacy #0301, Partial fill upon patient request Start Date: [...] 12/05/22 10:03:00 EDT, Route to Pharmacy Electronically, [facility]/pharmacy #[id number], Partial fill [...] HOSPITAL Outreach Member Role: PCP Address: Address: [address] [place] [address]- Name: Julieta Mai RN Position: [facility] OB RN Member Role: Primary Care Nurse Name: Alannah Koenig RN Position: S RN Member Role: Primary Care Nurse Care Team Related Persons Name: JERSON RESTREPO Address: home [address] [place] [address] Name: ALEAH PENN Address: home [address] [place] [address]
--- OUTSIDE RECORDS SUMMARY | 2023-12-05 19:46 | XMS_ITS | Continuity of Care Document ---
Author Organization [facility] Address [address] [place] [address]- Care Team Providers Care Director Of Property Management Name Role Phone Ciaran Pisano Primary Care Physician [phone] Encounter [facility] [place] Date(s): 03/14/23 - 06/14/[address] [address] Attending Physician: Not on Staff, Attending MD Admitting Physician: Vilma Zhang CNM Allergies, Adverse Reactions, Alerts Substance Reaction Severity Status penicillin Swelling Active sulfADIAZINE Swelling Active lactulose Stomach pain Active shellfish throat swelling Active Seafood throart swelling Active Mushroom Throat swelling Active Estradiol Patch bleeding to patch area area Persistent Mild Active Bactrim Rash Active Peanuts Throat Swelling Active Immunizations Given and Recorded Vaccine Date [...] Refills, Maintenance, 12/14/22 23:08:00 EDT, [facility], [facility], Partial fill upon patient request if the [...] 18:53:00 EDT, Inhaler, Route to Pharmacy Electronically, [id number], [facility]/pharmacy #0488, 148,... Start Date: 04/10/23 Status: Ordered Unisom 25 mg oral tablet 1 tablet = 25 mg, By Mouth, Daily, PRN as needed for sleep, 15 to 30 minutes before bed, # 14 tablet, 0 Refills, Maintenance, 01/19/23 10:26:00 EDT, Tablet, [facility]/pharmacy #0488, Partial fill upon patient request if the prescription is for a schedule II... Start Date: 01/19/23 Status: Ordered Vitamin B6 50 mg oral tablet 1, tablet, By Mouth, 3 times a day, # 90 tablet, Refills 0, Maintenance, 03/06/23 7:49:00 EDT, Route to Pharmacy Electronically, [facility] 468[facility], 148, cm, 02/17/23 9:30:00 EDT, Height, 60.3, [...] Care Team Personnel Name: Ciaran Pisano Position: [facility] Outreach Member Role: PCP Address: Address: [address] [place] [address]- Name: Julieta Mai RN Position: [facility] OB RN Member Role: Primary Care Nurse Name: Alannah Koenig RN Position: [facility] RN Member Role: Primary Care Nurse Care Team Related Persons Name: JERSON RESTREPO Address: home [address] [place] [address] Name: ALEAH PENN Address: home [address] [place] [address]
--- OUTSIDE RECORDS SUMMARY | 2023-12-05 19:46 | XMS_ITS | Continuity of Care Document ---
Author Organization [facility] Address [address] [place] [address]- Care Team Providers Care Human Development Professor Name Role Phone Kianna CARVER, Alok Nguyen Primary Care Physician [place] [facility] [place]/17/20 - 12/17/[address] [address]- Attending Physician: Wade Gage Admitting Physician: Wade Gage Referring Physician: Admtr, Wade Referring Physician: Tamar Drake Allergies, Adverse Reactions, Alerts Substance Reaction Severity Status penicillin Active sulfADIAZINE Active lactulose Active Bactrim Active Peanuts Active Mushroom Active Estradiol Patch Persistent Mild Active Seafood Active Immunizations Given and Recorded [...]
--- OUTSIDE RECORDS SUMMARY | 2023-12-05 19:46 | XMS_ITS | Continuity of Care Document ---
Author Organization [facility] Address [address] [place] [id number]- Care Team Providers Care Public Housing Interviewer Name Role Phone Ciaran Pisano Primary Care Physician [phone] [place] [facility] Date(s): 12/12/22 - 01/11/[address] [address] Allergies, Adverse Reactions, Alerts Substance Reaction [...] Maintenance, 12/14/22 23:08:00 EDT, Solution, [facility]/pharmacy #[id number], Partial fill upon patient request if the [...] 13:01:00 EST, Route to Pharmacy Electronically, [facility]/pharmacy #[id number], Partial fill upon patient [...] Refills, Maintenance, 12/28/22 9:02:00 EDT, [facility]/pharmacy #[id number], Partial fill upon patient [...] Maintenance, 07/31/22 13:01:00 EST, DIS Tablet, [facility]/pharmacy #[id number], Partial fill upon patient request Start Date: 07/31/22 Stop Date: 08/03/22 Status: Ordered pyridoxine 25 mg oral tablet 1 tablet = 25 mg, By Mouth, 3 times a day, PRN Nausea & Vomiting, # 100 tablet, 8 Refills, Acute 01/28/23 14:29:00 EDT, 12/29/22 14:28:00 EDT, [facility]/pharmacy #[id number], Partial fill upon patient [...] Care Team Personnel Name: Ciaran Pisano Position: [facility] Outreach Member Role: PCP Address: Address: [address] [place] [id number]- Name: Julieta Mai RN Position: [facility] OB RN Member Role: Primary Care Nurse Name: Alannah Koenig RN Position: S RN Member Role: Primary Care Nurse Care Team Related Persons Name: JERSON RESTREPO Address: home [address] [address] Name: ALEAH PENN Address: home [address] [place] [address]
--- OUTSIDE RECORDS SUMMARY | 2023-12-05 19:46 | XMS_ITS | Continuity of Care Document ---
Author Organization [facility] Address [address] [place] [address]- Care Team Providers Care Religion Teacher Name Role Phone Ciaran Pisano Primary Care Physician [phone] Encounter [facility] Date(s): 12/28/22 - 01/27/[address] [address] Allergies, Adverse Reactions, Alerts Substance Reaction [...] 23:08:00 EDT, Solution, [facility]/pharmacy #[id number], Partial fill upon patient request if the [...] 01/19/23 10:08:00 EDT, [facility], 3 Refills, Maintenance, 12/28/22 9:02:00 EDT, [facility]/pharmacy #[id number], Partial [...] Refills, Maintenance, 01/19/23 10:09:00 EDT, DIS Tablet, [facility]/pharmacy #[id number], Partial fill upon patient request, 148, cm, 01/19/23 9:06:00 EDT, Height, 60.6, kg... Start Date: 01/19/23 Stop Date: 01/22/23 Status: Ordered pyridoxine 25 mg oral tablet 1 tablet = 25 mg, By Mouth, 3 times a day, PRN Nausea & Vomiting, # 100 tablet, 8 Refills, Acute 01/28/23 14:29:00 EDT, 12/29/22 14:28:00 EDT, [facility]/pharmacy #[id number], Partial fill upon patient request if the prescription is for a schedule II opioid drug.,... Start Date: 12/29/22 Stop Date: 01/28/23 Status: Ordered Reglan 5 mg oral tablet 1 tablet = 5 mg, By Mouth, 4 times a day, for 14 days, # 56 tablet, 0 Refills, Acute 02/02/23 10:27:00 EDT, 01/19/23 10:27:00 EDT, Tablet, [facility]/pharmacy #[id number], [...] 10:08:00 EDT, Inhaler, Route to Pharmacy Electronically, [id number], [facility]/pharmacy #[id number], 148,... Start Date: 01/19/23 Status: [...] Care Team Personnel Name: Ciaran Pisano Position: [facility] Outreach Member Role: PCP Address: Address: [address] [place] [id number]- Name: Sergei GARCIA, Julieta Gilmore Position: [facility] OB RN Member Role: Primary Care Nurse Name: Alannah Koenig RN Position: [facility] RN Member Role: Primary Care Nurse Care Team Related Persons Name: JERSON RESTREPO Address: home [address] [address] Name: ALEAH PENN Address: [address] [place] [address]
--- OUTSIDE RECORDS SUMMARY | 2023-12-05 19:46 | XMS_ITS | Continuity of Care Document ---
Author Organization [facility] ter Address [address] [place] [address]- Care Team Providers Care Fruit Thinner Name Role Phone Ciaran Pisano Primary Care Physician [phone] Encounter [facility] Date(s): 03/22/23 - 03/22/[address] [id number] Discharge Disposition: A-D/C Home Attending Physician: Abe Ulloa MD Admitting Physician: Abe Ulloa MD Referring Physician: Abe Ulloa MD Allergies, Adverse Reactions, Alerts Substance Reaction Severity Status penicillin Active sulfADIAZINE Active lactulose Active Bactrim Active Peanuts Active Estradiol Patch Persistent Mild Active Seafood Active Mushroom Active Immunizations Given [...] Refills, Maintenance, 12/14/22 23:08:00 EDT, Solution, [id number], Partial fill upon patient request if the [...] 02/20/23 11:18:00 EDT, Route to Pharmacy Electronically, [id number], 148, cm, 02/17/23 9:30:00 EDT, Height, 60.3, kg, 02/11/23 8:59:00 EDT, Dry Weight Start Date: 02/20/23 Stop Date: 03/22/23 Status: Ordered Latuda 20 mg oral tablet 1 tablet = 20 mg, By Mouth, Daily, # 30 tablet, 0 Refills, Maintenance, 01/19/23 10:08:00 EDT, Tablet, [facility]pharm[facility] #[id number], Partial fill upon patient request [...] 10:08:00 EDT, Inhaler, Route to Pharmacy Electronically, [id number], [facility]/pharmacy #[id number], 148,... Start Date: 01/19/23 Status: Ordered Unisom 25 mg oral tablet 1 tablet = 25 mg, By Mouth, Daily, PRN as needed for sleep, 15 to 30 minutes before bed, # 14 tablet, 0 Refills, Maintenance, 01/19/23 10:26:00 EDT, Tablet, [facility]/pharmacy #[id number], Partial fill upon patient request if the prescription is for a schedule II... Start Date: 01/19/23 Status: Ordered Vitamin B6 50 mg oral tablet 1, tablet, By Mouth, 3 times a day, # 90 tablet, Refills 0, Maintenance, 03/06/23 7:49:00 EDT, [id number], 148, cm, 02/17/23 9:30:00 EDT, Height, 60.3, [...] to oldest [Reference Range]: 1 2 Weight 63.6 kg (03/22/23 2:27 PM) Oxygen Saturation [94-100 %] 100 % (03/22/23 2:27 PM) Pulse Rate [55-90 bpm] 82 bpm (03/22/23 2:27 PM) Blood Pressure [90-138/55-84 mm Hg] 107/ 64mm Hg (03/22/23 2:55 PM) 104/62mm Hg (03/22/23 2:27 PM) Respiratory Rate [16-30 br/min] 18 br/mi n (03/22/23 2:27 PM) Temperature [96.8-100.4 DegF] 98.4 DegF (03/22/23 2:27 PM) Mode of Delivery (Oxygen) Room air (03/22/23 2:27 PM) Blood pressure sites Arm, left (03/22/23 2:55 PM) Arm, right (03/22/23 2:27 PM) Temperature Route Oral (03/22/23 2:27 PM) Dry Weight 63.6 kg (03/22/23 2:27 PM) Weight Obtained Via Standing scale (03/22/23 2:27 PM) Dry Weight Obtained Via Standing scale (03/22/23 2:27 PM) Social History Social History Type Response Tobacco Use: 4 or less cigar ettes(less than 1/4 pack)/day in last 30 days. Sex Female Note * Eulalia Klein: PERFORM Event Display: Discharge/Transfer Note Hospital Authored Date: [id number] Nursing Discharge Note Entered On: 03/22/2023 18:26 EDT Performed On: 03/22/2023 18:10 EDT by Eulalia Klein Nursing Discharge Note 2 Discharge Time : 03/22/2023 18:10 EDT Discharge Level of Care at Discharge : Home/Long Term/Foster Care Patient Left Unit Via : Ambulatory Patient Accompanied Off Unit with : Responsible adult DC Instructions Provided & Signed by Pt : Yes Patient Understands D/C Instructions : Yes Patient Instructions Discharge Signed : Yes Did Pt have Specialty Bed or Wound Vac : No Eulalia Klein - 03/22/2023 18:26 EDT * Eulalia Klein: PERFORM Event Display: Patient Education/Instruction Authored Date: [id number] Inpatient Adult Discharge Instructions [address] [address] Name: IVONNE PENN : 1990 Visit: 03/22/2023 14:08:00 Current Date: 03/22/2023 18:05 Account: [id number] Inpatient Adult Discharge Instructions We would like [...] and their families. Surveys are administered by [employer] ?? If further treatment with your primary care physician or another doctor is recommended, it is important for you to keep the appointment. Call your primary care physician or return to the Emergency Department immediately if your condition worsens, fails to improve, or new symptoms develop. If you need to find a doctor, you can call [facility] for a referral at [phone] or toll free at [phone]) or log in to [email or web address].. ?? You can view and manage your care through the patient portal or by using a health care ce of your choosing. [employer] is a website that allows you to securely view your medical information including your hospital discharge summary, office visit summaries, medications and follow-up visits. You can also request appointments, renew medications, and request access to your medical information using a health care ce of your choosing, or just ask a question. You can enroll at [email or web address] or register during your next office visit. You have been discharged from [facility], Patient Care Unit: [id number]. If you have any questions regarding these instructions after you leave, please call us and we will be happy to assist you. [facility] Your Care Team Attending Physician Abe Ulloa MD Tests Performed Below is a partial list of the tests performed during your hospitalization. You may have had other tests and procedures not included in this list. Please discuss all test results with your provider. Primary Care Provider Ciaran Pisano Advance Directive Health Care Proxy on File No Discharge Vitals Temperature: 98.4 DegF Weight: 63.6 kg Pulse Rate: 82 bpm ?? Respiratory Rate: 18 br/min ?? Systolic Blood Pressure: 107 mm Hg ?? Diastolic Blood Pressure: 64 mm Hg ?? Oxygen Saturation: 100 % ?? Studies Pending All tests and labs ordered during this hospital stay have been completed unless listed below. Please discuss all pending results with your provider listed above in these instructions. ?? No incomplete studies found What to do next Instructions From Your Doctor Discharge Orders Scheduled Follow-Up Appointments Monday 9:00 AM EDT ?? With: Triny Ramos CNM Where: [facility] [address] [place] [address]- Status: Pending Monday 10:20 AM EDT ?? With: Vilma Zhang CNM Where: [facility] - [address] [address]- Status: Pending Monday 9:00 AM EDT ?? With: Vilma Zhang CNM Where: [facility] - [address] [address]- Status: Pending Monday 10:40 AM EST ?? With: Vilma Zhang CNM Where: [facility] [address] [place] [address]- Status: Pending You Need to Schedule the Following Appointments Follow Up with??[facility] [phone] Why: Please keep next scheduled appointment. Discharge Medications IVONNE PENN :1990 Visit Date:03/22/2023 Medications: Please continue your medications until treatment [...] to 30 minutes before bed ?? Unchanged Famotidine (famotidine 20 mg oral tablet) 1 tab(s) Oral Daily Duration: 30 Days Unchanged lurasidone (Latuda 20 mg oral tablet) 1 tab(s) Oral Daily Unchanged Multivitamin, (M-Rose Marie Plus oral tablet) 1 tab(s) Oral Daily Unchanged Ondansetron (ondansetron 4 mg oral tablet, [...] Allergies (NKA means No Known Allergies) Estradiol Patch Bactrim Mushroom Peanuts Seafood lactulose penicillin sulfADIAZINE Problems Active Problems??(9) Anemia in ?? Cocaine use complicating ?? Contraception management?? c sect 09/03/10?? History of 2 sections?? LGSIL on Pap smear of cervix?? Marijuana use? Rh negative state in antepartum period?? Education Materials Below is the list of Educational Leaflet Providered with your Discharge Instructions. Viral Gastroenteritis (Adult)?? Comfort Tips During ?? : Your Second Trimester Changes?? Adapting to : Second Trimester?? Valuables and Belongings I fully understand and agree that [facility] accepts no responsibility for all my [...] are strongly encouraged to quit. Please call [facility] Who is [employer] Link at [phone] or [phone] ([phone]) or log in to [email or web address] for referrals to smoking cessation programs. ?? 388 Suicide & Crisis Lifeline is available 20/02 if you or someone you know needs to find a reason to keep living. By calling 255 you'll be connected to a skilled, trained counselor at a crisis center in your area. INPATIENT DISCHARGE INSTRUCTIONS SIGNATURE PAGE PENNNATALIAIZ Location:[facility] Registration Date and Time:03/22/2023 14:08 EDT Primary Care Physician: Ciaran Pisano, Attending Physician: Abe Ulloa MD, I IVONNE PENN, have received the above patient education materials/instructions and have verbalized understanding. If ambulance or transport services are being used I further acknowledge being given a choice of service. ?? If you need to contact me, please call me at this number: . Patient/Recovery Assistant Name: Patient/Recovery Assistant Signature: Relationship to Patient: Witness Name/Signature: Date: * Hernandez Eulalia DAVALOS: PERFORM Event Display: Patient Education Leaflets Authored Date: [id number] Viral Gastroenteritis (Adult) ?? [id number] Viral Gastroenteritis (Adult) Gastroenteritis is often called the stomach flu. But it has nothing to do with influenza. It's mostoften caused by a virus that affects the stomach and intestinal tract. Most bouts last from 2 to 7 days. Common viruses causing gastroenteritis include norovirus, rotavirus, and hepatitis A. Nonviralcauses of gastroenteritis include bacteria, parasites, and toxins. The danger from repeated vomiting or diarrhea is dehydration. This is when the body loses too??muchfluid. When this occurs, you must replace the body fluids. Antibiotics aren't an effective treatment for this condition because it's caused by a virus. Symptoms of viral gastroenteritis may include: ??? Watery, loose stools ??? Stomach pain or belly (abdominal) cramps ??? Fever and chills ??? Nausea and vomiting ??? Loss of bowel control ??? Headache Home care Gastroenteritis is spread by contact with the stool or vomit of an infected person. This can occur from person to person or from contact with a contaminated surface. Follow these guidelines when caring for yourself at home: ??? If symptoms are severe, rest at home for the next 24 hours or until you are feeling better. ???Wash your hands with soap and clean, running water or use alcohol-based director non profit to prevent the spread of infection. Wash your hands after touching anyone who is sick. ??? Wash your hands or use alcohol-based director non profit after using the toilet and before meals. Clean the toilet after each use. Remember these tips when preparing food: ??? People with diarrhea should not prepare or serve food??to others. When preparing foods, wash your hands before and after. ??? Wash your hands after using cutting boards, counter tops, knives, or utensils??that have been in contact with raw food. ??? Dry your hands with a single-use disposable towel. ??? Keep uncooked meats away from cooked and borud-ml-oqx foods. Medicine Use acetaminophen or nonsteroidal anti-inflammatory drugs (NSAID) such as ibuprofen or naproxen to control fever, unless another medicine was given. If you have chronic liver or kidney disease, talk with your healthcare provider before using these medicines. Also talk with your provider if you've??had a stomach ulcer or??gastrointestinal bleeding. Don't give aspirin??to anyone under 18 years of age who is ill with a fever. It may result in a serious illness called Inder syndrome that may cause severe liver damage or even . Don't use NSAIDS if you're already taking one for another condition (like arthritis) or are on aspirin (such as for heart disease or after a stroke). If medicines for vomiting or diarrhea are prescribed, take these only as directed. Nausea and diarrhea medicines are generally OK unless you have bleeding, fever, or severe abdominal pain. Diet Follow these guidelines for??food: ??? Water and liquids are important so you don't get dehydrated. Drink small amounts often or suck on ice chips as tolerated if you are vomiting. ??? If you eat, stay away from fatty, greasy, spicy, or fried foods. ??? Don't eat dairy if you have diarrhea. This can make diarrhea worse. ??? Avoid tobacco, alcohol, and caffeine. These may worsen symptoms. During the first 24 hours (the first full day), follow the diet below: ??? Beverages. Sip sports drinks, soft drinks without caffeine, nico prince, mineral water (plain orflavored), decaffeinated tea and coffee. If you are very dehydrated, sports drinks aren't a good choice. They have too much sugar and not enough electrolytes. In this case, use products called oral rehydration solutions. You can buy these at pharmacies and grocery stores. ??? Soups. Eat clear broth, consomm??, and bouillon. ??? Desserts. Eat gelatin, ice pops, and fruit juice bars. During the next 24 hours (the second day), you may add the following to the above: ??? Hot cereal, plain toast, bread, rolls, and crackers ??? Plain noodles, rice, mashed potatoes, chicken noodle or rice soup ??? Unsweetened canned fruit (avoid pineapple), bananas ??? Limit fat intake to less than 15 grams per day. Do this by avoiding margarine, butter, oils, mayonnaise, sauces, gravies, fried foods, peanut butter, meat, poultry, and fish. ??? Limit fiber and avoid raw or cooked vegetables, fresh fruits (except bananas), and bran cereals. ??? Limit caffeine and chocolate. Don't use spices or seasonings other than salt. ??? Limit dairy products. ??? Avoid alcohol. During the next 24 hours: ??? Gradually resume a normal diet as you feel better and your symptoms improve. ??? If at any time it starts getting worse again, go back to clear liquids until you feel better. ?? Follow-up care Follow up with your healthcare provider, or??as advised. Call your provider if you don't get betterwithin 24 hours or if diarrhea lasts more than a few days. It's also important to follow up if you can't keep down liquids, which can lead to becoming dehydrated. If a stool (diarrhea) sample was taken, call as directed for the results. ?? Call 911 Call 911 if any of these occur: ??? Trouble breathing ??? Chest pain ??? Confused ??? Severe drowsiness or trouble awakening ??? Fainting or loss of consciousness ??? Rapid heart rate ??? Seizure ???Stiff neck ?? When to get medical advice Call your healthcare provider right away if any of these occur: ??? Abdominal pain that gets worse ??? Continued vomiting (can't keep liquids down) ??? Frequent diarrhea (more than 5 times a day) ???Blood in vomit or stool (black or red color) ??? Dark urine, reduced urine output, or extreme thirst ??? Weakness or dizziness ??? Drowsiness ??? Fever of 100.4??F (38??C)??or higher, or as advised by your provider ??? New rash ?? Last Reviewed Date: 2021 ?? [id number] [employer]. All rights reserved. This information is not intended as a substitute for professional medical care. Always follow your healthcare professional's instructions. ?? * Mary CNLAURA-Eulalia GARCIA: PERFORM Event Display: Patient Education Leaflets Authored Date: [id number] Comfort Tips During ?? [address] Comfort Tips During can bring discomfort of different kinds. Below are tips for ways to feel better.??Talk with your??healthcare provider before using pain-relieving medicine at any time during your . First trimester tips Easing nausea ??? Get up slowly. Eat a few unsalted crackers before you get out of bed. ??? Stay away from smellsthat bother you. ??? Eat small,??bland, low-fat, high- protein meals at frequent intervals. ??? Sip on water, weak??tea, or clear soft drinks, like nico prince.??Eat ice chips. ??? Try taking vitamin B6. Coping with fatigue ??? Take catnaps when you can. ??? Get regular exercise. ??? Accept help from others. ??? Practice good sleep habits, like going to bed and getting up at the same time each day. Use your bed only forsleep and sex. Calming mood swings ??? Talk about your feelings with others, including other mothers. ??? Limit sugar, chocolate, and caffeine. ??? Eat a healthy diet. Don???t skip meals. ??? Get regular exercise. Soothing headaches ??? Get fresh air and exercise. ??? Relax and get enough rest. ??? Check with your healthcare provider before taking any pain medicines. ?? Second trimester tips ??? To limit ankle swelling, sit with your feet raised or wear support hose. ??? If you have pain in your groin and stomach??(round ligament pain), don't make sudden twisting movements with your body. ??? For leg cramps, flexing your foot often brings immediate relief. Also try massaging your calf in long, downward strokes, or stretching your legs before going to bed. Get enough exercise and wear shoes with flexible soles. Eat foods rich in calcium. ?? Third trimester tips Reducing heartburn ??? Eat small, light meals throughout the day rather than 3 large ones. ??? Sleep with your upper body raised 6 inches. Don???t lie down until 2 hours after you eat. ??? Don't eat greasy, fried, or spicy foods. ??? Don't have citrus fruits or juices. Treating constipation ??? Eat foods high in fiber, such as whole-grain foods, and fresh fruit and vegetables. ??? Drink plenty of water. ??? Get regular exercise. ??? Ask about your healthcare provider about medicines that have docusate or psyllium. Taking care of your breasts ??? Don't use harsh soaps or alcohol, which can make your skin too dry. ??? Wear nursing bras. Theyprovide more support than regular bras and can be used after if you breastfeed. Getting a good night???s sleep ??? Take a warm shower before bed. ??? Sleep on a firm mattress. ???Lie on your side with one leg crossed over the other. ??? Use pillows to support your arms, legs, and belly. ?? Last Reviewed Date: 2022 ?? [employer]. All rights reserved. This information is not intended as a substitute for professional medical care. Always follow your healthcare professional's instructions. ?? * Mary ARECHIGA-Eulalia GARCIA: PERFORM Event Display: Patient Education Leaflets Authored Date: [id number] : Your Second Trimester Changes ?? [address] : Your Second Trimester Changes Each day, you and your baby are changing and growing together. Here???s a quick look at what???s happening to both of you. How you are changing Even when you don???t notice it, your body is adapting to meet the needs of your growing baby. The changes in your body might also affect your moods. ?? Your body Your uterus expands as your baby grows. As the weeks go by, you will feel more pressure on your bladder, stomach, and other organs. You may notice some skin color changes on your forehead, nose, or cheeks. Freckles may darken, and moles may grow. You may notice a darker line on your abdomen betweenyour belly button and pubic bone in the midline. ?? Your moods The second trimester is often easier than the first. Still, be prepared for mood swings. These are from the increase in hormones made by your body. Hormones are chemicals that affect the way organs work. These mood swings are a normal part of . ?? How your baby is growing ?? Month 4 Your baby???s heartbeat may be heard with a Doppler (handheld ultrasound device) by 9 to 10 weeks.??Eyebrows, eyelashes, and fingernails begin to form. ?? Month 5 You may feel your baby move. After a growth spurt, your baby nears 10 inches. ?? Month 6 Your baby???s fingerprints have formed. Your baby weighs about 1??to 2 pounds and is about 12 inches long. ?? Last Reviewed Date: 2021 ?? [employer]. All rights reserved. This information is not intended as a substitute for professional medical care. Always follow your healthcare professional's instructions. ?? Patient Care team information Care Team Personnel Name: Ciaran Pisano Position: [facility] Outreach Member Role: PCP Address: Address: [facility] [place] [address]- Name: Sergei RN, Julieta Gilmore Position: [facility] OB RN Member Role: Primary Care Nurse Name: Alannah Koenig RN Position: [facility] RN Member Role: Primary Care Nurse Care Team Related Persons Name: KAYE JERSON Address: home [address] [address] Name: ALEAH PENN Address: home [address] [place] [address]
--- OUTSIDE RECORDS SUMMARY | 2023-12-05 19:46 | XMS_ITS | Continuity of Care Document ---
Author Organization [facility] Address [address] [place] [address]- Care Team Providers Care Broke Beater Operator Name Role Phone Ciaran Pisano Primary Care Physician Encounter [facility] Date(s): 05/29/23 - 06/28/23 [facility] [address] [place] [address] Allergies, Adverse Reactions, Alerts Substance [...] Refills, Maintenance, 12/14/22 23:08:00 EDT, [id number] fill upon patient request if the [...] 18:53:00 EDT, Inhaler, Route to Pharmacy Electronically, [id number], [facility]pharmacy #[id number], 148,... Start Date: [...] to Pharmacy Electronically, [facility], 148, cm, 02/17/23 9:30:00 EDT, Height, 60.3, [...] Care Team Personnel Name: Ciaran Pisano Position: [facility] Outreach Member Role: PCP Address: Address: [address] [place] [address]- Name: Julieta Mai RN Position: [facility] OB RN Member Role: Primary Care Nurse Name: Alannah Koenig RN Position: [facility] RN Member Role: Primary Care Nurse Care Team Related Persons Name: JERSON RESTREPO Address: home [address] [address] Name: ALEAH PENN Address: home [address] [place] [address]
--- OUTSIDE RECORDS SUMMARY | 2023-12-05 19:46 | XMS_ITS | Continuity of Care Document ---
Author Organization [facility] [employer] Address [address] [place] [address], [address], [place] [address]- Care Team Providers Care Back End Engineer Name Role Phone Ciaran Pisano Primary Care Physician [phone] Encounter [facility] Date(s): 01/26/23 - 02/25/23 [facility] [address] [place], [place] [address] Allergies, Adverse [...] 3 Refills, Maintenance, 12/14/22 23:08:00 EDT, Solution, [facility]/pharmacy #[id number], Partial fill upon patient request if the prescription is for a schedule II opioid drug., 148, cm, 0... Start Date: 12/14/22 Stop Date: 04/13/23 Status: Ordered albuterol CFC free 90 mcg/inh inhalation aerosol INHALE 2 PUFFS INTO THE LUNGS EVERY 4 (FOUR) HOURS NEEDED FOR SHORTNESS OF BREATH OR WHEEZING Start Date: 09/11/19 Status: Ordered Colace sodium 100 mg oral capsule 100 mg, 1, capsule, By Mouth, 2 times a day, PRN, # 60 capsule, Refills 1, Tot. Refills 1, Maintenance, for constipation, 02/17/23 9:58:00 EDT, Route to Pharmacy Electronically, [facility]/pharmacy #[id number], Partial fill upon patient request if the prescription... Start Date: 02/17/23 Status: Ordered famotidine 20 mg oral tablet 1, tablet, By Mouth, Daily, # 30 tablet, Refills 0, Maintenance, 02/20/23 11:18:00 EDT, Route to Pharmacy Electronically, [id number], 148, cm, 02/17/23 9:30:00 EDT, Height, 60.3, kg, 02/11/23 8:59:00 EDT, Dry Weight Start Date: 02/20/23 Stop Date: 03/22/23 Status: Ordered Latuda 20 mg oral tablet 1 tablet = 20 mg, By Mouth, Daily, # 30 tablet, 0 Refills, Maintenance, 01/19/23 10:08:00 EDT, Tablet, [facility]/pharmacy #[id number], Partial fill upon patient request if the prescription is for a schedule II opioid drug., 148, cm, 01/19/23 9:06:00 EDT, Height,... Start Date: 01/19/23 Status: Ordered M-Rose Marie Plus oral tablet 1 tablet, By Mouth, Daily, # 90 tablet, 3 Refills, Maintenance, 12/28/22 9:02:00 EDT, [facility]/pharmacy #[id number], Partial fill upon patient request if the prescription is for a schedule II opioid drug., 1 tablet By Mouth Daily, 148, cm, 12/14/22 20:09:00 EDT,... Start Date: 12/28/22 Status: Ordered Metamucil 3.4 gm/5.2 gm oral powder for reconstitution = 1.7 Gm, By Mouth, 3 times a day, PRN as needed for constipation, dissolve in 8 oz of fluid; may use 1-3x/day as needed, # 425 Gm, 0 Refills, Maintenance, 02/17/23 9:58:00 EDT, REC Powder, [facility]/pharmacy #[id number], Partial fill upon patient request if the... Start Date: 02/17/23 Status: Ordered ondansetron 4 mg oral tablet, [...] 10:08:00 EDT, Inhaler, Route to Pharmacy Electronically, [id number], [facility]/pharmacy #[id number], 148,... Start Date: 01/19/23 Status: Ordered Unisom 25 mg oral tablet 1 tablet = 25 mg, By Mouth, Daily, PRN as needed for sleep, 15 to 30 minutes before bed, # 14 tablet, 0 Refills, Maintenance, 01/19/23 10:26:00 EDT, Tablet, [facility]/pharmacy #[id number], Partial fill upon patient request [...] Care Team Personnel Name: Ciaran Pisano Position: [facility] Outreach Member Role: PCP Address: Address: [address] [place] [address]- Name: Julieta Mai RN Position: [facility] OB RN Member Role: Primary Care Nurse Name: Alannah Koenig RN Position: [facility] RN Member Role: Primary Care Nurse Care Team Related Persons Name: KAYE JERSON Address: home [address] [address] Name: ALEAH PENN Address: [address] [place] [address]
--- OUTSIDE RECORDS SUMMARY | 2023-12-05 19:46 | XMS_ITS | Continuity of Care Document ---
Author Organization [facility] Address [address] [place] [address]- Care Team Providers Care Instructional Paraprofessional Name Role Phone Ciaran Pisano Primary Care Physician Encounter [facility] Date(s): 12/14/22 - 01/13/[address] [address] Allergies, Adverse Reactions, Alerts [...] 3 Refills, Maintenance, 12/14/22 23:08:00 EDT, Solution, [facility]/pharmacy #[id number], Partial fill upon patient request if the [...] tablet, 3 Refills, Maintenance, 12/28/22 9:02:00 EDT, [facility]/pharmacy #[id number], Partial fill upon patient request [...] Care Team Personnel Name: Ciaran Pisano Position: [facility] Outreach Member Role: PCP Address: Address: [address] [place] [id number]- Name: Julieta Mai RN Position: [facility] OB RN Member Role: Primary Care Nurse Name: Alannah Koenig RN Position: S RN Member Role: Primary Care Nurse Care Team Related Persons Name: JERSON RESTREPO Address: home [address] [address] Name: ALEAH PENN Address: [address] [place] [address]
--- OUTSIDE RECORDS SUMMARY | 2023-12-05 19:46 | XMS_ITS | Continuity of Care Document ---
Author Organization [facility] ter Address [address] [place] [id number]- Care Team Providers Care Cloth Presser Name Role Phone Ciaran Pisano Primary Care Physician [phone] [place] [facility] [place]): [place] - 07/08/[address] [address]- Discharge Disposition: A-D/C Home Attending Physician: Pranay King MD Admitting Physician: Lindsay Ellis MD Referring Physician: Lindsay Ellis MD Allergies, Adverse Reactions, Alerts Substance Reaction [...] Refills, Maintenance, 07/08/23 15:13:00 EST, Capsule, [id number], Partial fill upon patient request if the prescription is for a schedule II opioid drug., 142,... Start Date: 07/08/23 Status: Ordered acetaminophen 325 mg oral capsule 2 capsule = 650 mg, By Mouth, Every 4 hours, PRN as needed for pain, # 50 tablet, 0 Refills, Maintenance, 07/08/23 15:20:00 EST, Capsule, [id number], Partial fill upon patient request if the prescription is for a schedule II opioid dr... Start Date: 07/08/23 Status: Ordered albuterol 0.083% inhalation solution 3 mL = 2.5 mg, Neb, Every 4 hours, PRN as needed for wheezing, # 100 each, 3 Refills, Maintenance, 12/14/22 23:08:00 EDT, Solution, [id number], Partial fill upon patient request if the [...] 15:14:00 EST, Route to Pharmacy Electronically, [facility][id number], Partial fill upon patient request if the prescriptio... Start Date: 07/08/23 Status: Ordered Colace sodium 100 mg oral capsule 100 mg, 1, capsule, By Mouth, 2 times a day, PRN, # 20 capsule, Refills 0, Tot. Refills 0, Maintenance, for constipation, 07/08/23 15:20:00 EST, Route to Pharmacy Electronically, [id number], Partial fill upon patient request if the pr... Start Date: 07/08/23 Status: Ordered ferrous gluconate 324 mg oral tablet 1 tablet = 324 mg, By Mouth, Daily, # 100 tablet, 0 Refills, Acute 05/16/24 13:53:00 EDT, 05/15/23 13:52:00 EDT, Tablet, [facility] #[id number], Partial fill upon patient request if the prescription is for a schedule II opioid drug., 147.32, cm, 05/12/23... Start Date: 05/15/23 Stop Date: 05/16/24 Status: Ordered ibuprofen 600 mg oral tablet 600 mg, 1, tablet, By Mouth, Every 6 hours, # 50 tablet, Refills 0, Tot. Refills 0, Maintenance, 07/08/23 15:13:00 EST, Route to Pharmacy Electronically, [facility] #[id number], Partial fill upon patientrequest if the prescription is for a schedule II op... Start Date: 07/08/23 Status: Ordered ibuprofen 600 mg oral tablet 600 mg, 1, tablet, By Mouth, Every 6 hours, # 50 tablet, Refills 0, Tot. Refills 0, Maintenance, 07/08/23 15:20:00 EST, Route to Pharmacy Electronically, [facility] #[id number], Partial fill upon patient request if the prescription is for a sched... Start Date: 07/08/23 Status: Ordered Latuda 20 mg oral tablet 1 tablet = 20 mg, By Mouth, Daily, # 30 tablet, 0 Refills, Maintenance, 01/19/23 10:08:00 EDT, Tablet, [facility] #[id number], Partial fill upon patient request if [...] 0 Refills, Maintenance, 04/14/23 19:04:00 EDT, [facility][id number], Partial fill upon patient request if the prescription is for a schedule II opioid drug., 148, cm, ... Start Date: 04/14/23 Status: Ordered ondansetron 4 mg oral tablet, disintegrating 1 tablet = 4 mg, By Mouth, Every 6 hours, PRN as needed for nausea/vomiting, # 30 tablet, 0 Refills, Maintenance, 04/10/23 18:51:00 EDT, DIS Tablet, [facility] #[id number], Partial fill upon patient request, 148, cm, 03/14/23 11:37:00 EDT, Height, 63.6, k... Start Date: 04/10/23 Status: Ordered oxyCODONE 5 mg oral tablet 10 mg, 2, tablet, By Mouth, Every 6 hours, PRN, # 12 tablet, Refills 0, Tot. Refills 0, Maintenance, for pain, 07/08/23 15:13:00 EST, Route to Pharmacy Electronically, [facility][id number], Partial fill upon patient request if the prescription is for a... Start Date: 07/08/23 Status: Ordered oxyCODONE 5 mg oral tablet 10 mg, 2, tablet, By Mouth, Every 6 hours, PRN, # 12 tablet, Refills 0, Tot. Refills 0, Maintenance, for pain, 07/08/23 15:20:00 EST, [id number], Partial fill upon patient request if the prescription... Start Date: 07/08/23 Status: Ordered OxyCODONE IR Tablet 5 mg, Tablet, By Mouth, Every 3 hours, PRN for Pain , Severe, (7-10), Routine, 07/04/23 11:25:00 EST Start Date: 07/04/23 Stop Date: 07/09/23 Status: Discontinued Sertraline By Mouth, Daily, 0 Refills, Maintenance, 01/19/23 9:07:00 EDT, Partial fill upon patient request ifthe prescription is for a schedule II opioid drug. Start Date: 01/19/23 Status: Ordered simethicone 125 mg oral tablet, chewable 1 tablet = 125 mg, Chew, 4 times a day, # 48 tablet, 0 Refills, Maintenance, 07/08/23 15:13:00 EST,Chew Tablet, [facility][id number], Partial fill upon patient request if the prescription is for a schedule II opioid drug., 142, cm, 07/01/23 10:05:00 ES... Start Date: 07/08/23 Status: Ordered simethicone 125 mg oral tablet, chewable 1 tablet = 125 mg, Chew, 4 times a day, # 48 tablet, 0 Refills, Maintenance, 07/08/23 15:20:00 EST,Chew Tablet, [facility] #[id number], Partial fill upon patient request if the prescription is for a schedule II opioid drug., 142, cm, 07/01/23 10... Start Date: 07/08/23 Status: Ordered Symbicort 160mcg/4.5mcg Inhaler 2, puffs, Inhalation, 2 times a day, TAKE 2 PUFFS BY MOUTH TWICE A DAY, # 3 each, Refills 0, Tot. Refills 0, Maintenance, 04/10/23 18:53:00 EDT, Inhaler, Route to Pharmacy Electronically, [id number], [facility] #[id number], 148,... Start Date: 04/10/23 Status: Ordered [...] 7:49:00 EDT, Route to Pharmacy Electronically, [id number], 148, cm, 02/17/23 9:30:00 EDT, Height, 60.3, [...] RhoGAM Confirmed Active Subclinical hyperthyroidism Confirmed Active Procedures Procedure Date Related Diagnosis Body Site Status delivery only; 07/03/23 C ompleted Vital Signs Most recent to oldest [Reference Range]: 1 2 3 Oxygen Saturation [94-100 %] 100 % (07/08/23 8:00 AM) 97 % (07/08/23 12:00 AM) 97 % (07/07/23 4:34 PM) Pulse Rate [55-90 bpm] 90 bpm (07/08/23 8:00 AM) 68 bpm (07/08/23 12:00 AM) 88 bpm (07/07/23 4:34 PM) Blood Pressure [90-138/55-84 mm Hg] 110/77mm Hg (07/08/23 8:00 AM) 113/74mm Hg (07/08/23 12:00 AM) 117/71mm Hg (07/07/23 4:34 PM) Respiratory Rate [16-30 br/min] 18 br/min (07/08/23 2:47 PM) 18 br/min (07/08/23 10:15 AM) 18 br/min (07/08/23 8:00 AM) Temperature [96.8-100.4 DegF] 98.2 DegF (07/08/23 8:00 AM) 98.3 DegF (07/08/23 12:00 AM) 99.5 DegF (07/07/23 4:34 PM) Liters per Minute 6 L/min (07/03/23 11:30 AM) Mode of Delivery (Oxygen) Room air (07/08/23 8:00 AM) Room air (07/08/23 12:00 AM) Room air (07/07/23 1:00 AM) Blood pressure sites Arm, right (07/08/23 8:00 AM) Arm, left (07/08/23 12:00 AM) Arm, right (07/07/23 1:00 AM) Temperature Route Oral (07/08/23 8:00 AM) Oral (07/08/23 12:00 AM) Oral (07/07/23 4:34 PM) Dry Weight 70.9 kg (07/03/23 7:54 AM) Dry Weight Obtained Via Standing scale (07/03/23 7:54 AM) Social History Social History Type Response Tobacco Use: 4 or less cigar ettes(less than 1/4 pack)/day in last 30 days. Sex Consult note * Reg GARCIA, Korina Dasilva: PERFORM Event Display: Consult Authored Date: [id number] Patient: ??IVONNE PENN ? Age:??32 Years?Sex:??Female?:??1990? Maternal: 32yo, , delivery Pertinent Medical History:?? Anemia, asthma, anxiety, subclinical hyperthyroid, Substance abuse history includes: current tobacco smoker, marijuana use (last 04/16/23), history of cocaine use (last 2019) : 35 2/7 weeks now DOL 4 Admitted to NICU for:?? Prematurity Respiratory distress Congenital heart disease (tetralogy of Fallot) Situation:?? Mother-baby separation Assessment/Interventions:?? Mom reported she is pumping every 2-3 hours.?? She is using Maintenance mode and 24mm flanges.?? She denied nipple or breast discomfort.?? The s/sx of engorgement were reviewed.?? Cold compresses [id number] minutes between pumping sessions were recommended should mom experience any symptoms of engorgement.?? Mom states she has a Spectra pump and a wearable breast pump for home.?? No questions or concerns.?? Supplies for home provided (mom states she is being discharged tomorrow).?? Recommendations and education provided as listed below. NICU to follow and support. Recommendations: ?Pump/hand express every 3 hours around the clock for 15-20 minutes. Consider cluster pumping ifa pumping session is missed or delayed beyond 4 hours with a goal of reaching 8 sessions/day. ?Utilize Maintenance setting ?Set suction?? with the goal of feeling a good, strong tug on the nipple but no pain/pinching Education: ?Milk supply education: milk supply created in first 2 weeks, pump/hand express every 2-3 hour for optimal supply, avoid going longer than 4 hours without pumping ?Storage and handling of breast milk per NICU guidelines ?? Engorgement History and physical note * Shiloh Cruz DO: PERFORM Event Display: History and Physical Hospital Authored Date: Patient: ??IVONNE PENN ? Age:??32 Years?Sex:??Female?:??1990?? OB Reason for Admission OB Reason for Admission?? No qualifying data available. LMP/EGA/SYLVAIN Gestational Age (EGA) and SYLVAIN? * Note: EGA calculated as of 07/03/2023 ?? SYLVAIN:??08/05/2023?EGA*:??35 weeks 2 days ? History?(3,0,1,3)?Method:??Last Menstrual Period??(10/29/2022) History of Present Illness Ivonne is a 32 year old at 35 weeks and 2 days gestation who presents??for hysterectomy due to known placenta accreta. She denies any contractions, vaginal??bleeding, loss of fluid, or decreased movement today. She is feeling nervous about surgery. Partner is at bedside and hawthorne pportive. Expecting a baby boy.?? Review of Systems As per HPI, the remainder or the ROS is as follows: Constitutional:??No weight loss, fever, chills, weakness or fatigue. HEENT:??No visual loss, blurred vision, double vision. No hearing loss, sneezing, congestion, runnynose or sore throat. Skin:??No rash or itching. Cardiovascular:??No chest pain, chest pressure or chest discomfort. No palpitations. Respiratory:??No shortness of breath, cough or sputum production. Gastrointestinal:??No anorexia, nausea/vomiting, constipation/diarrhea. No abdominal pain. Genitourinary:??No burning micturition. No urinary frequency or incontinence. Gynecologic: No vaginal bleeding, vaginal discharge, or vaginal itching. Neurologic:??No headache, dizziness, syncope. Musculoskeletal:??No muscle pain, back pain, joint pain or stiffness. Psychiatric:??No depression or anxiety. Physical Exam Constitutional: Pleasant, alert, cooperative, no acute distress. Lungs: Unlabored breathing. Clear to auscultation bilaterally with full symmetric breath sounds,??no crackles, no wheezing,??or rhonchi.? Cardiovascular: S1/S2, Regular rate and rhythm, no murmurs.? Abdomen/GI: Gravid, firm, non-tender Extremities: No edema present bilaterally, no calf erythema Skin: No rash or jaundice. Neurological/Psychiatric: Appearance appropriate, mood and affect stable. Assessment/Plan Assessment:??Patient is a is a 32 year old at 35 weeks and 2 days gestation who presents for hysterectomy due to known placenta accreta. Patient has reviewed risks and consents in office, and confirmed again today that she understands the risks, the consequences to her fertility, and that she accepts blood products. Plan for gent and clinda for ppx given anaphylactic allergy to PCN. 4 u pRBC on hold. Proceed to OR. ?? Anemia in (O99.019):? -s/p IV iron -(p) CVC on admission ?? History of delivery (Z98.891):? -CS x3 with known dense adhesive disease ?? 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 -NIML x2 subsequently ?? Obese class I (Z68.30):? -BMI 35 ?? Placenta accreta without hemorrhage (O43.219):? -NPO -Gent and clinda for ppx -NST prior to OR -4 u pRBC on hold -Consent for C hysterectomy and bilateral salpingectomy signed ?? Placenta previa (O44.00):? -see accreta ?? 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 -plan for NICU at delivery -peds cards aware ?? Asthma (J45.909):? -order home equivalent of symbicort -albuterol prn ordered ?? (Z34.90):? -continue PNV if breast feeding -s/p BMZ on 06/29-06/30 ?? Patient seen and plan discussed with Dr. Winslow, attending physician. OB History History?(3,0,1,3)? # 1 ?Baby 1 [...] Labs Labs & Tests Antibody Screen: Positive (06/30/23) Blood Type: A Negative (06/30/23) Creatinine-Blood: 0.6 mg/dL (12/14/22) Down Syndrome Age Risk FTS: Age Risk: (01/23/23) Down Syndrome Scrn Risk FTS: Screening Risk: (01/23/23) Glucose 50 Gm, +60 Minutes: 128 mg/dL (05/10/23) Hct:??30.3 %??Low (07/03/23) Hemoglobinopathy Interpretation: Normal hemoglobins. (12/30/22) Hepatitis B Surface Antigen: NEGATIVE (12/30/22) Hepatitis C Ab: NEGATIVE (12/30/22) Hgb:??9.9 Gm/dL??Low (07/03/23) HIV 4th Generation Ab-Ag Result: NEGATIVE (12/30/22) RPR Titer Result: NOT INDICATED (05/10/23) Rubella IgG Ab: POSITIVE (12/30/22) Syphilis Screen by [facility]: NEGATIVE (05/10/23) Trisomy 18 Scrn Risk FTS: Screening Risk: (01/23/23) Urine Culture: Urine Culture (06/15/23) Problem List Active Active Problem List Anemia [...] Swelling) Seafood??(throart swelling) penicillin??(Swelling) shellfish??(throat swelling) sulfADIAZINE??(Swelling) Social History Alcohol Use: Past. Electronic Cigarette/Vaping Electronic Cigarette Use: Never. Employment/School Status: Unemployed. Exercise Self assessment: Poor condition. Home/Environment Living situation: Homeless/Fpc. Current guardian: DCF. DCF involvement: Current. Other: [...] Plan OB Plan Circumcision Plan: Before discharge (07/03/23) Anomaly Follow Up Needed: tetrology of fallot, abdominal cyst (07/03/23) Feeding Plan: Breast milk (07/03/23) Labor Coping Mechanisms: Other: c/section (07/03/23) Patient Requests: it's a boy (07/03/23) * Tracy Winslow MD: PERFORM Event Display: History and Physical Hospital Authored Date: Hospital Progress note * Lynne Marc: PERFORM, SIGN, VERIFY Event Display: Progress Note Hospital Authored Date: Patient: IVONNE PENN Age: 32 years Sex: Female : 1990 Associated Diagnoses: None Author: Lynne Marc Discharge instructions reviewed with pt, all questions answered. Pt aware to call to schedule pp visit. remains in NICU. Pt left unit ambulatory with significant other. * Lynne Marc: PERFORM, SIGN, VERIFY Event Display: Progress Note Hospital Authored Date: Patient: IVONNE PENN Age: 32 years Sex: Female : 1990 Associated Diagnoses: None Author: Lynne Marc Pt A&O x 3, VSS remains in NICU. Assessment as documented. Steri strips c/d/i wih some bruising noted around incision. Pt reports voiding without difficulty, passing flatus, and states shehad bowel movement yesterday. Tolerating PO well. Pt is pumping for in NICU. Reviewed plan of care for the shift, call light within reach Findings Problem Related to Alteration in Comfort : Alteration in Comfort/new 07/08/2023 9:00 EST Alteration in Comfort Related to Surgery, Other: s/p c/s and hysterectomy Goals & Outcomes: Comfort Pt will report acceptable level of comfort & pain control, Pt will state importance of adhering to pain strategy regime, Pt will demonstrate necessary skills to manage pain, Non-verbal indicators will indicate comfort/pain control Interventions Implemented: Comfort Assess pain using appropriate pain scale/tools, Assess aggravating factors & prevent them accordingly, Assess alleviating factors & promote them accordingly Goals/Interventions, Comfort Yes Comfort, Problem Start 07/03/2023 23:07 Reviewed plan with, Comfort Patient Patient Progression, Comfort Pt progressing according to plan Comfort, Problem Ongoing Yes . * Kate Kirby RN: PERFORM, SIGN, VERIFY Event Display: Progress Note Hospital Authored Date: Patient: IVONNE PENN Age: 32 years Sex: Female : 1990 Associated Diagnoses: None Author: Kate Kirby RN Pt ob stable at this time ,vertical incision with steris is clean and dry. Pt is voiding and reports having had a BM today. Pt back and forth to NICU several times tonight. Pain under adequate control with Oxycodone along with Motrin and Tylenol. Findings Problem Related to Alteration in Comfort : Alteration in Comfort/new 07/07/2023 23:00 EST Alteration in Comfort Related to Surgery, Other: s/p c/s and hysterectomy Goals & Outcomes: Comfort Pt will report acceptable level of comfort & pain control, Pt will state importance of adhering to pain strategy regime, Pt will demonstrate necessary skills to manage pain, Non-verbal indicators will indicate comfort/pain control Interventions Implemented: Comfort Assess pain using appropriate pain scale/tools, Assess aggravating factors & prevent them accordingly Goals/Interventions, Comfort Yes Comfort, Problem Start 07/03/2023 23:07 Reviewed plan with, Comfort Patient Patient Progression, Comfort Pt progressing according to plan Comfort, Problem Ongoing Yes . Note * Lynne Marc: PERFORM Event Display: Discharge/Transfer Note Hospital Authored Date: Nursing Discharge Note Entered On: 07/08/2023 15:43 EST Performed On: 07/08/2023 15:43 EST by Lynne Marc Nursing Discharge Note 2 Discharge Time : 07/08/2023 15:30 EST Discharge Level of Care at Discharge : Home/Retirement/Foster Care Patient Left Unit Via : Ambulatory Patient Accompanied Off Unit with : Significant other DC Instructions Provided & Signed by Pt : Yes Patient Understands D/C Instructions : Yes Patient Instructions Discharge Signed : Yes Did Pt have Specialty Bed or Wound Vac : No Lynne Marc - 07/08/2023 15:43 EST * Alee Gifford MD: PERFORM Event Display: Discharge/Transfer Note Hospital Authored Date: Patient: ??IVONNE PENN ? Age:??32 Years?Sex:??Female?:??1990?? Admit Date Admission Date: 07/03/2023 Discharge Date 07/08/2023 OB Reason for Admission OB Reason for Admission?? No qualifying data available. [facility] Hospital Course ??32 year old at 35 weeks and 2 days gestation who presents??for hysterectomy, bilateral salpingectomy, and ureteral catheter placement due to known placenta previa with suspected placenta accreta. Surgery was uncomplicated.?? QBL was 751 mL with 131 mL of auto-transfusion given from cell saver. Post-operative course was uncomplicated.?? Objective/Physical Exam on Day of Discharge Vitals & Measurements T:??98.2?F?? HR:??90??(Peripheral)?? RR:??18?? BP:??110/77?? SpO2:??100%?? Constitutional: The patient is a well-appearing woman, in no acute distress. Abdomen: Soft, nondistended, appropriately tender postoperatively. Fundus firm and below umbilicus.Pressure dressing in place. Gynecologic/:??Bleeding minimal.?? Psychiatric: The patient is alert and oriented with an appropriate mood and affect.?? Extremities: No pitting edema, cellulitis. Assessment/Plan/Discharge Diagnosis Assessment:??Patient is a 32 yo G5 now P3114 who is POD5 from a planned hysterectomy in the setting of placenta previa with suspected placenta accreta. The patient's surgery was uncomplicated with a QBL 751 mL. The patient remains hemodynamically stable and is meeting appropriate early and postoperative milestones. She had a mild range blood pressure early on during admission but did not rule-in for gestational hypertension. Suitable for discharge.? Patient seen and discussed with Dr. King, [facility] attending. ?? Anemia in (O99.019):? - s/p IV iron outpatient, continues on oral iron - Hgb stable at 9.7 12/6 - QBL 751 mL, with patient receiving 131 mL in blood via cell-saver ?? 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 - History of LGSIL on prior pap smear, followed by NILMx2 - (p) [facility] ?? Placenta accreta without hemorrhage (O43.219):? - s/p hysterectomy ?? 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 - Baby remains in NICU ?? Anxiety (F41.9):? - Continue home Sertraline and clonidine PRN - ( ) [facility] ?? Asthma (J45.909):? - Encouraged Breo Ellipta inhaler daily - Albuterol ordered as needed ?? Delivery by hysterectomy (O82):? - Continue routine care - Pain control: Ibuprofen & Tylenol, Oxycodone prn, Rx sent s/p PCEA - s/p Alvarez, voiding spontaneously - Feeding plan: Breast pumping while baby in NICU - PPBC: s/p hysterectomy at time of delivery ?? Delivery Summary Delivery Summary Maternal Information ??Delivery Information ?Gestational Age at Delivery: ??35W 2D ?Anesthesia OB: ??Epidural ??07/04/23 00:14:20 ?Delivery Complications: ??None ?Blood Loss - Quantitative: ??751 mL ? Baby A ??Delivery Information ?Delivery Type: ??, other (Modified) ?Reason for : ??Other: accreta ? Priority: ??Scheduled ?Date, Time of : ??07/03/23 09:16:00 ?Delayed Cord Clamping: ??No ?Reason for No Delayed Cord Clamping: ??baby straight to warmer ?Placenta Appearance: ??Other: previa with suspected accreta ?Placenta to Pathology: ??Yes ??Care Team ?Time NICU Team Called: ??07/03/23 08:30:00 ?? Information ? Outcome: ??Live ? Position: ??Right occiput anterior ? Weight: ??2.032 kg ? Score 1 minute: ??8 ? Score 5 minute: ??8 ? Score 10 minute: ??9 ?Transferred To: ??NICU ?Umbilical Cord Description: ??3 vessel cord ? Complications: ??None ?Gender: ??Male ? Discharge Medications ???Acetaminophen (acetaminophen 325 mg oral capsule)???Albuterol (albuterol 0.083% inhalation solution)???Albuterol (albuterol CFC free 90 mcg/inh inhalation aerosol)???Budesonide-Formoterol (Symbicort 160mcg/4.5mcg Inhaler)???Clonidine (cloNIDine 0.1 mg oral tablet)???Docusate (Colace sodium 100 mg oral capsule)???Doxylamine (Unisom 25 mg oral tablet)???Ferrous Gluconate (ferrous gluconate 324 mg oral tablet)???Ibuprofen (ibuprofen 600 mg oral tablet)???Multivitamin, (M-Rose Marie Plus oral tablet)???Omeprazole (omeprazole 20 mg oral enteric coated capsule)???Ondansetron (ondansetron 4 mg oral tablet, disintegrating)???Oxycodone (oxyCODONE 5 mg oral tablet)???Pyridoxine (Vitamin B6 50 mg oral tablet)???Sertraline???Simethicone (simethicone 125 mg oral tablet, chewable)???lurasidone (Latuda 20 mg oral tablet) Immunizations during Hospitalization Vaccine Date Status tetanus/diphtheria/pertussis, acel(Tdap) 05/09/2023 Given influenza virus vaccine, inactivated 05/09/2023 Given Influenza Inactive (IM) (oldterm) 05/12/2017 Given tetanus/diphtheria/pertussis, acel(Tdap) 04/10/2017 Given tetanus/diphtheria/pertussis, acel(Tdap) 12/09/2013 Given influenza virus vaccine, inactivated 07/16/2013 Given tetanus-diphtheria toxoids (Td) 09/07/2010 Given Comments : vis ??given Feeding Method No Results Patient Education Titles OB PP [facility]- Discharge Instructions?? Follow-Up Appointments Added Follow Up ?Time Frame ?Comments See Instructions Section?1-2 day: call to discuss follow up visit?Please call to schedule your 6 week?? Patient Instructions Discharge: home, Call your the office with any concerns including:?? Heavy vaginal bleeding?? Fever of 100.4 or greater Foul-smelling vaginal discharge Difficulty or burning with urination?? Nausea and vomiting with inability to tolerate food,?? Pain not controlled by your prescribed medications Shortness of breath or chest pain. Swelling of the extremities. ?? General Instructions: - Avoid lifting anything 15 lbs or greater until cleared by doctor. - Stairs are OK but avoid multiple trips/ skipping steps and go slowly. - Walk as often as you are able. - Do not put anything in the vagina. No intercourse, tampons, or douching - Continue your stool softeners (examples: colace/docusate, senna, miralax) - Shower as usual. Avoid tubs/ soaking/ pools. * Lynne Marc: PERFORM Event Display: Patient Education/Instruction Authored Date: Inpatient Adult Discharge Instructions [address] [address] Name: IVONNE PENN : 1990 Visit: 07/03/2023 05:34:00 Current Date: 07/08/2023 15:10 Account: [id number] Inpatient Adult Discharge Instructions We would like [...] and their families. Surveys are administered by [employer] ?? If further treatment with your primary care physician or another doctor is recommended, it is important for you to keep the appointment. Call your primary care physician or return to the Emergency Department immediately if your condition worsens, fails to improve, or new symptoms develop. If you need to find a doctor, you can call [facility] for a referral at [phone] or toll free at [phone] or log in to [email or web address].. ?? [facility], in keeping with [facility] guidance, no longer requires face [...] a health care ce of your choosing. [employer] is a website that allows you to securely view your medical information including your hospital discharge summary, office visit summaries, medications and follow-up visits. You can also request appointments, renew medications, and request access to your medical information using a health care ce of your choosing, or just ask a question. You can enroll at [email or web address] or register during your next office visit. You have been discharged from [facility], Patient Care Unit: WIN2. If you have any questions regarding these instructions after you leave, please call us and we will be happy to assist you. 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 You may have had other tests and procedures not included in this list. Please discuss all test results with your provider. Basic Metabolic Panel CBC CBC w/ Differential Ionized Calcium Magnesium Level Phosphorus Level Type and Screen Primary Care Provider Ciaran Pisano Advance Directive Health Care Proxy on File Yes - Health Care Proxy Discharge Vitals Temperature: 98.2 DegF Pulse Rate: 90 bpm Respiratory Rate: 18 br/min Systolic Blood Pressure: 110 mm Hg Diastolic Blood Pressure: 77 mm Hg Oxygen Saturation: 100 % Studies Pending All tests and labs ordered during this hospital stay have been completed unless listed below. Please discuss all pending results with your provider listed above in these instructions. ?? Pathology Tissue Request () Hold Lavender Tube (BB) What to do next Instructions From Your Doctor Discharge Orders You Need to Schedule the Following Appointments Follow Up with??See Instructions Section When:??Within 1-2 day: call to discuss follow up visit Why: Please call to schedule your 6 week?? Discharge Medications IVONNE PENN :1990 Visit Date:07/03/2023 Medications: Please continue your medications until treatment [...] BY MOUTH TWICE A DAY ?? Unchanged Clonidine (cloNIDine 0.1 mg oral tablet) 1 tab(s) Oral Twice a day as needed for Anxiety Unchanged Doxylamine (Unisom 25 mg oral tablet) [...] times a day Unchanged Sertraline Oral Daily tylenol last given 2:47 pm may take after 6:47pm Ibuprofen 800mg last given at 2:47pm may take after 10:47pm oxycodone last given 2:47pm may taje after 6:47pm Test Results Below is a partial list of the most recent Laboratory test results done prior to this discharge. You may have had other tests and procedures not included in this list. Please discuss all test resultswith your provider. 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) Antibody Screen - Positive (07/03/2023) RBC Available - RE (07/03/2023) RBC Unit ID - [id number] (07/03/2023) RHIG Candidacy Screen - Patient is not a candidate for RhIG (07/03/2023) Basic Metabolic Panel (07/05/2023) ???Sodium - 138 mmol/L???Potassium - 4.3 mmol/L???Chloride - 105 mmol/L???Bicarbonate Level - 24 mmol/L???Anion Gap - 9???Glucose Level - 91 mg/dL???BUN - 7 mg/dL???Creatinine-Blood - 0.5 mg/dL???Estimated GFR Creatinine - 130 ML/MIN/1.73 M2???Calcium - 8.5 mg/dL CBC (07/04/2023) ???WBC - 25.6 k/mm3???RBC - 3.35 m/mm3???Hgb - 9.9 Gm/dL???Hct - 29.8 %???MCV - 89.0 femtoliters???MCH - 29.6 pg???MCHC - 33.2 g/dL???Platelet Count - 282 k/mm3???RDW-SD - 46.1 femtoliters???MPV - 10.9 femtoliters???Nucleated RBC (Automated) - 0.0 #/100 WBC'S???Abs. NRBC - 0.0 k/mm3 CBC w/ Differential (07/05/2023) ???WBC - 18.6 k/mm3???RBC - 3.28 m/mm3???Hgb - 9.7 Gm/dL???Hct - 30.0 %???MCV - 91.5 femtoliters???MCH - 29.6 pg???MCHC - 32.3 g/dL???Platelet Count - 306 k/mm3???RDW-SD - 48.0 femtoliters???MPV - 10.6 femtoliters???Nucleated RBC (Automated) - 0.0 #/100 WBC'S???Abs. NRBC - 0.0 k/mm3???Abs. Neut - 12.3 k/mm3???Abs. Lymph - 3.9 k/mm3???Abs. Treutlen - 1.3 k/mm3???Abs. Eo - 0.4 k/mm3???Abs. Baso - 0.1 k/mm3???Neut % - 66.3 %???Lymph % - 21.0 %???Treutlen % - 6.7 %???Eos % - 2.4 %???Baso % - 0.4 %???Imm Gran - 3.2 %???Abs. Imm Gran - 0.6 k/mm3 Ionized Calcium (07/05/2023) ???Calcium, Ionized pH Corrected - 1.30 mmol/L Magnesium Level (07/05/2023) ???Magnesium - 1.8 mg/dL Phosphorus Level (07/05/2023) ???Phosphorus - 3.4 mg/dL Type and Screen (07/03/2023) ???Blood Type - A Negative Allergies (NKA means No Known Allergies) Estradiol [...] Educational Leaflet Providered with your Discharge Instructions. [facility]- Discharge Instructions?? Valuables and Belongings I fully understand and agree that [facility] accepts no responsibility for all my [...] of Valuable and Belonging List: With patient Disposition of Belongings: Sent home with patient/family Date for Pt to Sign Valuables/Belongings: 07/07/23 08:05:00 ?? Other Discharge Information ? Pulmonary Rehab [...] are strongly encouraged to quit. Please call [facility] at [phone] or [phone] [phone]) or log in to [email or web address] for referrals to smoking cessation programs. ?? 897 Suicide & Crisis Lifeline is available 20/02 if you or someone you know needs to find a reason to keep living. By calling 982 you'll be connected to a skilled, trained counselor at a crisis center in your area. INPATIENT DISCHARGE INSTRUCTIONS SIGNATURE PAGE IVONNE PENN Location:[facility] Registration Date and Time:07/03/2023 05:34 EST Primary Care Physician: Ciaran Pisano, Attending Physician: Pranay King MD, IVONNE LOPES, have received the above patient education materials/instructions and have verbalized understanding. If ambulance or transport services are being used I further acknowledge being given a choice of service. ?? If you need to contact me, please call me at this number: . Patient/Banquet Server Name: Patient/Banquet Server Signature: Relationship to Patient: Witness Name/Signature: Date: * Parisa Larios RN: PERFORM Event Display: Patient Education Leaflets Authored Date: [id number] [facility]- Discharge Instructions ?? 209 Discharge Care Instructions for the New Mom and Baby Please take a few moments to read through these helpful instructions before you leave the hospital.?? Your nurse will be glad to answer any questions you may have.?? You can also find this and more information throughout the purple Becoming a Family booklet, [facility]???s New Beginnings Guide and the Consultation Services Guide given to you after the of your baby.?? You may also phone our nurses stations if you have further questions.?? [facility]:?? First Floor ([phone]), Second Floor ([phone]).?? Please call your provider if you have any questions or concerns?? before your next appointment. For ongoing support please ???Like?? us on our Facebook page ???[facility]???s New Beginnings?? andsign up for our email newsletter at [email or web address].?? News and information will besent to you until your baby???s third birthday. Instructions for the New Mother Activity: For the next 2 weeks at home ??? no heavy lifting, avoid unnecessary stair climbing, and no driving(especially if you are taking medicine that may make you sleepy or feel that you are sleep deprived).?? For the next 4-6 weeks - no tampons, no douches, no sexual intercourse. Use your ari bottle to rinse your perineum until your vaginal flow stops.?? If you have stitches in your bottom, they generally dissolve within 7-10 days.?? Apply Tucks/witch maddison pads until your soreness subsides.?? Use your bathroom at home every 3 to 4 hours, rinse, and change your pads. Warm showers feel great on achy muscles, sore backs and sore bottoms. Exercise: Walking is the best form of exercise.?? Wait until your follow up appointment with your provider in4-6 weeks before engaging in more strenuous activity. Diet: Drink plenty of fluids to avoid constipation and to help support your recovery. Eat plenty of iron rich foods such as red meat, iron fortified cereals like Total and Cream of Wheat, raisins, prunes, greens and spinach.?? These will help to build your blood count back up as all women lose some blood after delivery.?? Also add foods rich in Vitamin C such as strawberries, oranges, papayas, kale and karimi peppers. Continue to take your vitamins if you are .?? If you are not follow the instructions of your provider.?? If you were prescribed iron supplements such as ferrous sulfate, it is important to continue these until your doctor or trailer technician tells you to stop. Breast Care for Nursing Mothers: Wear a comfortable fitting, supportive nursing bra.?? An underwire bra is not recommended. Express drops of breast milk and rub over your nipples and areola (brown area) before and after each feeding to protect and heal sensitive skin and then air dry your nipples.?? If you are experiencing any soreness, you may purchase nipple cream such as TenderCare or Lansinoh.?? Use it in the following manner:?? finish your feeding or pumping session, self-express colostrum onto your nipple and air dry, apply the nipple cream to the nipple and areola.?? Use only small amounts for best results. If you are having difficulty getting the baby to latch onto the breast due to swelling of the areola, try applying pressure with your fingers for a couple of minutes above and below your nipple and walk your fingers outward softening the area and pushing the swelling away.?? This technique is knownas reverse pressure softening.?? For demonstrations of this and other techniques such as the Cecilia Hand Expression technique, please refer to the resources section of the Consultation Services Guide that you received from services. When your milk first comes in, usually within 3 to 5 days after delivery, you may experience engorgement.?? Your breasts may become swollen and very tender.?? Cold compresses work great to help with discomfort and reduce swelling. It will get better in a couple of days.?? Continue to nurse your baby frequently.?? Call [facility]???s Consultation Service at [phone], press 1 to schedule an outpatient appointment or press 3 and a data consultant will return your call that day or the next if you call after 3pm. Breast Care for Bottle Feeding Mothers: Engorgement may occur within the first week after delivery.?? Your breasts may become hard and verytender.?? A cool compress of cleaned raw green cabbage leaves applied to the breast and changed as leaves wilt has been proven helpful for many women.?? Ice packs or frozen bags of peas also work nicely to ease the discomfort.?? The soreness will only last a couple of days. Keep your back turned to the water while showering to decrease breast stimulation. Wear a snug fitting bra such as a sports bra. Incision Care Following Tubal or Section: You may shower as directed by your doctor or trailer technician.?? Pat your incision dry with a clean towel.??You will not need a bandage after the first day. Call your doctor or trailer technician with any signs of infection such as a hard, hot swollen tender incision, especially if the skin around the incision looks pink or red.?? Yellow drainage with an odor may also be a sign of infection to report. Call your doctor or trailer technician if the incision begins to separate. If you have steri-strips on the incision, they will likely fall off in the first week.?? If they have not fallen off by 10 days after delivery, you may remove them. Control: Your doctor or trailer technician will discuss control methods with you when you are discharged from thespital or at your checkup.?? Be sure to let your provider know if you are . You had a Paragard IUD placed on .?? This control method is effective for 10 years. You had a Liletta placed on .?? This control method is effective for up to 5 years. You had a Nexplanon placed on .?? This control method is effective for up to 3 years. You received a Depo Provera injection on .?? This control method is effective as longas you repeat it every 3 months.?? Schedule your next dose before . You have a prescription for control pills .?? It is important to take a pill everyday at around the same time of day for effective control protection.?? Pain Management: Cramping after is common and increases in strength with each baby you have.?? If you experience painful cramps, and have no allergies to acetaminophen (Tylenol) or ibuprofen (Motrin), you may continue to take these medications as you did in the hospital.?? Ibuprofen is also helpful with back aches following epidurals, perineal pain following a vaginal delivery, and moderate incisional pain after a section or a tubal ligation.?? If you experience gas distention, especially after surgery, you may take an over the counter medication called simethicone.?? Take these chewable tablets 4 times a day as needed and directed on the package.?? Keep moving.?? Walking or rocking in a chair, will help to move the gas along.?? Nico tea made with heated nico prince (instead of water) and a tea bag, stirred to dissolve carbonation (bubbles) is a helpful drink to soothe a gassy stomach. Warning Signs of a Problem to Notify Your Doctor or [facility] of: Heavy vaginal bleeding ??? which is soaking a pad every hour with bright red blood. Passing blood clots the size of an egg or larger. An incision that is not healing. A temperature greater than or equal to 100.4 especially if accompanied by any of the following symptoms ??? painful, frequent urination; extreme back or flank pain; lower belly pain with a foul smellto your vaginal flow; a red hard hot area on your breast.?? Severe headache that does not go away after taking acetaminophen or ibuprofen.?? A headache that changes your vision, including seeing spots or blurring. Right sided upper abdominal pain along the rib cage area. Pain in your legs that is warm and tender to the touch. depression signs may include ??? loss of interest in your baby, weepiness, difficulty focusing, weight loss with no appetite, exhaustion, feeling overwhelmed or anxious, feelings of despair, or thoughts of harming yourself or your baby.?? These symptoms are important and should be discussed with your doctor or trailer technician. depression may develop over a period of time and needs prompt medical attention.?? Do not suffer in silence.?? In both the Becoming a Family booklet and the[facility] Guide there is a screening tool used to identify women at risk, called the Brimfield Scale which you have taken in the office prior to delivery and again during your hospital s matilda.?? Three to four weeks after your delivery, and before your check with your provider, take this test and share your results with your provider.?? Be sure to mention any score of 10 or more.?? Many women, and even some partners, may experience the ???baby blues?? .?? This is a state of feeling overwhelmed and weepy.?? Discomfort from childbirth, hormonal changes, exhaustion, changes to your body and lifestyle are a few of the things that contribute to the highs and lows new parents go through.?? Don???t be afraid to ask your partner or family and friends for some help at home so you can get some rest and a few minutes to yourself.?? The blues will quickly pass. Personal Safety: Every person has the right to feel safe at home and live free from physical or emotional harm.?? Ifyou have suffered mental or physical abuse at home, you are not alone.?? There is help.?? Please call [employer] or the [employer] at [phone]. CARE Bathing: Give your baby a sponge bath until the cord falls off in about 1-3 weeks.?? It is not necessary to bathe your baby every day, usually every few days is sufficient. ??Keep the cord area dry.?? Some baby girls will have a small bloody vaginal discharge. No need to worry as this is normal. It is not necessary to use lotions on the baby???s skin.?? Powders and oils are not recommended.?? Babies often get rash on their skin which comes and goes quickly and does not require any special care.?? Diaper rash can be treated with a zinc oxide preparation such as Desitin or Balmex diaper cream. Circumcision Care: Your nurse will teach you how to care for your baby???s circumcision depending on the type of circumcision your doctor or trailer technician performed.?? Most circumcisions require A&D ointment for about 4-5 days.?? Be generous with the amount of A&D used as this will prevent the diaper from sticking when you go to change it. If a plastibell circumcision was done, the plastic ring around the penis will fall off in a week orso. Diapers: After the 1st??few days, the baby will start wetting more often.?? A breast fed baby will wet about6-8 times a day once mom???s milk comes in ??? usually day 4 or 5.?? This is a good sign that the baby is getting plenty to eat.?? You may notice an orangey-pink stain in the diaper which is normal for the first few days. The baby???s first bowel movements are sticky, black and tarry.?? As the baby starts to feed more often over the next couple of days, the stool will change to a seedy yellowish green color and eventually a loose mustard like stool for a breast fed baby and a more formed yellow stool for a bottle fed baby. your Baby: ??Congratulations on deciding to breastfeed your baby! You are providing your baby with the most nourishing food source on the planet, your breast milk.?? Cues such as rooting, suckling, licking and fussing may be telling you that your baby is ready to eat ??? and it is time to offer your breasts. The first weeks following the are a time for you and your baby to learn.?? The baby may be sleepy the first day after with 8 to 12 attempts ??? including 2 to 4 good feedings.?? Over the next couple of days the baby will become more wakeful, feed 8 to 12 times a day and have more wet and poopy diapers.?? Cluster feeding, especially during the evening/night time, is normal. ?? Listen for swallowing sounds and watch the baby as they become more relaxed at the breast ??? both good signs that the baby is getting a good amount of milk.?? Refrain from smoking or eating edible marijuana while you are . Even though marijuana is legal in the state of [place],??it is harmful for your baby.??It stays in breast milk for along period of time and THC can be found in the baby's urine for up to 3 weeks. Second hand smoke can also increase the risk??of Sudden Infant Syndrome / SIDS. ?? Nursing is wonderful but many moms and babies have some degree of difficulty with at first. Don???t give up!?? There are many resources available to help you overcome these temporary problems. Your machine stone polisher apprentice wants to hear from you if you are having difficulties and can offermany helpful suggestions.?? Some offices have consultants on staff. [facility]???s Consultation Service is available 7 days a week, 8am to 3pm at [phone].?? Press 1 to schedule an outpatient appointment.?? Press 3 to leave a message for the consultant rn, a data consultant will return your call that day or the next if you call after 3pm. Support Groups ??? [facility] offers free gatherings for moms and babies weekly.?? All groups meet at the [facility] 2nd??floor, typically in the [facility] Conference Room, Monday???s 1 to 2 pm.?? [employer] is a worldwide organization with local community support, mother to mother support.?? Information can be found at https://www.[employer]lusa.org Formula Feeding your Baby: Formula fed babies should eat every 3 to 4 hours.?? Look for cues that your baby is ready ??? such as rooting and sucking, licking and fussing.?? At the baby???s stomach is small and may take 10-15ml of formula.?? Over the next few days the baby will become more wakeful and feed more frequently, gradually increasing the amounts of formula taken at a feeding.?? Your machine stone polisher apprentice will provideinstructions on how to increase the amount.?? Refer to packaging for formula preparation directions, depending on the type of formula you purchase ??? powder, concentrate or ready to feed. Infant Safety: ALWAYS REMEMBER - BACK TO SLEEP! Babies sleep safest on their backs.?? Every sleep.?? Every time.?? Every nap. Babies need a firm sleep surface with a tight fitting bottom sheet.?? NO loose bedding.?? NO pillows.?? NO bumper pads or rolls.?? NO heavy or fluffy blankets. NO stuffed toys. It is not safe for your baby to sleep in your bed, in a chair, or on a sofa.?? Your baby should notsleep with you or anyone else. Car Seat: Always place your baby in a rear facing car seat in the backseat of the car. Car seat inserts that come with the car seat can be used as they are crash tested with the seat.?? You should not buy additional inserts.?? Dress the baby in a weather appropriate outfit.?? Avoid bulky clothing such as snowsuits or jackets as the baby may squirm in the seat, loosening the shoulder straps and come out of the top of the harness if you need to brake hard or are in an accident.?? Once the baby issecured in the seat you can cover your little one with a blanket if needed.?? If your baby was bornprematurely, follow the directions given to you.?? If you have not already done so, check to make sure your car seat is installed correctly. Check with your local Fire and Police Department to see if they offer car seat inspections at a location close to you. Babies Can Move: ?? Never leave your baby unattended on any surface, raised or flat, or while bathing.?? They can squirm, fall or hurt themselves.?? Always fasten the safety belt when using an infantseat or swing ??? as they may lean forward and fall. Good Handwashing is the number one way you can protect the baby from too?? many germs and prevent infection.?? When family and friends visit ask that they wash their hands before holding your baby.??Also avoid crowds the first month of your baby???s life to protect from colds and flus. Shaking a baby out of frustration can cause severe and lasting damage, even to a baby.?? If you feel you are becoming angry or overwhelmed, place the baby in a safe place and walk away.?? Call a friend or family member.?? If they are not able to offer immediate help call the Parental Stress Hotline at?? , an anonymous 20/02 source of help. Warning Signs to notify your machine stone polisher apprentice of: Most babies develop a small amount of jaundice (a yellowish skin color) in the face and upper chest, by about 3 days of age.?? If the yellow color extends below the baby???s belly or if the baby is very sleepy and not feeding well, call your machine stone polisher apprentice. A rectal temperature of 100.4F as it could be a sign of infection. Projectile vomiting that continues with each feeding could indicate reflux or a problem with the formula. Extreme sleepiness or very fussy. Cold symptoms with nasal stuffiness, especially if the baby is having difficulty feeding. Constipation with hard stools. Blue or dusky color, call 911. If Your Baby Needs to Remain in the Hospital: Please leave your baby???s ID bracelets on if your baby needs to remain in the hospital after you are discharged home. The phone number to NICU is [phone]. The phone number to [facility] HOSPITAL is [phone]. The phone number to [facility] is [phone]. moms should pump every 2-3 hours or 8-12 times in 24 hours.?? If unable to place the baby to breast, if you are having difficulty getting the baby to latch on, or if the baby remains inthe hospital after you are discharged ??? bring the pumped milk to the hospital, labeled with name,date and time.?? Carry it in a small cooler or diaper bag with an ice pack and bring it the next time you visit your baby.?? Consultation Services is available if you need to rent or purchase a pump or products.?? Call and leave a message at [phone] ??? press 3 and a data consultant will return your call that day or the next if you call after 3pm. ? * Aviva Marte RN: PERFORM Event Display: Care Team Progress Note Authored Date: Patient: ??IVONNE PENN ? Age:??32 Years?Sex:??Female?:??1990?? Subjective Mom says she di not pump regularly overnight. She took a hot shower this morning because that is what helped her milk come in with her last babies and she pumped a got a little so she plans on doing that again later this morning. She tells me she has been washing her pump with a vinegar??spray thatsaid it was for cleaning pumps as well. Assessment/Plan Ivonne was educated that pumping regularly, providing STS with her baby, lymphatic message and handexpression ect, is the best way to support her milk supply. She was discouraged at this time from using the vinegar spray for cleaning her pump and enc to use dish soap to wash the parts and let it air dry. ?? Yesterday we spoke about her previous MJ use and she tells me that she has not used this since she found out she was . She was advised the call and discuss with before adding this back to her regimen if choosing to do so. ? OB Summary : 5 . Baby A - Weight: 2.032 kg Baby A - Date, Time of : 07/03/23 09:16:00 Baby A - Gender: Male Baby A - Complications: None EGA at Documented Date, Time: 35W 2D Weight at Delivery Baby A - Delivery Type: , other Delivery Complications: None OB History History?(3,0,1,3)? # 1 ?Baby 1 [...] weeks 3 days ? Outcome:??Live ? Sex:??-- Active Problem List Active Problem List Anemia in : (Medical) [...] Fallot, , affecting care of mother: (Medical) Home Medications Albuterol: INHALE 2 PUFFS INTO THE LUNGS EVERY 4 (FOUR) HOURS NEEDED FOR SHORTNESS OF BREATH OR WHEEZING Albuterol: 2.5 mg = 3 mL, Neb, Every 4 hours, PRN (as needed for wheezing) Budesonide-Formoterol: 2 puffs, Inhalation, 2 times a day, TAKE 2 PUFFS BY MOUTH TWICE A DAY Clonidine: 0.1 mg = 1 tablet, By Mouth, 2 times a day, PRN (Anxiety) Doxylamine: 25 mg = 1 tablet, By [...] times a day Sertraline: By Mouth, Daily Medications Medications (19) Active SCHEDULED: (10) Acetaminophen 325 mg Tablet (Acetaminophen Tablet) ??650 mg, By Mouth, Every 4 hours Breo Ellipta 200 mcg / 25 mcg Inhaler (Breo Ellipta 200 mcg-25 mcg Inhaler) ??1 puffs, Inhalation, Daily Docusate Sodium 100 mg Capsule (Docusate Sodium Capsule) ??100 mg 1 capsule, By Mouth, 2 times a day Enoxaparin 40 mg Inj (Enoxaparin Inj) ??40 mg 0.4 mL, Subcutaneous Injection, Daily Famotidine 20 mg Tablet (Famotidine Tablet) ??20 mg, By Mouth, 2 times a day HydrOXYzine HCL 10mg Tablet (HydrOXYzine HCL Tablet) ??50 mg, By Mouth, Daily at bedtime Ibuprofen 800 mg Tablet (Ibuprofen Tablet) ??800 mg, By Mouth, Every 8 hours Multivitamin Tablet ( Multivitamin Tablet) ??1 tablet, By Mouth, Daily Pantoprazole 20 mg EC Tablet (pantoprazole 20 mg oral delayed release tablet) ??20 mg, By Mouth, Daily Sertraline 50 mg Tablet (Zoloft Tablet) ??200 mg, By Mouth, Daily CONTINUOUS: (0) PRN: (9) Albuterol 90mcg/Inhalation Inhaler HFA (albuterol CFC free 90 mcg/inh inhalation aerosol) ??180 mcg2 puffs, Inhalation, Every 4 hours Clonidine 0.1 mg Tablet (cloNIDine 0.1 mg oral tablet) ??0.1 mg, By Mouth, 2 times a day diphenhydrAMINE 25 mg Tablet (DiphenhydrAMINE Tablet) ??25 mg, By Mouth, Every 4 hours diphenhydrAMINE 50 mg/mL Inj (DiphenhydrAMINE Inj) ??25 mg 0.5 mL, IV Push, Once nalOXONE ??400mcg/mL Inj (nalOXONE Inj) ??0.1 mg 0.25 mL, IV Push Slowly, Every 5 minutes Nicotine 2 mg Gum (Nicotine Gum) ??2 mg, Chew, Every hour Ondansetron 2mg/mL Inj (2mL Vial) (Ondansetron Inj) ??4 mg, IV Push, Once OxyCODONE 5 mg IR Tablet (OxyCODONE IR Tablet) ??5 mg, By Mouth, Every 3 hours Simethicone 80 mg Chewable Tablet (Simethicone Tablet) ??80 mg, Chew, 3 times a day * Estuardo GARCIA, Aviva: PERFORM Event Display: Care Team Progress Note Authored Date: Patient: ??IVONNE PENN ? Age:??32 Years?Sex:??Female?:??1990?? Subjective Mom says she has been pumping since delivery, she is not pumping regularly only when she starts to leak. She pumped about 5oz before delivery and has been getting similar volumes when she pumps. She has the hospital pump in her room but also has the hand free pump which she prefers because she doesn't have to hold it. Assessment/Plan ?? Symphony pump use demonstrated.?Initiation/maintenance mode explained.?Educated on: Frequency and duration of pumping Hands on pumping Adding hand expression to increase milk yield Correct flange size Cleaning of pump parts Labeling of breast milk Milk storage Transport of breast milk. ? NICU education and booklet provided for mother- separation including: Use of symphony breast pump and documentation on pumping log Using correct flange size Coming to full milk volume in first 2 weeks Hands on pumping Hand expression before and after pumping Use of cotton swabs to collect milk drops Pumping after baby in NICU for adequate stimulation Milk collection and storage Transport of breast milk Cleaning and storage of breast pump parts services will follow mother until discharge home for evaluation of milk production. ?? Mom was shown how to log into [facility] and prefers at this time to have NICU logging the milk today so she can rest. ?? Mom was enc to pump regularly even if she is not getting any volume with those sessions and will support her milk supply progression. She was enc to use the symphony pump while here and explained thedifference.??She will be given a spectra 2 for home use as well. ? OB Summary : 5 . Baby A - Weight: 2.032 kg Baby A - Date, Time of : 07/03/23 09:16:00 Baby A - Gender: Male Baby A - Complications: None EGA at Documented Date, Time: 35W 2D Weight at Delivery Baby A - Delivery Type: , other Delivery Complications: None OB History History?(3,0,1,3)? # 1 ?Baby 1 [...] weeks 3 days ? Outcome:??Live ? Sex:??-- Active Problem List Active Problem List Anemia in : (Medical) [...] Fallot, , affecting care of mother: (Medical) Home Medications Albuterol: INHALE 2 PUFFS INTO THE LUNGS EVERY 4 (FOUR) HOURS NEEDED FOR SHORTNESS OF BREATH OR WHEEZING Albuterol: 2.5 mg = 3 mL, Neb, Every 4 hours, PRN (as needed for wheezing) Budesonide-Formoterol: 2 puffs, Inhalation, 2 times a day, TAKE 2 PUFFS BY MOUTH TWICE A DAY Clonidine: 0.1 mg = 1 tablet, By Mouth, 2 times a day, PRN (Anxiety) Doxylamine: 25 mg = 1 tablet, By [...] times a day Sertraline: By Mouth, Daily Medications Medications (16) Active SCHEDULED: (8) Acetaminophen 325 mg Tablet (Acetaminophen Tablet) ??650 mg, By Mouth, Every 4 hours Breo Ellipta 200 mcg / 25 mcg Inhaler (Breo Ellipta 200 mcg-25 mcg Inhaler) ??1 puffs, Inhalation, Daily Docusate Sodium 100 mg Capsule (Docusate Sodium Capsule) ??100 mg 1 capsule, By Mouth, 2 times a day Enoxaparin 40 mg Inj (Enoxaparin Inj) ??40 mg 0.4 mL, Subcutaneous Injection, Daily Famotidine 20 mg Tablet (Famotidine Tablet) ??20 mg, By Mouth, 2 times a day Ibuprofen 800 mg Tablet (Ibuprofen Tablet) ??800 mg, By Mouth, Every 8 hours Multivitamin Tablet ( Multivitamin Tablet) ??1 tablet, By Mouth, Daily Pantoprazole 20 mg EC Tablet (pantoprazole 20 mg oral delayed release tablet) ??20 mg, By Mouth, Daily CONTINUOUS: (0) PRN: (8) Albuterol 90mcg/Inhalation Inhaler HFA (albuterol CFC free 90 mcg/inh inhalation aerosol) ??180 mcg2 puffs, Inhalation, Every 4 hours diphenhydrAMINE 25 mg Tablet (DiphenhydrAMINE Tablet) ??25 mg, By Mouth, Every 4 hours diphenhydrAMINE 50 mg/mL Inj (DiphenhydrAMINE Inj) ??25 mg 0.5 mL, IV Push, Once nalOXONE ??400mcg/mL Inj (nalOXONE Inj) ??0.1 mg 0.25 mL, IV Push Slowly, Every 5 minutes Nicotine 2 mg Gum (Nicotine Gum) ??2 mg, Chew, Every hour Ondansetron 2mg/mL Inj (2mL Vial) (Ondansetron Inj) ??4 mg, IV Push, Once OxyCODONE 5 mg IR Tablet (OxyCODONE IR Tablet) ??5 mg, By Mouth, Every 3 hours Simethicone 80 mg Chewable Tablet (Simethicone Tablet) ??80 mg, Chew, 3 times a day Patient Care team information Care Team Personnel Name: Ciaran Pisano Position: S Outreach Member Role: PCP Address: Address: [address] [place] [address]- [place] Name: Sergei GARCIA, Julieta Gilmore Position: S OB RN Member Role: Primary Care Nurse Name: Alannah Koenig RN Position: S RN Member Role: Primary Care Nurse Name: Veena Beltre RN Position: S OB RN Member Role: Patient Care Provider Name: Lynne Marc Position: S OB RN Member Role: OB RN Care Team Related Persons Name: JERSON RESTREPO Address: home [address] [place] [id number] Name: IVONNE PENN Address: [id number] Address: [address] [place] [address] Name: ALEAH PENN Address: [address] [place] [address]
--- OUTSIDE RECORDS SUMMARY | 2023-12-05 19:46 | XMS_ITS | Continuity of Care Document ---
Author Organization [facility] Address [address] [place] [address]- Care Team Providers Care Architectural Draftsperson Name Role Phone Ciaran Pisano Primary Care Physician Encounter [facility] [place] Date(s): 12/09/22 - 01/08/[address] [id number] Allergies, Adverse Reactions, Alerts Substance [...] Refills, Maintenance, 12/14/22 23:08:00 EDT, Solution, [id number], Partial fill upon patient request if the [...] Care Team Personnel Name: Ciaran Pisano Position: [facility] Outreach Member Role: PCP Address: Address: [address] [place] [id number]- Name: Sergei GARCIA, Julieta Gilmore Position: [facility] OB RN Member Role: Primary Care Nurse Name: Alannah Koenig RN Position: S RN Member Role: Primary Care Nurse Care Team Related Persons Name: JERSON RESTREPO Address: home [address] [address] Name: ALEAH PENN Address: home [address] [place] [address]
--- OUTSIDE RECORDS SUMMARY | 2023-12-05 19:46 | XMS_ITS | Continuity of Care Document ---
Author Organization [facility] Address [address] [place] [id number]- Care Team Providers Care Medicaid Business Analyst Name Role Phone Ciaran Pisaon Primary Care Physician Encounter [facility] [place] Date(s): 12/14/22 - 12/14/[address] [address]- Encounter Diagnosis Asthma exacerbation(Final) - 12/14/22 Discharge Disposition: A-D/C Home Attending Physician: Christophe Lobo MD Admitting Physician: Christophe Lobo MD Referring Physician: Not on Staff, Referring [...] Refills, Maintenance, 12/14/22 23:08:00 EDT, Solution, [id number], Partial fill upon patient request if the [...] 01/04/23 10:03:00 EDT, 12/05/22 10:03:00 EDT, Tablet, [facility]/pharmacy #[id number], Partialfill upon patient request if the prescription is fo... Start Date: 12/05/22 Stop Date: 01/04/23 Status: Ordered famotidine 20 mg oral tablet 20 mg, 1, tablet, By Mouth, Daily, # 30 tablet, Refills 0, Tot. Refills 0, Maintenance, 07/31/22 13:01:00 EST, Route to Pharmacy Electronically, [facility]/pharmacy #[id number], Partial fill upon patient request [...] Refills, Maintenance, 07/31/22 13:01:00 EST, DIS Tablet, [facility]/pharmacy #[id number], Partial fill upon patient request Start Date: 07/31/22 Stop Date: 08/03/22 Status: Ordered predniSONE 20 mg oral tablet 3 tablet = 60 mg, By Mouth, Daily, for 4 days, # 12 tablet, 0 Refills, Acute 12/18/22 23:08:00 EDT,12/14/22 23:08:00 EDT, Tablet, [facility]/pharmacy #[id number], Partial fill upon patient request if the prescription is for a schedule II opioid drug., 148, cm, 05... Start Date: 12/14/22 Stop Date: 12/18/22 Status: Ordered Symbicort 160mcg/4.5mcg Inhaler TAKE 2 PUFFS BY MOUTH TWICE A DAY Start Date: 09/11/19 Status: Ordered Vitamin B6 50 mg oral tablet 50 mg, 1, tablet, By Mouth, 3 times a day, for 30 days, # 90 tablet, Refills 0, Tot. Refills 0, Acute 01/04/23 10:03:00 EDT, 12/05/22 10:03:00 EDT, Route to Pharmacy Electronically, [facility]/pharmacy #[id number], Partial fill upon patient request if the [...] oldest [Reference Range]: 1 2 3 Height 148 cm (12/14/22 8:09 PM) Oxygen Saturation [94-100 %] 100 % (12/14/22 11:16 PM) 99 % (12/14/22 9:39 PM) 100 % (12/14/22 7:53 PM) Pulse Rate [55-90 bpm] 102 bpm *H* (12/14/22 11:16 PM) 86 bpm (12/14/22 9:39 PM) 92 bpm *H* (12/14/22 7:53 PM) Blood Pressure [90-138/55-84 mm Hg] 116/72mm Hg (12/14/22 11:16 PM) 105/72mm Hg (12/14/22 9:39 PM) 129/105mm Hg (12/14/22 7:53 PM) Respiratory Rate [16-30 br/min] 18 br/min (12/14/22 11:16 PM) 19 br/min (12/14/22 9:39 PM) 16 br/min (12/14/22 7:53 PM) Temperature [96.8-100.4 DegF] 97.6 DegF (12/14/22 7:53 PM) Mode of Delivery (Oxygen) Room air (12/14/22 11:16 PM) Room air (12/14/22 9:39 PM) Room air (12/14/22 7:53 PM) Blood pressure sites Arm, left (12/14/22 11:16 PM) Arm, left (12/14/22 9:39 PM) Arm, left (12/14/22 7:53 PM) Temperature Route Oral (12/14/22 7:53 PM) Social History Social History Type Response Smoking Status Never (less than 100 in lifetime) entered on: 08/06/18 Sex Female Note * Terrence Arora DO: PERFORM Event Display: Patient Education Leaflets Authored Date: [id number] Asthma (Adult) ?? [id number] Asthma (Adult) Asthma is a disease where the medium and??small air passages in the lung go into spasm. This limitsair flow. Inflammation and swelling of the airways cause more blockage. During an acute asthma attack, these things cause trouble breathing, wheezing, coughing, and chest tightness. An asthma attack can be triggered by many things. Common triggers include infections such as the common cold, bronchitis, and pneumonia. Irritants such as smoke or pollutants in the air, very cold air, strong emotions, and exercise can also trigger an attack. In??many adults with asthma, allergies to??dust, mold, pollen, and animal dander can cause an asthma attack. Skipping doses of daily asthmamedicine can also bring on an asthma attack. Asthma can be controlled using the??correct medicines prescribed by your healthcare provider. You can also control it by staying away from known triggers including allergens and irritants. Home care ??? Take prescribed medicine exactly as advised. Ask your healthcare team for help if youhave questions about how to use your inhaler or nebulizer. ??? Call your provider or get medical care right away if you need quick-relief medicine such as from an inhaler or aerosol breathing machine(nebulizer) more often than prescribed.. ??? If you are prescribed an antibiotic or the steroid prednisone, take all of the medicine as prescribed. Keep taking it even if you are feeling better aftera few days. ??? Don't smoke. Ask your provider for resource, such as organizations and websites to help you quit. Stay away from the smoke of others. Don't let anyone smoke in your home, in your car,or around you. Also don't use e-cigarettes. ??? Some people with asthma find their symptoms get worse when they take aspirin and nonsteroidal anti-inflammatory drugs (NSAIDs) or fever-reducing medicines such as ibuprofen and naproxen. Talk with your provider if you think this may apply to you. ??? Stay away from your asthma triggers. ?? Follow-up care Follow up with your healthcare provider, or as advised. Always bring all of your current medicines to any appointments with your provider. Also bring a complete list of medicines, even??those you take for other conditions. Bring your Asthma Action Plan to all appointments. If you don't have one, talk with your provider about making your own Asthma Action Plan. Get the COVID-19 vaccine, pneumonia (pneumococcal)??vaccine, and yearly flu shot (every fall). Ask your provider about this. ?? When to get medical care Call your healthcare provider right away if any of these occur:? More wheezing or shortness ofbreath ??? Waking up at night because of asthma symptoms ??? Need to use your quick-relief inhaler more often than normal without relief ??? Fever of 100.4??F (38??C) or higher, or as advised by yourprovider ??? Coughing up lots of dark-colored or bloody sputum (mucus) ??? Chest pain with each breath ??? If you use a peak flow meter as part of an Asthma Action Plan, and you are still in the yellow zone (50% to 79% of personal best) 15 minutes after using quick-relief inhaler medicine. ?? Call 911 Call 911 right away if any of these occur: ??? Trouble walking or talking because you're short of breath ??? If you use a peak flow meter as part of an Asthma Action Plan, and??you are still in the red zone (less than 50% of personal best) 15 minutes after using quick-relief inhaler medicine ??? Lips or fingernails turn ribera, purple, or blue ??? Feeling faint or loss of consciousness ?? Last Reviewed Date: 2021 ?? [employer], [employer] All rights reserved. This information is not intended as a substitute for professional medical care. Always follow your healthcare professional's instructions. ?? Patient Care team information Care Team Personnel Name: Ciaran Pisano Position: [facility] Outreach Member Role: PCP Address: Address: [address] [place] [id number]- Name: Julieta Mai RN Position: [facility] OB RN Member Role: Primary Care Nurse Name: Alannah Koenig RN Position: [facility] RN Member Role: Primary Care Nurse Name: Jd Mays Position: [facility] ED RN W/OE and Tasks Member Role: Patient Care Provider Name: Christophe Lobo MD Position: [facility] ED Medicine MD Member Role: Admitting Physician Address: Address: [address] [place] [address] Palliative [place] [address]- Name: Terrence Arora DO Position: [facility] Resident Member Role: ED Resident Address: Address: [address] [place] [address] [place] [address]- Name: Madeleine Hauser Position: [facility] ED TA [facility] Member Role: Patient Care Provider Care Team Related Persons Name: JERSON RESTREPO Address: home [address] [address] Name: ALEAH PENN Address: home [address] [place] [address]
== END 2023-12-05 19:43 | disposition left against medical advice (07) ==
LOC: HO.ED 19:40
PROVIDERS: Emergency Provider Emergency Medicine
DX: R11.10 Vomiting, unspecified (principal); R19.7 Diarrhea, unspecified
CPT/HCPCS: 0241U; 80053; 83690; 84702; 85025; 99281; 99283

== ENCOUNTER 2024-05-18 07:48 | Emergency (ER) | payer MEDICAID, SELFPAY ==
[2024-05-18 07:52] VITALS: BP 122/65; PULSE 68; RESP 20; TEMP 36.3; O2SAT 99; BMI 29.0
--- OUTSIDE RECORDS SUMMARY | 2024-05-18 08:16 | XMS_ITS | Continuity of Care Document ---
Author Organization [facility] Address [address] [place] [address]- Care Team Providers Care Shake Maker Name Role Phone Ciaran Pisano Primary Care Physician Encounter [facility] [place] Date(s): 02/02/23 - 03/04/[address] [id number] Allergies, Adverse Reactions, Alerts Substance Reaction Severity [...] 3 Refills, Maintenance, 12/14/22 23:08:00 EDT, Solution, [facility]/pharmacy #[id number], Partial fill upon patient request if the [...] 02/17/23 9:58:00 EDT, Route to Pharmacy Electronically, [facility]/pharmacy #[id number], Partial fill upon patient request if the prescription... Start Date: 02/17/23 Status: Ordered famotidine 20 mg oral tablet 1, tablet, By Mouth, Daily, # 30 tablet, Refills 0, Maintenance, 02/20/23 11:18:00 EDT, Route to Pharmacy Electronically, [facility] STORE [id number], 148, cm, 02/17/23 9:30:00 EDT, Height, 60.3, kg, 02/11/23 8:59:00 EDT, Dry Weight Start Date: 02/20/23 Stop Date: 03/22/23 Status: Ordered Latuda 20 mg oral tablet 1 tablet = 20 mg, By Mouth, Daily, # 30 tablet, 0 Refills, Maintenance, 01/19/23 10:08:00 EDT, Tablet, [facility]/pharmacy #[id number], Partial fill upon patient request if the prescription is for a schedule II opioid drug., 148, cm, 01/19/23 9:06:00 EDT, Height,... Start Date: 01/19/23 Status: Ordered M-Rose Marie Plus oral tablet 1 tablet, By Mouth, Daily, # 90 tablet, 3 Refills, Maintenance, 12/28/22 9:02:00 EDT, [facility]/pharmacy #[id number], Partial fill upon patient [...] Refills, Maintenance, 02/17/23 9:58:00 EDT, REC Powder, [facility]/pharmacy #[id number], Partial fill upon patient request if the... Start Date: 02/17/23 Status: Ordered ondansetron 4 mg oral tablet, disintegrating 1 tablet = 4 mg, By Mouth, Every 6 hours, PRN as needed for nausea/vomiting, # 120 tablet, 1 Refills, Maintenance, 02/17/23 9:55:00 EDT, DIS Tablet, [facility]/pharmacy #[id number], Partial fill upon patient request, [...] 10:08:00 EDT, Inhaler, Route to Pharmacy Electronically, [id number], [facility]/pharmacy #[id number], 148,... Start Date: 01/19/23 Status: Ordered Unisom 25 mg oral tablet 1 tablet = 25 mg, By Mouth, Daily, PRN as needed for sleep, 15 to 30 minutes before bed, # 14 tablet, 0 Refills, Maintenance, 01/19/23 10:26:00 EDT, Tablet, [facility]/pharmacy #[id number], Partial fill upon patient [...] Care Team Personnel Name: Ciaran Pisano Position: [facility] Outreach Member Role: PCP Address: Address: [address] [place] [address]- Name: Sergei GARCIA, Julieta Gilmore Position: [facility] OB RN Member Role: Primary Care Nurse Name: Alannah Koenig RN Position: [facility] RN Member Role: Primary Care Nurse Care Team Related Persons Name: JERSON RESTREPO Address: home [address] [address] Name: ALEAH PENN Address: home [address] [place] [address]
--- NOTE | 2024-05-18 08:48 | PC.NURSE ---
pt a&ox3, c/o 6-02/06 back pain, pt states she is unable to give a urine and that she usually only urinates twice a day and she went this morning already, pt also states she has a hysterectomy and does not need a urpreg.
--- NOTE | 2024-05-18 09:14 | ED_ITS ---
HPI - Back Pain/Injury General Chief Complaint: Back Pain/Injury Stated Complaint: Kidney pain Time Seen by Provider: 05/18/24 09:02 Source: patient and RN notes reviewed Mode of arrival: ambulatory Limitations: no limitations History of Present Illness ED Provider: Tennille Thomas PA-C HPI Narrative: This is a 33-year-old female who presents emergency department with complaints of ongoing low back pain for the last 2 months. Patient states that over the last 2 months she has had low back pain, that was exacerbated after she was getting to stand up and fell landing onto her buttocks several weeks ago. Denies hitting head or LOC. She states that since this fall she has had a sharp pain in her back that radiates into her right anterior thigh. States that the pain is exacerbated with movements. Denies history of back pain in the past. She also reports that she has had decreased urination frequency. States that she has been drinking plenty of fluids however states that she is only urinating twice a day. She denies any dysuria, hematuria, or urinary urgency. Denies any saddle anesthesia. No chest pain or shortness for breath. No fevers, chills, abdominal pain, nausea or vomiting. Nine months ago she had a total hysterectomy after giving to her child due to placenta previa and other complications. She had a follow-up with her OBGYN with normal exam findings. She denies history of IVDA. No other complaints or concerns at this time. MD elicited complaint: back pain and back injury Pertinent past history: recent trauma Timing: constant Severity: moderate Quality: aching Location: lumbar spine, right lower back and left lower back Radiation: none Exacerbating factors: none Relieving factors: none Context: fall Associated symptoms: denies other symptoms Related Data Allergies Allergy/AdvReac Type Severity Reaction Status Date / Time lactose [LACTOSE] Allergy Unknown UNKNOWN Verified 05/18/24 07:58 mushroom [MUSHROOM] Allergy Unknown ANGIOEDEMA Verified 05/18/24 07:58 peanut [PEANUT] Allergy Unknown ANGIOEDEMA Verified 05/18/24 07:58 Penicillins [PCN] Allergy Unknown ANGIOEDEMA Verified 05/18/24 07:58 sulfamethoxazole Allergy Unknown UNKNOWN Verified 05/18/24 07:58 [From BACTRIM] trimethoprim [From BACTRIM] Allergy Unknown UNKNOWN Verified 05/18/24 07:58 SEAFOOD Allergy Unknown ANGIOEDEMA Uncoded 12/05/23 10:15 Review of Systems 2 Review of Systems: Yes all other systems are reviewed and are negative Constitutional: Constitutional: Reports as per [facility] Past Medical History Attestation statement: The following information was validated with the patient. Social History Social History Advance Directives: No Advance Directives Information Provided: No Do you have a plan to hurt others: No Plan Physical Exam 2 Vital Signs: Vital Signs: Last Vital Signs Temp 97.9 F 05/18/24 10:34 Pulse 62 05/18/24 10:34 Resp 18 05/18/24 10:34 BP 126/66 05/18/24 10:34 Pulse Ox 99 05/18/24 10:34 O2 Del Method Room Air 05/18/24 10:34 BMI result Body Mass Index 29.0 Const: General: cooperative, comfortable and no acute distress O rientation/consciousness: patient oriented x3 Limitations: no limitations HEENT: Head: Yes normal to inspection, Yes normocephalic and Yes atraumatic Ears: hearing grossly normal bilaterally General nose exam: Normal external nose present Face and sinus: Yes normal facial exam Mouth: Normal oral and palatal mucosa present, oropharynx normal and moist mucous membranes Throat: Yes posterior oropharynx normal Eyes: General: appearance normal, both eyes and all related structures E yelids: Yes eyelids normal Conjunctivae: conjunctivae normal Sclerae: s clerae normal Pupils: Equal, round and reactive pupils present EOM: EOMs intact bilaterally Neck: Neck: Yes normal visual inspection, Yes full ROM and Yes no lymphadenopathy Lymphatic: no lymphadenopathy noted Chest: Chest palpation & inspection: normal inspection of the chest Resp: Effort & Inspection: normal respiratory effort and able to speak in complete sentences Auscultation: clear to auscultation bilaterally, no crackles, no rales, no rhonchi and no wheezes Cardio: Rate: regular rate Rhythm: regular rhythm Heart sounds: S1 normal heart sound present and S2 normal heart sound present GI: Other: Abdomen is soft, nontender, nondistended Inspection: Yes normal to inspection : General: Yes no CVA tenderness Back/Spine/Pelvis: Other: Tenderness palpation along the lumbar paraspinous muscles, patient is ambulatory with steady gait. Strength 5/5 in lower extremities. No midline spine tenderness. Back: no CVA tenderness Cervical Spine: normal cervical lordosis T horacic/Lumbar Spine: thoracic and lumbar spine normal to inspection Skin: General skin exam: no rashes or lesions noted Trauma: no lacerations or abrasions Wounds: no wounds Neuro: General: patient oriented x3 and moves all extremities Cranial nerves: Yes Equal, round and reactive pupils present Extrem: General: Yes normal to inspection Right upper extremity: normal to inspection Left upper extremity: normal to inspection Right lower extremity: normal to inspection Left lower extremity: normal to inspection Course Reevaluation(s) Reevaluation #1: Urine unremarkable. Blood work revealing normal kidney function, and no electrolyte derangement. Discussed findings with patient. She will follow-up with her PCP. She declines Lidoderm patches at this time. She has no red flag back symptoms therefore she is stable for discharge. Vital signs within normal limits. She is ambulatory with steady gait. Patient stable for discharge. Medical Decision Making Medical Decision Making [facility] Narrative: This is a 33-year-old female who presents emergency department with complaints of bilateral low back pain for the last 2 months. On arrival, vital signs within normal limits. She is speaking full sentences under no acute distress. She has tenderness palpation along the lumbar paraspinous muscles, no midline spine tenderness. She has no history of IVDA. No saddle anesthesia. No urinary or bowel incontinence. She expresses decreased urination the last 2 months. Her abdomen is soft and nontender. Differential diagnoses include lumbar strain, spasm, lumbar radiculopathy. Will obtain basic labs to ensure normal kidney function due to decreased urination. This patient presents with back pain most consistent with lumbar muscle spasms. Differential diagnoses includes lumbago versus musculoskeletal spasm / strain versus sciatica.No back pain red flags on history or physical. Presentation not consistent with malignancy (lack of history of malignancy, lack of B symptoms), fracture (no bony tenderness to palpation), cauda equina syndrome (no bowel or urinary incontinence/retention, no saddle anesthesia, no distal weakness), pyelonephritis (afebrile, no CVAT, no urinary symptoms). Given the clinical picture, no indication for imaging at this time. Plan: Labs, UA Differential Diagnosis Differential Diagnoses: The differential diagnosis associated with the presentation includes see above Admission/Observation Consideration of admission/observation: Escalation of care including admission/observation considered Lab Data [facility] Lab Attestation statement: I reviewed the patient's lab results. 05/18/24 09:35 05/18/24 09:35 Labs: Lab Results 05/18/24 05/18/24 Range/Units 09:35 09:49 WBC 8.8 (4.8-10.8) X10*3/uL RBC 5.08 (4.20-5.50) X10*6/uL Hgb 14.5 (12.0-16.0) g/dl Hct 44.3 (37.0-47.0) % MCV 87.2 (80.0-98.0) fL MCH 28.5 (27.0-33.0) pg MCHC 32.7 (31.0-35.0) g/dl RDW 14.9 (11.0-16.0) % Plt Count 271 (160-400) X10*3/uL MPV 10.5 (9.4-12.3) fL Immature Gran % (Auto) 0.3 (0.0-0.4) % Neut % (Auto) 53.1 (45-73) % Lymph % (Auto) 33.7 (20-40) % [place] % (Auto) 5.5 (2-11) % Eos % (Auto) 7.1 H (0-4) % Baso % (Auto) 0.3 (0-2) % Lymph # (Auto) 3.0 (1.2-4.9) X10*3/uL [place] # (Auto) 0.5 (0.1-1.2) X10*3/uL Eos # (Auto) 0.6 H (0.0-0.4) X10*3/uL Baso # (Auto) 0.0 (0.0-0.2) X10*3/uL Abs Immat Gran (auto) 0.03 (0.00-0.03) X10*3/uL Absolute Neuts (auto) 4.7 (2.0-8.3) x10*3/uL Absolute Nucleated RBC 0.000 (0.0-0.012) X10*3/uL Nucleated RBC % (auto) 0.0 (0.0-0.2) /100WBC Sodium 140 (135-145) mmol/L Potassium 4.1 (3.3-5.1) mmol/L Chloride 110 H (96-108) mmol/L Carbon Dioxide 24 (22-29) mmol/L Anion Gap 10 L (12-20) BUN 8 L (9-16) mg/dL Creatinine 0.67 (0.5-1.4) mg/dL Estim Creat Clear Calc 85.3 Estimated GFR > 60 Random Glucose 85 (60-115) mg/dL Calcium 9.4 (8.4-10.2) mg/dL Total Bilirubin 0.3 (0.0-1.0) mg/dL AST 15 (5-31) U/L ALT 11 (0-31) U/L Alkaline Phosphatase 80 (39-117) U/L Total Protein 7.2 (6.5-8.0) g/dL Albumin 4.3 (3.5-5.0) g/dL Urine Color Yellow Urine Appearance Cloudy Urine pH 5.5 (5.0-9.0) Ur Specific [place] 1.020 (1.005-1.025) Urine Protein Negative (Neg-Trace) mg/dL Urine Glucose (UA) Negative (Negative) mg/dL Urine Ketones Negative (Negative) mg/dL Urine Blood Negative (Negative) Urine Nitrite Negative (Negative) Ur Leukocyte Esterase Negative (Negative) Radiology Impression Discussion of test interpretation with radiology: I have reviewed the radiologist's reading. External Record Review External record reviewed: Inpatient record, Office record, Outpatient record, Prior outpatient labs, Prior outpatient radiology, Primary care record and Outside ED record Discharge Plan Discharge Clinical Impression: Strain of lumbar region Patient Disposition: Home, Self-Care Instructions: Acute Low Back Pain (ED), Back Pain (ED) Additional Instructions: You were seen in the emergency room due to back pain. You likely have muscle strains to your back, very important to continue taking Tylenol, applying heat or ice, and taking Epson salt baths as needed. Drink plenty of fluids get plenty of rest. Follow-up with your primary care physician regarding this visit. Therapy can be beneficial, they can refer you from your primary care office. If any new or worsening symptoms occur including but not limited to worsening pain, chest pain, shortness for breath, numbness and tingling into your groin, inability to urinate, please seek emergent care. Interventions: ED Discharge Assessment Last Done: 05/18/24 10:34 Discharge Date/Time: 05/18/24 10:35 Print Language: Kinyarwanda
[2024-05-18 09:40] LABS: MANUAL DIFF FLAG NO
[2024-05-18 09:54] LABS: Alanine Aminotransferase 11 U/L (0-31); Albumin Level 4.3 g/dL (3.5-5.0); Alkaline Phosphatase 80 U/L (39-117); Anion Gap 10 (12-20); Aspartate Amino Transferase 15 U/L (5-31); Bilirubin Total 0.3 mg/dL (0.0-1.0); Blood Urea Nitrogen 8 mg/dL (9-16); Calcium 9.4 mg/dL (8.4-10.2); Carbon Dioxide 24 mmol/L (22-29); Chloride 110 mmol/L (96-108); Creatinine Clr Calc Pharmacy 85.3; Estimated Glomerular Filt Rate > 60; Glucose Random 85 mg/dL (60-115); Potassium 4.1 mmol/L (3.3-5.1); Sodium 140 mmol/L (135-145); Total Protein 7.2 g/dL (6.5-8.0)
[2024-05-18 10:04] LABS: Basophils Percent Auto 0.3 % (0-2); Eosinophils Absolute Auto 0.6 X10*3/uL (0.0-0.4); Eosinophils Percent Auto 7.1 % (0-4); Hematocrit 44.3 % (37.0-47.0); Hemoglobin 14.5 g/dl (12.0-16.0); Imm Gran Abs Auto 0.03 X10*3/uL (0.00-0.03); Imm Gran Pct Auto 0.3 % (0.0-0.4); Lymphocytes Percent Auto 33.7 % (20-40); Mean Corpuscular HGB Conc 32.7 g/dl (31.0-35.0); Mean Corpuscular Hemoglobin 28.5 pg (27.0-33.0); Mean Corpuscular Volume 87.2 fL (80.0-98.0); Mean Platelet Volume 10.5 fL (9.4-12.3); Monocytes Absolute Auto 0.5 X10*3/uL (0.1-1.2); Monocytes Percent Auto 5.5 % (2-11); Neutrophils Absolute Auto 4.7 x10*3/uL (2.0-8.3); Neutrophils Percent Auto 53.1 % (45-73); Platelet Count 271 X10*3/uL (160-400); Red Blood Count 5.08 X10*6/uL (4.20-5.50); Red Cell Distribution Width 14.9 % (11.0-16.0); White Blood Count 8.8 X10*3/uL (4.8-10.8)
[2024-05-18 10:12] LABS: Appearance Urine Cloudy; Color Urine Yellow; Glucose Urine UA Negative (Negative); Leukocyte Esterase Urine Negative (Negative); Nitrite Urine Negative (Negative); PH 5.5 (5.0-9.0); Urine Blood Negative (Negative); Urine Ketones Negative (Negative); Urine Protein Negative (Neg-Trace)
[2024-05-18 10:34] VITALS: BP 126/66; PULSE 62; RESP 18; TEMP 36.6; O2SAT 99
== END 2024-05-18 10:35 | disposition home or self-care (01) ==
PROVIDERS: Physician Assistant; Physician Assistant Medical; Emergency Provider Emergency Medicine
DX: S39.012A Strain of muscle, fascia and tendon of lower back, initial encounter (principal); W18.39XA Other fall on same level, initial encounter; Y93.89 Activity, other specified; Y92.019 Unspecified place in single-family (private) house as the place of occurrence of the external cause; Y99.9 Unspecified external cause status
CPT/HCPCS: 36415; 80053; 81003; 85025; 99282; 99283

== ENCOUNTER 2025-07-09 12:10 | Emergency (ER) | payer MEDICAID, SELFPAY ==
--- OUTSIDE RECORDS SUMMARY | 2025-07-06 16:03 | XMS_ITS | Continuity of Care Document ---
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 Date(s): 07/06/25 - 07/06/[address] [address]- Discharge Disposition: A-D/C Walkout Attending Physician: Not on Staff, Attending MD Admitting Physician: Not on Staff, Admitting MD Referring Physician: Not on Staff, Referring MD Encounter Type: Disch ES Allergies, Adverse Reactions, Alerts Substance Criticality Severity Reaction Reaction Severity Status penicillin Swelling Active Lactose Active sulfADIAZINE Swelling Active shellfish throat swelling Active Bactrim Rash Active Peanuts Throat Swelling Active Seafood throart swelling Active Mushroom Throat swelling Active Estradiol Patch Unable to assess criticality Persistent Mild bleeding to patch area area Active Immunizations Given and Recorded Vaccine Date Status Refusal Reason tetanus/diphtheria/pertussis, acel(Tdap) 05/09/23 Given tetanus/diphtheria/pertussis, acel(Tdap) 04/10/17 Given tetanus/diphtheria/pertussis, acel(Tdap) 12/09/13 Given influenza virus vaccine, inactivated 05/09/23 Give n influenza virus vaccine, inactivated 12/17/13 Give n Influenza Inactive (IM) (oldterm) 05/12/17 Given tetanus-diphtheria toxoids (Td) 1 09/07/10 Given 1Admin Note: vis given Medications acetaminophen 325 mg oral capsule 2 capsule = 650 mg, By Mouth, Every 4 hours, PRN as needed for pain, # 50 tablet, 0 Refills, Maintenance, 07/08/23 3:13:00 PM EST, Capsule, [id number], Partial fill upon patient request if theprescription is for a schedule II opioid drug., 142, cm, 07/01/23 10:05:00 EST, Height, 70.9, kg, 07/03/23 7:54:00 EST, Dry Weight Start Date: 07/08/23 Status: Ordered Medication Dispense Status: Completed Quantity: 50.0 Unit: tablet Total Allowed Fills: 1 Fills Dispensed: 0 acetaminophen 325 mg oral capsule 2 capsule = 650 mg, By Mouth, Every 4 hours, PRN as needed for pain, # 50 tablet, 0 Refills, Maintenance, 07/08/23 3:20:00 PM EST, Capsule, [facility][id number], Partial fill upon patient request if the prescription is for a schedule II opioid drug., 142, cm, 07/01/23 10:05:00 EST, Height, 70.9, kg, 07/03/23 7:54:00 EST, Dry Weight Start Date: 07/08/23 Status: Ordered Medication Dispense Status: Completed Quantity: 50.0 Unit: tablet Total Allowed Fills: 1 Fills Dispensed: 0 albuterol 0.083% inhalation solution 3 mL = 2.5 mg, Neb, Every 4 hours, PRN as needed for wheezing, # 100 each, 3 Refills, Maintenance, 12/14/22 11:08:00 PM EDT, Solution, [facility][id number], Partial fill upon patient request if the prescription is for a schedule II opioid drug., 148, cm, 12/14/22 20:09:00 EDT, Height, 60.6, kg, 08/02/22 16:02:00 EST, Dry Weight Start Date: 12/14/22 Stop Date: 04/13/23 Status: Ordered Medication Dispense Status: Completed Quantity: 100.0 Unit: each Total Allowed Fills: 4 Fills Dispensed: 0 albuterol CFC free 90 mcg/inh inhalation aerosol INHALE 2 PUFFS INTO THE LUNGS EVERY 4 (FOUR) HOURS NEEDED FOR SHORTNESS OF BREATH OR WHEEZING Start Date: 09/11/19 Status: Ordered Medication Dispense Status: Completed Total Allowed Fills: 1 Fills Dispensed: 0 cloNIDine 0.1 mg oral tablet 0.1 mg, 1, tablet, By Mouth, 2 times a day, PRN, Refills 0, Maintenance, Anxiety, 07/03/23 8:21:00 AM EST, Partial fill upon patient request if the prescription is for a schedule II opioid drug. Start Date: 07/03/23 Status: Ordered Medication Dispense Status: Completed Total Allowed Fills: 1 Fills Dispensed: 0 Colace sodium 100 mg oral capsule 100 mg, 1, capsule, By Mouth, 2 times a day, PRN, # 20 capsule, Refills 0, Tot. Refills 0, Maintenance, for constipation, 07/08/23 3:14:00 PM EST, Route to [facility] Electronically, [id number] fill upon patient request if the prescription is for a schedule II opioid drug., 142, cm, 07/01/23 10:05:00 EST, Height, 70.9, kg, 07/03/23 7:54:00 EST, Dry Weight Start Date: 07/08/23 Status: Ordered Medication Dispense Status: Completed Quantity: 20.0 Unit: capsule Total Allowed Fills: 1 Fills Dispensed: 0 Colace sodium 100 mg oral capsule 100 mg, 1, capsule, By Mouth, 2 times a day, PRN, # 20 capsule, Refills 0, Tot. Refills 0, Maintenance, for constipation, 07/08/23 3:20:00 PM EST, Route to Pharmacy Electronically, [facility] #[id number], Partial fill upon patient request if the prescription is for a schedule II opioid drug., 142, cm, 07/01/23 10:05:00 EST, Height, 70.9, kg, 07/03/23 7:54:00 EST, Dry Weight Start Date: 07/08/23 Status: Ordered Medication Dispense Status: Completed Quantity: 20.0 Unit: capsule Total Allowed Fills: 1 Fills Dispensed: 0 ibuprofen 600 mg oral tablet 600 mg, 1, tablet, By Mouth, Every 6 hours, # 50 tablet, Refills 0, Tot. Refills 0, Maintenance, 07/08/23 3:13:00 PM EST, Route to Pharmacy Electronically, [id number], Partial fill upon patient request if the prescription is for a schedule II opioid drug., 142, cm, 07/01/23 10:05:00 EST, Height, 70.9, kg, 07/03/23 7:54:00 EST, Dry Weight Start Date: 07/08/23 Status: Ordered Medication Dispense Status: Completed Quantity: 50.0 Unit: tablet Total Allowed Fills: 1 Fills Dispensed: 0 ibuprofen 600 mg oral tablet 600 mg, 1, tablet, By Mouth, Every 6 hours, # 50 tablet, Refills 0, Tot. Refills 0, Maintenance, 07/08/23 3:20:00 PM EST, Route to Pharmacy Electronically, [facility] #[id number], Partial fill upon patient request if the prescription is for a schedule II opioid drug., 142, cm, 07/01/23 10:05:00EST, Height, 70.9, kg, 07/03/23 7:54:00 EST, Dry Weight Start Date: 07/08/23 Status: Ordered Medication Dispense Status: Completed Quantity: 50.0 Unit: tablet Total Allowed Fills: 1 Fills Dispensed: 0 Latuda 20 mg oral tablet 1 tablet = 20 mg, By Mouth, Daily, # 30 tablet, 0 Refills, Maintenance, 01/19/23 10:08:00 AM EDT, Tablet, [id number], Partial fill upon patient request if the prescription is for a schedule IIopioid drug., 148, cm, 01/19/23 9:06:00 EDT, Height, 60.6, kg, 08/02/22 16:02:00 EST, Dry Weight Start Date: 01/19/23 Status: Ordered Medication Dispense Status: Completed Quantity: 30.0 Unit: tablet Total Allowed Fills: 1 Fills Dispensed: 0 M- Plus oral tablet 1 tablet, By Mouth, Daily, # 90 tablet, 3 Refills, Maintenance, 12/28/22 9:02:00 AM EDT, [id number], Partial fill upon patient request if the prescription is for a schedule II opioid drug., 1 tablet By Mouth Daily, 148, cm, 12/14/22 20:09:00 EDT, Height, 60.6, kg, 08/02/22 16:02:00 EST, Dry Weight Start Date: 12/28/22 Status: Ordered Medication Dispense Status: Completed Quantity: 90.0 Unit: tablet Total Allowed Fills: 4 Fills Dispensed: 0 Indications: Encounter for supervision of normal , unspecified, unspecified trimester; omeprazole 20 mg oral enteric coated capsule 1 capsule = 20 mg, By Mouth, 2 times a day, 30 min before a meal, # 60 capsule, 0 Refills, Maintenance, 04/14/23 7:04:00 PM EDT, [facility] #[id number], Partial fill upon patient request if the prescription is for a schedule II opioid drug., 148, cm, 04/14/23 9:34:00 EDT, Height, 63.6, kg, 03/22/23 14:27:00 EDT, Dry Weight Start Date: 04/14/23 Status: Ordered Medication Dispense Status: Completed Quantity: 60.0 Unit: capsule Total Allowed Fills: 1 Fills Dispensed: 0 ondansetron 4 mg oral tablet, disintegrating 1 tablet = 4 mg, By Mouth, Every 6 hours, PRN as needed for nausea/vomiting, # 30 tablet, 0 Refills, Maintenance, 04/10/23 6:51:00 PM EDT, DIS Tablet, [facility] #[id number], Partial fill upon patient request, 148, cm, 03/14/23 11:37:00 EDT, Height, 63.6, kg, 03/22/23 14:27:00 EDT, Dry Weight Start Date: 04/10/23 Status: Ordered Medication Dispense Status: Completed Quantity: 30.0 Unit: tablet Total Allowed Fills: 1 Fills Dispensed: 0 oxyCODONE 5 mg oral tablet 10 mg, 2, tablet, By Mouth, Every 6 hours, PRN, # 12 tablet, Refills 0, Tot. Refills 0, Maintenance, for pain, 07/08/23 3:13:00 PM EST, Route to Pharmacy Electronically, [facility] #[id number], Partial fill upon patient request if the prescription is for a schedule II opioid drug., 142, cm, 07/01/23 10:05:00 EST, Height, 70.9, kg, 12/04/23 7:54:00 EST, Dry Weight Start Date: 07/08/23 Status: Ordered Medication Dispense Status: Completed Quantity: 12.0 Unit: tablet Total Allowed Fills: 1 Fills Dispensed: 0 oxyCODONE 5 mg oral tablet 10 mg, 2, tablet, By Mouth, Every 6 hours, PRN, # 12 tablet, Refills 0, Tot. Refills 0, Maintenance, for pain, 07/08/23 3:20:00 PM EST, Route to Pharmacy Electronically, [facility] #[id number], Partial fill upon patient request if the prescription is for a schedule II opioid drug., 142, cm, 07/01/23 10:05:00 EST, Height, 70.9, kg, 07/03/23 7:54:00 EST, Dry Weight Start Date: 07/08/23 Status: Ordered Medication Dispense Status: Completed Quantity: 12.0 Unit: tablet Total Allowed Fills: 1 Fills Dispensed: 0 Sertraline By Mouth, Daily, 0 Refills, Maintenance, 01/19/23 9:07:00 AM EDT, Partial fill upon patient request if the prescription is for a schedule II opioid drug. Start Date: 01/19/23 Status: Ordered Medication Dispense Status: Completed Total Allowed Fills: 1 Fills Dispensed: 0 simethicone 125 mg oral tablet, chewable 1 tablet = 125 mg, Chew, 4 times a day, # 48 tablet, 0 Refills, Maintenance, 07/08/23 3:13:00 PM EST, Chew Tablet, [facility] #[id number], Partial fill upon patient request if the prescription is for a schedule II opioid drug., 142, cm, 07/01/23 10:05:00 EST, Height, 70.9, kg, 07/03/23 7:54:00 EST, Dry Weight Start Date: 07/08/23 Status: Ordered Medication Dispense Status: Completed Quantity: 48.0 Unit: tablet Total Allowed Fills: 1 Fills Dispensed: 0 simethicone 125 mg oral tablet, chewable 1 tablet = 125 mg, Chew, 4 times a day, # 48 tablet, 0 Refills, Maintenance, 07/08/23 3:20:00 PM EST, Chew Tablet, [facility] #[id number], Partial fill upon patient request if the prescription isfor a schedule II opioid drug., 142, cm, 07/01/23 10:05:00 EST, Height, 70.9, kg, 07/03/23 7:54:00 EST, Dry Weight Start Date: 07/08/23 Status: Ordered Medication Dispense Status: Completed Quantity: 48.0 Unit: tablet Total Allowed Fills: 1 Fills Dispensed: 0 Symbicort 160mcg/4.5mcg Inhaler 2, puffs, Inhalation, 2 times a day, TAKE 2 PUFFS BY MOUTH TWICE A DAY, # 3 each, Refills 0, Tot. Refills 0, Maintenance, 04/10/23 6:53:00 PM EDT, Inhaler, Route to Pharmacy Electronically, [id number], [facility] #[id number], 148, cm, 03/14/23 11:37:00 EDT, Height, 63.6, kg, 03/22/23 14:27:00 EDT, Dry Weight Start Date: 04/10/23 Status: Ordered Medication Dispense Status: Completed Quantity: 3.0 Unit: each Total Allowed Fills: 1 Fills Dispensed: 0 Unisom 25 mg oral tablet 1 tablet = 25 mg, By Mouth, Daily, PRN as needed for sleep, 15 to 30 minutes before bed, # 14 tablet, 0 Refills, Maintenance, 01/19/23 10:26:00 AM EDT, Tablet, [facility] #[id number], Partial fill upon patient request if the prescription is for a schedule II opioid drug., 148, cm, 01/19/23 9:06:00 EDT, H eight, 60.6, kg, 08/02/22 16:02:00 EST, Dry Weight Start Date: 01/19/23 Status: Ordered Medication Dispense Status: Completed Quantity: 14.0 Unit: tablet Total Allowed Fills: 1 Fills Dispensed: 0 Vitamin B6 50 mg oral tablet 1, tablet, By Mouth, 3 times a day, # 90 tablet, Refills 0, Maintenance, 03/06/23 7:49:00 AM EDT, Route to Pharmacy Electronically, [id number], 148, cm, 02/17/23 9:30:00 EDT, Height, 60.3, kg, 02/11/23 8:59:00 EDT, Dry Weight Start Date: 03/06/23 Status: Ordered Medication Dispense Status: Completed Quantity: 90.0 Unit: tablet Total Allowed Fills: 1 Fills Dispensed: 0 Mental Status Mental Status Assessment Assessment Assessment Component Result Effecti ve Date [place] coma score total 15 07/06/25 Problem List Condition Confirmation Course Effective Dates Status H ealth Status Informant Anemia in Confirmed Active Marijuana use Confirmed Active 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 Antibody screen positive, presumed to be due to prior RhoGAM Confirmed Active Subclinical hyperthyroidism Confirmed Active Vital Signs Most recent to oldest [Reference Range]: 1 Oxygen Saturation [94-100 %] 100 % (07/06/25 11:48 AM) Pulse Rate [55-90 bpm] 67 bpm (07/06/25 11:48 AM) Blood Pressure [90-138/55-84 mm Hg] 127/ 105mm Hg (07/06/25 11:48 AM) Respiratory Rate [16-30 br/min] 18 br/mi n (07/06/25 11:48 AM) Temperature [96.8-100.4 DegF] 97.5 DegF (07/06/25 11:48 AM) Mode of Delivery (Oxygen) Room air (07/06/25 11:48 AM) Blood pressure sites Arm, right (07/06/25 11:48 AM) Temperature Route Oral (07/06/25 11:48 AM) Social History Social History Type Response Tobacco Use: 4 or less cigar ettes(less than 1/4 pack)/day in last 30 days. Sexual Orientation Self described orien tation: ; Straight or heterosexual Sex Sex Representation Female (finding) Patient Care team information Care Team Personnel Name: Ciaran Pisano Position: [facility] Outreach Member Role: PCP Address: [address] [place] [address] Telecom: Care Team Related Persons Name: JERSON RESTREPO Name: ANUP LOUIS Name: ALEAH PENN Insurance Providers Guarantor name: IVONNE PENN [facility] Plan Information #: 1 Payer: [employer] Payer Identifier: NA Member Number: [id number] Group Number: [id number] Subscriber Identifier: [id number] Relationship to Subscriber: self Coverage Type: Self-pay (Includes applicants for insurance and Medicaid applicants) Coverage Verification Date: NA Telecom: NA Address: NA
--- NOTE | ~2025-07-09 | XR_ITS ---
EXAMINATION: XR ABDOMEN KUB CLINICAL INDICATION: recent dx of ileus, r/o SBO COMPARISON: None available. TECHNIQUE: AP view of the abdomen, supine. FINDINGS: The gas pattern is normal/nonspecific. No focally dilated loop. Moderate retained fecal burden in the colon. No organomegaly. Chester's lobe of the liver. Cholecystectomy clips present. No large abdominal mass. No abnormal soft tissue calcifications. Lung bases are clear. Bony structures are normal. XR/XR KUB IMPRESSION: No evidence of bowel obstruction or ileus. Moderate constipation. Electronically signed by: German Mcconnell MD 07/09/2025 01:58 PM EST
--- NOTE | 2025-07-09 12:12 | ECG_ITS ---
Test Reason : low hr Blood Pressure : */* mmHG Vent. Rate : 69 BPM Atrial Rate : 69 BPM P-R Int : 144 ms QRS Dur : 72 ms QT Int : 364 ms P-R-T Axes : 70 47 34 degrees QTcB Int : 390 ms Normal sinus rhythm Normal ECG No previous ECGs available Referred By: Tennille Melara Electronically Signed By: JAYLAN HURTADO MD
[2025-07-09 12:29] VITALS: BP 135/93; PULSE 75; RESP 18; TEMP 36.6; O2SAT 99; BMI 24.6
--- NOTE | 2025-07-09 12:31 | ED_ITS ---
HPI - General Adult General Chief complaint: Abdominal Pain Stated complaint: abnormal labs and low hr w/ cp Time Seen by Provider: 07/09/25 16:16 History of Present Illness ED Provider: Carleen EPPERSON narrative: the patient is a 34-year-old woman who comes to the emergency room for evaluation of abdominal symptoms that has been bothering her for 2 years. Apparently she was at the emergency room at [facility] 3 days ago because of abdominal pains that has been bothering her for 2 years. She says that when she was in the emergency room she received lots of medications including morphine for her pain. She also had a CT scan of the abdomen and pelvis that showed no definite acute findings but showed a possible ileus. The patient was advised to be hospitalized for pain control she says but left AMA because she had to care for her children. She followed up with the primary care doctor who told her to return to the emergency room to make sure she did not need to be hospitalized for anything and so she presented here today. The patient continues to complain of abdominal pain that has been bothering her for 2 years, ever since she has a hysterectomy. Since leaving the [facility] Emergency room she has not had any vomiting. Related Data Previous Rx's ?Medication ?Instructions ?Recorded famotidine 40 mg tablet (Pepcid) 40 mg PO DAILY #30 ta bs 07/09/25 sucralfate 1 gram tablet 1 g PO BID PRN abdominal pa in #60 07/09/25 tabs Allergies Allergy/AdvReac Type Severity Reaction Status Date / Time lactose (LACTOSE) Allergy Unknown UNKNOWN Verified 07/09/25 12:33 mushroom (MUSHROOM) Allergy Unknown ANGIOEDEMA Verified 07/09/25 12:33 peanut (PEANUT) Allergy Unknown ANGIOEDEMA Verified 07/09/25 12:33 Penicillins (PCN) Allergy Unknown ANGIOEDEMA Verified 07/09/25 12:33 sulfamethoxazole (From Allergy Unknown UNKNOWN Verified 07/09/25 12:33 BACTRIM) trimethoprim (From BACTRIM) Allergy Unknown UNKNOWN Verified 07/09/25 12:33 SEAFOOD Allergy Unknown ANGIOEDEMA Uncoded 12/05/23 10:15 Review of Systems 2 Review of Systems: Yes all other systems are reviewed and are negative PMFSH Social History Social History Advance Directives: No Advance Directives Information Provided: No Do you have a plan to hurt others: No Plan Physical Exam ED Vital Signs: Vital Signs - 24 hr 07/09/25 12:29 Temperature 97.8 F Pulse Rate 75 Respiratory Rate 18 Blood Pressure 135/93 H Pulse Oximetry 99 Oxygen Delivery Method Room Air BMI result Body Mass Index 24.6 Const Other: the patient is a 34-year-old woman who was awake and alert. She does not appear in any distress. She looks comfortable. Orientation/consciousness: patient oriented x3 HENMT Other: The face is symmetrical. Mucous membranes moist. Eyes Other: Pupils are round equal, conjunctivae are clear, extraocular movements intact Neck Neck: Yes normal visual inspection and Yes full ROM Resp Effort & Inspection: normal respiratory effort Auscultation: clear to auscultation bilaterally Cardio Rate: regular rate Rhythm: regular rhythm Heart sounds: S1 normal heart sound present and S2 normal heart sound present GI Other: Abdomen is flat, soft, nontender Skin Other: The skin is dry and unremarkable Neuro General: patient oriented x3, moves all extremities, no focal motor deficits and CN's II-XI intact bilaterally Extrem Other: There is no calf swelling or tenderness. No asymmetry. No peripheral edema. Course Course Course Narrative: This is an RME: Additional HPI, ROS, PE not included below will be deferred to primary provider. RME assessment and note performed by: Tennille Melara PA-C This is a 68-dr[age]-ozs-female, with a hx of PTSD, anxiety, asthma, depression, who presents to the ER with complaints of abdominal pain and chest pain. No BM since monday. Patient was seen at [facility] ED and was needing admission for low heart rate, and ileus however left AMA on Monday due to lack of childcare. No vomiting, last bowel movement was on Monday. Abdomen is soft, nontender. Plan: Labs, KUB, UA, further ER evaluation needed. Medical Decision Making Medical Decision Making MDM Narrative: The patient is a 34-year-old woman who was here at the advice of her primary care provider. The patient was seen a few days ago at [facility] for what sounds like chronic abdominal pains that has been bothering the patient for 2 years. Apparently there was a recommendation for hospitalization at [facility] but the patient left AMA because she had to care for her children. The patient was able to show me on her phone the results of the CAT scan at [facility]. This indicated that there were no definite acute findings but there was a possible question of some degree of mild ileus. Currently the patient looks entirely well. Since the CAT scan at [facility] seems essentially negative (based on my reading of the radiology reading) And given the patient has Unremarkable labs I do not think any additional abdominal workup was necessary today. Apparently the patient was also bradycardic at the [facility] emergency room. Here the patient is not Bradycardic and has a completely normal EKG. Overall today the patient looks entirely well and does not seem to require any additional testing or treatment in the emergency room. The patient seems to have chronic abdominal pains which probably need an outpatient workup. I will start the patient on famotidine and sucralfate in case there may be some element of gastritis. Lab Data 07/09/25 13:17 07/09/25 13:17 Labs: Lab Results 07/09/25 Range/Units 13:17 WBC 8.5 (4.8-10.8) X10*3/uL RBC 4.32 (4.20-5.50) X10*6/uL Hgb 13.0 (12.0-16.0) g/dl Hct 38.4 (37.0-47.0) % MCV 88.9 (80.0-98.0) fL MCH 30.1 (27.0-33.0) pg MCHC 33.9 (31.0-35.0) g/dl RDW 14.8 (11.0-16.0) % Plt Count 280 (160-400) X10*3/uL MPV 9.8 (9.4-12.3) fL Immature Gran % (Auto) 0.2 (0.0-0.4) % Neut % (Auto) 47.0 (45-73) % Lymph % (Auto) 40.8 H (20-40) % [place] % (Auto) 4.8 (2-11) % Eos % (Auto) 6.7 H (0-4) % Baso % (Auto) 0.5 (0-2) % Lymph # (Auto) 3.5 (1.2-4.9) X10*3/uL [place] # (Auto) 0.4 (0.1-1.2) X10*3/uL Eos # (Auto) 0.6 H (0.0-0.4) X10*3/uL Baso # (Auto) 0.0 (0.0-0.2) X10*3/uL Abs Immat Gran (auto) 0.02 (0.00-0.03) X10*3/uL Absolute Neuts (auto) 4.0 (2.0-8.3) x10*3/uL Absolute Nucleated RBC 0.000 (0.0-0.012) X10*3/uL Nucleated RBC % (auto) 0.0 (0.0-0.2) /100WBC Sodium 138 (135-145) mmol/L Potassium 3.7 (3.3-5.1) mmol/L Chloride 108 (96-108) mmol/L Carbon Dioxide 27 (22-29) mmol/L Anion Gap 7 L (12-20) BUN 10 (9-16) mg/dL Creatinine 0.57 (0.5-1.4) mg/dL Estim Creat Clear Calc 100.6 Estimated GFR > 60 Random Glucose 100 (60-115) mg/dL Calcium 8.5 D (8.4-10.2) mg/dL Magnesium 1.9 (1.6-2.6) mg/dL Total Bilirubin 0.4 (0.0-1.0) mg/dL Direct Bilirubin 0.1 (0.0-0.5) mg/dL AST 20 (5-31) U/L ALT 67 H (0-31) U/L Alkaline Phosphatase 82 (39-117) U/L Total Protein 6.5 (6.5-8.0) g/dL Albumin 4.1 (3.5-5.0) g/dL Lipase 24 (8-78) U/L Independent Interpretation I performed an independent interpretation of an: EKG Interpretation: EKG at 12:14 shows normal sinus rhythm at 69 beats per minute. It is a normal EKG. Discharge Plan Discharge Clinical Impression: Abdominal pain Patient Disposition: Home, Self-Care Instructions: Gastritis (ED) Additional Instructions: Your testing today is very reassuring. I do not think you have an acutely dangerous process at work. I think that your symptoms might be related to stomach acid issues. I have sent a prescription for the medication famotidine to your pharmacy. Please take this medication once a day. This will reduce stomach acid production. I have also sent a prescription for a 2nd medication called sucralfate. You may take this medication up to 2 times a day on an as-needed basis. Please keep your appointment with your regular doctor. Given how long you have had your abdominal symptoms it would be good for you to see a regulatory lead. I have given you the contact information for the [place] gastro[facility] office. Please contact them for a follow up appointment or get a referral from your primary care doctor. Return to the emergency room if significantly worse. Prescriptions: New famotidine [Pepcid] 40 mg tablet 40 mg PO DAILY Qty: 30 0RF sucralfate 1 gram tablet 1 g PO BID PRN (Reason: abdominal pain) Qty: 60 0RF Referrals: [facility] [Provider Group] [facility] [Provider Group, Gastroenterology] Print Language: Luxembourgish
[2025-07-09 13:20] LABS: MANUAL DIFF FLAG NO
[2025-07-09 13:22] LABS: Hematocrit 38.4 % (37.0-47.0); Hemoglobin 13.0 g/dl (12.0-16.0); Imm Gran Abs Auto 0.02 X10*3/uL (0.00-0.03); Imm Gran Pct Auto 0.2 % (0.0-0.4); Lymphocytes Absolute Auto 3.5 X10*3/uL (1.2-4.9); Mean Corpuscular HGB Conc 33.9 g/dl (31.0-35.0); Mean Corpuscular Hemoglobin 30.1 pg (27.0-33.0); Mean Corpuscular Volume 88.9 fL (80.0-98.0); NRBC Abs Auto 0.000 X10*3/uL (0.0-0.012); NRBC Pct Auto 0.0 /100WBC (0.0-0.2); Platelet Count 280 X10*3/uL (160-400); Red Blood Count 4.32 X10*6/uL (4.20-5.50); White Blood Count 8.5 X10*3/uL (4.8-10.8)
[2025-07-09 13:36] LABS: Alanine Aminotransferase 67 U/L (0-31); Albumin Level 4.1 g/dL (3.5-5.0); Alkaline Phosphatase 82 U/L (39-117); Anion Gap 7 (12-20); Aspartate Amino Transferase 20 U/L (5-31); Blood Urea Nitrogen 10 mg/dL (9-16); Calcium 8.5 mg/dL (8.4-10.2); Carbon Dioxide 27 mmol/L (22-29); Chloride 108 mmol/L (96-108); Creatinine Clr Calc Pharmacy 100.6; Estimated Glomerular Filt Rate > 60; Lipase 24 U/L (8-78); Magnesium 1.9 mg/dL (1.6-2.6); Potassium 3.7 mmol/L (3.3-5.1); Sodium 138 mmol/L (135-145); Total Protein 6.5 g/dL (6.5-8.0)
== END 2025-07-09 17:42 | disposition home or self-care (01) ==
LOC: HO.ED 17:42
PROVIDERS: Physician Assistant Medical; Emergency Provider Emergency Medicine; PCP Dentist General Practice
DX: R10.9 Unspecified abdominal pain (principal); R07.9 Chest pain, unspecified
CPT/HCPCS: 36415; 74018; 80048; 80076; 83690; 83735; 85025; 93005; 99283; 99284

== ENCOUNTER → 2025-07-09 12:12 | Outpatient (BNV) | payer MEDICAID, SELFPAY | PROVIDERS: Visit Provider Internal Medicine Cardiovascular Disease | DX: R00.1 Bradycardia, unspecified (principal) | CPT/HCPCS: 93010 ==

== ENCOUNTER → 2025-07-09 12:35 | Outpatient (BNV) | payer MEDICAID, SELFPAY | PROVIDERS: Visit Provider Radiology Diagnostic Radiology | DX: K59.00 Constipation, unspecified (principal) | CPT/HCPCS: 74018 ==